=== PATIENT | female | born 1950 | race Caucasian/White ===

== ENCOUNTER → 2017-04-19 | Outpatient (CLI) | payer MEDICARE, OTHER ==
[~2017-04-19] MED LIST: ASPI-482 PO; CETI10TA22 PO; LISI1TAB3 PO; MULT1TAB52 PO
--- NOTE | 2017-04-19 11:42 | RAD ---
DATE: 04/19/2017 EXAM: DIGITAL DIAGNOSTIC BILATERAL, BREAST LEFT diagnostic bilateral digital 2-D mammogram and left breast ultrasound HISTORY: Palpable left breast lump COMPARISON: None Findings: Bilateral diagnostic mammogram: This study was interpreted with the benefit of Computerized Aided Detection (CAD). The breast parenchyma shows scattered fibroglandular densities. Breast parenchyma level B Bilateral digital 2-D CC and MLO views. There is a left breast mass at the 10:00 position, posterior depth. No suspicious mass, calcic is architectural distortion in the right breast. Left breast ultrasound: At the 10:00 position 6 cm from the nipple, there is an irregular hypoechoic mass with angular margins and peripheral echogenicity measuring 1.2 x 1.0 x 1.6 cm. Survey of the left axilla demonstrates no suspicious adenopathy. IMPRESSION: Suspicious left breast mass at 10:00 position 6 and wrist from the nipple measuring 1.6 cm. Ultrasound-guided biopsy of left breast mass is recommended. These findings were discussed with the patient in person by Dr. Nahid Oneal 04/19/2017. These results were discussed with Dr. Kumari's nurse Esthela Lopez, by telephone at 11:35 AM BI-RADS CATEGORY: 5 HIGHLY SUGGESTIVE MALIGNANCY RECOMMENDED FOLLOW-UP: BIO BIOPSY RECOMMENDED PQRS compliance statement: Patient information was entered into a reminder system with a target due date for the next mammogram. Mammography is a sensitive method for finding small breast cancers, but it does not detect them all and is not a substitute for careful clinical examination. A negative mammogram does not negate a clinically suspicious finding and should not result in delay in biopsying a clinically suspicious abnormality. "Our facility is accredited by the [employer] Mammography Program."
== END | disposition home or self-care (01) ==
LOC: MAMMO 09:15
PROVIDERS: ATTEND Family Medicine
DX: N63.20 Unspecified lump in the left breast, unspecified quadrant (principal)
CPT/HCPCS: 76641; G0204; 77066

== ENCOUNTER → 2017-05-06 | Outpatient (CLI) | payer MEDICARE, OTHER ==
[~2017-05-06] MED LIST changes: -ASPI-482 PO; -CETI10TA22 PO; +LIDOCAINE 1% / SOD BICARB 8.4% 20 ML VIAL. IJ ONE; +LIDOCAINE 2%/EPI 1:100,000 20 ML VIAL. IJ ONE; -LISI1TAB3 PO; -MULT1TAB52 PO
--- NOTE | 2017-05-08 11:06 | PATHOLOGY ---
PATHOLOGY REPORT * * * * * * * * FINAL DIAGNOSIS: Breast tissue, left breast mass 10:00 needle biopsy: - INVASIVE DUCTAL CARCINOMA, HIGH-GRADE. SEE COMMENT. COMMENT: Sections of the left breast mass at 10:00 needle biopsy reveal an invasive high-grade ductal carcinoma. The tumor shows little tubule formation, marked nuclear pleomorphism, and marked mitotic activity. The invasive tumor is associated with a reactive desmoplastic stroma. There is focal tumor necrosis. The invasive carcinoma measures up to approximately 1.1 cm in greatest dimension. There are no tumor associated calcifications. There is no lymphovascular tumor invasion. Breast prognostic studies will be obtained, the results of which will be reported separately. The case is also examined by Dr. Barnes, who concurs with the diagnosis. (JPM:mgsid; 05/07/2017) REPORT ELECTRONICALLY SIGNED BY: Theodore Hampton M.D. DATE/TIME: 05/08/2017 11:05 * * * * * * * * GROSS PATHOLOGY: Received in formalin labeled "Monse Rodriguez, left breast," and additionally labeled on the requisition as "10:00 1.6 cm," are multiple needle cores of yellow-morris fibrofatty tissue measuring 2.1 x 0.9 x 0.2 cm in aggregate dimensions. The tissue is submitted in its entirety in cassette A1 through A3. The cold ischemic time is less than 1 minute. The total formalin fixation time is 7 hours and 43 minutes. (TSD; 05/06/2017) INITIAL CPT CODE(S): A; 28637, 86721(4) Professional services performed by [facility] [place] [address] Technical services performed by [facility] at [address] [place] [address], [facility] [address] [address]. SPECIMEN(S) RECEIVED: A.Left breast biopsy @ 10 o'clock 1.6 cm CLINICAL HISTORY: Left breast mass PATIENT: MONSE RODRIGUEZ /AGE: 3 1950 (Age: 66) PATIENT #: [id number] ALT CASE #: SPECIMEN COLLECTION DATE: 05/06/2017 SPECIMEN RECEIVED DATE: 05/06/2017 [facility] - [address] [place] [address] - PHONE: [phone] * * * END OF REPORT * * *
--- NOTE | 2017-05-09 08:37 | RAD ---
Ultrasound-guided left breast biopsy, 05/06/2017: History: Suspicious breast nodule Previous studies demonstrated a hypoechoic nodule at the 10:00 location in the left breast. Under local anesthesia, aseptic conditions and sonographic guidance the [employer] biopsy instrument was passed into this nodule via a lateral approach. Multiple 12-gauge vacuum assisted core samples were obtained and sent to pathology for evaluation. A biopsy marker was then deposited at the biopsy site. The biopsy instrument was removed and hemostasis obtained. Two-view postprocedural digital mammograms show that the biopsy marker has migrated slightly lying 8 mm medial to the medial margin of the biopsied mass. The patient tolerated the procedure well and left the department in good condition. The subsequent pathology report indicated the presence of invasive ductal carcinoma, high-grade. This is a concordant finding. Note: The findings were called to Dr. Storm's office at 8:32 AM on 05/09/2017.
== END | disposition home or self-care (01) ==
LOC: US 14:10
PROVIDERS: ATTEND Surgery
DX: N63.20 Unspecified lump in the left breast, unspecified quadrant (principal)
CPT/HCPCS: 76942; C1713; G0206; 77065

== ENCOUNTER 2017-05-17 09:09 | Inpatient (IN) | payer MEDICARE, OTHER ==
[~2017-05-17] VITALS: Ht 162.6 cm; Wt 73.5 kg
[2017-05-17] VITALS (11 sets, daily range): BP systolic 133–182; BP diastolic 69–89
[~2017-05-17 09:09] MED LIST changes: +ASPI-482 PO; +BUPIVAC MPF-EPI 0.5%-1:200000 30 ML VIAL. ONE; +CETI10TA22 PO; +HYDROmorphone 2 MG/ML VIAL IV PRN; +ISOSULFAN BLUE 50 MG/5 ML VIAL. SQ ONE; +IV RINGERS,LACTATED 1000ML 1,000 ML IV SCH; -LIDOCAINE 1% / SOD BICARB 8.4% 20 ML VIAL. IJ ONE; +LIDOCAINE 1% PF 2 ML VIAL. ID PRN; -LIDOCAINE 2%/EPI 1:100,000 20 ML VIAL. IJ ONE; +LISI1TAB3 PO; +MORPHINE SULFATE 2 MG/ML DISP.SYRIN. IV PRN; +MULT1TAB52 PO; +ONDANSETRON PF 4 MG/2 ML VIAL. IV PRN; +PROCHLORPERAZINE 10 MG/2 ML VIAL. IV PRN; +fentaNYL PF VIAL 100 MCG/2 ML VIAL IV PRN
[2017-05-17] MEDS ORDERED: LIDOCAINE 1% / SOD BICARB 8.4% 20 ML VIAL. IJ ONE (09:45)
[2017-05-17] MEDS ORDERED: ONDANSETRON PF 4 MG/2 ML VIAL. ONE (09:55)
[2017-05-17] MEDS ORDERED: DEXAMETHASONE SOD PHOS 20 MG/5 ML VIAL. ONE (09:55)
[2017-05-17] MEDS ORDERED: MIDAZOLAM HCL/PF 2 MG/2 ML VIAL. ONE (09:55)
[2017-05-17] MEDS ORDERED: LIDOCAINE 2% PF Vial for OR 5 ML VIAL. ONE (09:55)
[2017-05-17] MEDS ORDERED: fentaNYL PF VIAL 100 MCG/2 ML VIAL ONE ×2 (09:55→12:04)
[2017-05-17] MEDS ORDERED: PROPOFOL 20 ML IV ONE (09:56)
[2017-05-17] MEDS ORDERED: KETOROLAC 30 MG/ML INJ FOR OR. INJ ONE (09:56)
[2017-05-17] MEDS ORDERED: diphenhydrAMINE 50 MG/ML VIAL ONE (10:00)
[2017-05-17] MEDS ORDERED: PHENYLEPHRINE in 0.9% NACL PF 1 MG/10 ML SYRINGE. IV ONE (11:28)
[2017-05-17] MEDS ORDERED: POTASSIUM CL 20MEQ-0.45% NACL 1,000 ML IV SCH (13:12)
[2017-05-17] MEDS ORDERED: HYDROmorphone 2 MG/ML VIAL IV PRN (13:15)
[2017-05-17] MEDS ORDERED: ONDANSETRON PF 4 MG/2 ML VIAL. IV PRN (13:15)
[2017-05-17] MEDS ORDERED: diphenhydrAMINE HCL 25 MG CAPSULE PO PRN (13:15)
[2017-05-17] MEDS ORDERED: 0.9 % SODIUM CHLORIDE 10 ML DISP.SYRIN. IV PRN (13:15)
[2017-05-17] MEDS ORDERED: diphenhydrAMINE 50 MG/ML VIAL IV PRN (13:15)
--- NOTE | 2017-05-17 13:28 | PDOC ---
BRIEF OPERATIVE NOTE Date: May 17, 2017 Pre-Op Diagnosis biopsy proven invasive carcinoma, left breast Post-Op Diagnosis same Procedure Performed left simple mastectomy left axillary SLN biopsy Surgeon Emeterio Anesthesia Type: General Blood Loss 25cc IV Fluid 800cc Specimens Obtained "hot" blue left axillary lymph node left breast Findings negative SLN on frozen section Complications none Operative Note Wk # [id number] SHARRI SHRESTHA MD May 17, 2017 13:28
--- NOTE | 2017-05-17 13:39 | OP ---
DATE OF SURGERY: 05/17/2017 PREOPERATIVE DIAGNOSIS: Biopsy proven invasive carcinoma, left breast. POSTOPERATIVE DIAGNOSIS: Biopsy proven invasive carcinoma, left breast. PROCEDURE: Left simple mastectomy and left axillary sentinel lymph node biopsy. SURGEON: Sharri Shrestha MD. ANESTHESIA: General LMA. ESTIMATED BLOOD LOSS: 25 mL. INTRAVENOUS FLUID: 800 mL. INDICATIONS: The patient is a 66-year-old lady with biopsy proven invasive carcinoma of the left breast, brought for mastectomy and sentinel node biopsy. OPERATIVE REPORT: The patient was brought to the operating suite, given a general LMA and the left breast, arm and chest were prepped and draped in usual sterile fashion. 4 mL of Lymphazurin was injected intradermally circumareolarly in the quadrant corresponding to the location of the tumor. The breast was then gently massaged for 4 minutes. An elliptical skin incision was outlined with a marking pen. Superior incision made and skin flap developed with cautery dissection. We took our dissection up into the axilla where with the help of the C-Trak probe and the staining from the Lymphazurin, we identified a "hot" blue lymph node. This was harvested and sent to pathology for frozen section. While awaiting those results, the inferior skin flap was made, developed with cautery dissection and the breast was swept off the chest wall from medial to lateral to the lateral margin of the pectoralis musculature. The low level axillary contents were swept out inferomedially along with the breast and was removed en bloc. Intraoperative report from the pathologist was negative for evidence of metastatic disease in the sentinel node. As such, we checked the wound for hemostasis. This was obtained with cautery or 3-0 Vicryl stick ties. When hemostasis was present and a correct sponge count was obtained, two 19-Japanese round Ney drains were placed. The lateral drain in the axilla, medial drain under the superior skin flap. Each was secured to the skin with a 2-0 silk suture and neither showed evidence of bleeding from the insertion site. Wound was then closed with interrupted inverted 3-0 Vicryl in subcutaneous tissue, subcuticular 4-0 Monocryl with Steri-Strips for the skin. Sterile dressing applied. The patient awakened from her anesthetic and taken to the recovery room in satisfactory condition. SHARRI SRHESTHA MD DR: Margaret JOB#: [id number] / [id number]
--- NOTE | 2017-05-17 13:49 | RAD ---
Indication: Left breast cancer. Technique: The procedure, its risk and benefits, and potential complications was discussed with the patient. All questions were answered. Written consent was obtained. Timeout procedure was performed. Patient was prepped in the usual manner. Using topical analgesic spray, four dermal periareolar injections were performed. Total dose of the 4 injections is 1.0 mCi technetium 99m labeled filtered sulfur colloid. Patient tolerated procedure well. Patient was transferred to the operative suite prior to any imaging performed in the department. Impression: Lymphoscintigraphy for intraoperative planning purposes.
[2017-05-17] MEDS: hydroCHLOROthiazide 12.5 MG CAPSULE PO SCH (17:00)
[2017-05-17] MEDS ORDERED: CETIRIZINE HCL 10 MG TABLET. PO SCH (17:00)
[2017-05-17] MEDS: LISINOPRIL 10 MG TABLET PO SCH (17:01)
[2017-05-17] MEDS: oxyCODONE/APAP 5/325 1 TAB TABLET PO PRN (20:57)
[2017-05-17] MEDS: DOCUSATE SODIUM 100 MG CAPSULE. PO SCH (20:57)
[2017-05-17] MEDS: ENOXAPARIN 40 MG/0.4 ML SYRINGE. SQ SCH (23:10)
[2017-05-18 03:00] VITALS: BP 141/77
[2017-05-18 07:00] VITALS: BP 94/53
[2017-05-18] MEDS: DOCUSATE SODIUM 100 MG CAPSULE. PO SCH ×2 (08:52→23:19)
[2017-05-18] MEDS: hydroCHLOROthiazide 12.5 MG CAPSULE PO SCH (08:53)
[2017-05-18] MEDS: MULTIVITAMIN with MINERAL TABLET. PO SCH (08:53)
[2017-05-18] MEDS: CETIRIZINE HCL 10 MG TABLET. PO SCH (08:53)
[2017-05-18] MEDS: LISINOPRIL 10 MG TABLET PO SCH (09:00)
[2017-05-18] MEDS ORDERED: NON FORMULARY ITEM (Lisinopril/Hydrochlorothiazide (Lisinopril-Hctz 10-12.5 Mg Tab) 1 TAB) PO SCH (09:00)
[2017-05-18 10:35] VITALS: BP 115/62
--- NOTE | 2017-05-18 10:56 | PDOC ---
SURGICAL PROGRESS NOTE Subjective Pt with c/o fatigue, less pain then she was expecting Vital Signs Vital Signs Date Time Temp Pulse Resp B/P (MAP) Pulse Ox O2 Delivery O2 Flow Rate FiO2 05/18/17 09:00 66 94/53 05/18/17 07:00 97.7 16 95 Room Air 97.7 05/17/17 12:39 10 I&O Intake and Output 05/18/17 07:00 Intake Total 1550 ml Output Total 115 ml Balance 1435 ml Intake IV Total 1550 ml Output Drainage Total 90 ml Estimated Blood Loss 25 ml # Voids 6 General: Alert, Oriented X3, Cooperative, No acute distress Lungs: Other (chest wall dressing c/d/i, KVNG min serosang) Problem List s/p mastectomy nursing noted crackles low BP will check CXR and ask primary for evaluation Problems: SUZETTE MONGE MD May 18, 2017 10:56
[2017-05-18] MEDS: POTASSIUM CL 20MEQ D5-0.9%NACL 1,000 ML IV SCH ×2 (11:30→21:30)
--- NOTE | 2017-05-18 12:11 | RAD ---
2 view chest 05/18/2017 Clinical indication: Crackles. Comparison: CT chest 11/10/2011 Findings: There are 2 surgical drains overlying the left hemithorax. Cardiac and mediastinal silhouettes are unremarkable. There are multiple mediastinal and left hilar calcified granulomas. No pleural effusion, pneumothorax or focal consolidation. There are multiple left upper quadrant surgical clips. There are multiple punctate nodular opacities in the apical left upper lobe, unchanged since 2012 and also likely sequela of prior granulomatous disease. Impression: No acute cardiopulmonary abnormality.
[2017-05-18 13:11] LABS: CALCIUM 8.9 mg/dL (8.5-10.1); CREATININE 0.8 mg/dL (0.6-1.0); GFR 71.5; POTASSIUM 3.4 mmol/L (3.5-5.1)
[2017-05-18 15:03] VITALS: BP 115/64
[2017-05-18 19:00] VITALS: BP 125/69
[2017-05-18 23:00] VITALS: BP 131/77
[2017-05-18] MEDS: ENOXAPARIN 40 MG/0.4 ML SYRINGE. SQ SCH (23:19)
[2017-05-18] MEDS: oxyCODONE/APAP 5/325 1 TAB TABLET PO PRN (23:28)
[2017-05-19 03:00] VITALS: BP 143/83
[2017-05-19 06:57] VITALS: BP 143/84
[2017-05-19] MEDS: POTASSIUM CL 20MEQ D5-0.9%NACL 1,000 ML IV SCH (07:30)
--- NOTE | 2017-05-19 07:34 | PDOC ---
Provider Note Provider Note [id number] ROSY BECKHAM MD May 19, 2017 07:34
--- NOTE | 2017-05-19 09:44 | PDOC3 ---
Discharge Summary Visit Information Date of Admission: May 17, 2017 Date of Discharge: May 19, 2017 Admitting Diagnosis: Breast cancer Brief Hospital Course Allergies Allergies Coded Allergies Type Severity Reaction Last Updated Verified bee venom protein (honey bee) Allergy Intermediate Swelling 05/17/17 Yes coconut Allergy Intermediate Rash 05/17/17 Yes Vital Signs Vital Signs Date Time Temp Pulse Resp B/P (MAP) Pulse Ox O2 Delivery O2 Flow Rate FiO2 05/19/17 06:57 96.9 100 18 143/84 (103) 90 Room Air 96.9 Lab Results Laboratory Tests Test 05/18/17 12:30 Sodium Level 138 mmol/L (136-145) Potassium Level 3.4 mmol/L (3.5-5.1) Chloride Level 100 mmol/L (98-107) Carbon Dioxide Level 31 mmol/L (21-32) Anion Gap 7 (6-14) Blood Urea Nitrogen 15 mg/dL (7-20) Creatinine 0.8 mg/dL (0.6-1.0) Estimated GFR (Cockcroft-Gault) 71.5 Glucose Level 113 mg/dL (70-99) Calcium Level 8.9 mg/dL (8.5-10.1) Laboratory Tests Test 05/18/17 12:30 Sodium Level 138 mmol/L (136-145) Potassium Level 3.4 mmol/L (3.5-5.1) Chloride Level 100 mmol/L (98-107) Carbon Dioxide Level 31 mmol/L (21-32) Anion Gap 7 (6-14) Blood Urea Nitrogen 15 mg/dL (7-20) Creatinine 0.8 mg/dL (0.6-1.0) Estimated GFR (Cockcroft-Gault) 71.5 Glucose Level 113 mg/dL (70-99) Calcium Level 8.9 mg/dL (8.5-10.1) Brief Hospital Course Ms. Rodriguez is a 66 old F who presented with left breast cancer. She underwent left mastectomy. POD #1 she was noted to have low BP. This resolved, and POD # 2 she was doing well and stable for d/c home. Discharge Information Scheduled Aspirin (Aspir 81), 81 MG PO BID, (Reported) Cetirizine Hcl (Zyrtec), 1 TAB PO DAILY, (Reported) Lisinopril/Hydrochlorothiazide (Lisinopril-Hctz 10-12.5 Mg Tab), 1 TAB PO DAILY, (Reported) Multivitamin (Multivitamins), 1 TAB PO DAILY, (Reported) Patient Instructions Patient Instructions Resume home meds diet as tolerated. activity as tolerated, gentle exercise left arm drain care instruction f/u with Dr. Storm in one week Scripts: rima gonzalez STEPHEN J MD May 19, 2017 09:44
[2017-05-19] MEDS: DOCUSATE SODIUM 100 MG CAPSULE. PO SCH (10:10)
[2017-05-19] MEDS: oxyCODONE/APAP 5/325 1 TAB TABLET PO PRN (10:10)
[2017-05-19] MEDS: MULTIVITAMIN with MINERAL TABLET. PO SCH (10:10)
[2017-05-19] MEDS: CETIRIZINE HCL 10 MG TABLET. PO SCH (10:10)
[2017-05-19 11:00] VITALS: BP 135/71
--- NOTE | 2017-05-19 12:07 | CONS ---
DATE OF CONSULTATION: 05/19/2017 CHIEF COMPLAINT: Low blood pressure after surgery. HISTORY OF PRESENT ILLNESS: A 66-year-old white female known to me for recent first exam for left breast mass, also has a lesion on her scalp that was recently biopsied, felt to be a basal cell cancer. She underwent left mastectomy by Dr. Storm on day of admission and I was consulted for low blood pressure. She does take lisinopril and hydrochlorothiazide. Has preoperative medications and these meds were held and IV fluids ordered and blood pressure has improved since that time. PAST MEDICAL HISTORY: Well documented in the old records. ALLERGIES: No drug allergies. No other meds. SOCIAL HISTORY: She is , nonsmoker, nondrinker, physically active. FAMILY HISTORY: Unremarkable. REVIEW OF SYSTEMS: No other complaints. OBJECTIVE: ENT: All within normal limits except for the 12 mm irregular scalp lesion in the left frontal scalp, status post biopsy. NECK: No masses, nodes or bruits. LUNGS: Clear. CARDIOVASCULAR: Regular rate. No irregular beat or murmur. ABDOMEN: Benign. EXTREMITIES: Good pedal and radial pulses, good skin turgor. No joint or skin lesions. NEUROLOGIC: Physiologic. ASSESSMENT: Postoperative hypotension, primarily due to antihypertensive medications. She is stable, status post left mastectomy and also has a left scalp lesion, likely a basal cell cancer. Potassium was mildly low at 3.4. PLAN: Continue IV hydration today and stop IV fluids. Hold blood pressure medicines for now. We will follow. ROSY BECKHAM MD DR: SHOBHA/karthikeyan JOB#: [id number] / [id number]
--- NOTE | 2017-05-22 00:02 | PATHOLOGY ---
PATHOLOGY REPORT * * * * * * * * FINAL DIAGNOSIS: A. Lymph node, left axillary sentinel lymph node hot and blue: - Negative for tumor (0/1). B. Breast, left simple mastectomy: - INVASIVE DUCTAL CARCINOMA, HIGH-GRADE, FORMING A TUMOR MASS OF THE UPPER INNER QUADRANT MEASURING 2.2 CM IN GREATEST DIMENSION. SEE SYNOPTIC REPORT. - TUMOR IS FOCALLY 0.1 CM FROM THE CLOSEST (ANTERIOR) MARGIN OF RESECTION. - Deep margin of resection negative for tumor. - Nipple negative for tumor. - No lymphovascular tumor invasion identified. - Recent biopsy site changes. - DUCTAL CARCINOMA IN SITU, LOW GRADE, SOLID TYPE, FOCAL. - Intraductal papillomas. - Fibrocystic changes with focal moderate ductal epithelial hyperplasia. CLINICAL Clinical History: Other: Breast mass. Radiologic Finding: Mass or architectural distortion SPECIMEN Procedure: Total mastectomy (including nipple and skin) Lymph Node Sampling: Cassatt lymph node(s) Specimen Laterality: Left TUMOR Primary Tumor Site: Invasive Carcinoma: Upper inner quadrant Presence of Invasive Carcinoma: Histologic Type: Invasive mammary carcinoma of no special type (ductal, not otherwise specified) Histologic Grade (Ana Histologic Score): Glandular (Acinar) / Tubular Differentiation: Score 3 (< 10% of tumor area forming glandular / tubular structures) Nuclear Pleomorphism: Score 3 (Vesicular nuclei, often with prominent nucleoli, exhibiting marked variation in size and shape, occasionally with very large and bizarre forms) Mitotic Rate: Score 3 (>=8 mitoses per mm2) Overall Grade: Grade 3 (scores of 8 or 9) Ductal Carcinoma In Situ (DCIS): DCIS is present Negative for extensive intraductal component (EIC) Architectural Patterns: Solid Nuclear Grade (see Table 2 in CAP Protocol): Grade I (low) Necrosis: Not identified Lobular Carcinoma In Situ (LCIS): Not identified Tumor Size: Size of Largest Invasive Carcinoma: Greatest dimension of largest focus of invasion > 1 mm Greatest Dimension (mm): 22 Accessory Tumor Findings Lymph-Vascular Invasion: Not identified Dermal Lymph-Vascular Invasion: Not identified Microcalcifications: Present in nonneoplastic tissue Treatment Effect: Response to Presurgical (Neoadjuvant) Therapy: No known presurgical therapy MARGINS Invasive Carcinoma: Margins uninvolved by invasive carcinoma Distance from Closest Margin: Distance (specify in mm): 1 Closest Uninvolved Margin: Anterior Posterior: 15 Ductal Carcinoma In Situ (DCIS): Margins cannot be assessed: . LYMPH NODES Regional Lymph Nodes: Cassatt lymph node biopsy performed Number of Cassatt Nodes Examined: Specify number: 1 Method of Evaluation of Cassatt Lymph Node(s): Hematoxylin and eosin (H-E), one level Immunohistochemistry Number of Lymph Node(s) Examined (sentinel and nonsentinel): Specify number: 1 STAGE (PTNM) Primary Tumor (Invasive Carcinoma) (pT): pT2: Tumor > 20 mm but <= 50 mm in greatest dimension Category (pN): pN0 (i-): No regional lymph node metastases histologically, negative IHC ADDITIONAL FINDINGS Additional Pathologic Findings: See diagnoses. COMMENT: Sections of the left simple mastectomy reveal an invasive high grade ductal carcinoma, forming a tumor mass of the upper inner quadrant measuring 2.2 cm in greatest dimension. The tumor focally is 0.1 cm from the closest anterior margin of resection. There is no lymphovascular tumor invasion. A single left axillary sentinel lymph node is examined. An immunoperoxidase stain for AE1/AE3 is obtained on this sentinel lymph node and yields the following results: AE1/AE3 (A1) - negative for tumor AE1/AE3 (A2) - negative for tumor (JPM:rlnicola; 05/20/2017) Special stain performed: Immunoperoxidase stain AE1/AE3 on A1 and A2. REPORT ELECTRONICALLY SIGNED BY: Theodore Hampton M.D. DATE/TIME: 05/21/2017 16:05 * * * * * * * * GROSS PATHOLOGY: A. The specimen is received fresh for intraoperative consultation and is designated "left axillary sentinel lymph node hot and blue". This consists of a pinkish-brown lymph node with attached adipose tissue measuring up to 2.1 x 1.7 x 1.2 cm. There is focal bluish discoloration. The specimen is bisected. Sectioning reveals a yellow fatty slightly firm lymph node showing focal bluish discoloration. There is no gross evidence of tumor replacement. One half of the lymph node is submitted for frozen section as FSA1. The tissue remaining from frozen section is submitted for permanent sections as A1. (JPM:[facility]; 05/17/2017) B. Received in formalin labeled "Monse Rodriguez, left breast" and further labeled on the requisition as "stitch at 9:00" is an oriented simple mastectomy specimen which weighs 480 g and measures 22.6 cm from medial to lateral, 19.5 cm from superior to inferior, and 3.2 cm from anterior to posterior. On the anterior surface is an ellipse of mccollum-white skin measuring 17.3 x 7.3 cm, which has a centrally located everted nipple measuring 1.2 x 1.0 x 0.7 cm. The skin surface is grossly unremarkable without induration or retraction. The anterior margin is inked blue and the posterior margin is inked black. The specimen is serially sectioned to reveal a mccollum-white stellate lesion in the upper inner quadrant at approximately 10:00, 3.5 cm from the nipple. The lesion measures 2.2 x 1.6 x 1.5 cm, and is located to the margins as follows: 5.9 cm from medial, 7.2 cm from lateral, 2.2 cm from superior, 11.7 cm from inferior, less than 0.1 cm from anterior, and 1.5 cm from posterior. The uninvolved breast parenchyma is 70% yellow and lobulated and 30% dense white and fibrous, with central focal possible calcifications measuring 0.1-0.2 cm in greatest dimension. No additional masses are identified. Escort Vehicle [employer] sections of the specimen are submitted as follows: B1 upper outer quadrant B2 lower outer quadrant B3 lower inner quadrant B4 upper inner quadrant B5 skin closest to lesion B6 nipple, serially sectioned B7 deep margin closest to lesion B8-B13 entire lesion with anterior margin, submitted sequentially from medial to lateral. The specimen is removed from the patient and placed in formalin at 1213 on 05/17/17. The specimen is removed from formalin at 1925 on 05/19/17. ([facility]; 05/18/2017) FROZEN SECTION DIAGNOSIS: FSA1. Left axillary sentinel lymph node hot and blue: - Negative for tumor. The results are reported to Dr. Storm in the operating room. The remainder of the lymph node is submitted for microscopy as A2. (JPM:deanna/rlnicola; 05/20/2017) Testing performed by [facility] [place] [address] INITIAL CPT CODE(S): A; 90929, 44735, 62456, 30201 B; 20311 Professional services performed by [facility] at [address] [address] Technical services performed by [facility] at [address] [place] [address], [address] [address]. SPECIMEN(S) RECEIVED: A.Left axillary sentinel lymph node, hot and blue B.Left breast CLINICAL HISTORY: Left breast cancer. PATIENT: MONSE RODRIGUEZ /AGE: 3 1950 (Age: 66) PATIENT #: [id number] ALT CASE #: SPECIMEN COLLECTION DATE: 05/17/2017 SPECIMEN RECEIVED DATE: 05/17/2017 [facility] - [address] [place] [address] - PHONE: [phone] * * * END OF REPORT * * *
== END 2017-05-19 12:30 | disposition home or self-care (01) | DRG 581 ==
LOC: OPSVCIP 09:09 → EDSTATUS 10:45 → 4 NORTH 13:44
PROVIDERS: ADMIT Surgery; ATTEND Surgery
PROC: 07B60ZX Excision of Left Axillary Lymphatic, Open Approach, Diagnostic (ICD-10-PCS; principal; 2017-05-17 10:45)
PROC: 0HBU0ZZ Excision of Left Breast, Open Approach (ICD-10-PCS; 2017-05-17 10:45)
DX: C50.912 Malignant neoplasm of unspecified site of left female breast (principal); I95.9 Hypotension, unspecified; Z85.828 Personal history of other malignant neoplasm of skin; Z90.12 Acquired absence of left breast and nipple; Z91.030 Bee allergy status; Z91.018 Allergy to other foods
CPT/HCPCS: 36415; 38792; 71020; 80048; 82040; 85025; 96374; A9541; C1769; J0690; J1100; J1170; J1200; J1650; J1885; J2250; J2270; J2370; J2405; J2704; J3010; J3490; J7120; Q9968; J2001

== ENCOUNTER → 2017-06-11 | Outpatient (CLI) | payer MEDICARE, OTHER | END | disposition home or self-care (01) | LOC: ECHO 13:19 | DX: R94.39 Abnormal result of other cardiovascular function study (principal); C50.212 Malignant neoplasm of upper-inner quadrant of left female breast; Z17.1 Estrogen receptor negative status [ER-] | CPT/HCPCS: 93308 ==

== ENCOUNTER 2017-07-22 08:08 | Day surgery (SDC) | payer MEDICARE, OTHER ==
[~2017-07-22 08:08] MED LIST changes: -ASPI-482 PO; -BUPIVAC MPF-EPI 0.5%-1:200000 30 ML VIAL. ONE; -CETI10TA22 PO; +HYDROmorphone 2 MG/ML VIAL IV; -HYDROmorphone 2 MG/ML VIAL IV PRN; -ISOSULFAN BLUE 50 MG/5 ML VIAL. SQ ONE; -IV RINGERS,LACTATED 1000ML 1,000 ML IV SCH; +LIDOCAINE 1% PF 2 ML VIAL. ID; -LIDOCAINE 1% PF 2 ML VIAL. ID PRN; -LISI1TAB3 PO; +MORPHINE SULFATE 2 MG/ML DISP.SYRIN. IV; -MORPHINE SULFATE 2 MG/ML DISP.SYRIN. IV PRN; -MULT1TAB52 PO; +ONDANSETRON PF 4 MG/2 ML VIAL. IV; -ONDANSETRON PF 4 MG/2 ML VIAL. IV PRN; +PROCHLORPERAZINE 10 MG/2 ML VIAL. IV; -PROCHLORPERAZINE 10 MG/2 ML VIAL. IV PRN; +ceFAZolin 2GM PREMIX 2 GM/50 ML BAG IV; +fentaNYL PF VIAL 100 MCG/2 ML VIAL IV; -fentaNYL PF VIAL 100 MCG/2 ML VIAL IV PRN
[2017-07-22] MEDS ORDERED: NEOMY/BACITR/POLYMYXIN OINT PACKET. TP ×2 (08:35)
[2017-07-22] MEDS: IV RINGERS,LACTATED 1000ML 1,000 ML IV ×2 (08:44)
[2017-07-22] MEDS ORDERED: DEXAMETHASONE SOD PHOS 20 MG/5 ML VIAL. ×2 (08:46)
[2017-07-22] MEDS ORDERED: fentaNYL PF VIAL 100 MCG/2 ML VIAL ×2 (08:46)
[2017-07-22] MEDS ORDERED: PROPOFOL 20 ML IV ×2 (08:46)
[2017-07-22] MEDS ORDERED: LIDOCAINE 2% PF Vial for OR 5 ML VIAL. ×2 (08:46)
[2017-07-22] MEDS ORDERED: ONDANSETRON PF 4 MG/2 ML VIAL. ×2 (08:46)
[2017-07-22] MEDS ORDERED: SEVOFLURANE 31 TO 60 MINUTES. IH ×2 (08:58)
[2017-07-22] MEDS: BUPIVACAINE MPF 0.5% 30 ML VIAL. ×2 (09:13)
[2017-07-22] MEDS: BUPIVAC MPF-EPI 0.5%-1:200000 30 ML VIAL. INJ ×2 (09:13)
[2017-07-22] MEDS: HEPARIN SODIUM 5,000 UNIT in IV NORMAL SALINE 500ML BAG 500 ML IRR (09:13)
[2017-07-22] MEDS ORDERED: PHENYLEPHRINE in 0.9% NACL PF 1 MG/10 ML SYRINGE. IV (09:28)
[2017-07-22] MEDS: oxyCODONE/APAP 5/325 1 TAB TABLET PO ×2 (10:27)
== END 2017-07-22 11:13 | disposition home or self-care (01) ==
LOC: SURG 08:08
DX: C50.912 Malignant neoplasm of unspecified site of left female breast (principal); M19.90 Unspecified osteoarthritis, unspecified site; E66.9 Obesity, unspecified; Z85.828 Personal history of other malignant neoplasm of skin; Z68.42 Body mass index [BMI] 45.0-49.9, adult; K21.9 Gastro-esophageal reflux disease without esophagitis; F17.200 Nicotine dependence, unspecified, uncomplicated; Z85.71 Personal history of Hodgkin lymphoma; Z87.19 Personal history of other diseases of the digestive system; Z98.890 Other specified postprocedural states; Z90.49 Acquired absence of other specified parts of digestive tract; Z91.048 Other nonmedicinal substance allergy status; Z90.710 Acquired absence of both cervix and uterus; Z90.12 Acquired absence of left breast and nipple; Z72.89 Other problems related to lifestyle; Z90.81 Acquired absence of spleen; Z82.49 Family history of ischemic heart disease and other diseases of the circulatory system; Z80.3 Family history of malignant neoplasm of breast; Z87.891 Personal history of nicotine dependence; Z91.030 Bee allergy status; Z91.018 Allergy to other foods; Z85.41 Personal history of malignant neoplasm of cervix uteri; I10 Essential (primary) hypertension; Z79.82 Long term (current) use of aspirin; Z68.41 Body mass index [BMI] 40.0-44.9, adult
CPT/HCPCS: 36556; 36561; 71045; 77001; C1769; C1788; J0690; J1100; J1644; J2370; J2405; J2704; J3010; J3490; J7040

== ENCOUNTER → 2017-10-14 | Outpatient (CLI) | payer MEDICARE, OTHER ==
[2017-10-14] MEDS: IOHEXOL 240 MG/ML 50ML VIAL. PO (10:34)
[2017-10-14] MEDS: IOHEXOL 300 MG/ML 100ML VIAL. IV (10:34)
[2017-10-14] MEDS: HEPARIN PF 500 UNIT/5 ML DISP.SYRIN. IV (10:35)
== END | disposition home or self-care (01) ==
LOC: NM 09:13
DX: C50.212 Malignant neoplasm of upper-inner quadrant of left female breast (principal); Z90.49 Acquired absence of other specified parts of digestive tract
CPT/HCPCS: 71260; 74177; 78306; 96374; A9503; Q9966; Q9967

== ENCOUNTER → 2018-01-29 | Day surgery (SDC) | payer MEDICARE, OTHER ==
[~2018-01-29] MED LIST changes: +ASPI-482 PO; +CETI10TA22 PO; +DOCU-150 PO; +HYDR12.53 PO; -HYDROmorphone 2 MG/ML VIAL IV; -LIDOCAINE 1% PF 2 ML VIAL. ID; +LIDOCAINE 1% PF 2 ML VIAL. ID PRN; +LIDOCAINE 2% PF Vial for OR 5 ML VIAL. ONE; +LISI1TAB3 PO; +MIDAZOLAM HCL/PF 2 MG/2 ML VIAL. IV PRN; -MORPHINE SULFATE 2 MG/ML DISP.SYRIN. IV; +MULT1TAB52 PO; -ONDANSETRON PF 4 MG/2 ML VIAL. IV; +OXYC-323 PO; -PROCHLORPERAZINE 10 MG/2 ML VIAL. IV; +PROPOFOL 40 ML IV ONE; -ceFAZolin 2GM PREMIX 2 GM/50 ML BAG IV; -fentaNYL PF VIAL 100 MCG/2 ML VIAL IV; +fentaNYL PF VIAL 100 MCG/2 ML VIAL IV PRN
[2018-01-29] MEDS: IV RINGERS,LACTATED 1000ML 1,000 ML IV SCH (07:56)
[2018-01-29 09:22] VITALS: BP 106/68
--- NOTE | 2018-01-29 21:58 | HP ---
ADMIT DATE: 01/29/2018 REFERRING PHYSICIAN: Dr. Rosy Kumari. REASON FOR PRESENTATION: History of colon polyps. HISTORY OF PRESENT ILLNESS: This is a 67-year-old female, with past medical history significant for breast cancer, status post treatments as well as previous hysterectomy, appendectomy, cholecystectomy as well as Hodgkin lymphoma, anxiety, asthma, hypertension, seen for interval colon exam. Bowel habits are regular without diarrhea or constipation. There has been no melena and/or hematochezia. Weight and appetite are stable. Last colonoscopy in 2012 did reveal polyps at that time. PAST MEDICAL HISTORY: Breast cancer, Hodgkin lymphoma, hypertension, status post cholecystectomy, hysterectomy, appendectomy and lumpectomy. ALLERGIES: SULFASALAZINE. MEDICATIONS: Include hydrochlorothiazide. SOCIAL HISTORY: Former smoker and drinker. FAMILY HISTORY: Significant for colon polyps in mother and aunt, [place] with her mother, ovarian cancer with mother and aunt. REVIEW OF SYSTEMS: Per records. PHYSICAL EXAMINATION: GENERAL: Reveals a well-nourished, well-developed female who is alert, cooperative, in no acute distress. VITAL SIGNS: Temperature is 97.5, pulse 113, respirations 20. HEENT: Normocephalic, atraumatic head. Pupils and extraocular muscles are not tested. Sclerae anicteric. NECK: Supple. LUNGS: Clear. CARDIOVASCULAR: Reveals an S1, S2 without S3, S4 or appreciable murmur. ABDOMEN: Soft abdomen. Normoactive bowel sounds without appreciable hepatosplenomegaly. EXTREMITIES: Reveals no cyanosis, clubbing or edema. IMPRESSION: History of colonic polyps. Surveillance exam is recommended at this time. Risks and benefits of procedure were discussed with the patient including risk of perforation, is willing to proceed. TUSHAR PATEL MD DR: ROB/karthikeyan JOB#: [id number] / [id number] ROSY Duran MD
== END | disposition home or self-care (01) ==
LOC: SURG 07:16
PROVIDERS: ATTEND Internal Medicine Gastroenterology
DX: Z12.11 Encounter for screening for malignant neoplasm of colon (principal); K57.30 Diverticulosis of large intestine without perforation or abscess without bleeding; K64.0 First degree hemorrhoids; Z86.010 Personal history of colon polyps; Z85.3 Personal history of malignant neoplasm of breast; Z90.49 Acquired absence of other specified parts of digestive tract; Z90.710 Acquired absence of both cervix and uterus; Z85.71 Personal history of Hodgkin lymphoma; F41.9 Anxiety disorder, unspecified; J45.909 Unspecified asthma, uncomplicated; I10 Essential (primary) hypertension; Z88.2 Allergy status to sulfonamides; Z79.899 Other long term (current) drug therapy; Z87.891 Personal history of nicotine dependence; Z72.89 Other problems related to lifestyle; Z83.71 Family history of colonic polyps; Z82.49 Family history of ischemic heart disease and other diseases of the circulatory system; Z80.41 Family history of malignant neoplasm of ovary
CPT/HCPCS: G0105; J2001; J2704; 45378

== ENCOUNTER → 2018-03-14 | Outpatient (CLI) | payer MEDICARE, OTHER ==
[2018-01-29 09:22] VITALS: BP 106/68
[~2018-03-14] MED LIST changes: -LIDOCAINE 1% PF 2 ML VIAL. ID PRN; -LIDOCAINE 2% PF Vial for OR 5 ML VIAL. ONE; -MIDAZOLAM HCL/PF 2 MG/2 ML VIAL. IV PRN; -PROPOFOL 40 ML IV ONE; -fentaNYL PF VIAL 100 MCG/2 ML VIAL IV PRN
--- NOTE | 2018-03-14 12:53 | RAD ---
DATE: 03/14/2018 EXAM: MAMMO NERY DIAG RT HISTORY: Previous left breast cancer COMPARISON: 04/19/2017 This study was interpreted with the benefit of Computerized Aided Detection (CAD). Breast Density: SCATTERED The breast parenchyma shows scattered fibroglandular densities. Breast parenchyma level B. FINDINGS: 2-D and 3-D tomosynthesis imaging was performed in CC and MLO projections. Several small smooth nodules in the lateral aspect of the right breast are unchanged. No new or enlarging breast density is seen. No suspicious microcalcifications are evident. IMPRESSION: Stable right mammograms without evidence of malignancy. BI-RADS CATEGORY: 2 BENIGN FINDING(S) RECOMMENDED FOLLOW-UP: 12M 12 MONTH FOLLOW-UP PQRS compliance statement: Patient information was entered into a reminder system with a target due date for the next mammogram. Mammography is a sensitive method for finding small breast cancers, but it does not detect them all and is not a substitute for careful clinical examination. A negative mammogram does not negate a clinically suspicious finding and should not result in delay in biopsying a clinically suspicious abnormality. "Our facility is accredited by the [employer] Mammography [employer]."
== END | disposition home or self-care (01) ==
LOC: MAMMO 12:19
PROVIDERS: ATTEND Internal Medicine Hematology & Oncology
DX: C50.212 Malignant neoplasm of upper-inner quadrant of left female breast (principal); C53.9 Malignant neoplasm of cervix uteri, unspecified; R92.8 Other abnormal and inconclusive findings on diagnostic imaging of breast; Z17.1 Estrogen receptor negative status [ER-]
CPT/HCPCS: 77065; G0279; 77061

== ENCOUNTER → 2018-05-01 | Outpatient (CLI) | payer MEDICARE, OTHER ==
[2018-01-29 09:22] VITALS: BP 106/68
[~2018-05-01] MED LIST changes: -HYDR12.53 PO; +HYDR12.575 PO; +IOHEXOL 240 MG/ML 50ML VIAL. PO ONE; +IOHEXOL 300 MG/ML 100ML VIAL. IV ONE; -OXYC-323 PO; +OXYC1TAB15 PO
--- NOTE | 2018-05-01 11:50 | RAD ---
CT of the chest, abdomen and pelvis with contrast, 05/01/2018: HISTORY: Left breast malignancy, cervical cancer Multidetector CT imaging was performed following oral and IV administration of contrast. Comparison is made to a study from 10/14/2017. The left breast is surgically absent. There are extensive mediastinal and left hilar gretel calcifications. No mediastinal or hilar adenopathy is seen. There is a calcified granuloma in the left upper lobe. There are a few scattered linear and reticular opacities in the periphery of the upper lobes which are unchanged and are compatible with scars. No pulmonary mass or significant consolidation is seen. There is no evidence of pleural fluid. The gallbladder is surgically absent. There is mild prominence of the central intrahepatic and common bile ducts, probably on a postcholecystectomy basis. No hepatic mass is identified. There are calcified granulomata in the liver. No pancreatic abnormality is seen. Surgical clips in the left upper quadrant suggesting previous splenectomy. There is a tiny soft tissue density in this region which may represent a splenic remnant. Moderate aortic calcific plaquing is present. No abdominal or pelvic adenopathy is seen. The uterus is surgically absent. On the previous study there was a small linear radiopacity in the upper pole of the right kidney which is no longer evident at that level. A tiny calculus in the lower pole of the left kidney is unchanged. There are now 2 new tiny 3 mm radiopacities in the right pelvis which appear to lie in the distal right ureter. These findings indicate migration of the right intrarenal calculi into the distal right ureter. The right renal pelvis is only mildly prominent suggesting only minimal associated ureteral obstruction. The bowel loops are not dilated. Colonic diverticula are present, most numerous in the sigmoid region. No paracolonic inflammatory process is seen. No free fluid is evident in the abdomen or pelvis. Moderate scattered degenerative changes are present in the spine. Several small sclerotic foci are again noted in the right hip, sacrum and lower thoracic spine. These are unchanged and are probably bone islands. IMPRESSION: 1. No CT evidence of metastatic disease in the chest, abdomen or pelvis. 2. Two tiny distal right ureteral calculi are present, having migrated inferiorly from the right kidney since the previous study. There is very little if any associated ureteral obstruction. 3. Miscellaneous chronic findings as described above. PQRS Compliance Statement: One or more of the following individualized dose reduction techniques were utilized for this examination: 1. Automated exposure control 2. Adjustment of the mA and/or kV according to patient size 3. Use of iterative reconstruction technique Electronically signed by: Geo Sharma MD (05/01/2018 11:46 AM) [facility]
--- NOTE | 2018-05-02 14:34 | RAD ---
Radionuclide bone scan, 05/01/2018: HISTORY: Breast cancer Whole-body imaging was performed following IV injection of 26 mCi of technetium 99m MDP. Comparison is made to a study from 10/14/2017. The following findings are delineated: 1. There is mildly increased activity at the wrists, knees, toes and shoulders compatible with arthritis. 2. Activity of the radionuclide about the skeleton is otherwise unremarkable. 3. There is asymmetrically increased activity within the right renal collecting system relative to the left, not evident on the previous study. This may be a transient phenomena. The recent CT study showed no specific evidence of obstruction. Is the patient experiencing flank pain or hematuria? Clinical correlation suggested. IMPRESSION: No bone scan findings to suggest osseous metastatic disease. Electronically signed by: Geo Sharma MD (05/02/2018 2:31 PM) [facility]
== END | disposition home or self-care (01) ==
LOC: NM 08:52
PROVIDERS: ATTEND Internal Medicine Hematology & Oncology
DX: C50.212 Malignant neoplasm of upper-inner quadrant of left female breast (principal); Z17.1 Estrogen receptor negative status [ER-]; N20.1 Calculus of ureter; N13.5 Crossing vessel and stricture of ureter without hydronephrosis
CPT/HCPCS: 71260; 74177; 78306; 96374; A9503; Q9966; Q9967

== ENCOUNTER → 2018-05-29 | Outpatient (CLI) | payer MEDICARE, OTHER ==
[2018-01-29 09:22] VITALS: BP 106/68
[~2018-05-29] MED LIST changes: -IOHEXOL 240 MG/ML 50ML VIAL. PO ONE; -IOHEXOL 300 MG/ML 100ML VIAL. IV ONE
--- NOTE | 2018-05-29 20:52 | KCIC ---
EXAM: Dual energy x-ray absorptiometry (DEXA). HISTORY: Postmenopausal female presents for osteoporosis screening. COMPARISON: None. TECHNIQUE: Dual energy x-ray absorptiometry of the lumbar spine and left hip was performed. Calculation of bone mineral density based on standard deviations above or below the expected young adult normal value (T-score) was completed. FINDINGS: The average bone mineral density in the 1st through 4th lumbar vertebrae is 0.665 g/cmxcm, corresponding with a T-score of -3.5. The average total bone mineral density in the left hip is 0.603 g/cmxcm, corresponding with a T-score of -2.8. IMPRESSION: Osteoporosis measures at the lumbar spine and left hip. Note: Definitions established by the World Health Organization: 1. Normal: T-score is -1.0 or above. 2. Osteopenia: T-score is between -1.0 and -2.5 . 3. Osteoporosis: T-score is -2.5 or below. Electronically signed by: Lesly Bell MD (05/29/2018 8:48 PM) [facility]
== END | disposition home or self-care (01) ==
LOC: KCIC DEXA 11:38
PROVIDERS: ATTEND Family Medicine
DX: M81.0 Age-related osteoporosis without current pathological fracture (principal); Z78.0 Asymptomatic menopausal state
CPT/HCPCS: 77080

== ENCOUNTER 2018-06-08 08:10 | Emergency (ER) | payer MEDICARE, OTHER ==
[~2018-06-08] VITALS: Ht 167.6 cm; Wt 70.8 kg
[2018-06-08 08:27] LABS: BILIRUBIN,URINE NEGATIVE (NEG); CLARITY,URINE CLEAR; COLOR,URINE YELLOW; NITRITE,URINE NEGATIVE (NEG); PROTEIN,URINE 30 mg/dL (NEG-TRACE); UROBILINOGEN,URINE 0.2 mg/dL (0.2 mg/dL)
[2018-06-08] MEDS ORDERED: fentaNYL PF VIAL 100 MCG/2 ML VIAL IV ONE (08:30)
[2018-06-08] MEDS ORDERED: IV NORMAL SALINE 1000ML BAG 1,000 ML IV ONE (08:30)
[2018-06-08] MEDS ORDERED: ONDANSETRON PF 4 MG/2 ML VIAL. IV ONE (08:30)
[2018-06-08 08:34] LABS: BACTERIA,URINE 0 /HPF (0-FEW); RBC,URINE 0 /HPF (0-2); WBC,URINE 0 /HPF (0-4)
[2018-06-08] MEDS ORDERED: IOHEXOL 300 MG/ML 100ML VIAL. IV ONE (09:00)
[2018-06-08] MEDS ORDERED: CONTRAST GIVEN. MC PRN (09:00)
[2018-06-08 09:18] LABS: BASO # 0.1 x10^3/uL (0.0-0.2); BASO % 1 % (0-3); EOS % 0 % (0-3); HEMATOCRIT 46.7 % (36.0-47.0); HEMOGLOBIN 16.1 g/dL (12.0-15.5); LYMPH # 3.7 x10^3/uL (1.0-4.8); LYMPH % 34 % (24-48); MEAN CORPUSCULAR HEMOGLOBIN 31 pg (25-35); MEAN CORPUSCULAR HGB CONC 35 g/dL (31-37); MEAN CORPUSCULAR VOLUME 89 fL (79-100); MONO # 0.7 x10^3/uL (0.0-1.1); MONO % 7 % (0-9); NEUT # 6.2 x10^3uL (1.8-7.7); NEUT % 58 % (31-73); PLATELET COUNT 302 x10^3/uL (140-400); RED BLOOD COUNT 5.22 x10^6/uL (3.50-5.40); RED CELL DISTRIBUTION WIDTH 12.8 % (11.5-14.5); WHITE BLOOD COUNT 10.8 x10^3/uL (4.0-11.0)
[2018-06-08 09:20] LABS: CALCIUM 9.7 mg/dL (8.5-10.1); CREATININE 0.9 mg/dL (0.6-1.0); GFR 62.3; POTASSIUM 3.6 mmol/L (3.5-5.1)
[2018-06-08 09:32] LABS: ALBUMIN 3.6 g/dL (3.4-5.0); ALBUMIN/GLOBULIN RATIO 0.8 (1.0-1.7); TOTAL BILIRUBIN 0.7 mg/dL (0.2-1.0); TOTAL PROTEIN 8.1 g/dL (6.4-8.2)
--- NOTE | 2018-06-08 09:51 | RAD ---
CT ABD PELV W/ IV CONTRST ONLY Indication: left flank pain; back pain; Omni 300, 75ml Exposure: One or more of the following individualized dose reduction techniques were utilized for this examination: 1. Automated exposure control 2. Adjustment of the mA and/or kV according to patient size 3. Use of iterative reconstruction technique. Comparison: May 01, 2018 Contrast: Intravenous contrast was given. No oral contrast per request. FINDINGS: Lower thorax: Lung bases are clear. Liver: Small cysts hypodense lesion right lobe too small to characterize but unchanged. Spleen: Surgically absent. Pancreas: Unremarkable Adrenals: No evidence of mass. Kidneys: Symmetric enhancement. Tiny left lower pole calcification or calculus is again seen. Urinary tracts: There is a 4 mm calculus in the distal right ureter, appears similar as the prior study. However, the calculus which was identified in the more distal right ureter is not definitely seen in the past. Minimal if any hydronephrosis and ureteric dilatation. Gallbladder: Surgically absent. Mild biliary ductal dilatation. Lymph nodes: No significant enlargement Vessels: Atheromatous calcification of the aorta with ectasia, appears similar. No gross aneurysm. GI tract: Colonic diverticulosis. No evidence of acute colitis. No evidence of bowel obstruction. Appendix is not clearly visualized but no inflammatory type changes in the expected location. Reproductive organs:No evidence of mass. Urinary bladder: Not adequately distended for evaluation. Peritoneum: No evidence of pneumoperitoneum. No free fluid. Abdominal wall:Unremarkable Spine: Degenerative spondylosis. Bones: No destructive process identified. External Soft Tissue: No acute findings. IMPRESSION: 1. Distal right ureteric calculus is in similar position with little if any obstruction. The more distal calculus is not well seen and may have passed. 2. Colonic diverticulosis, without evidence of acute colitis. 3. Tiny lower pole left renal calculus, nonobstructive, is again seen. Electronically signed by: Stevie Martin MD (06/08/2018 9:47 AM) [facility]
[2018-06-08] MEDS ORDERED: KETOROLAC 30 MG/ML VIAL. IV ONE (10:15)
[2018-06-08] MEDS ORDERED: ONDA4TAB7 PO (10:18)
[2018-06-08] MEDS ORDERED: IBUP-1060 PO (10:18)
[2018-06-08] MEDS ORDERED: TAMS0.4C97 PO (10:18)
[2018-06-08] MEDS ORDERED: OXYC1TAB15 PO (10:18)
--- NOTE | 2018-06-08 10:19 | PHYS DOC ---
Past Medical History Past Medical History: Cancer, Hypertension, Other Additional Past Medical Histor: BREAST CA, CERVICAL CA, HODGKINS LYMPHOMA, BASAL CELL CARCINOMA Past Surgical History: Appendectomy, Cholecystectomy, Hysterectomy, Splenectomy , Tonsillectomy, Tubal ligation Additional Past Surgical Histo: LEFT MASTECTOMY, POWER PORT Alcohol Use: Rarely Drug Use: Marijuana Adult General Chief Complaint Chief Complaint: FLANK PAIN HPI HPI Patient is a 67 year old [f__sex] who presents with [] Review of Systems Review of Systems Constitutional: Denies fever or chills [] Eyes: Denies change in visual acuity, redness, or eye pain [] HENT: Denies nasal congestion or sore throat [] Respiratory: Denies cough or shortness of breath [] Cardiovascular: No additional information not addressed in HPI [] GI: Denies abdominal pain, nausea, vomiting, bloody stools or diarrhea [] : Denies dysuria or hematuria [] Musculoskeletal: Denies back pain or joint pain [] Integument: Denies rash or skin lesions [] Neurologic: Denies headache, focal weakness or sensory changes [] Endocrine: Denies polyuria or polydipsia [] All other systems were reviewed and found to be within normal limits, except as documented in this note. Current Medications Current Medications Current Medications Medications (Trade) Dose Ordered Sig/Aniya Start Time Stop Time Status Last Admin Dose Admin Fentanyl Citrate (Fentanyl 2ml Vial) 75 mcg 1X ONCE 06/08/18 08:30 06/08/18 08:34 DC 06/08/18 08:44 75 MCG Info (CONTRAST GIVEN -- Rx MONITORING) 1 each PRN DAILY PRN 06/08/18 09:00 06/10/18 08:59 Iohexol (Omnipaque 300 Mg/ml) 75 ml 1X ONCE 06/08/18 09:00 06/08/18 09:01 DC 06/08/18 09:30 75 ML Ketorolac Tromethamine (Toradol 30mg Vial) 30 mg 1X ONCE 06/08/18 10:15 06/08/18 10:16 Ondansetron HCl (Zofran) 4 mg 1X ONCE 06/08/18 08:30 06/08/18 08:34 DC 06/08/18 08:43 4 MG Sodium Chloride 1,000 ml @ 1,000 mls/hr 1X ONCE 06/08/18 08:30 06/08/18 09:29 DC 06/08/18 08:43 1,000 MLS/HR Allergies Allergies Allergies Coded Allergies Type Severity Reaction Last Updated Verified bee venom protein (honey bee) Allergy Intermediate Swelling 07/22/17 Yes coconut Allergy Intermediate Rash 07/22/17 Yes sulfasalazine Allergy Intermediate 01/29/18 Yes chlorzoxazone Allergy Unknown 01/29/18 Yes Physical Exam Physical Exam Constitutional: Well developed, well nourished, no acute distress, non-toxic appearance. [] HENT: Normocephalic, atraumatic, bilateral external ears normal, oropharynx moist, no oral exudates, nose normal. [] Eyes: PERRLA, EOMI, conjunctiva normal, no discharge. [] Neck: Normal range of motion, no tenderness, supple, no stridor. [] Cardiovascular:Heart rate regular rhythm, no murmur [] Lungs & Thorax: Bilateral breath sounds clear to auscultation [] Abdomen: Bowel sounds normal, soft, no tenderness, no masses, no pulsatile masses. [] Skin: Warm, dry, no erythema, no rash. [] Back: No tenderness, no CVA tenderness. [] Extremities: No tenderness, no cyanosis, no clubbing, ROM intact, no edema. [] Neurologic: Alert and oriented X 3, normal motor function, normal sensory function, no focal deficits noted. [] Psychologic: Affect normal, judgement normal, mood normal. [] Current Patient Data Vital Signs Vital Signs Date Time Temp Pulse Resp B/P (MAP) Pulse Ox O2 Delivery O2 Flow Rate FiO2 06/08/18 08:44 12 Room Air 06/08/18 08:12 98.3 113 121/75 (90) 96 98.3 Lab Values Laboratory Tests Test 06/08/18 08:13 06/08/18 08:34 Urine Collection Type Unknown Urine Color Yellow Urine Clarity Clear Urine pH 6.0 Urine Specific [place] 1.020 Urine Protein 30 mg/dL (NEG-TRACE) Urine Glucose (UA) Negative mg/dL (NEG) Urine Ketones (Stick) Trace mg/dL (NEG) Urine Blood Negative (NEG) Urine Nitrite Negative (NEG) Urine Bilirubin Negative (NEG) Urine Urobilinogen Dipstick 0.2 mg/dL (0.2 mg/dL) Urine Leukocyte Esterase Negative (NEG) Urine RBC 0 /HPF (0-2) Urine WBC 0 /HPF (0-4) Urine Bacteria 0 /HPF (0-FEW) White Blood Count 10.8 x10^3/uL (4.0-11.0) Red Blood Count 5.22 x10^6/uL (3.50-5.40) Hemoglobin 16.1 g/dL (12.0-15.5) H Hematocrit 46.7 % (36.0-47.0) Mean Corpuscular Volume 89 fL (79-100) Mean Corpuscular Hemoglobin 31 pg (25-35) Mean Corpuscular Hemoglobin Concent 35 g/dL (31-37) Red Cell Distribution Width 12.8 % (11.5-14.5) Platelet Count 302 x10^3/uL (140-400) Neutrophils (%) (Auto) 58 % (31-73) Lymphocytes (%) (Auto) 34 % (24-48) Monocytes (%) (Auto) 7 % (0-9) Eosinophils (%) (Auto) 0 % (0-3) Basophils (%) (Auto) 1 % (0-3) Neutrophils # (Auto) 6.2 x10^3uL (1.8-7.7) Lymphocytes # (Auto) 3.7 x10^3/uL (1.0-4.8) Monocytes # (Auto) 0.7 x10^3/uL (0.0-1.1) Eosinophils # (Auto) 0.0 x10^3/uL (0.0-0.7) Basophils # (Auto) 0.1 x10^3/uL (0.0-0.2) Sodium Level 136 mmol/L (136-145) Potassium Level 3.6 mmol/L (3.5-5.1) Chloride Level 99 mmol/L (98-107) Carbon Dioxide Level 27 mmol/L (21-32) Anion Gap 10 (6-14) Blood Urea Nitrogen 16 mg/dL (7-20) Creatinine 0.9 mg/dL (0.6-1.0) Estimated GFR (Cockcroft-Gault) 62.3 BUN/Creatinine Ratio 18 (6-20) Glucose Level 120 mg/dL (70-99) H Calcium Level 9.7 mg/dL (8.5-10.1) Total Bilirubin 0.7 mg/dL (0.2-1.0) Aspartate Amino Transferase (AST) 21 U/L (15-37) Alanine Aminotransferase (ALT) 24 U/L (14-59) Alkaline Phosphatase 99 U/L (46-116) Total Protein 8.1 g/dL (6.4-8.2) Albumin 3.6 g/dL (3.4-5.0) Albumin/Globulin Ratio 0.8 (1.0-1.7) L Laboratory Tests 06/08/18 08:34 Laboratory Tests 06/08/18 08:34 EKG EKG [] Radiology/Procedures Radiology/Procedures [] Course & Med Decision Making Course & Med Decision Making Pertinent Labs and Imaging studies reviewed. (See chart for details) [] Dragon Disclaimer Dragon Disclaimer This electronic medical record was generated, in whole or in part, using a voice recognition dictation system. Departure Departure Impression: Primary Impression: Renal and ureteric calculus Additional Impression: Nausea & vomiting Disposition: 01 HOME, SELF-CARE Condition: STABLE Referrals: ROSY BECKHAM MD (PCP) VENU DIAZ MD Patient Instructions: Diet for Kidney Stones Additional Instructions: Take the medication as directed. Do not drive or operate heavy machinery while taking the pain medication. Follow-up with urology next week. Strain your urine. If worsening return to the emergency department. Scripts Ibuprofen (IBUPROFEN) 800 Mg Tablet 800 MG PO PRN Q6HRS PRN for INFLAMMATION, #30 TAB Prov: STEFANIE TOVAR APRN 06/08/18 Ondansetron Hcl (ZOFRAN) 4 Mg Tablet 1 TAB PO Q6HRS for nausea, #20 TAB Prov: STEFANIE TOVAR APRN 06/08/18 Oxycodone/Apap 5-325 (PERCOCET 5-325 MG TABLET ) 1 Each Tablet 1 TAB PO PRN Q6HRS PRN for PAIN, #20 TAB 0 Refills Prov: STEFANIE TOVAR APRN 06/08/18 Tamsulosin Hcl (FLOMAX) 0.4 Mg Cap.er.24h 1 CAP PO DAILY for renal calculi, #30 CAP 11 Refills Prov: STEFANIE TOVAR APRN 06/08/18 Problem Qualifiers STEFANIE TOVAR APRN Jun 08, 2018 10:19
[2018-06-08 10:23] VITALS: BP 146/73
[2018-06-08] MEDS ORDERED: IOHEXOL 300 MG/ML 100ML VIAL. ONE (15:17)
== END 2018-06-08 10:32 | disposition home or self-care (01) ==
LOC: ER 08:10
DX: N20.0 Calculus of kidney (principal); N20.1 Calculus of ureter; R11.2 Nausea with vomiting, unspecified; I10 Essential (primary) hypertension; Z90.49 Acquired absence of other specified parts of digestive tract; Z90.710 Acquired absence of both cervix and uterus; Z90.89 Acquired absence of other organs; Z88.2 Allergy status to sulfonamides; Z88.8 Allergy status to other drugs, medicaments and biological substances; Z91.030 Bee allergy status; Z91.018 Allergy to other foods
CPT/HCPCS: 36415; 74177; 80053; 81001; 85025; 96361; 96374; 96375; 99284; J1885; J2405; J3010; J7030; Q9967

== ENCOUNTER 2018-06-13 07:24 | Emergency (ER) | payer MEDICARE, OTHER ==
[~2018-06-13] VITALS: Ht 167.6 cm; Wt 71.7 kg
[~2018-06-13 07:24] MED LIST changes: +IBUP-1060 PO; +ONDA4TAB7 PO; +TAMS0.4C97 PO
[2018-06-13 07:35] VITALS: BP 129/61
[2018-06-13] MEDS ORDERED: VALA10005 PO (07:50)
[2018-06-13] MEDS ORDERED: GABA-585 PO (07:50)
--- NOTE | 2018-06-13 07:51 | PHYS DOC ---
Past Medical History Past Medical History: Cancer, Hypertension, Other Additional Past Medical Histor: BREAST CA, CERVICAL CA, HODGKINS LYMPHOMA, BASAL CELL CARCINOMA Past Surgical History: Appendectomy, Cholecystectomy, Hysterectomy, Splenectomy , Tonsillectomy, Tubal ligation Additional Past Surgical Histo: LEFT MASTECTOMY, POWER PORT Alcohol Use: Rarely Drug Use: Marijuana Adult General Chief Complaint Chief Complaint: rash HPI HPI 67-year-old female presenting to the emergency department today with a rash on her left flank. It is a stinging burning pain for the past 2-3 days. She recently was seen for kidney stone which is feeling better. She denies any other symptoms. Review of systems is negative for confusion neck stiffness fevers chills. All other review of systems is negative unless otherwise noted in history of present illness. ED course: 59-year-old female presenting with shingles. We'll start her on Valtrex. Recent creatinine was within normal limits. We'll give her oral gabapentin for pain as needed.The patient has been examined and was not found to have an emergency medical condition. The patient was then discharged home in stable condition to follow up with their primary care physician over the next 1- 2 days. They were to return if their symptoms worsened or if they were concerned for any reason. They were also instructed to return to the emergency department if they were unable to get the recommended and appropriate follow- up. [id number] discharge instructions and return precautions were given. Patient's questions were answered to their satisfaction. Patient is comfortable with plan. Review of Systems Review of Systems SEE ABOVE. Allergies Allergies Allergies Coded Allergies Type Severity Reaction Last Updated Verified bee venom protein (honey bee) Allergy Intermediate Swelling 06/13/18 Yes coconut Allergy Intermediate Rash 06/13/18 Yes sulfasalazine Allergy Intermediate 06/13/18 Yes chlorzoxazone Allergy Unknown 06/13/18 Yes Physical Exam Physical Exam SEE ABOVE Constitutional: Well developed, well nourished, no acute distress, non-toxic appearance. [] HENT: Normocephalic, atraumatic, bilateral external ears normal, oropharynx moist, no oral exudates, nose normal. [] Eyes: PERRLA, EOMI, conjunctiva normal, no discharge. [] Neck: Normal range of motion, no tenderness, supple, no stridor. [] Cardiovascular:Heart rate regular rhythm, no murmur [] Lungs & Thorax: Bilateral breath sounds clear to auscultation [] Abdomen: Bowel sounds normal, soft, no tenderness, no masses, no pulsatile masses. [] Skin: On examination the patient has erythematous papules in a dermatomal distribution on the left side. There are small grouped vesicles as well with mild crusting over top. Otherwise skin is wnl Back: No tenderness, no CVA tenderness. [] Extremities: No tenderness, no cyanosis, no clubbing, ROM intact, no edema. [] Neurologic: Alert and oriented X 3, normal motor function, normal sensory function, no focal deficits noted. [] Psychologic: Affect normal, judgement normal, mood normal. [] EKG EKG [] Radiology/Procedures Radiology/Procedures [] Course & Med Decision Making Course & Med Decision Making Pertinent Labs and Imaging studies reviewed. (See chart for details) [] Dragon Disclaimer Dragon Disclaimer This electronic medical record was generated, in whole or in part, using a voice recognition dictation system. Departure Departure Impression: Primary Impression: Larry Disposition: HOME, SELF-CARE Condition: STABLE Referrals: ROSY BECKHAM MD (PCP) Patient Instructions: Larry Additional Instructions: Thank you for allowing us to participate in your care today. Return to the emergency department you have any new or worsening symptoms, or if you are concerned for any reason. Return to emergency department if you have any new or concerning symptoms including but not limited to fever, chills, nausea, vomiting, intractable pain, any new rashes, chest pain, shortness of air , uncontrolled bleeding, difficulty breathing, and/or vision loss. Follow up with your primary care physician within 1-2 days. Call your Primary Doctor tomorrow and inform them of your visit today. If you do not have a primary care provider we are happy to provide you with a list of our primary care providers contact information. This condition should be evaluated by your primary care physician and any recommended consulting services for continued management within 2 days after discharge. If at any time, you are having difficulty getting into your primary care doctor or a specialist, return to the emergency department. Scripts Gabapentin (GABAPENTIN ) 100 Mg Capsule 100 MG PO TID PRN PRN for PAIN for 5 Days, #15 CAP 0 Refills Prov: LOUISE STEINER MD 06/13/18 Valacyclovir Hcl (VALTREX) 1,000 Mg Tablet 1 TAB PO DAILY, #7 TAB 0 Refills Prov: LOUISE STEINER MD 06/13/18 LOUISE STEINER MD Jun 13, 2018 07:50
== END 2018-06-13 08:04 | disposition home or self-care (01) ==
LOC: ER 07:24 → EEVIPCON 07:24 → ER 08:04
DX: B02.9 Zoster without complications (principal); I10 Essential (primary) hypertension; Z88.8 Allergy status to other drugs, medicaments and biological substances; Z88.2 Allergy status to sulfonamides; Z91.018 Allergy to other foods; Z91.030 Bee allergy status
CPT/HCPCS: 99283

== ENCOUNTER → 2019-03-16 | Outpatient (CLI) | payer MEDICARE, OTHER ==
[~2019-03-16] MED LIST changes: +GABA-585 PO; +LISI1TAB23 PO; -LISI1TAB3 PO; +VALA10005 PO
--- NOTE | 2019-03-16 13:26 | RAD ---
DATE: 03/16/2019 EXAM: MAMMO NERY DIAG RT HISTORY: Routine screening; left mastectomy in 2017 COMPARISON: 04/19/2017 bilateral screening mammographic exam, 03/14/2018 right unilateral mammographic exam This study was interpreted with the benefit of Computerized Aided Detection (CAD). Breast Density: SCATTERED The breast parenchyma shows scattered fibroglandular densities. Breast parenchyma level B. FINDINGS: Parenchymal distribution is stable. Small masses at the right upper-outer breast are stable. No new mass, suspicious calcification, or distortion. IMPRESSION: Stable BI-RADS CATEGORY: 1 NEGATIVE RECOMMENDED FOLLOW-UP: 12M 12 MONTH FOLLOW-UP PQRS compliance statement: Patient information was entered into a reminder system with a target due date for the next mammogram. Mammography is a sensitive method for finding small breast cancers, but it does not detect them all and is not a substitute for careful clinical examination. A negative mammogram does not negate a clinically suspicious finding and should not result in delay in biopsying a clinically suspicious abnormality. "Our facility is accredited by the [employer] Mammography Program."
== END | disposition home or self-care (01) ==
LOC: MAMMO 12:39
PROVIDERS: ATTEND Internal Medicine Hematology & Oncology
DX: C50.212 Malignant neoplasm of upper-inner quadrant of left female breast (principal); N63.11 Unspecified lump in the right breast, upper outer quadrant; Z17.1 Estrogen receptor negative status [ER-]
CPT/HCPCS: 77065; G0279; 77061

== ENCOUNTER 2019-12-02 16:13 | Inpatient (IN) | payer MEDICARE ==
[~2019-12-02] VITALS: Ht 167.6 cm; Wt 67.1 kg
[~2019-12-02 16:13] MED LIST changes: +ASPI81TA50 PO; -CETI10TA22 PO; +CETI10TA74 PO; +MULT-245 PO; +MULT-445 PO; -MULT1TAB52 PO
[2019-12-02 16:43] VITALS: BP 140/87
[2019-12-02] MEDS ORDERED: ONDA4TAB12 PO (16:48)
[2019-12-02] MEDS ORDERED: FLUT9.9S NS (16:52)
[2019-12-02] MEDS ORDERED: ALBU2.5V8 IH (16:52)
[2019-12-02] MEDS ORDERED: ONDANSETRON ODT 4 MG TAB.RAPDIS. PO PRN (17:30)
[2019-12-02] MEDS ORDERED: IBUP200C9 PO (17:46)
--- NOTE | 2019-12-02 18:00 | NUR ---
69 year old female admitted for bilateral pleural effusions. admission history completed. states she isnt able to lie flat in bed and has been sleeping in her recliner. denies coughing up sputum; but was having post nasal drainage that was making her nauseated and coughing up frothy white/clear phlegm. she does get SOA with exertion and ambulation. was given an inhaler that she has been using every 4 hrs--"that helps some". she has 2 + edema in roby ankles and pedal that is dependent. "should go away when i put my feet up". she is rating her pain a "3" and she takes advil for it. explained because of the possible thoracentesis tomorrow would not given her advil or her baby asa until after IR completed. verbalized understanding. granddaughter here and given privacy code
[2019-12-02 19:00] VITALS: BP 122/80
[2019-12-02 23:00] VITALS: BP 120/74
[2019-12-03] VITALS (7 sets, daily range): BP systolic 102–132; BP diastolic 53–81
[2019-12-03] MEDS: ALBUTEROL SULFATE 2.5 MG/3 ML NEBU. NEB PRN ×3 (00:44→21:20)
[2019-12-03 07:08] LABS: BASO # 0.1 x10^3/uL (0.0-0.2); BASO % 1 % (0-3); EOS # 0.1 x10^3/uL (0.0-0.7); EOS % 1 % (0-3); HEMATOCRIT 44.8 % (36.0-47.0); HEMOGLOBIN 14.8 g/dL (12.0-15.5); LYMPH # 2.3 x10^3/uL (1.0-4.8); LYMPH % 28 % (24-48); MEAN CORPUSCULAR HEMOGLOBIN 30 pg (25-35); MEAN CORPUSCULAR HGB CONC 33 g/dL (31-37); MEAN CORPUSCULAR VOLUME 91 fL (79-100); MONO # 0.9 x10^3/uL (0.0-1.1); MONO % 11 % (0-9); NEUT # 4.9 x10^3/uL (1.8-7.7); NEUT % 59 % (31-73); PLATELET COUNT 238 x10^3/uL (140-400); RED BLOOD COUNT 4.92 x10^6/uL (3.50-5.40); RED CELL DISTRIBUTION WIDTH 13.3 % (11.5-14.5); WHITE BLOOD COUNT 8.3 x10^3/uL (4.0-11.0)
--- NOTE | 2019-12-03 08:35 | PDOC ---
Provider Note Provider Note [id number] Justicifation of Admission Dx: Justifications for Admission: Justification of Admission Dx: Yes CHF: Hemodynamic Instability ROSY BECKHAM MD Dec 03, 2019 08:35
[2019-12-03] MEDS ORDERED: FUROSEMIDE 40 MG TABLET. PO ONE (09:00)
[2019-12-03] MEDS ORDERED: CETIRIZINE HCL 10 MG TABLET. PO SCH (09:00)
[2019-12-03] MEDS: MULTIVITAMIN with MINERAL TABLET. PO SCH (09:00)
[2019-12-03 09:05] LABS: PROTHROMBIN TIME PATIENT 13.3 SEC (11.7-14.0)
[2019-12-03 09:16] LABS: ALBUMIN 3.3 g/dL (3.4-5.0); ALBUMIN/GLOBULIN RATIO 1.1 (1.0-1.7); CALCIUM 8.8 mg/dL (8.5-10.1); CREATININE 0.7 mg/dL (0.6-1.0); GFR 82.7; POTASSIUM 4.1 mmol/L (3.5-5.1); TOTAL BILIRUBIN 0.4 mg/dL (0.2-1.0); TOTAL PROTEIN 6.3 g/dL (6.4-8.2)
--- NOTE | 2019-12-03 09:46 | HP ---
ADMIT DATE: 12/03/2019 CHIEF COMPLAINT: Bilateral pleural effusions. HISTORY OF PRESENT ILLNESS: The patient is a 69-year-old white female, normally healthy, who has undergone a mastectomy and subsequent chemotherapy and has done well. She had increasing dyspnea recently and saw Dr. Padilla in the office. A CT scan revealed profound bilateral pleural effusions up to the apices, but no masses or other specific lesions regarding the etiology or tumor. No pulmonary emboli were seen as well. Laboratory studies are pending and she was admitted because of the severity of the pleural effusions and symptomatic. She has not really had chest pain, cough, fever, hemoptysis, orthopnea or other specific symptoms. She has never had cardiac disease. MEDICATIONS: Meds listed per the chart, she is taking only low dose diuretic 3 times a week. ALLERGIES: TO SULFASALAZINE AND BEE VENOM. SOCIAL HISTORY: Nonsmoker. and physically active, nondrinker, lives with family. FAMILY HISTORY: Unremarkable. REVIEW OF SYSTEMS: No other complaints. OBJECTIVE: ENT: All within normal limits. NECK: No JVD, nodes, thyroid enlargement or masses. LUNGS: Decreased breath sounds with complete dullness throughout all lung lopez to auscultation and percussion. No wheezing or tachypnea. CARDIOVASCULAR: Regular rate, tachycardia, rate is 105-110 and regular. ABDOMEN: Obese, soft, benign and nontender. EXTREMITIES: 1+ ankle edema, otherwise really good pedal and radial pulses. No joint or skin lesions or clubbing. NEUROLOGIC: Physiologic. ASSESSMENT: Bilateral profound pleural effusions, etiology of which is unclear. Cardiogenic seems most likely given the symmetry with no previous cardiac history. Tachycardia could be consistent with hyperthyroidism and multiple other etiologies including cardiomyopathy. PLAN: IR consult for diagnostic and therapeutic thoracentesis. Lab studies including TSH pending. We will give her a dose of Lasix. Echocardiogram is pending as well. ROSY BECKHAM MD DR: SHOBHA/karthikeyan JOB#: [id number] / [id number]
--- NOTE | 2019-12-03 09:47 | RAD ---
Single AP view of the chest. Comparison: 04/29/2019. Indication: Bilateral pleural effusions Findings: Left upper quadrant surgical clips are reidentified. The heart is enlarged but stable. Trace bibasilar effusions are identified. There is pulmonary vascular congestion. Impression: 1. Pulmonary vascular congestion and trace bibasilar effusions are seen. Electronically signed by: Willem Hall MD (12/03/2019 9:44 AM) [id number]
[2019-12-03] MEDS: FLUTICASONE 50MCG/NASAL SPRAY 16GM BOTTLE. NS SCH (09:51)
--- NOTE | 2019-12-03 11:22 | NUR ---
SW following. Discussed with RN, pt from home, using oxygen PRN here (does not have at home). Pt possibly having a thoracentesis today, RN trying to determine if pt will require a COVID-19 test prior to the procedure. SW will continue to follow.
[2019-12-03] MEDS ORDERED: LIDOCAINE WITH 8.4% SOD BICARB 3 ML DISP.SYRIN. ONE (12:21)
[2019-12-03] MEDS ORDERED: LIDOCAINE WITH 8.4% SOD BICARB 3 ML DISP.SYRIN. IJ ONE (12:45)
[2019-12-03 13:57] LABS: BF CLARITY CLEAR; BF COLOR YELLOW; BF MON % 97 %; BF OTHER % 2 %; BF PMN % 1 %; BF RBC COUNT 591 /cmm (Not Established); BF SOURCE PLEURAL; BF WBC COUNT 738 /cmm (Not Established); PH,BODY FLUID 7.61
--- NOTE | 2019-12-03 14:35 | RAD ---
Ultrasound Guided Thoracentesis, right side Indication: Adult female with bilateral pleural effusions Sedation: Local anesthesia only. Sterility: The procedure was performed in its entirety using appropriate elements of sterile technique. Technique and Findings: Following informed consent, the patient was prepped and draped in the usual sterile fashion. Ultrasound interrogation of the area of interest was performed revealing the presence of a pleural fluid collection. 1% Lidocaine was used to achieve local anesthesia over the area of interest. A small dermatotomy was made and a 5F [id number] catheter was advanced under ultrasound guidance into the pleural space and 400 cc's of thin yellow fluid was removed. The catheter was then removed and hemostasis was achieved with manual compression. Impression: US thoracentesis as described.
--- NOTE | 2019-12-03 15:12 | RAD ---
CHEST AP ONLY 1:03 PM Clinical indications: Status post thoracentesis COMPARISON: December 03, 2019 performed at 9:23 AM Findings: Bilateral interstitial lung infiltrates are stable. There has been a decrease in size of the right-sided pleural effusion. Small left-sided pleural effusion is stable. There has been improvement of the left lung base infiltrate or atelectasis. No pneumothorax is seen. Heart size and mediastinum and pulmonary vasculature and both arcenio are stable. Old granulomatous disease is seen. IMPRESSION: No pneumothorax after thoracentesis. Electronically signed by: Christiano Cooper MD (12/03/2019 3:09 PM) [id number]
--- NOTE | 2019-12-03 15:20 | CARD ---
MR#: [id number] Date of Study: 12/03/2019 Ordering Physician: TARAH MARIN, Referring Physician: TARAH MARIN, Tech: Britt Valdivia RDCS APPROVED REPORT EXAM: Two-dimensional and M-mode echocardiogram with Doppler and color Doppler. Other Information Quality : Good INDICATION Pleural Effusion 2D DIMENSIONS Left Atrium(2D)3.8 (1.6-4.0cm)IVSd0.8 (0.7-1.1cm) Aortic Root(2D)2.6 (2.0-3.7cm)LVDd6.4 (3.9-5.9cm) LVOT Diameter2.1 (1.8-2.4cm)PWd0.9 (0.7-1.1cm) LVDs6.0 (2.5-4.0cm)FS (%) 5.7 % SV26.2 mlLVEF(%)12.6 (>50%) Aortic Valve AoV Peak Grover.175.2cm/sAoV VTI30.3cm AO Peak GR.12.3mmHgLVOT Peak Grover.74.0cm/s AO Mean GR.8mmHgAVA (VMAX)1.53cm2 BLANCHE (VTI)1.50cm2 Mitral Valve MV E Tbbzfeef35.9cm/sMV DECEL PWPR237el MV A Gilqsipo127.9cm/sE/A Ratio0.2 LEFT VENTRICLE The Left Ventricle is moderately dilated. There is normal left ventricular wall thickness. Left ventr icle systolic function is severely impaired. The Ejection Fraction is 10-15%. This is significantly d iminished compared to prior echo 06/11/2017. There is severe global hypokinesis of the left ventricle. RIGHT VENTRICLE The right ventricle is normal size. The right ventricular systolic function is normal. ATRIA The left atrium size is normal. The right atrium size is normal. The interatrial septum is intact wit h no evidence for an atrial septal defect or patent foramen ovale as noted on 2-D or Doppler imaging. AORTIC VALVE The aortic valve is mildly thickened but opens well. Doppler and Color Flow revealed trace aortic reg urgitation. There is no significant aortic valvular stenosis. MITRAL VALVE The mitral valve is calcified but opens well. There is no evidence of mitral valve prolapse. There is no mitral valve stenosis. Doppler and Color-flow revealed mild mitral regurgitation. TRICUSPID VALVE The tricuspid valve is normal in structure and function. Doppler and Color Flow revealed trace tricus pid regurgitation. There is no tricuspid valve stenosis. PULMONIC VALVE The pulmonary valve is normal in structure and function. Doppler and Color Flow revealed mild pulmoni c valvular regurgitation. There is no pulmonic valvular stenosis. GREAT VESSELS The aortic root is normal in size. The ascending aorta is normal in size. The IVC is normal in size a nd collapses >50% with inspiration. PERICARDIAL EFFUSION There is no evidence of significant pericardial effusion. Critical Notification Critical Value: No <Conclusion> Left ventricle systolic function is severely impaired. The Ejection Fraction is 10-15%. This is significantly diminished compared to prior echo 06/11/2017. Mild mitral regurgitation. Trace tricuspid regurgitation. There is no evidence of significant pericardial effusion. Signed by : Gilbert Mayen, Electronically Approved : 12/03/2019 15:19:54
[2019-12-03] MEDS: POTASSIUM CHLORIDE 10 MEQ TABLET.ER. PO SCH (17:14)
[2019-12-03] MEDS: FUROSEMIDE 40 MG/4 ML VIAL. IVP SCH (17:15)
[2019-12-03] MEDS: IBUPROFEN 200 MG TABLET. PO PRN (20:08)
[2019-12-03] MEDS: METOPROLOL TART IMMED RELEASE 25 MG TABLET. PO SCH (21:20)
[2019-12-04 03:04] VITALS: BP 99/53
[2019-12-04 07:00] VITALS: BP 105/64
[2019-12-04] MEDS: MULTIVITAMIN with MINERAL TABLET. PO SCH (08:34)
[2019-12-04] MEDS: METOPROLOL TART IMMED RELEASE 25 MG TABLET. PO SCH (08:34)
[2019-12-04] MEDS: FLUTICASONE 50MCG/NASAL SPRAY 16GM BOTTLE. NS SCH (08:34)
[2019-12-04] MEDS: POTASSIUM CHLORIDE 10 MEQ TABLET.ER. PO SCH ×2 (08:34→16:48)
[2019-12-04] MEDS: FUROSEMIDE 40 MG/4 ML VIAL. IVP SCH (08:35)
[2019-12-04] MEDS: ALBUTEROL SULFATE 2.5 MG/3 ML NEBU. NEB PRN ×2 (09:14→19:57)
--- NOTE | 2019-12-04 09:21 | NUR ---
Metoprolol held this morning due to low BP during the night and low BP this morning. Patient denies dizziness upon standing. Will monitor and give later if BP increases per physician order.
[2019-12-04 11:00] VITALS: BP 102/58
[2019-12-04 11:11] LABS: CALCIUM 9.1 mg/dL (8.5-10.1); CREATININE 0.9 mg/dL (0.6-1.0); GFR 61.9
--- NOTE | 2019-12-04 11:21 | PDOC ---
Provider Note Provider Note feels better after lasix- echo shows 10% EF, new- tsh ok- no prior cv dx- will add low dose lisin to metop, cv consult as she will need cath to r/o severe cad- no more lasix needed now Justicifation of Admission Dx: Justifications for Admission: Justification of Admission Dx: Yes CHF: Hemodynamic Instability ROSY BECKHAM MD Dec 04, 2019 11:21
[2019-12-04] MEDS: LISINOPRIL 5 MG TABLET. PO SCH (11:52)
--- NOTE | 2019-12-04 13:55 | PDOC2 ---
CONSULT Date of Consult Date of Consult DATE: 12/04/19 TIME: 13:55 Reason for Consult Reason for Consult: Possible CHF Referring Physician Referring Physician: Dr. Kumari Identification/Chief Complaint Chief Complaint Shortness of breath Source Source: Chart review, Patient History of Present Illness Reason for Visit: 69-year-old female initially presented to PCPs office with progressive shortness of breath. CT scan revealed bilateral pleural effusions and hence admitted for further management. She underwent right sided thoracentesis and diuresis with Lasix with improvement in symptoms. She also complained of retrosternal chest pressure worse with exertion but denied any palpitations or syncope. Past Medical History Past Medical History Hypertension Multiple cancers including breast cancer, Hodgkin's lymphoma, basal cell carcinoma and cervical cancer Heme/Onc: Cancer Past Surgical History Past Surgical History Appendectomy Cholecystectomy Hysterectomy Splenectomy Mastectomy Tonsillectomy Tubal ligation Past Surgical History: Mastectomy Family History Family History Negative for premature coronary disease Social History Social History Patient admitted to occasional alcohol and marijuana use. Current Medications Current Medications Current Medications Albuterol Sulfate (Ventolin Neb Soln) 2.5 mg PRN Q4HRS PRN NEB SHORTNESS OF BREATH Last administered on 12/04/19at 09:14; Start 12/02/19 at 17:30 Cetirizine HCl (ZyrTEC) 10 mg DAILY PO ; Start 12/03/19 at 09:00; Stop 12/03/19 at 08:23; Status DC Ondansetron HCl (Zofran Odt) 4 mg PRN DAILY PRN PO NAUSEA Last administered on 12/03/19at 00:22; Start 12/02/19 at 17:30 Fluticasone Propionate (Flonase) 2 spray DAILY NS Last administered on 12/04/19at 08:34; Start 12/03/19 at 09:00 Multivitamins (Thera M Plus) 1 tab DAILY PO Last administered on 12/04/19at 08:34; Start 12/03/19 at 09:00 Ibuprofen (Motrin) 200 mg PRN Q6HRS PRN PO INFLAMMATION Last administered on 12/03/19at 20:08; Start 12/02/19 at 18:00 Furosemide (Lasix) 40 mg 1X ONCE PO Last administered on 12/03/19at 09:25; Start 12/03/19 at 09:00; Stop 12/03/19 at 09:01; Status DC Lidocaine HCl (Buffered Lidocaine 1%) 3 ml STK-MED ONCE .ROUTE ; Start 12/03/19 at 12:21; Stop 12/03/19 at 12:21; Status DC Lidocaine HCl (Buffered Lidocaine 1%) 3 ml 1X ONCE IJ Last administered on 12/03/19at 12:45; Start 12/03/19 at 12:45; Stop 12/03/19 at 12:46; Status DC Furosemide (Lasix) 40 mg BID92 IVP Last administered on 12/04/19at 08:35; Start 12/03/19 at 17:00; Stop 12/04/19 at 11:16; Status DC Potassium Chloride (Klor-Con) 10 meq BIDWMEALS PO Last administered on 12/04/19at 08:34; Start 12/03/19 at 17:00 Metoprolol Tartrate (Lopressor) 25 mg BID PO Last administered on 12/03/19at 21:20; Start 12/03/19 at 21:00 Lisinopril (Prinivil) 5 mg DAILY PO ; Start 12/04/19 at 12:00 Active Scripts Active Reported Advil (Ibuprofen) 200 Mg Capsule 200 Mg PO PRN 6HRS Proair Hfa Inhaler (Albuterol Sulfate) 8.5 Gm Hfa.aer.ad 1 Puff IH PRN Q4HRS PRN 21 Days Flonase Allergy Relief (Fluticasone Propionate) 9.9 Ml [place].susp 2 Sprays NS DAILY Ondansetron Odt (Ondansetron) 4 Mg Tab.rapdis 1 Tab PO DAILY PRN Multi Vitamin Daily (Multivitamin) 1 Each Tablet 1 Tab PO DAILY 30 Days Zyrtec (Cetirizine Hcl) 10 Mg Tablet 1 Tab PO DAILY Aspir-Low (Aspirin) 81 Mg Tablet.dr 2 Tab PO DAILY Hydrochlorothiazide Capsule (Hydrochlorothiazide) 12.5 Mg Capsule 12.5 Mg PO 3X/WEEK Allergies Allergies: Coded Allergies: bee venom protein (honey bee) (Verified Allergy, Intermediate, Swelling, 06/13/18) chlorzoxazone (Verified Allergy, Intermediate, 12/03/19) coconut (Verified Allergy, Intermediate, Rash, 06/13/18) sulfasalazine (Verified Allergy, Intermediate, 06/13/18) ROS PSYCHOLOGICAL ROS: No: Hallucinations Eyes: No Loss of vision HEENT: No: Epistaxis Respiratory: YES: Shortness of breath; No: Hemoptysis Cardiovascular: No Chest Pain, No Palpitations Gastrointestinal: No Vomiting Genitourinary: No Hematuria Neurological: No Seizures Physical Exam General: Alert, No acute distress HEENT: Atraumatic Lungs: Other (Decreased air entry both bases) Heart: Other (Tachycardic) Abdomen: Soft, No tenderness Extremities: Other (1+ pitting edema) Psych/Mental Status: Mood NL Vitals VITALS Vital Signs Date Time Temp Pulse Resp B/P (MAP) Pulse Ox O2 Delivery O2 Flow Rate FiO2 12/04/19 11:52 76 102/58 12/04/19 11:00 97.8 20 95 Nasal Cannula 2.0 97.8 Labs Labs Laboratory Tests Test 12/03/19 05:55 12/03/19 12:40 12/04/19 10:25 White Blood Count 8.3 x10^3/uL (4.0-11.0) Red Blood Count 4.92 x10^6/uL (3.50-5.40) Hemoglobin 14.8 g/dL (12.0-15.5) Hematocrit 44.8 % (36.0-47.0) Mean Corpuscular Volume 91 fL (79-100) Mean Corpuscular Hemoglobin 30 pg (25-35) Mean Corpuscular Hemoglobin Concent 33 g/dL (31-37) Red Cell Distribution Width 13.3 % (11.5-14.5) Platelet Count 238 x10^3/uL (140-400) Neutrophils (%) (Auto) 59 % (31-73) Lymphocytes (%) (Auto) 28 % (24-48) Monocytes (%) (Auto) 11 % (0-9) Eosinophils (%) (Auto) 1 % (0-3) Basophils (%) (Auto) 1 % (0-3) Neutrophils # (Auto) 4.9 x10^3/uL (1.8-7.7) Lymphocytes # (Auto) 2.3 x10^3/uL (1.0-4.8) Monocytes # (Auto) 0.9 x10^3/uL (0.0-1.1) Eosinophils # (Auto) 0.1 x10^3/uL (0.0-0.7) Basophils # (Auto) 0.1 x10^3/uL (0.0-0.2) Prothrombin Time 13.3 SEC (11.7-14.0) Prothromb Time International Ratio 1.1 (0.8-1.1) Sodium Level 138 mmol/L (136-145) 139 mmol/L (136-145) Potassium Level 4.1 mmol/L (3.5-5.1) 4.0 mmol/L (3.5-5.1) Chloride Level 98 mmol/L (98-107) 96 mmol/L (98-107) Carbon Dioxide Level 34 mmol/L (21-32) 41 mmol/L (21-32) Anion Gap 6 (6-14) 2 (6-14) Blood Urea Nitrogen 17 mg/dL (7-20) 13 mg/dL (7-20) Creatinine 0.7 mg/dL (0.6-1.0) 0.9 mg/dL (0.6-1.0) Estimated GFR (Cockcroft-Gault) 82.7 61.9 BUN/Creatinine Ratio 24 (6-20) Glucose Level 88 mg/dL (70-99) 134 mg/dL (70-99) Calcium Level 8.8 mg/dL (8.5-10.1) 9.1 mg/dL (8.5-10.1) Total Bilirubin 0.4 mg/dL (0.2-1.0) Aspartate Amino Transf (AST/SGOT) 20 U/L (15-37) Alanine Aminotransferase (ALT/SGPT) 28 U/L (14-59) Alkaline Phosphatase 88 U/L (46-116) Total Protein 6.3 g/dL (6.4-8.2) Albumin 3.3 g/dL (3.4-5.0) Albumin/Globulin Ratio 1.1 (1.0-1.7) Thyroid Stimulating Hormone (TSH) 4.161 uIU/mL (0.358-3.74) Body Fluid Source Pleural Body Fluid Color Yellow Body Fluid Clarity Clear Body Fluid pH 7.61 Body Fluid Nucleated Cells 738 /cmm (Not Established) Body Fluid Mononuclear WBCs (%) 97 % Body Fluid Polymorphonuclear Cells 1 % Body Fluid Total RBCs Counted 591 /cmm (Not Established) Body Fluid Other Cells (%) 2 % QG-Gji-K-Type Natriuretic Peptide 3964 pg/mL (0-124) Laboratory Tests Test 12/04/19 10:25 Sodium Level 139 mmol/L (136-145) Potassium Level 4.0 mmol/L (3.5-5.1) Chloride Level 96 mmol/L (98-107) Carbon Dioxide Level 41 mmol/L (21-32) Anion Gap 2 (6-14) Blood Urea Nitrogen 13 mg/dL (7-20) Creatinine 0.9 mg/dL (0.6-1.0) Estimated GFR (Cockcroft-Gault) 61.9 Glucose Level 134 mg/dL (70-99) Calcium Level 9.1 mg/dL (8.5-10.1) ZB-Nld-C-Type Natriuretic Peptide 3964 pg/mL (0-124) Assessment/Plan Assessment/Plan 1. Acute on chronic systolic heart failure with bilateral pleural effusions. Patient had right-sided thoracentesis yesterday. She was diuresed with Lasix overnight with improvement in symptoms. 2D echo showed LVEF 10 to 15%, signific antly decreased from prior 2D echo from 2018 that showed LVEF 50 to 55%. She is also complaining of chest pain worse with exertion concerning for ischemic etiology. Cardiac enzymes negative. Plan for cardiac catheterization, possibly Saturday or Saturday to rule out ischemic etiology. Continue beta-blockers and lisinopril as blood pressure tolerates. Add spironolactone and monitor potassium level. 2. Hypertension: Controlled Thank you for your consultation. ISACC BOLANOS MD Dec 04, 2019 13:55
[2019-12-04 15:00] VITALS: BP 101/58
[2019-12-04] MEDS ORDERED: MAGNESIUM HYDROXIDE 2,400 MG/30 ML ORAL.SUSP. PO PRN (18:00)
[2019-12-04 19:00] VITALS: BP 108/68
[2019-12-04] MEDS: TEMAZEPAM 15 MG CAPSULE PO PRN (21:16)
[2019-12-04 23:00] VITALS: BP 103/66
[2019-12-05 03:00] VITALS: BP_SYST 103; BP_SYST 138; BP_DIAS 70; BP_DIAS 84
[2019-12-05] MEDS: ALBUTEROL SULFATE 2.5 MG/3 ML NEBU. NEB PRN ×3 (07:20→19:28)
[2019-12-05 07:59] VITALS: BP 101/49
[2019-12-05] MEDS: LISINOPRIL 5 MG TABLET. PO SCH (09:00)
--- NOTE | 2019-12-05 09:22 | PDOC ---
GENERAL General: vss and afebrile. awake and alert and first good nights sleep last night in quite a while. orthopnea improved. O>I. chest diminished breath sounds, heart regular, abdomen benign. remains on O2. cardiology plans noted. continue same. VITAL SIGNS/I&O Vital Signs/I&O: Vital Signs Date Time Temp Pulse Resp B/P (MAP) Pulse Ox O2 Delivery O2 Flow Rate FiO2 12/05/19 07:59 97.9 101 20 101/49 (66) 100 Nasal Cannula 3.0 97.9 I & O 12/04/19 12/04/19 12/05/19 15:00 23:00 07:00 Intake Total 460 ml 120 ml 0 ml Output Total 100 ml 600 ml Balance 360 ml -480 ml 0 ml ALLERGIES Allergies: Allergies Coded Allergies Type Severity Reaction Last Updated Verified bee venom protein (honey bee) Allergy Intermediate Swelling 06/13/18 Yes chlorzoxazone Allergy Intermediate 12/03/19 Yes coconut Allergy Intermediate Rash 06/13/18 Yes sulfasalazine Allergy Intermediate 06/13/18 Yes MEDS Medications: Current Medications Medications (Trade) Dose Ordered Sig/Aniya Route PRN Reason Start Time Stop Time Status Last Admin Dose Admin Temazepam (Restoril) 15 mg PRN QHS PRN PO INSOMNIA 12/04/19 18:00 12/04/19 21:16 LAB Lab: Laboratory Tests Test 12/04/19 10:25 Sodium Level 139 mmol/L (136-145) Potassium Level 4.0 mmol/L (3.5-5.1) Chloride Level 96 mmol/L (98-107) L Carbon Dioxide Level 41 mmol/L (21-32) H Anion Gap 2 (6-14) L Blood Urea Nitrogen 13 mg/dL (7-20) Creatinine 0.9 mg/dL (0.6-1.0) Estimated GFR (Cockcroft-Gault) 61.9 Glucose Level 134 mg/dL (70-99) H Calcium Level 9.1 mg/dL (8.5-10.1) VW-Qnm-E-Type Natriuretic Peptide 3964 pg/mL (0-124) H Laboratory Tests 12/04/19 10:25 Justicifation of Admission Dx: Justifications for Admission: Justification of Admission Dx: Yes CHF: Hemodynamic Instability Nutrition Consultation Dietary Evaluation: Recommendations by RD: Dietary education by RD Comments: REC continue regular diet, honor food preferences and offer snacks from unit prn Expected Outcomes/Goals: to meet >75% est nutr needs Malnutrition Findings: Body Fat Depletion (Non Severe: Mod to Severe Weight Status: Underweight APPLAC MD Dec 05, 2019 09:22
[2019-12-05] MEDS: CARVEDILOL 3.125 MG TABLET. PO SCH ×2 (09:25→18:02)
[2019-12-05] MEDS: MULTIVITAMIN with MINERAL TABLET. PO SCH (09:25)
[2019-12-05] MEDS: SPIRONOLACTONE 25 MG TABLET PO SCH (09:25)
[2019-12-05] MEDS: FLUTICASONE 50MCG/NASAL SPRAY 16GM BOTTLE. NS SCH (09:31)
--- NOTE | 2019-12-05 10:07 | PDOC ---
PROGRESS NOTES Subjective Subjective Had few more episodes of retrosternal chest pressure overnight, milder in intensity. Dyspnea improved. Objective Objective Vital Signs Date Time Temp Pulse Resp B/P (MAP) Pulse Ox O2 Delivery O2 Flow Rate FiO2 12/05/19 09:25 101 101/49 12/05/19 07:59 97.9 20 100 Nasal Cannula 3.0 97.9 Intake and Output 12/05/19 07:00 Intake Total 580 ml Output Total 700 ml Balance -120 ml Intake Oral 580 ml Output Urine Total 700 ml # Voids 1 Physical Exam Abdomen: Soft, No tenderness Heart: Other (Tachycardic) Extremities: Other (1+ pitting edema) General: Alert, No acute distress HEENT: Atraumatic Lungs: Other (Decreased air entry both bases) Psych/Mental Status: Mood NL Assessment Assessment 1. Acute on chronic systolic heart failure with bilateral pleural effusions. Patient had right-sided thoracentesis. She was also diuresed with Lasix with improvement in symptoms. 2D echo showed LVEF 10 to 15%, significantly decreased from prior 2D echo from 2018 that showed LVEF 50 to 55%. She is also com plaining of chest pain worse with exertion concerning for ischemic etiology. Cardiac enzymes negative. Plan for cardiac catheterization, possibly Saturday or Saturday to rule out ischemic etiology. Continue Coreg, lisinopril and spironolactone. 2. Hypertension: Controlled Comment Review of Relevant I have reviewed the following items heri (where applicable) has been applied. Labs Laboratory Tests Test 12/04/19 10:25 Sodium Level 139 mmol/L (136-145) Potassium Level 4.0 mmol/L (3.5-5.1) Chloride Level 96 mmol/L (98-107) Carbon Dioxide Level 41 mmol/L (21-32) Anion Gap 2 (6-14) Blood Urea Nitrogen 13 mg/dL (7-20) Creatinine 0.9 mg/dL (0.6-1.0) Estimated GFR (Cockcroft-Gault) 61.9 Glucose Level 134 mg/dL (70-99) Calcium Level 9.1 mg/dL (8.5-10.1) OH-Ttu-D-Type Natriuretic Peptide 3964 pg/mL (0-124) Microbiology 12/03/19 Gram Stain - Final, Resulted 12/03/19 Aerobic and Anaerobic Culture - Preliminary, Resulted Medications Current Medications Carvedilol (Coreg) 3.125 mg BIDWMEALS PO Last administered on 12/05/19at 09:25; Start 12/05/19 at 08:00 Lisinopril (Prinivil) 5 mg DAILY PO ; Start 12/04/19 at 12:00 Magnesium Hydroxide (Milk Of Magnesia) 2,400 mg 1X PRN PO CONSTIPATION; Start 12/04/19 at 18:00 Spironolactone (Aldactone) 25 mg DAILY PO Last administered on 12/05/19at 09:25; Start 12/05/19 at 09:00 Temazepam (Restoril) 15 mg PRN QHS PRN PO INSOMNIA Last administered on 12/04/19at 21:16; Start 12/04/19 at 18:00 Vitals/I & O Vital Sign - Last 24 Hours 12/04/19 12/04/19 12/04/19 12/04/19 11:00 11:52 15:00 19:00 Temp 97.8 97.4 98.1 97.8 97.4 98.1 Pulse 76 76 99 103 Resp 20 20 20 B/P (MAP) 102/58 (73) 102/58 101/58 (72) 108/68 (81) Pulse Ox 95 91 96 O2 Delivery Nasal Cannula Nasal Cannula Nasal Cannula O2 Flow Rate 2.0 2.0 2.0 12/04/19 12/04/19 12/04/19 12/05/19 19:58 20:00 23:00 03:00 Temp 97.9 98.0 97.9 98.0 Pulse 102 98 Resp 20 16 B/P (MAP) 103/66 (78) 103/70 (81) Pulse Ox 98 98 98 O2 Delivery Nasal Cannula Room Air Nasal Cannula O2 Flow Rate 3.0 2.0 12/05/19 12/05/19 12/05/19 12/05/19 07:21 07:59 09:00 09:25 Temp 97.9 97.9 Pulse 101 101 101 Resp 20 B/P (MAP) 101/49 (66) 101/49 101/49 Pulse Ox 96 100 O2 Delivery Nasal Cannula Nasal Cannula O2 Flow Rate 3.0 3.0 Intake and Output 12/04/19 12/04/19 12/05/19 15:00 23:00 07:00 Intake Total 460 ml 120 ml 0 ml Output Total 100 ml 600 ml Balance 360 ml -480 ml 0 ml ISACC BOLANOS MD Dec 05, 2019 10:07
[2019-12-05 11:59] VITALS: BP 102/63
[2019-12-05] MEDS: FUROSEMIDE 20 MG TABLET PO SCH (13:14)
[2019-12-05 15:59] VITALS: BP 101/57
[2019-12-05 19:45] VITALS: BP 102/68
[2019-12-05] MEDS: TEMAZEPAM 15 MG CAPSULE PO PRN (23:04)
[2019-12-05] MEDS: IBUPROFEN 200 MG TABLET. PO PRN (23:04)
[2019-12-05 23:32] VITALS: BP 100/70
[2019-12-06] VITALS (13 sets, daily range): BP systolic 103–160; BP diastolic 53–76
[2019-12-06] MEDS: ALBUTEROL SULFATE 2.5 MG/3 ML NEBU. NEB PRN ×2 (07:35→20:51)
[2019-12-06] MEDS: FUROSEMIDE 20 MG TABLET PO SCH (11:23)
[2019-12-06] MEDS: CARVEDILOL 3.125 MG TABLET. PO SCH ×2 (11:23→17:21)
[2019-12-06] MEDS: SPIRONOLACTONE 25 MG TABLET PO SCH (11:24)
[2019-12-06] MEDS: LISINOPRIL 5 MG TABLET. PO SCH (11:24)
[2019-12-06] MEDS: MULTIVITAMIN with MINERAL TABLET. PO SCH (11:24)
[2019-12-06] MEDS: FLUTICASONE 50MCG/NASAL SPRAY 16GM BOTTLE. NS SCH (11:25)
--- NOTE | 2019-12-06 11:25 | PDOC ---
GENERAL General: vss and afebrile. awake and alert. O>I. less orthopneic and sob. for heart cath today to assess for ischemic cause of rapid change to severe cardiomyopathy. continue same. VITAL SIGNS/I&O Vital Signs/I&O: Vital Signs Date Time Temp Pulse Resp B/P (MAP) Pulse Ox O2 Delivery O2 Flow Rate FiO2 12/06/19 07:59 97.6 98 20 103/62 (76) 96 Nasal Cannula 3.0 97.6 I & O 12/05/19 12/05/19 12/06/19 15:00 23:00 07:00 Intake Total 370 ml Output Total 600 ml 800 ml 100 ml Balance -600 ml -800 ml 270 ml ALLERGIES Allergies: Allergies Coded Allergies Type Severity Reaction Last Updated Verified bee venom protein (honey bee) Allergy Intermediate Swelling 06/13/18 Yes chlorzoxazone Allergy Intermediate 12/03/19 Yes coconut Allergy Intermediate Rash 06/13/18 Yes sulfasalazine Allergy Intermediate 06/13/18 Yes MEDS Medications: Current Medications Medications (Trade) Dose Ordered Sig/Aniya Route PRN Reason Start Time Stop Time Status Last Admin Dose Admin Furosemide (Lasix) 20 mg DAILY PO 12/05/19 11:30 12/05/19 13:14 Justicifation of Admission Dx: Justifications for Admission: Justification of Admission Dx: Yes CHF: Hemodynamic Instability Nutrition Consultation Dietary Evaluation: Recommendations by RD: Dietary education by RD Comments: REC continue regular diet, honor food preferences and offer snacks from unit prn Expected Outcomes/Goals: to meet >75% est nutr needs Malnutrition Findings: Body Fat Depletion (Non Severe: Mod to Severe Weight Status: Underweight AC CRUZ MD Dec 06, 2019 11:25
[2019-12-06] MEDS ORDERED: HEPARIN for IV BOLUS 10,000 UNIT/10 ML VIAL. ONE (14:52)
[2019-12-06] MEDS ORDERED: fentaNYL PF VIAL 100 MCG/2 ML VIAL ONE (14:52)
[2019-12-06] MEDS ORDERED: LIDOCAINE 1% PF 2 ML VIAL. ONE (14:52)
[2019-12-06] MEDS ORDERED: MIDAZOLAM HCL/PF 2 MG/2 ML VIAL. ONE (14:52)
[2019-12-06] MEDS ORDERED: IOHEXOL 300 MG/ML 100ML VIAL. ONE ×2 (14:52→15:17)
[2019-12-06] MEDS ORDERED: VERAPAMIL 5 MG/2 ML VIAL. ONE (14:52)
[2019-12-06] MEDS ORDERED: NITROGLYCERIN 200 MCG/2 ML SYRINGE FOR CATH/VASC LAB. ONE (14:53)
--- NOTE | 2019-12-06 15:24 | PDOC ---
MODERATE SEDATION ASSESSMENT RISKS/ALTERNATIVES Risks/Alternatives Risks and alternatives of this type of sedation and procedure discussed with: RISK/ALTERNATIVES: Patient H & P ON CHART H & P H & P on chart and reviewed for co-morbid conditions and appropriate labs. H&P ON CHART: Yes STATUS PREG STATUS ASSESSED: N/A MEDS/ALLERGIES REVIEWED Meds/Allergies Reviewed Medications and Allergies including time and route of recently administered narcotics and sedatives. MEDS/ALLERGIES REVIEWED: Yes ASA RATING ASA RATING: III AIRWAY ASSESSMENT Airway Assessment Airway patency, oral function limitations, presence of caps, crowns, dentures, partials, and ability to extend neck assessed. AIRWAY ASSESSMENT: Yes MALLAMPATI SCORE MALLAMPATI SCORE: II PRE-SEDATION ASSESSMENT PRE-SEDATION ASSESSMENT: Yes ISACC BOLANOS MD Dec 06, 2019 15:24
[2019-12-06] MEDS ORDERED: IOHEXOL 300 MG/ML 50 ML VIAL. IART ONE (15:30)
[2019-12-06] MEDS ORDERED: LIDOCAINE 1% PF 2 ML VIAL. INJ ONE (15:30)
[2019-12-06] MEDS ORDERED: HEPARIN for IV BOLUS 10,000 UNIT/10 ML VIAL. IART ONE (15:30)
[2019-12-06] MEDS ORDERED: CONTRAST GIVEN. MC PRN (15:30)
[2019-12-06] MEDS ORDERED: VERAPAMIL 5 MG/2 ML VIAL. IART ONE (15:30)
[2019-12-06] MEDS ORDERED: NITROGLYCERIN 200 MCG/2 ML SYRINGE FOR CATH/VASC LAB. IART ONE (15:30)
[2019-12-06] MEDS ORDERED: MIDAZOLAM HCL/PF 2 MG/2 ML VIAL. IV ONE (15:30)
[2019-12-06] MEDS ORDERED: fentaNYL PF VIAL 100 MCG/2 ML VIAL IV ONE (15:30)
--- NOTE | 2019-12-06 15:37 | CARD ---
MR#: [id number] Date of Study: 12/06/2019 Ordering Physician: ISACC BOLANOS, Referring Physician: ISACC BOLANOS, Tech: RT Marielos (R) APPROVED REPORT Technologist: Dionisio Stallworth RT (R) Nurse: Christy Holcomb R.N. Procedure(s) performed: Flouro Time: 3.7 min Dose: 21.88 Gycm2 Contrast total: 66 cc's Omni Left heart catheterization, selective coronary angiography via right transradial approach Sedation Time: 35 min Heart Failure: class 4 INDICATION The indication(s) include : Cardiomyopathy and acute on chronic systolic heart failure. [facility] Clinical Frailty Scale [facility] Clinical Frailty Scale: Mildly Frail Heart Failure Heart Failure: Yes If Yes, Newly Diagnosed: No If Yes, HF Type: Systolic PROCEDURE NARRATIVE After explaining the risks, benefits and alternative options, informed consent was obtained from wandy ent. Patient was brought to the cardiac [facility] and right wrist was prepped and draped in the usual fashion after confirming a positive modified Mal's test. Arterial access was obtained in the righ t radial artery and a 6 Urdu sheath was inserted. 6 Urdu Doc catheter was used to perform ronel ective angiography of the left and right coronary arteries. LVEDP and transaortic gradients were jeevan sured. Left ventriculography was not performed since 2D echo this admission showed EF 10 to 15%. Alf gibbons tolerated the procedure well. Hemostasis was achieved using TR band. There were no immediate complications. The following findings were noted. FINDINGS 1. Hemodynamics: Left ventricular end-diastolic pressure of 10 mmHg. No pullback gradient across th e aortic valve. 2. Coronary angiography: a. The left main coronary artery arose from the left sinus of Valsalva, gave rise to the left anteri or descending and left circumflex arteries and did not show any significant stenosis. b. The left anterior descending artery showed 30% stenosis in the mid to distal segment. c. The left circumflex artery showed 30% stenosis in the proximal segment and 40% stenosis in the mi dsegment. d. The right coronary artery was a large and dominant vessel arising from the right sinus of Valsalv a that did not show any significant stenosis. Conclusion Nonobstructive coronary disease Recommendations Optimization of medical therapy for severe nonischemic cardiomyopathy. Repeat 2D echo in 3 months to evaluate the need for AICD implantation. Signed by : Isacc Bolanos, Electronically Approved : 12/06/2019 15:37:22
[2019-12-06] MEDS ORDERED: IOHEXOL 300 MG/ML 100ML VIAL. IART ONE (15:45)
--- NOTE | 2019-12-06 16:49 | NUR ---
1500 Pt transferred to the cardiac slab inspector. Report given to RN on . Pt will be transferred to [id number] after her cath.
[2019-12-07 03:15] VITALS: BP 104/55
[2019-12-07 07:00] VITALS: BP 138/69
[2019-12-07] MEDS: ALBUTEROL SULFATE 2.5 MG/3 ML NEBU. NEB PRN ×2 (08:04→19:41)
--- NOTE | 2019-12-07 08:24 | PDOC ---
Provider Note Provider Note no new sxs, tolerating meds so fa re bp- repeat bmp today on lisin- keep same doses for now Justicifation of Admission Dx: Justifications for Admission: Justification of Admission Dx: Yes CHF: Hemodynamic Instability ROSY BECKHAM MD Dec 07, 2019 08:24
[2019-12-07] MEDS: MULTIVITAMIN with MINERAL TABLET. PO SCH (08:34)
[2019-12-07] MEDS: IBUPROFEN 200 MG TABLET. PO PRN (08:34)
[2019-12-07] MEDS: FLUTICASONE 50MCG/NASAL SPRAY 16GM BOTTLE. NS SCH (08:35)
[2019-12-07] MEDS: LISINOPRIL 5 MG TABLET. PO SCH (08:35)
[2019-12-07] MEDS: FUROSEMIDE 20 MG TABLET PO SCH (08:35)
[2019-12-07] MEDS: SPIRONOLACTONE 25 MG TABLET PO SCH (08:36)
[2019-12-07] MEDS: CARVEDILOL 3.125 MG TABLET. PO SCH ×2 (08:36→16:33)
[2019-12-07 11:02] LABS: CALCIUM 8.4 mg/dL (8.5-10.1); CREATININE 0.8 mg/dL (0.6-1.0); GFR 70.9; POTASSIUM 3.5 mmol/L (3.5-5.1)
[2019-12-07 11:06] VITALS: BP 99/50
--- NOTE | 2019-12-07 13:56 | NUR ---
SS following for discharge planning. SS reviewed pt chart and discussed with pt RN. Pt is from home and is currently requiring oxygen. Pt had heart cath on 12/06/2019. Six minute walk ordered. SS will continue to follow for discharge planning.
[2019-12-07 14:46] VITALS: BP 119/59
--- NOTE | 2019-12-07 15:27 | NUR ---
SS following up with discharge planning. Pt needing 2 liters O2 at rest and 3 Liters O2 with exertion. SS left voicemail for Dr. Kumari requesting script. SS will continue to follow for discharge planning.
--- NOTE | 2019-12-07 16:39 | PDOC ---
BRICE RAMSEY ECONOMIC MANAGER 12/07/19 1639: CARDIO Progress Notes Date and Time Date of Service 12/07/19 Time of Evaluation 1145 Subjective Subjective: No Chest Pain, No shortness of breath, No Palpitations Vitals Vitals Vital Signs Date Time Temp Pulse Resp B/P (MAP) Pulse Ox O2 Delivery O2 Flow Rate FiO2 12/07/19 14:46 97.6 94 16 119/59 (79) 96 Nasal Cannula 3.0 97.6 Weight Weight [ ] Input and Output Intake and Output Intake and Output 12/07/19 07:00 Intake Total 840 ml Output Total 200 ml Balance 640 ml Intake Oral 840 ml Output Urine Total 200 ml # Voids 3 # Bowel Movements 1 Laboratory Labs Laboratory Tests Test 12/07/19 09:15 Sodium Level 138 mmol/L (136-145) Potassium Level 3.5 mmol/L (3.5-5.1) Chloride Level 97 mmol/L (98-107) Carbon Dioxide Level 36 mmol/L (21-32) Anion Gap 5 (6-14) Blood Urea Nitrogen 10 mg/dL (-20) Creatinine 0.8 mg/dL (0.6-1.0) Estimated GFR (Cockcroft-Gault) 70.9 Glucose Level 191 mg/dL (70-99) Calcium Level 8.4 mg/dL (8.5-10.1) Microbiology Micro Microbiology 12/03/19 Gram Stain - Final, Resulted 12/03/19 Aerobic and Anaerobic Culture - Preliminary, Resulted Physical Exam HEENT: Neck Supple W Full Motion Chest: Symmetric LUNGS: Clear to Auscultation Heart: S1S2, RRR Abdomen: Soft N/T Extremities: No Edema, Other (right radial arteriotomy site soft, clean, and dry. No hematoma present. Neurovascular status intact) Neurology: alert, oriented, follow commands Assessment Assessment 1. Acute respiratory failure with a/c CHF and pleural effusion. S/p right thoracentesis. 2. Acute on chronic systolic CHF; better compensated following diuresis 3. NICM; LVEF 10-15%. Cath without significant obstructive disease 4. Hypertension 5. H/o Hodgkin's lymphoma and breast CA Recommendations HF optimization with BB, lisinopril, lasix, and aldactone. Will convert Coreg to Toprol for better HR control. 2Gm Na dietary restriction Discussed daily weight monitoring Repeat echo in 3 months to assess need for AICD implantation for primary prevention of SCD. Will arrange for LifeVest in meantime. Supportive care Followup in our office as scheduled. Justicifation of Admission Dx: Justifications for Admission: Justification of Admission Dx: Yes CHF: Hemodynamic Instability CATALINO AVALOS MD 12/08/19 1517: CARDIO Progress Notes Plan Plan Late entry for 12/07/2019 Patient seen and examined. She still had some persistent dyspnea. Evaluation for home oxygen therapy is pending. We will switch from carvedilol to metoprolol XL for better heart rate control and continue low-dose lisinopril as blood pressure allows for now. Supportive care. Evaluation for LifeVest placement. BRICE RAMSEY APRN Dec 07, 2019 16:39 CATALINO AVALOS MD Dec 08, 2019 15:17
--- NOTE | 2019-12-07 17:06 | PATHOLOGY ---
Note [facility] Accession Number: [id number] TESTS RESULT FLAG UNITS REF RANGE LAB Clinician Provided Cytology Information No. of containers..01 Other (Miscellaneous) Source: 01 RIGHT PLEURAL FLUID DIAGNOSIS: 02 RIGHT PLEURAL FLUID NEGATIVE FOR MALIGNANT CELLS. REACTIVE MESOTHELIAL CELLS IDENTIFIED WITHIN A BACKGROUND OF LYMPHOCYTES. THIS INTERPRETATION INCLUDES EVALUATION OF A CELL BLOCK. Signed out by: 02 Theodore Hampton MD, Pathologist NPI- [id number] Performed by: Tran Powell, [place] ([facility]) Gross description: 01 25ML, CLOUDY YELLOW, 1 TP 1 CB /LCS 12/03/2019 1615 Local FLAG LEGEND: L-Low Normal,H-High Normal,LL-Alert Low,HH-Alert High <-Panic Low,>-Panic High,A-Abnormal,AA-Critical Abnormal Performed at: [address] [place] [address] Rolan Padilla MD, 02 [facility] [address] [place] [address] Theodore Hampton MD, Specimen Comment: A courtesy copy of this report has been sent to [phone], [phone] Specimen Comment: [id number] Specimen Comment: Report sent to ,DR MARIN / DR BECKHAM Performed at: [address] [place] [address] [address], [place], [place] [id number] MD Rolan Padilla MD Phone: [phone]
[2019-12-07 19:00] VITALS: BP 110/55
--- NOTE | 2019-12-07 19:20 | NUR ---
Pt in bed assessment completed vss poc explained pt denied pain at this time will resume care and continue to monitor pt.call light in reach.
[2019-12-07 22:59] VITALS: BP 84/37
[2019-12-08 03:03] VITALS: BP 93/53
[2019-12-08 07:28] VITALS: BP 138/71
[2019-12-08] MEDS: ALBUTEROL SULFATE 2.5 MG/3 ML NEBU. NEB PRN (07:49)
--- NOTE | 2019-12-08 08:17 | NUR ---
SS following up with discharge planning. SS received notification that pt will need Life Vest. SS phoned and faxed clinical to Minoo at [facility], ; fax [phone]. Order not on the chart at this time. SS will send order and progress note from today once received. SS also received notification from [employer], ; fax [phone], that clinical for oxygen has been received. SS currently awaiting order for oxygen and will send once received. SS will continue to follow for discharge planning.
[2019-12-08] MEDS ORDERED: METOPROLOL SUCC 24HR ER 25 MG TAB.ER.24H. PO SCH (09:00)
[2019-12-08] MEDS: FLUTICASONE 50MCG/NASAL SPRAY 16GM BOTTLE. NS SCH (09:09)
[2019-12-08] MEDS: SPIRONOLACTONE 25 MG TABLET PO SCH (09:10)
[2019-12-08] MEDS: MULTIVITAMIN with MINERAL TABLET. PO SCH (09:10)
--- NOTE | 2019-12-08 09:10 | PDOC ---
Provider Note Provider Note [id number] Justicifation of Admission Dx: Justifications for Admission: Justification of Admission Dx: Yes CHF: Hemodynamic Instability ROSY BECKHAM MD Dec 08, 2019 09:10
[2019-12-08] MEDS: LISINOPRIL 5 MG TABLET. PO SCH (09:11)
[2019-12-08] MEDS: FUROSEMIDE 20 MG TABLET PO SCH (09:11)
--- NOTE | 2019-12-08 09:30 | DS ---
DATE OF DISCHARGE: 12/08/2019 HOSPITAL SUMMARY: A 69-year-old white female admitted with bilateral pleural effusions of unknown etiology. Chest x-ray showed a moderate right-sided effusion, which on aspiration of 400 mL by interventional radiologist showed a transudative fluid. Echocardiogram showed ejection fraction of 10% and laboratory studies were unremarkable including TSH. She underwent cardiac catheterization, which revealed clean coronary arteries, and metoprolol and lisinopril were started as well as Aldactone. Metoprolol was switched to carvedilol, but blood pressure became too low and this was stopped. At this time, she is taking lisinopril, Lasix and Aldactone with good control and blood test unremarkable. She does appear to require oxygen at rest and with exertion, so a prescription was written for this. She is awaiting a [employer] application before discharge at this time. FINAL DIAGNOSES: Bilateral pleural effusions secondary to nonischemic dilated cardiomyopathy. OPERATIONS AND PROCEDURES: Right-sided thoracentesis, diagnostic; cardiac catheterization. COMPLICATIONS: None. CONSULTATIONS: Interventional Radiology and Dr. Mayen's group. DISPOSITION: Home. MEDICATIONS: Include lisinopril 5 mg, Aldactone 25 mg and Lasix 20 mg daily, and perhaps no beta edmar despite her mild tachycardia due to hypotension. Low salt intake. Office followup with Dr. Kumari in 2 weeks for lab work, residential team leader as requested. Echocardiogram will need to be repeated in 3 months to follow for any evidence of ejection fraction recovery. ROSY KUMARI MD DR: SHOBHA/nts JOB#: [id number] / [id number]
[2019-12-08 10:29] VITALS: BP 110/55
--- NOTE | 2019-12-08 11:14 | PDOC ---
BRAULIOBRICE PRESCHOOL DISABILITY TEACHER 12/08/19 1114: CARDIO Progress Notes Date and Time Date of Service 12/08/19 Time of Evaluation 1111 Subjective Subjective: No Chest Pain, No shortness of breath, No Palpitations Vitals Vitals Vital Signs Date Time Temp Pulse Resp B/P (MAP) Pulse Ox O2 Delivery O2 Flow Rate FiO2 12/08/19 10:29 97.6 107 18 110/55 (73) 97 Nasal Cannula 2.0 97.6 Weight Weight [ ] Input and Output Intake and Output Intake and Output 12/08/19 07:00 Intake Total 300 ml Output Total 300 ml Balance 0 ml Intake Oral 300 ml Output Urine Total 300 ml # Voids 5 Microbiology Micro Microbiology 12/03/19 Gram Stain - Final, Complete 12/03/19 Aerobic and Anaerobic Culture - Final, Complete Physical Exam HEENT: Neck Supple W Full Motion Chest: Symmetric LUNGS: Clear to Auscultation Heart: S1S2, RRR (SR/ST) Abdomen: Soft N/T Extremities: No Edema Neurology: alert, oriented, follow commands Assessment Assessment 1. Acute respiratory failure with a/c CHF and pleural effusion. S/p right thoracentesis. 2. Acute on chronic systolic CHF; appears compensated clinically. 3. NICM; LVEF 10-15%. Cath without significant obstructive disease 4. Hypertension; controlled 5. H/o Hodgkin's lymphoma and breast CA Recommendations HF optimization with metoprolol, lisinopril, Lasix, and Aldactone. Increase Toprol to 50mg daily. 2Gm Na dietary restriction Daily weight monitoring; 2 report weight gain of 2-3 # overnight or 5# in a week Repeat echo in 3 months to assess need for AICD implantation for primary prevention of SCD. LifeVest to be arranged. Supportive care Followup in our office as scheduled. Justicifation of Admission Dx: Justifications for Admission: Justification of Admission Dx: Yes CHF: Hemodynamic Instability CATALINO AVALOS MD 12/08/19 1538: CARDIO Progress Notes Plan Plan Patient seen and examined. Agree with above nurse practitioner note. No acute events overnight. Tolerating metoprolol well. Okay to discharge from a cardiac perspective. She is planning to have home oxygen delivered to her house in the near future. Discharge plans are for later today. She will follow-up with us in the office and consider primary ICD implantation a t a later date. BRICE RAMSEY APRN Dec 08, 2019 11:14 CATALINO AVALOS MD Dec 08, 2019 15:38
--- NOTE | 2019-12-08 11:58 | NUR ---
SS following up with discharge planning. Orders received for Life vest and oxygen. SS phoned and faxed oxygen order to [employer], ; fax [phone]. SS confirmed receipt of oxygen order with [employer]. Tank provided to pt's RN for return to home. SS phoned and faxed order and progress note for Life Vest to Minoo at [facility], ; fax [phone]. Minoo reported that her RN Ronel is coming to fit pt for Life Vest today. SS will continue to follow for discharge planning.
[2019-12-08] MEDS ORDERED: METOPROLOL SUCC 24HR ER 25 MG TAB.ER.24H. PO ONE (12:00)
[2019-12-08 14:37] VITALS: BP 138/72
[2019-12-08] MEDS ORDERED: FURO20TA3 PO (16:51)
[2019-12-08] MEDS ORDERED: METO50TA4 PO (16:51)
[2019-12-08] MEDS ORDERED: SPIR25TA PO (16:51)
[2019-12-08] MEDS ORDERED: LISI-338 PO (16:51)
--- NOTE | 2019-12-08 18:33 | NUR ---
Discharge Note: JERZY LUIS [address] Discharge instructions and discharge home medications reviewed with Patient and a copy given. All questions have been answered and understanding verbalized. The following instructions and handouts were given: malnutrition, cardiac diet, oxygen use at home Discontinued lines and drains: Peripheral IV intact. Patient discharged to Home or Self Care with Family Member via Wheelchair
[2019-12-09] MEDS ORDERED: METOPROLOL SUCC 24HR ER 50 MG TAB.ER.24H. PO SCH (09:00)
[2020-02-20] MEDS ORDERED: FURO20TA3 PO (17:18)
[2020-02-20] MEDS ORDERED: METO25TA2 PO (17:18)
[2020-02-23] MEDS ORDERED: AMIO400T5 PO (10:37)
== END 2019-12-08 18:15 | disposition home or self-care (01) | DRG 286 ==
LOC: 4 NORTH 16:13 → 2 SOUTH 12-06 15:32
PROVIDERS: ADMIT Family Medicine; ATTEND Family Medicine
PROC: 0W993ZZ Drainage of Right Pleural Cavity, Percutaneous Approach (ICD-10-PCS; 2019-12-02)
PROC: 4A023N7 Measurement of Cardiac Sampling and Pressure, Left Heart, Percutaneous Approach (ICD-10-PCS; principal; 2019-12-06)
PROC: B2111ZZ Fluoroscopy of Multiple Coronary Arteries using Low Osmolar Contrast (ICD-10-PCS; 2019-12-06)
DX: I11.0 Hypertensive heart disease with heart failure (principal); R65.11 Systemic inflammatory response syndrome (SIRS) of non-infectious origin with acute organ dysfunction; J96.00 Acute respiratory failure, unspecified whether with hypoxia or hypercapnia; J90 Pleural effusion, not elsewhere classified; I42.0 Dilated cardiomyopathy; I50.23 Acute on chronic systolic (congestive) heart failure; F12.90 Cannabis use, unspecified, uncomplicated; Z85.3 Personal history of malignant neoplasm of breast; Z85.41 Personal history of malignant neoplasm of cervix uteri; Z85.71 Personal history of Hodgkin lymphoma; Z85.828 Personal history of other malignant neoplasm of skin; Z90.710 Acquired absence of both cervix and uterus; Z90.81 Acquired absence of spleen; Z88.8 Allergy status to other drugs, medicaments and biological substances; Z79.899 Other long term (current) drug therapy; Z91.030 Bee allergy status; Z91.048 Other nonmedicinal substance allergy status
CPT/HCPCS: 32555; 36415; 71045; 80048; 80053; 82945; 83615; 83880; 83986; 84157; 84443; 85025; 85610; 87015; 87071; 87075; 88112; 88305; 89050; 93306; 93458; 94618; 94640; 94760; 99152; 99153; C1769; C1892; J1644; J1940; J2250; J3010; J3490; Q9967; G0378; J7613

== ENCOUNTER → 2020-01-11 | Outpatient (CLI) | payer MEDICARE ==
[~2020-01-11] MED LIST changes: +ALBU2.5V8 IH; +CETI10TA24 PO; -CETI10TA74 PO; +FLUT9.9S NS; +FURO20TA3 PO; +IBUP200C9 PO; +LISI-338 PO; +METO50TA4 PO; +ONDA4TAB12 PO; +SPIR25TA PO
--- NOTE | 2020-01-11 15:27 | CARD ---
MR#: [id number] Date of Study: 01/11/2020 Ordering Physician: CATALINO BERUMEN, Referring Physician: CATALINO BERUMEN, Tech: Dana Jamison APPROVED REPORT EXAM: Two-dimensional and M-mode echocardiogram with Doppler and color Doppler. Other Information Quality : AverageHR: 100bpm INDICATION Congestive Heart Failure 2D DIMENSIONS RVDd3.6 (2.9-3.5cm)Left Atrium(2D)3.2 (1.6-4.0cm) IVSd1.1 (0.7-1.1cm)Aortic Root(2D)2.9 (2.0-3.7cm) LVDd5.5 (3.9-5.9cm)LVOT Diameter2.2 (1.8-2.4cm) PWd1.0 (0.7-1.1cm)LVDs5.0 (2.5-4.0cm) FS (%) 10.5 %SV34.1 ml LVEF(%)22.7 (>50%) Aortic Valve AoV Peak Grover.121.4cm/sAoV VTI23.7cm AO Peak GR.5.9mmHgLVOT Peak Grover.116.1cm/s LVOT VTI 18.62cmAO Mean GR.4mmHg BLANCHE (VMAX)2.38fe4ZOX (VTI)2.90cm2 Mitral Valve MV E Vwosohup98.4cm/sMV DECEL [id number] MV [id number] (PHT)5.94cm2 TDI E/Lateral E'13.6E/Medial E'31.8 Pulmonary Valve PV Peak Yrfvzusx18.6cm/sPV Peak Grad.2mmHg Tricuspid Valve RAP [id number] Peak Gr.20mmHg [id number] LEFT VENTRICLE The Left Ventricle is moderately dilated. There is borderline to mild concentric left ventricular hyp ertrophy. The systolic function is severely impaired. The Ejection Fraction is 15%. There is severe g lobal hypokinesis of the left ventricle. Tissue Doppler imaging reveals severe left ventricular diast olic dysfunction. RIGHT VENTRICLE The right ventricle is normal size. There is normal right ventricular wall thickness. The right ventr icular systolic function is normal. ATRIA The left atrium is severely dilated. The right atrium is moderately dilated. The interatrial septum i s intact with no evidence for an atrial septal defect or patent foramen ovale as noted on 2-D or Dopp ler imaging. AORTIC VALVE The aortic valve is calcified but opens well. Doppler and Color Flow revealed trace aortic regurgitat ion. Calculated aortic valve area is 2.94 cm2 with maximum pressure gradient of 8 mmHg and mean press ure gradient of 5 mmHg. MITRAL VALVE The mitral valve is mildly thickened. There is no evidence of mitral valve prolapse. There is no mitr al valve stenosis. Doppler and Color-flow revealed trace mitral regurgitation. TRICUSPID VALVE The tricuspid valve is normal in structure and function. Doppler and Color Flow revealed no tricuspid valve regurgitation noted. There is no tricuspid valve stenosis. PULMONIC VALVE The pulmonic valve is not well visualized. Doppler and Color Flow revealed trace to mild pulmonic mary vular regurgitation. There is no pulmonic valvular stenosis. GREAT VESSELS The aortic root is normal in size. The IVC is normal in size and collapses >50% with inspiration. PERICARDIAL EFFUSION There is no evidence of significant pericardial effusion. Critical Notification Critical Value: No <Conclusion> The systolic function is severely impaired. The Ejection Fraction is 15%. There is severe global hypokinesis of the left ventricle. Tissue Doppler imaging reveals severe left ventricular diastolic dysfunction. The Left Ventricle is moderately dilated. Signed by : Catalino Berumen, Electronically Approved : 01/11/2020 15:26:31
== END | disposition home or self-care (01) ==
LOC: ECHO 12:51
PROVIDERS: ATTEND Internal Medicine Cardiovascular Disease
DX: I08.8 Other rheumatic multiple valve diseases (principal); I50.9 Heart failure, unspecified
CPT/HCPCS: 93306

== ENCOUNTER 2020-07-01 13:32 | Inpatient (IN) | payer MEDICARE ==
[~2020-07-01] VITALS: Ht 162.6 cm; Wt 67.4 kg
--- NOTE | 2020-07-01 13:30 | NUR ---
Wound Care Wound Type/Assessment: Pt seen in Outpt [facility]ound [facility] today for f/u of R chest wound. Pt stated she was feeling ill last night with a fever of 101 and had an episode of vomiting. Pt stated she rolled over onto her R side during the night and had a sharp pain in her R chest. Upon dressing removal, a large reddened area extended from wound inferiorly at least 10 cm, with redness, pain and warmth. When packing was removed, hardware was exposed in the base of the wound, which was not present at last week's visit. Treatment Recommendations/Plan: Dr. Hurtado assessed, this RN called Dr. Berumen, and was instructed to send pt to the ED for admission. POC discussed with pt and granddaughter, both v/u and agreeable to admission. Education provided: to pt re: POC Offloading surface/device: n/a Recommended Referrals/Tests: defer to Dr. Berumen Discharge Recommendations for dressings: wound covered with Betadine soaked gauze and tape
[~2020-07-01 13:32] MED LIST changes: +AMIO400T5 PO; -CETI10TA24 PO; +CETI10TA74 PO; -DOCU-150 PO; +DOCU-158 PO; -LISI-338 PO; +LISI-517 PO; +METO25TA2 PO
[2020-07-01] MEDS ORDERED: IV NORMAL SALINE 1000ML BAG 1,000 ML IV ONE ×2 (14:00)
[2020-07-01] MEDS ORDERED: ACETAMINOPHEN 500 MG TABLET PO ONE (14:00)
[2020-07-01 14:14] LABS: BASO # 0.1 x10^3/uL (0.0-0.2); BASO % 0 % (0-3); EOS % 0 % (0-3); HEMATOCRIT 44.1 % (36.0-47.0); HEMOGLOBIN 14.4 g/dL (12.0-15.5); LYMPH # 2.5 x10^3/uL (1.0-4.8); LYMPH % 10 % (24-48); MEAN CORPUSCULAR HEMOGLOBIN 31 pg (25-35); MEAN CORPUSCULAR HGB CONC 33 g/dL (31-37); MEAN CORPUSCULAR VOLUME 95 fL (79-100); MONO # 2.5 x10^3/uL (0.0-1.1); MONO % 10 % (0-9); NEUT % 80 % (31-73); PLATELET COUNT 230 x10^3/uL (140-400); RED BLOOD COUNT 4.63 x10^6/uL (3.50-5.40); RED CELL DISTRIBUTION WIDTH 13.1 % (11.5-14.5)
[2020-07-01 14:28] LABS: CALCIUM 9.4 mg/dL (8.5-10.1); CREATININE 0.8 mg/dL (0.6-1.0); GFR 70.9
[2020-07-01 14:37] LABS: % LYMPHS 11 % (24-48); % MONOS 6 % (0-10); % SEGS 83 % (35-66); PLT ESTIMATE ADEQUATE (ADEQUATE)
[2020-07-01 14:38] LABS: ALBUMIN 3.3 g/dL (3.4-5.0); DIRECT BILIRUBIN 0.2 mg/dL (0.0-0.2); TOTAL BILIRUBIN 0.9 mg/dL (0.2-1.0); TOTAL PROTEIN 7.4 g/dL (6.4-8.2)
[2020-07-01] MEDS ORDERED: IOHEXOL 300 MG/ML 100ML VIAL. IV ONE (14:45)
[2020-07-01] MEDS ORDERED: VANCOMYCIN 1.5 GM in IV NORMAL SALINE 500ML BAG 500 ML IV ONE (14:45)
[2020-07-01] MEDS ORDERED: CONTRAST GIVEN. MC PRN (15:00)
--- NOTE | 2020-07-01 15:46 | RAD ---
CT chest with contrast: History: Pacemaker infection Axial helical images of the chest were obtained after the administration of 75 cc of Omni 300 IV cont rast. Comparison: February 20, 2020 Findings: There is a 2.3 x 1.9 cm spiculated mass in the left lung apex anteriorly abutting the pleura. The tho racic aorta appears normal. There is multiple calcified granuloma in the mediastinum. There is metall ic density in the upper abdomen on left and the spleen is not seen suggesting prior splenectomy. There is an old T6 vertebral body compression fractures seen previously and unchanged. There is a right-sided dual-lead defibrillator. Beam Chavez artifact around the defibrillator genera tor obscures the right chest wall. The heart is mild to moderately dilated. There is been prior left mastectomy. Impression: 1. Dilated cardiomegaly seen previously. 2. Spiculated mass in the upper left lung abutting the pleura anteriorly is suspicious for primary brandon ng cancer if the patient is a smoker. Otherwise this could be metastatic cancer. This appears slightl y larger. 3. Evaluation of the right chest wall is limited by the defibrillator generator. If there is concern for an abscess, consider ultrasound evaluation of the right chest wall. End Impression PQRS Compliance Statement: One or more of the following individualized dose reduction techniques were utilized for this examinat ion: 1. Automated exposure control 2. Adjustment of the mA and/or kV according to patient size 3. Use of iterative reconstruction technique Electronically signed by: Kendall Mittal III, MD (07/01/2020 3:44 PM) [facility]
--- NOTE | 2020-07-01 16:11 | PHYS DOC ---
Past Medical History Past Medical History: Cancer, Hypertension, Other Additional Past Medical Histor: BR CA, CERV CA, HODGKINS LYMPH,BASAL CELL CARC, external zoll life vest Past Surgical History: Appendectomy, Cholecystectomy, Hysterectomy, Splenectomy, Tonsillectomy, Tubal ligation Additional Past Surgical Histo: LEFT MASTECTOMY, POWER PORT, DEFIBRILATOR Smoking Status: Former Smoker Alcohol Use: Rarely Drug Use: Marijuana General Adult EDM: Chief Complaint: WOUND CHECK HPI: HPI: 69-year-old female past medical history of breast cancer with left mastectomy, former tobacco smoker and HFrEF (15%) w/AICD placed 02/2020, presents to the ED sent in by wound care with concern for fever and infected pacemaker. Patient reports she had a scab over her pacemaker site that started turning black and was removed by the wound care center on the of this month. Patient states redness started spreading along the skin 5 days ago. Is a nonodorous green discharge on the gauze during the dressing change at that time. Patient reports subjective fevers and chills that started last night and took her oral temperature of 100.6. Review of Systems: Review of Systems: Constitutional: Denies malaise or fatigue Eyes: Denies change in visual acuity. [] HENT: Denies nasal congestion or sore throat. [] Respiratory: Denies cough or shortness of breath. [] Cardiovascular: Denies chest pain or edema. [] GI: Denies abdominal pain, nausea, vomiting, bloody stools or diarrhea. [] : Denies dysuria. [] Musculoskeletal: Denies back pain or joint pain. [] Integument: Denies crepitus or induration Neurologic: Denies headache, focal weakness or sensory changes. [] Endocrine: Denies polyuria or polydipsia. [] Lymphatic: Denies swollen glands. [] Psychiatric: Denies depression or anxiety. [] Heart Score: Risk Factors: Risk Factors: DM, Current or recent (<one month) smoker, HTN, HLP, family h istory of CAD, obesity. Risk Scores: Score 0 - 3: 2.5% MACE over next 6 weeks - Discharge Home Score 4 - 6: 20.3% MACE over next 6 weeks - Admit for Clinical Observation Score 7 - 10: 72.7% MACE over next 6 weeks - Early Invasive Strategies Current Medications: Current Medications Medications (Trade) Dose Ordered Sig/Ainya Start Time Stop Time Status Last Admin Dose Admin Acetaminophen (Tylenol) 1,000 mg 1X ONCE 07/01/20 14:00 07/01/20 14:02 DC Info (CONTRAST GIVEN -- Rx MONITORING) 1 each PRN DAILY PRN 07/01/20 15:00 07/03/20 14:59 Iohexol (Omnipaque 300 Mg/ml) 75 ml 1X ONCE 07/01/20 14:45 07/01/20 14:50 DC 07/01/20 15:04 75 ML Sodium Chloride 1,000 ml @ 1,000 mls/hr 1X ONCE 07/01/20 14:00 07/01/20 14:59 UNV Vancomycin HCl 1.5 gm/Sodium Chloride 500 ml @ 250 mls/hr 1X ONCE 07/01/20 14:45 07/01/20 16:44 07/01/20 15:36 250 MLS/HR Allergies: Allergies: Allergies Coded Allergies Type Severity Reaction Last Updated Verified bee venom protein (honey bee) Allergy Intermediate Swelling 06/13/18 Yes chlorzoxazone Allergy Intermediate 12/03/19 Yes coconut Allergy Intermediate Rash 06/13/18 Yes sulfasalazine Allergy Intermediate 06/13/18 Yes morphine Adverse Reaction Unknown Nausea and Vomiting 02/22/20 Yes Physical Exam: PE: Constitutional: Well developed, well nourished, no acute distress, non-toxic appearance. HENT: Normocephalic, atraumatic, Eyes: EOMI, conjunctiva normal, no discharge. Neck: Normal range of motion, supple, Cardiovascular: S1/2 present, regular rhythm Lungs & Thorax: Speaking in full sentences, bilateral equal chest rise, no tachypnea or increased work of breathing Abdomen: soft, no tenderness, Skin: Warm, dry, no erythema, pacemaker over left upper chest wall with 2 to 3 mm hole-able to see silver pacemaker underlying with white granulation tissue, proximally 14 x 10 cm area of erythema and increased warmth surrounding this wound, no crepitus Back: No tenderness, no CVA tenderness. [] Extremities: No tenderness, no cyanosis, no edema Neurologic: Alert and oriented X 3, normal motor function, normal sensory function, no focal deficits noted. [] Psychologic: Affect normal, judgement normal, mood normal. [] Current Patient Data: Labs: Laboratory Tests Test 1/29/21 13:58 White Blood Count 25.0 x10^3/uL (4.0-11.0) H Red Blood Count 4.63 x10^6/uL (3.50-5.40) Hemoglobin 14.4 g/dL (12.0-15.5) Hematocrit 44.1 % (36.0-47.0) Mean Corpuscular Volume 95 fL (79-100) Mean Corpuscular Hemoglobin 31 pg (25-35) Mean Corpuscular Hemoglobin Concent 33 g/dL (31-37) Red Cell Distribution Width 13.1 % (11.5-14.5) Platelet Count 230 x10^3/uL (140-400) Neutrophils (%) (Auto) 80 % (31-73) H Lymphocytes (%) (Auto) 10 % (24-48) L Monocytes (%) (Auto) 10 % (0-9) H Eosinophils (%) (Auto) 0 % (0-3) Basophils (%) (Auto) 0 % (0-3) Neutrophils # (Auto) 20.0 x10^3/uL (1.8-7.7) H Lymphocytes # (Auto) 2.5 x10^3/uL (1.0-4.8) Monocytes # (Auto) 2.5 x10^3/uL (0.0-1.1) H Eosinophils # (Auto) 0.0 x10^3/uL (0.0-0.7) Basophils # (Auto) 0.1 x10^3/uL (0.0-0.2) Segmented Neutrophils % 83 % (35-66) H Lymphocytes % 11 % (24-48) L Monocytes % 6 % (0-10) Platelet Estimate Adequate (ADEQUATE) Sodium Level 137 mmol/L (136-145) Potassium Level 4.0 mmol/L (3.5-5.1) Chloride Level 101 mmol/L (98-107) Carbon Dioxide Level 27 mmol/L (21-32) Anion Gap 9 (6-14) Blood Urea Nitrogen 14 mg/dL (7-20) Creatinine 0.8 mg/dL (0.6-1.0) Estimated GFR (Cockcroft-Gault) 70.9 Glucose Level 91 mg/dL (70-99) Lactic Acid Level 0.8 mmol/L (0.4-2.0) Calcium Level 9.4 mg/dL (8.5-10.1) Total Bilirubin 0.9 mg/dL (0.2-1.0) Direct Bilirubin 0.2 mg/dL (0.0-0.2) Aspartate Amino Transferase (AST) 17 U/L (15-37) Alanine Aminotransferase (ALT) 17 U/L (14-59) Alkaline Phosphatase 84 U/L (46-116) Creatine Kinase 38 U/L (26-192) Troponin I Quantitative < 0.017 ng/mL (0.000-0.055) Total Protein 7.4 g/dL (6.4-8.2) Albumin 3.3 g/dL (3.4-5.0) L Lipase 41 U/L (73-393) L Laboratory Tests 07/01/20 13:58 Laboratory Tests 07/01/20 13:58 Vital Signs: Vital Signs Date Time Temp Pulse Resp B/P (MAP) Pulse Ox O2 Delivery O2 Flow Rate FiO2 07/01/20 13:36 98.3 94 18 98/39 (58) 96 Room Air 98.3 EKG: EKG: paced rhythm 92 bpm, qrs 208, qtc 520, lbbb w/twis/strain, no marcelo/std, no active chest pain Radiology/Procedures: Radiology/Procedures: IMAGING REPORT Signed PATIENT: JERZY LUIS ACCOUNT: [id number] : 1950 LOCATION: ER AGE: 69 SEX: F EXAM STATUS: PRE ER ORD. PHYSICIAN: JONG SHERWOOD DO REASON: pacemaker infection/pain?? PROCEDURE: CT CHEST W/CONTRAST CT chest with contrast: History: Pacemaker infection Axial helical images of the chest were obtained after the administration of 75 cc of Omni 300 IV contrast. Comparison: February 20, 2020 Findings: There is a 2.3 x 1.9 cm spiculated mass in the left lung apex anteriorly abutting the pleura. The thoracic aorta appears normal. There is multiple calcified granuloma in the mediastinum. There is metallic density in the upper abdomen on left and the spleen is not seen suggesting prior splenectomy. There is an old T6 vertebral body compression fractures seen previously and unchanged. There is a right-sided dual-lead defibrillator. Beam Chavez artifact around the defibrillator generator obscures the right chest wall. The heart is mild to moderately dilated. There is been prior left mastectomy. Impression: 1. Dilated cardiomegaly seen previously. 2. Spiculated mass in the upper left lung abutting the pleura anteriorly is suspicious for primary lung cancer if the patient is a smoker. Otherwise this could be metastatic cancer. This appears slightly larger. 3. Evaluation of the right chest wall is limited by the defibrillator generator. If there is concern for an abscess, consider ultrasound evaluation of the right chest wall. End Impression PQRS Compliance Statement: One or more of the following individualized dose reduction techniques were utilized for this examination: 1. Automated exposure control 2. Adjustment of the mA and/or kV according to patient size 3. Use of iterative reconstruction technique Electronically signed by: Simon Snyder III, MD (07/01/2020 3:44 PM) [facility] DICTATED and SIGNED BY: SIMON SNYDER III, MD DATE: 07/01/20 [id number] 0 Course & Med Decision Making: Course & Med Decision Making Pertinent Labs and Imaging studies reviewed. (See chart for details) Concern for chest wall cellulitis with pacemaker infection, started on vancomycin with leukocytosis and a heart rate of 94 which does qualify patient for sepsis. Patient was sent in by Dr. Berumen in ed/I spoke with him. Patient afebrile in ED (has taken no antipyretics today), no end organ damage on labs. CT the chest with contrast is concerning for spiculated left upper lung mass-will admit to medicine for further work-up and consult hematology oncology. Patient and daughter made aware of these findings. Patient stable at time of admission and agrees with this plan. I have spoken with the patient and/or caregivers. I have explained the pat ient's condition, diagnosis and treatment plan based on the information available to me at this time. I have answered the patient's and/or caregivers questions and answered any concerns. The patient and/or caregivers have as good an understanding of the patient's diagnosis, condition and treatment plan as can be expected at this point. The patient has been stabilized within the capability of the emergency department. The patient will be transported for further care and management or will be moved to an observation or inpatient service. I have communicated with the staff or medical practitioner taking over this patient's care. Dennis Disclaimer: Dennis Disclaimer: This electronic medical record was generated, in whole or in part, using a voice recognition dictation system. Departure Departure Impression: Primary Impression: Cellulitis of chest wall Additional Impressions: Pacemaker infection Sepsis Disposition: 09 ADMITTED INPT THIS HOSP Admitting Physician: Rosy Beckham Condition: STABLE Referrals: ROSY BECKHAM MD (PCP) Scripts Amiodarone Hcl (AMIODARONE HCL) 200 Mg Tablet 400 MG PO DAILY for arrhythmia for 30 Days, #60 TAB 1 Refill Prov: TARAH MARIN MD 07/07/20 Doxycycline Monohydrate (DOXYCYCLINE MONOHYDRATE) 100 Mg Capsule 1 CAP PO BID for infection for 5 Days, #10 CAP Prov: TARAH MARIN MD 07/07/20 Cefdinir (CEFDINIR) 300 Mg Capsule 1 CAP PO BID for infection for 5 Days, #10 CAP Prov: TARAH MARIN MD 07/07/20 JONG CUETO DO Jul 01, 2020 16:11
[2020-07-01 17:39] LABS: BILIRUBIN,URINE NEGATIVE (NEG); CLARITY,URINE CLEAR; COLOR,URINE YELLOW; NITRITE,URINE NEGATIVE (NEG); PROTEIN,URINE 30 mg/dL (NEG-TRACE); UROBILINOGEN,URINE 0.2 mg/dL (0.2 mg/dL)
[2020-07-01 17:45] VITALS: BP 115/54
[2020-07-01] MEDS ORDERED: ACET325T9 PO (18:12)
[2020-07-01] MEDS ORDERED: SACU1TAB PO (18:12)
[2020-07-01 18:19] LABS: BACTERIA,URINE FEW /HPF (0-FEW); RBC,URINE 0 /HPF (0-2)
[2020-07-01 19:00] VITALS: BP 97/47
[2020-07-01] MEDS ORDERED: ALBUTEROL SULFATE 2.5 MG/3 ML NEBU. INH PRN (19:30)
[2020-07-01] MEDS ORDERED: ONDANSETRON ODT 4 MG TAB.RAPDIS. PO PRN (19:30)
--- NOTE | 2020-07-01 20:28 | EKG ---
[facility] [address] [place] [address] Test Date: 2020-07-01 Test Time: 14:18:58 Pat Name: JERZY LUIS Department: Room: [facility] Gender: F Corporate Counselor: : 1950 Requested By: JONG SHERWOOD Order Number: [id number] Reading MD: Gilbert Mayen Measurements Intervals [place] Rate: 92 P: -62 NH: 114 QRS: 15 QRSD: 208 T: 93 QT: 416 QTc: 520 Interpretive Statements ATRIAL-SENSED VENTRICULAR-PACED RHYTHM Electronically Signed On 07-12-2020 14:49:16 VOCATIONAL GUIDANCE COUNSELOR by Gilbert Mayen
[2020-07-01] MEDS: SACUBITRIL/VALSARTAN 24/26MG TABLET. PO SCH (20:49)
--- NOTE | 2020-07-01 22:31 | PDOC2 ---
CARDIOLOGY CONSULT NOTE DATE OF SERVICE: DATE: 07/01/20 TIME: 22:22 CHIEF COMPLAINT: Nausea, fevers, ICD infection. HPI: Ms. Rodriguez is a 69 y.o woman who is well known to our service. She had a BiV ICD in 02/2020 for VT and syncope in the setting of QRS > 120ms and NICM. She previously had a heart cath and this did not show any significant CAD. She was wearing a lifevest in 02/2020 when she had a syncopal event and rhythm strips sh owed VT. She was seen in the office 2 weeks ago and a well healed 0.25inch scab on the lateral aspect of her right chest wall ICD incision was noted. At that time, there was no edema, erythema or evidence of infection. She was sent to wound care team to help with resolution of the scabbing. She also denied any fevers or chills 2 weeks ago. Over the last few days after manipulation of the site to help with scab healing, it has now become infected and patient reports fevers of 101 at home and nausea. SHe has been admitted for ICD explantation on saturday. PMHX: NICM VT s/p BiV ICD HTN SOCHX: No current alcohol, tob or illicit drug use. She is mostly helped by her grand daughter. FAMHX: NC CURRENT MEDS: Current Medications Medications (Trade) Dose Ordered Sig/Aniya Route PRN Reason Start Time Stop Time Status Last Admin Dose Admin Vancomycin HCl 1.5 gm/Sodium Chloride 500 ml @ 250 mls/hr 1X ONCE IV 07/01/20 14:45 07/01/20 16:44 DC 07/01/20 15:36 Iohexol (Omnipaque 300 Mg/ml) 75 ml 1X ONCE IV 07/01/20 14:45 07/01/20 14:50 DC 07/01/20 15:04 Sacubitril/ Valsartan (Entresto 24 Mg-26 Mg) 1 tab BID PO 07/01/20 21:00 07/01/20 20:49 ALLERGIES: Allergies Coded Allergies Type Severity Reaction Last Updated Verified bee venom protein (honey bee) Allergy Intermediate Swelling 06/13/18 Yes chlorzoxazone Allergy Intermediate 12/03/19 Yes coconut Allergy Intermediate Rash 06/13/18 Yes sulfasalazine Allergy Intermediate 06/13/18 Yes morphine Adverse Reaction Unknown Nausea and Vomiting 02/22/20 Yes ROS: Negative for 03/16 systems reviewed unless noted above in HPI PHYSICAL EXAM: Vital Signs/I&O: Vital Signs Date Time Temp Pulse Resp B/P (MAP) Pulse Ox O2 Delivery O2 Flow Rate FiO2 07/01/20 20:49 91 97/47 07/01/20 20:20 Room Air 07/01/20 19:00 99.8 18 94 99.8 Physical Exam: On exam she is a thin lady in mild distress from recent events. Normal heart tones. She has purulent drainage from the pacer incision site with ICD exposed and significant erythema. No edema. Soft abdomen no focal neurologic deficits. DIAGNOSTIC TESTING: CT chest reviewed. labs reviewed. ASSESSMENT: 1. ICD pocket infection 2. NICM s/p BiV ICD for VT and persistent CMP with EF of 15-20% 3. HTN 4. New spiculated lung mass PLAN: 1. We will plan for ICD explantation on saturday, continue IV antibiotics and await cultures. 2. Continue home toprol XL, entresto upon discharge, monitor off of it for now given sepsis and concern for lower BP's. 3. Await evaluation of spiculated lung mass to determine terminal gauger prognosis etc, will likely DC on lifevest on saturday or saturday. Thanks. Will follow along closely. Discussed with grand daughter and nursing team. CATALINO AVALOS MD Jul 01, 2020 22:31
[2020-07-01 23:05] VITALS: BP 79/40
[2020-07-02] VITALS (7 sets, daily range): BP systolic 86–123; BP diastolic 42–79
[2020-07-02] MEDS: ACETAMINOPHEN 325 MG TABLET. PO PRN (03:10)
[2020-07-02] MEDS: SACUBITRIL/VALSARTAN 24/26MG TABLET. PO SCH ×2 (09:15→19:48)
[2020-07-02] MEDS: AMIODARONE HCL 200 MG TABLET. PO SCH (09:16)
[2020-07-02] MEDS: CETIRIZINE HCL 10 MG TABLET. PO SCH (09:16)
[2020-07-02] MEDS: MULTIVITAMIN with MINERAL TABLET. PO SCH (09:16)
[2020-07-02] MEDS: SPIRONOLACTONE 25 MG TABLET PO SCH (09:16)
[2020-07-02] MEDS: FLUTICASONE 50MCG/NASAL SPRAY 16GM BOTTLE. NS SCH (09:17)
--- NOTE | 2020-07-02 11:52 | HP ---
ADMIT DATE: 07/02/2020 CHIEF COMPLAINT AND HISTORY OF PRESENT ILLNESS: This 69-year-old white female is known to me from prior hospitalization, follows normally with Dr. Kumari. The patient had a defibrillator placed back in February with ejection fraction at that point in time the 15% range. She has had slow healing of the site and recently scabbed over the pacemaker site started turning black and on the day of admission, was running fevers and chills. There was green discharge from the gauze over the dressing. She was felt to have an infected site and admitted to the hospital for antibiotics and cardiological consideration, probable removal of the AICD. PAST MEDICAL HISTORY: Remarkable for cervical cancer, breast cancer, Hodgkin's lymphoma, basal cell carcinoma. She has a history of hypertension. She has a history of cardiomyopathy. PAST SURGICAL HISTORY: Remarkable for appendectomy, cholecystectomy, hysterectomy, splenectomy, tubal ligation, tonsillectomy and defibrillator placement, left mastectomy. MEDICATIONS: Brought with the patient, listed on the computer, have been addressed. ALLERGIES: SHE IS ALLERGIC TO BEE VENOM, CHLORZOXAZONE, COCONUT, MORPHINE, AND SULFASALAZINE. SOCIAL HISTORY: She is a former smoker, rarely uses alcohol, does use marijuana. FAMILY HISTORY: Noncontributory. REVIEW OF SYSTEMS: As mentioned above. She does also admit that it is difficult to move her right arm up since this has gotten worse, but was somewhat limited since it has been placed. PHYSICAL EXAMINATION: GENERAL: She is well-developed, well-nourished white female, in no acute distress. VITAL SIGNS: Stable. She has had a low-grade fever since admission, but these seem to be improving. HEAD, EYES, EARS, NOSE AND THROAT: Unremarkable. NECK: Supple, without adenopathy or thyromegaly. CHEST: Clear to auscultation and percussion. HEART: Regular rate and rhythm without S3, S4 or murmur. ABDOMEN: Soft, nontender, without hepatosplenomegaly or mass. EXTREMITIES: Without cyanosis, clubbing, edema. NEUROLOGIC: She is intact. LABORATORY DATA: Initial lab is remarkable for a white count of 25,000 with a left shift. CMP is mostly unremarkable with mild protein-calorie malnutrition with an albumin of 3.3. Urinalysis is unremarkable and COVID-19 rapid test is negative to date. IMPRESSION: 1. Infected AICD site with leukocytosis, fevers, chills. 2. Incidental finding of a spiculated mass, left upper lobe abutting the pleura anteriorly, suspicious for early lung cancer. 3. Multiple other problems listed above. PLAN: Continue present antibiotics with cardiological consultation. The patient will be monitored, managed and treated appropriately. AC CRUZ MD DR: KEVIN/karthikeyan JOB#: [id number] / [id number]
[2020-07-02] MEDS: VANCOMYCIN PER PHARMACY MC PRN (12:06)
--- NOTE | 2020-07-02 12:06 | NUR ---
Pharmacy Vancomycin Dosing Note S:Consulted to monitor and dose vancomycin started 07/01/20. O:JERZY LUIS is a 69 year old F with Cellulitis Infected AICD site . Height: 5 feet, 4 inches Weight: 67.0 kg [place] Body Weight: 54.70 Adjusted Body Weight: 59.62 Dosing Weight: Actual Other Antibiotics: LABS: Last BUN: 14 Last Creatinine: 0.8 Creatinine Clearance: 49 mL/min Last WBC: 25 Last Procalcitonin: Tmax (past 24 hours): 98.8 Microbiology: I/O: Drug Levels: Last level: on at Last dose given 07/01/20 at 1530 Vancomycin Dosing: Loading Dose: 1500 mg x1 Dosing Weight: Actual Target Trough: 10-20 A: Based on: Body weight and renal function P: 1. Start Vancomycin 1000 mg IV q24h 2. Follow up Trough level on 07/03/20 at 1500 3. Pharmacy will continue to monitor, follow and adjust therapy as needed. BRICE PHILLIPS [facility], 07/02/20 [id number]
[2020-07-02] MEDS: ASPIRIN ENTERIC COATED 81 MG TABLET.DR. PO SCH (12:38)
[2020-07-02] MEDS: METOPROLOL SUCC 24HR ER 25 MG TAB.ER.24H. PO SCH (12:39)
--- NOTE | 2020-07-02 13:13 | PDOC ---
PROGRESS NOTES Date of Service: DATE: 07/02/20 TIME: 13:07 Subjective Subjective Denied any fever/chills/dyspnea Objective Objective Vital Signs Date Time Temp Pulse Resp B/P (MAP) Pulse Ox O2 Delivery O2 Flow Rate FiO2 07/02/20 12:39 90 123/73 07/02/20 11:50 98.1 19 96 Room Air 98.1 Intake and Output 07/02/20 07:00 Intake Total 150 ml Balance 150 ml Intake Oral 150 ml Physical Exam Abdomen: Soft, No tenderness Heart: Regular rate, Other (Erythema around pocket with mild purulent discharge from lateral aspect of the incision on the right chest) Extremities: No edema General: Alert, No acute distress HEENT: Atraumatic Lungs: Clear to auscultation Neck: Supple Neuro: Normal speech Assessment Assessment 1. Nonischemic cardiomyopathy, EF 15 to 20% s/p biventricular ICD/HAND HIDE STRETCHER-D implantation presenting with pocket infection. Plan for explantation of the device on Saturday. Continue intravenous antibiotics. 2. Chronic systolic heart failure: Clinically well compensated. Continue curr ent medical regimen. 3. Ventricular tachycardia. Telemetry did not show any significant arrhythmias. Continue amiodarone for VT suppression. 4. Hypertension: Controlled Plan Plan of Care Problems Medical Problems: (1) Cellulitis of chest wall Status: Acute (2) Pacemaker infection Status: Acute (3) Sepsis Status: Acute Comment Review of Relevant I have reviewed the following items heri (where applicable) has been applied. Labs Laboratory Tests Test 07/01/20 13:58 07/01/20 17:30 07/01/20 19:10 White Blood Count 25.0 x10^3/uL (4.0-11.0) Red Blood Count 4.63 x10^6/uL (3.50-5.40) Hemoglobin 14.4 g/dL (12.0-15.5) Hematocrit 44.1 % (36.0-47.0) Mean Corpuscular Volume 95 fL (79-100) Mean Corpuscular Hemoglobin 31 pg (25-35) Mean Corpuscular Hemoglobin Concent 33 g/dL (31-37) Red Cell Distribution Width 13.1 % (11.5-14.5) Platelet Count 230 x10^3/uL (140-400) Neutrophils (%) (Auto) 80 % (31-73) Lymphocytes (%) (Auto) 10 % (24-48) Monocytes (%) (Auto) 10 % (0-9) Eosinophils (%) (Auto) 0 % (0-3) Basophils (%) (Auto) 0 % (0-3) Neutrophils # (Auto) 20.0 x10^3/uL (1.8-7.7) Lymphocytes # (Auto) 2.5 x10^3/uL (1.0-4.8) Monocytes # (Auto) 2.5 x10^3/uL (0.0-1.1) Eosinophils # (Auto) 0.0 x10^3/uL (0.0-0.7) Basophils # (Auto) 0.1 x10^3/uL (0.0-0.2) Segmented Neutrophils % 83 % (35-66) Lymphocytes % 11 % (24-48) Monocytes % 6 % (0-10) Platelet Estimate Adequate (ADEQUATE) Sodium Level 137 mmol/L (136-145) Potassium Level 4.0 mmol/L (3.5-5.1) Chloride Level 101 mmol/L (98-107) Carbon Dioxide Level 27 mmol/L (21-32) Anion Gap 9 (6-14) Blood Urea Nitrogen 14 mg/dL (7-20) Creatinine 0.8 mg/dL (0.6-1.0) Estimated GFR (Cockcroft-Gault) 70.9 Glucose Level 91 mg/dL (70-99) Lactic Acid Level 0.8 mmol/L (0.4-2.0) Calcium Level 9.4 mg/dL (8.5-10.1) Total Bilirubin 0.9 mg/dL (0.2-1.0) Direct Bilirubin 0.2 mg/dL (0.0-0.2) Aspartate Amino Transf (AST/SGOT) 17 U/L (15-37) Alanine Aminotransferase (ALT/SGPT) 17 U/L (14-59) Alkaline Phosphatase 84 U/L (46-116) Creatine Kinase 38 U/L (26-192) Troponin I Quantitative < 0.017 ng/mL (0.000-0.055) Total Protein 7.4 g/dL (6.4-8.2) Albumin 3.3 g/dL (3.4-5.0) Lipase 41 U/L (73-393) Urine Collection Type Void Urine Color Yellow Urine Clarity Clear Urine pH 6.0 (<5.0-8.0) Urine Specific [place] >=1.030 (1.000-1.030) Urine Protein 30 mg/dL (NEG-TRACE) Urine Glucose (UA) Negative mg/dL (NEG) Urine Ketones (Stick) >=80 mg/dL (NEG) Urine Blood Negative (NEG) Urine Nitrite Negative (NEG) Urine Bilirubin Negative (NEG) Urine Urobilinogen Dipstick 0.2 mg/dL (0.2 mg/dL) Urine Leukocyte Esterase Negative (NEG) Urine RBC 0 /HPF (0-2) Urine WBC 1-4 /HPF (0-4) Urine Squamous Epithelial Cells Occ /LPF Urine Bacteria Few /HPF (0-FEW) SARS-CoV-2 Antigen (Rapid) Negative (NEGATIVE) Medications Current Medications Acetaminophen (Tylenol) 650 mg PRN Q6HRS PRN PO PAIN Last administered on 07/02/20at 03:10; Start 07/01/20 at 18:30 Acetaminophen (Tylenol) 1,000 mg 1X ONCE PO ; Start 07/01/20 at 14:00; Stop 07/01/20 at 14:02; Status DC Albuterol Sulfate (Ventolin Neb Soln) 2.5 mg PRN Q4HRS PRN INH soa; Start 07/01/20 at 19:30 Amiodarone HCl (Cordarone) 400 mg DAILY PO Last administered on 07/02/20at 09:16; Start 07/02/20 at 09:00 Aspirin (Ecotrin) 162 mg DAILY PO Last administered on 07/02/20at 12:38; Start 07/02/20 at 09:00 Cetirizine HCl (ZyrTEC) 10 mg DAILY PO Last administered on 07/02/20at 09:16; Start 07/02/20 at 09:00 Fluticasone Propionate (Flonase) 2 spray DAILY NS Last administered on 07/02/20at 09:17; Start 07/02/20 at 09:00 Info (CONTRAST GIVEN -- Rx MONITORING) 1 each PRN DAILY PRN MC SEE COMMENTS; Start 07/01/20 at 15:00; Stop 07/03/20 at 14:59 Iohexol (Omnipaque 300 Mg/ml) 75 ml 1X ONCE IV Last administered on 07/01/20at 15:04; Start 07/01/20 at 14:45; Stop 07/01/20 at 14:50; Status DC Lactobacillus Rhamnosus (Culturelle) 1 cap BID PO ; Start 07/02/20 at 21:00 Metoprolol Succinate (Toprol Xl) 25 mg DAILY PO Last administered on 07/02/20at 12:39; Start 07/02/20 at 09:00 Multivitamins (Thera M Plus) 1 tab DAILY PO Last administered on 07/02/20at 09:16; Start 07/02/20 at 09:00 Ondansetron HCl (Zofran Odt) 4 mg PRN DAILY PRN PO NAUSEA; Start 07/01/20 at 19:30 Sacubitril/ Valsartan (Entresto 24 Mg-26 Mg) 1 tab BID PO Last administered on 07/02/20at 09:15; Start 07/01/20 at 21:00 Sodium Chloride 1,000 ml @ 1,000 mls/hr 1X ONCE IV ; Start 07/01/20 at 14:00; Stop 07/01/20 at 14:01; Status DC Sodium Chloride 1,000 ml @ 1,000 mls/hr 1X ONCE IV ; Start 07/01/20 at 14:00; Stop 07/01/20 at 14:59; Status UNV Spironolactone (Aldactone) 25 mg DAILY PO Last administered on 07/02/20at 09:16; Start 07/02/20 at 09:00 Vancomycin HCl (Vanco Per Pharmacy) 1 each PRN DAILY PRN MC SEE COMMENTS Last administered on 07/02/20at 12:06; Start 07/02/20 at 11:45 Vancomycin HCl (Vancomycin Trough Level) 1 each 1X ONCE MC ; Start 07/03/20 at 15:00; Stop 07/03/20 at 15:01 Vancomycin HCl 1.5 gm/Sodium Chloride 500 ml @ 250 mls/hr 1X ONCE IV Last administered on 07/01/20at 15:36; Start 07/01/20 at 14:45; Stop 07/01/20 at 16:44; Status DC Vancomycin HCl 1 gm/Sodium Chloride 250 ml @ 250 mls/hr Q24H IV ; Start 07/02/20 at 15:30 Vitals/I & O Vital Sign - Last 24 Hours 07/01/20 07/01/20 07/01/20 07/01/20 13:36 15:11 15:26 17:45 Temp 98.3 100.1 98.3 100.1 Pulse 94 91 95 96 Resp 18 18 18 B/P (MAP) 98/39 (58) 109/52 (71) 112/55 (74) 115/54 (74) Pulse Ox 96 96 92 O2 Delivery Room Air Room Air Room Air 07/01/20 07/01/20 07/01/20 07/01/20 18:31 19:00 20:20 20:49 Temp 99.8 99.8 Pulse 91 91 Resp 18 B/P (MAP) 97/47 (64) 97/47 Pulse Ox 94 O2 Delivery Room Air Room Air Room Air 07/01/20 07/02/20 07/02/20 07/02/20 23:05 00:33 02:11 07:25 Temp 99.8 98.8 97.9 99.8 98.8 97.9 Pulse 82 90 92 Resp 19 19 B/P (MAP) 79/40 (53) 91/42 (58) 86/45 (59) 100/56 (71) Pulse Ox 93 94 96 O2 Delivery Room Air Room Air Room Air 07/02/20 07/02/20 07/02/20 07/02/20 08:00 09:15 09:16 11:50 Temp 98.1 98.1 Pulse 92 92 90 Resp 19 B/P (MAP) 100/56 100/56 123/73 (90) Pulse Ox 96 O2 Delivery Room Air Room Air 07/02/20 12:39 Pulse 90 B/P (MAP) 123/73 Intake and Output 07/01/20 07/01/20 07/02/20 15:00 23:00 07:00 Intake Total 150 ml 0 ml Balance 150 ml 0 ml ISACC BOLANOS MD Jul 02, 2020 13:13
[2020-07-02] MEDS ORDERED: VANCOMYCIN 1 GM in IV NORMAL SALINE 250ML 250 ML IV SCH (15:30)
[2020-07-02] MEDS: LACTOBACILLUS RHAMNOSUS GG 1 CAPSULE. PO SCH (19:48)
[2020-07-03] MEDS: ACETAMINOPHEN 325 MG TABLET. PO PRN ×2 (02:27→20:13)
[2020-07-03 02:48] VITALS: BP 107/52
[2020-07-03 07:57] VITALS: BP 146/77
[2020-07-03] MEDS: LACTOBACILLUS RHAMNOSUS GG 1 CAPSULE. PO SCH ×2 (08:18→20:11)
[2020-07-03] MEDS: SACUBITRIL/VALSARTAN 24/26MG TABLET. PO SCH ×2 (08:18→20:11)
[2020-07-03] MEDS: SPIRONOLACTONE 25 MG TABLET PO SCH (08:18)
[2020-07-03] MEDS: MULTIVITAMIN with MINERAL TABLET. PO SCH (08:18)
[2020-07-03] MEDS: ASPIRIN ENTERIC COATED 81 MG TABLET.DR. PO SCH (08:18)
[2020-07-03] MEDS: CETIRIZINE HCL 10 MG TABLET. PO SCH (08:18)
[2020-07-03] MEDS: FLUTICASONE 50MCG/NASAL SPRAY 16GM BOTTLE. NS SCH (08:19)
[2020-07-03] MEDS: AMIODARONE HCL 200 MG TABLET. PO SCH (08:19)
[2020-07-03] MEDS: METOPROLOL SUCC 24HR ER 25 MG TAB.ER.24H. PO SCH (08:19)
--- NOTE | 2020-07-03 10:42 | PDOC ---
PROGRESS NOTES Date of Service: DATE: 07/03/20 TIME: 10:42 Subjective Subjective Remains afebrile, denies any shortness of breath Objective Objective Vital Signs Date Time Temp Pulse Resp B/P (MAP) Pulse Ox O2 Delivery O2 Flow Rate FiO2 07/03/20 08:19 78 146/77 07/03/20 08:00 Room Air 07/03/20 07:57 97.7 18 97 97.7 Intake and Output 07/03/20 07:00 Intake Total 1350 ml Output Total 1850 ml Balance -500 ml Intake Oral 1350 ml Output Urine Total 1850 ml Physical Exam Abdomen: Soft, No tenderness Heart: Regular rate, Other (Erythema around pocket with mild purulent discharge from lateral aspect of the incision on the right chest) Extremities: No edema General: Alert, No acute distress HEENT: Atraumatic Lungs: Clear to auscultation Neck: Supple Neuro: Normal speech Assessment Assessment 1. 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 Plan for explantation of the device on Saturday. Continue intravenous antibiotics. 2. Chronic systolic heart failure: Clinically well compensated. Continue current medical regimen. 3. Ventricular tachycardia. Telemetry did not show any significant arrhythmias. Continue amiodarone for VT suppression. 4. Hypertension: Controlled Plan Plan of Care Problems Medical Problems: (1) Cellulitis of chest wall Status: Acute (2) Pacemaker infection Status: Acute (3) Sepsis Status: Acute Comment Review of Relevant I have reviewed the following items heri (where applicable) has been applied. Labs Microbiology 07/01/20 Blood Culture - Preliminary, Resulted NO GROWTH AFTER 1 DAY Medications Current Medications Lactobacillus Rhamnosus (Culturelle) 1 cap BID PO Last administered on 07/03/20at 08:18; Start 07/02/20 at 21:00 Vancomycin HCl (Vanco Per Pharmacy) 1 each PRN DAILY PRN MC SEE COMMENTS Last administered on 07/02/20at 12:06; Start 07/02/20 at 11:45 Vancomycin HCl (Vancomycin Trough Level) 1 each 1X ONCE MC ; Start 07/03/20 at 15:00; Stop 07/03/20 at 15:01 Vancomycin HCl 1 gm/Sodium Chloride 250 ml @ 250 mls/hr Q24H IV Last administered on 07/02/20at 16:46; Start 07/02/20 at 15:30 Vitals/I & O Vital Sign - Last 24 Hours 07/02/20 07/02/20 07/02/20 07/02/20 11:50 12:39 14:26 19:16 Temp 98.1 97.9 98.1 97.9 Pulse 90 90 85 Resp 19 20 B/P (MAP) 123/73 (90) 123/73 114/79 (91) Pulse Ox 96 95 O2 Delivery Room Air Room Air Room Air 07/02/20 07/02/20 07/02/20 07/03/20 19:31 19:48 22:35 02:48 Temp 97.2 97.6 97.5 97.2 97.6 97.5 Pulse 87 87 84 83 Resp 18 18 18 B/P (MAP) 110/51 (70) 110/51 108/54 (72) 107/52 (70) Pulse Ox 99 100 96 O2 Delivery Room Air Room Air Room Air 07/03/20 07/03/20 07/03/20 07/03/20 07:57 08:00 08:18 08:19 Temp 97.7 97.7 Pulse 78 78 78 Resp 18 B/P (MAP) 146/77 (100) 146/77 146/77 Pulse Ox 97 O2 Delivery Room Air Room Air 07/03/20 08:19 Pulse 78 B/P (MAP) 146/77 Intake and Output 07/02/20 07/02/20 07/03/20 15:00 23:00 07:00 Intake Total 350 ml 1000 ml 0 ml Output Total 1850 ml Balance 350 ml -850 ml 0 ml ISACC BOLANOS MD Jul 03, 2020 10:42
[2020-07-03 10:58] VITALS: BP 117/63
--- NOTE | 2020-07-03 12:45 | PN ---
DATE: 07/03/2020 LOCATION: Room 250. SUBJECTIVE: This 69-year-old white female remains hospitalized with AICD infection on right chest wall. She states the pain is decreased. She can move her arm a little better. She has a good appetite and is dreading having it removed tomorrow, mainly because of missing her morning coffee. OBJECTIVE: VITAL SIGNS: Stable. She has been afebrile for the last 24 hours. CHEST: Clear. HEART: Paced, regular. ABDOMEN: Benign. EXTREMITIES: Without cyanosis, clubbing, edema. IMPRESSION: 1. Automatic implantable cardioverter defibrillator infected site, right chest wall. 2. History of multiple cancers. 3. Hypertension. 4. Cardiomyopathy. PLAN: Continue present antibiotics and supportive care likely with removal of AICD tomorrow home with a LifeVest until something can be replaced more definitively done once again which is likely 6-12 weeks off. AC CRUZ MD DR: KEVIN/karthikeyan JOB#: [id number] / [id number]
[2020-07-03 15:08] LABS: BASO # 0.1 x10^3/uL (0.0-0.2); BASO % 1 % (0-3); EOS # 0.1 x10^3/uL (0.0-0.7); EOS % 1 % (0-3); HEMATOCRIT 39.9 % (36.0-47.0); HEMOGLOBIN 13.5 g/dL (12.0-15.5); LYMPH # 2.6 x10^3/uL (1.0-4.8); LYMPH % 17 % (24-48); MEAN CORPUSCULAR HEMOGLOBIN 32 pg (25-35); MEAN CORPUSCULAR HGB CONC 34 g/dL (31-37); MEAN CORPUSCULAR VOLUME 95 fL (79-100); MONO # 1.5 x10^3/uL (0.0-1.1); MONO % 10 % (0-9); NEUT # 10.6 x10^3/uL (1.8-7.7); NEUT % 71 % (31-73); PLATELET COUNT 268 x10^3/uL (140-400); RED BLOOD COUNT 4.22 x10^6/uL (3.50-5.40); RED CELL DISTRIBUTION WIDTH 12.9 % (11.5-14.5); WHITE BLOOD COUNT 14.9 x10^3/uL (4.0-11.0)
[2020-07-03 15:15] VITALS: BP 122/66
[2020-07-03 15:18] LABS: CREATININE 0.8 mg/dL (0.6-1.0); GFR 70.9
[2020-07-03 15:25] LABS: VANC TR 3.6 mcg/mL (10.0-20.0)
[2020-07-03] MEDS: VANCOMYCIN PER PHARMACY MC PRN ×2 (15:43→15:45)
--- NOTE | 2020-07-03 15:44 | NUR ---
Pharmacy Vancomycin Dosing Note S:Consulted to monitor and dose vancomycin started 07/01/20. O:JERZY LUIS is a 69 year old F with Cellulitis Infected AICD site . Height: 5 feet, 4 inches Weight: 67.5 kg [place] Body Weight: 54.70 Adjusted Body Weight: 59.82 Dosing Weight: Actual Other Antibiotics: LABS: Last BUN: 14 Last Creatinine: 0.8 Creatinine Clearance: 49 mL/min Last WBC: 14.9 Last Procalcitonin: Tmax (past 24 hours): 97.9 Microbiology: I/O: 1350/1850 Drug Levels: Last Trough level: 3.6 on 07/03/20 at 1646 Last dose given 07/02/20 at 1646 Vancomycin Dosing: Loading Dose: 1500 mg x1 Dosing Weight: Actual Target Trough: 10-20 A: Based on: Subtherapeutic trough P: 1. Increase dosing to Vancomycin 1250 mg IV q12h 2. Follow up Trough level on 07/05/20 at 1530 3. Pharmacy will continue to monitor, follow and adjust therapy as needed. BRICE PHILLIPS RPH, 07/03/20 [id number]
[2020-07-03] MEDS: VANCOMYCIN 1.25 GM in IV NORMAL SALINE 250ML 250 ML IV SCH (17:05)
[2020-07-03 19:45] VITALS: BP 118/62
[2020-07-03 22:52] VITALS: BP 110/60
[2020-07-04] VITALS (13 sets, daily range): BP systolic 80–128; BP diastolic 42–72
[2020-07-04] MEDS: VANCOMYCIN 1.25 GM in IV NORMAL SALINE 250ML 250 ML IV SCH ×2 (03:01→16:23)
[2020-07-04 06:40] LABS: CREATININE 0.7 mg/dL (0.6-1.0); GFR 82.7; POTASSIUM 4.1 mmol/L (3.5-5.1)
[2020-07-04 06:59] LABS: BASO # 0.1 x10^3/uL (0.0-0.2); BASO % 1 % (0-3); EOS # 0.2 x10^3/uL (0.0-0.7); EOS % 1 % (0-3); HEMOGLOBIN 13.4 g/dL (12.0-15.5); LYMPH # 2.8 x10^3/uL (1.0-4.8); LYMPH % 20 % (24-48); MEAN CORPUSCULAR HEMOGLOBIN 31 pg (25-35); MEAN CORPUSCULAR HGB CONC 33 g/dL (31-37); MEAN CORPUSCULAR VOLUME 95 fL (79-100); MONO # 1.6 x10^3/uL (0.0-1.1); MONO % 11 % (0-9); NEUT # 9.4 x10^3/uL (1.8-7.7); NEUT % 67 % (31-73); PLATELET COUNT 284 x10^3/uL (140-400); RED BLOOD COUNT 4.31 x10^6/uL (3.50-5.40); RED CELL DISTRIBUTION WIDTH 12.9 % (11.5-14.5); WHITE BLOOD COUNT 14.1 x10^3/uL (4.0-11.0)
--- NOTE | 2020-07-04 07:56 | PDOC ---
SUBJECTIVE Subjective No acute events. OBJECTIVE Objective Reviewed. Vital Signs Vital Signs Date Time Temp Pulse Resp B/P (MAP) Pulse Ox O2 Delivery O2 Flow Rate FiO2 07/04/20 03:01 97.3 80 18 128/65 (86) 100 Room Air 97.3 07/03/20 22:52 96.9 83 18 110/60 (77) 98 Room Air 96.9 07/03/20 20:11 88 118/62 07/03/20 19:45 96.5 88 18 118/62 (80) 95 Room Air 96.5 07/03/20 19:39 Room Air 07/03/20 15:15 97.9 20 122/66 (84) 97 Room Air 97.9 07/03/20 10:58 97.8 76 20 117/63 (81) 98 Room Air 97.8 07/03/20 08:19 78 146/77 07/03/20 08:19 78 146/77 07/03/20 08:18 78 146/77 07/03/20 08:00 Room Air 07/03/20 07:57 97.7 78 18 146/77 (100) 97 Room Air 97.7 I & O Intake and Output 07/04/20 07:00 Intake Total 650 ml Output Total 3100 ml Balance -2450 ml Intake Oral 400 ml IV Total 250 ml Output Urine Total 3100 ml PHYSICAL EXAM Physical Exam Alert, oriented RRR CTAB R chest wall dressed No edema in b/l LEs Calm, cooperative ASSESSMENT/PLAN Assessment/Plan Nonischemic cardiomyopathy, EF 15 to 20% s/p biventricular ICD/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 w/ infection of implantation site Chronic systolic heart failure, not in acute exacerbation H/o VT CYNDY Lung mass, suspicious for primary lung cancer HTN H/o Nicotine dependence, quit 2016 H/o breast cancer, s/p L mastectomy, radiation Cards planning for ICD removal today On Vanc Pulm and Heme/Onc consulted for CYNDY lung mass, concern for malignancy Hold DVT ppx until after procedure today COMMENT Lab Laboratory Tests Test 07/03/20 14:45 07/04/20 04:44 07/04/20 04:49 White Blood Count 14.9 x10^3/uL (4.0-11.0) 14.1 x10^3/uL (4.0-11.0) Red Blood Count 4.22 x10^6/uL (3.50-5.40) 4.31 x10^6/uL (3.50-5.40) Hemoglobin 13.5 g/dL (12.0-15.5) 13.4 g/dL (12.0-15.5) Hematocrit 39.9 % (36.0-47.0) 41.0 % (36.0-47.0) Mean Corpuscular Volume 95 fL (79-100) 95 fL (79-100) Mean Corpuscular Hemoglobin 32 pg (25-35) 31 pg (25-35) Mean Corpuscular Hemoglobin Concent 34 g/dL (31-37) 33 g/dL (31-37) Red Cell Distribution Width 12.9 % (11.5-14.5) 12.9 % (11.5-14.5) Platelet Count 268 x10^3/uL (140-400) 284 x10^3/uL (140-400) Neutrophils (%) (Auto) 71 % (31-73) 67 % (31-73) Lymphocytes (%) (Auto) 17 % (24-48) 20 % (24-48) Monocytes (%) (Auto) 10 % (0-9) 11 % (0-9) Eosinophils (%) (Auto) 1 % (0-3) 1 % (0-3) Basophils (%) (Auto) 1 % (0-3) 1 % (0-3) Neutrophils # (Auto) 10.6 x10^3/uL (1.8-7.7) 9.4 x10^3/uL (1.8-7.7) Lymphocytes # (Auto) 2.6 x10^3/uL (1.0-4.8) 2.8 x10^3/uL (1.0-4.8) Monocytes # (Auto) 1.5 x10^3/uL (0.0-1.1) 1.6 x10^3/uL (0.0-1.1) Eosinophils # (Auto) 0.1 x10^3/uL (0.0-0.7) 0.2 x10^3/uL (0.0-0.7) Basophils # (Auto) 0.1 x10^3/uL (0.0-0.2) 0.1 x10^3/uL (0.0-0.2) Creatinine 0.8 mg/dL (0.6-1.0) 0.7 mg/dL (0.6-1.0) Estimated GFR (Cockcroft-Gault) 70.9 82.7 Vancomycin Level Trough 3.6 mcg/mL (10.0-20.0) Vancomycin Last Dose Date 07/02/20 Vancomycin Last Dose Time 1530 Sodium Level 139 mmol/L (136-145) Potassium Level 4.1 mmol/L (3.5-5.1) Chloride Level 105 mmol/L (98-107) Carbon Dioxide Level 27 mmol/L (21-32) Anion Gap 7 (6-14) Blood Urea Nitrogen 13 mg/dL (7-20) Glucose Level 82 mg/dL (70-99) Calcium Level 9.0 mg/dL (8.5-10.1) Justifications for Admission Other Justification TARAH MARIN MD Jul 04, 2020 07:56
[2020-07-04] MEDS: LACTOBACILLUS RHAMNOSUS GG 1 CAPSULE. PO SCH ×2 (08:54→20:07)
[2020-07-04] MEDS: METOPROLOL SUCC 24HR ER 25 MG TAB.ER.24H. PO SCH (08:54)
[2020-07-04] MEDS: ASPIRIN ENTERIC COATED 81 MG TABLET.DR. PO SCH (08:54)
[2020-07-04] MEDS: AMIODARONE HCL 200 MG TABLET. PO SCH (08:55)
[2020-07-04] MEDS: MULTIVITAMIN with MINERAL TABLET. PO SCH (08:57)
[2020-07-04] MEDS ORDERED: AMIO200T6 PO (08:57)
[2020-07-04] MEDS: CETIRIZINE HCL 10 MG TABLET. PO SCH (08:57)
[2020-07-04] MEDS: FLUTICASONE 50MCG/NASAL SPRAY 16GM BOTTLE. NS SCH (08:58)
[2020-07-04] MEDS: SACUBITRIL/VALSARTAN 24/26MG TABLET. PO SCH ×2 (09:00→20:07)
[2020-07-04] MEDS ORDERED: LIDOCAINE 2%/EPI 1:100,000 20 ML VIAL. ONE (12:32)
[2020-07-04] MEDS ORDERED: MIDAZOLAM HCL/PF 2 MG/2 ML VIAL. ONE (12:42)
[2020-07-04] MEDS ORDERED: fentaNYL PF VIAL 100 MCG/2 ML VIAL ONE ×2 (12:42→14:22)
[2020-07-04] MEDS ORDERED: BACITRACIN 50,000 UNIT in IV NORMAL SALINE 250ML 250 ML IRR ONE (13:00)
[2020-07-04] MEDS ORDERED: fentaNYL PF VIAL 100 MCG/2 ML VIAL IV ONE (13:15)
[2020-07-04] MEDS ORDERED: MIDAZOLAM HCL/PF 2 MG/2 ML VIAL. IV ONE (13:15)
[2020-07-04] MEDS ORDERED: LIDOCAINE 2%/EPI 1:100,000 20 ML VIAL. IJ ONE (13:15)
[2020-07-04] MEDS ORDERED: fentaNYL PF VIAL 100 MCG/2 ML VIAL IVP ONE (14:30)
--- NOTE | 2020-07-04 14:44 | NUR ---
SS following for discharge planning. SS reviewed pt chart and discussed with pt RN. Pt is from home with assistance from her granddaughter. Pt is currently requiring oxygen at two liters nasal canula. Per RN, pt has AICD infection. Pt on IV Vancomycin. COVID19 negative. Life Vest needed prior to discharge. SS currently awaiting order for Life Vest. SS will continue to follow for discharge planning.
[2020-07-04] MEDS: VANCOMYCIN PER PHARMACY MC PRN (16:16)
[2020-07-04] MEDS: SPIRONOLACTONE 25 MG TABLET PO SCH (16:23)
[2020-07-04] MEDS: ACETAMINOPHEN 325 MG TABLET. PO PRN (20:07)
[2020-07-04] MEDS: HYDROcodone/APAP 5/325MG 1 TAB TABLET PO PRN (22:04)
--- NOTE | 2020-07-04 22:10 | CARD ---
MR#: [id number] Date of Study: 07/04/2020 Ordering Physician: CATALINO AVALOS, Referring Physician: CATALINO AVALOS, Tech: APPROVED REPORT EXAM [place] TIME: 0.7 MINS DOSE: 0.9 GYCM2 MODERATE SEDATION: 73 MINS INDICATIONS Clinical indication: 6-year-old woman presented to the hospital in setting of AICD pocket infection a nd due to exposed device at the site of her pocket she was taken to the [facility] for device and lead explantation. Procedure details: After appropriate informed consent the right chest wall was prepped and draped in usual sterile fashi on. 35 mL of 2% lidocaine was instilled in the subcutaneous tissues. A 2 inch incision was made at the site of the previous pacemaker site and subsequently the subcutaneous tissue was opened using cau frances and blunt dissection. There was significant amount of purulent drainage. Next, there was exten sive scarring related to the recent inflammation due to the infection and there was considerable amou nt of time required to debride the tissues and free the left ventricular and right ventricular leads. Ultimately, the previous suture sleeves were removed and the right ventricular lead and left ventri cular lead were removed without any complications. There were no significant hemodynamic changes pos t lead removal. The incision was then closed in 3 layers and this also required significant debridem ent in the subcutaneous planes. A 6 Uzbek pigtail drain was placed at the inferior aspect of the po cket to help with drainage. Hemostasis was secured. The dressing was closed with Xeroform gauze and Steri-Strips. Sterile 4 x 4's were also used to cover the drain and incision site. No acute compli cations noted. CONCLUSION 1. Successful removal of previously placed Biotronik biventricular ICD due to pacemaker pocket infec tion. Signed by : Catalino Avalos, Electronically Approved : 07/04/2020 22:09:38
[2020-07-05 02:58] VITALS: BP 125/58
[2020-07-05] MEDS: VANCOMYCIN 1.25 GM in IV NORMAL SALINE 250ML 250 ML IV SCH ×2 (03:07→16:02)
[2020-07-05] MEDS: HYDROcodone/APAP 5/325MG 1 TAB TABLET PO PRN ×3 (03:12→20:57)
[2020-07-05 07:00] VITALS: BP 129/78
--- NOTE | 2020-07-05 07:44 | PDOC ---
SUBJECTIVE Subjective ICD removed successfully yesterday. Simón working well for pain prn. OBJECTIVE Objective Reviewed. Vital Signs Vital Signs Date Time Temp Pulse Resp B/P (MAP) Pulse Ox O2 Delivery O2 Flow Rate FiO2 07/05/20 04:12 18 Room Air 07/05/20 03:12 18 Room Air 07/05/20 02:58 98.1 79 18 125/58 (80) 98 Room Air 98.1 07/04/20 23:04 18 07/04/20 22:48 98.0 92 16 102/47 (65) 100 Room Air 98.0 07/04/20 22:04 18 Room Air 07/04/20 20:07 95 114/69 07/04/20 19:21 Room Air 07/04/20 19:11 98.1 92 18 95/42 (59) 97 Room Air 98.1 07/04/20 17:00 88 18 93/55 (68) 94 Room Air 07/04/20 16:30 92 18 80/46 (57) 92 Room Air 07/04/20 16:00 92 18 84/49 (61) 93 Room Air 07/04/20 15:30 94 18 120/72 (88) 94 Room Air 07/04/20 15:15 94 18 120/49 (72) 94 Room Air 07/04/20 15:00 92 18 115/65 (82) 93 Room Air 07/04/20 14:45 92 18 112/57 (75) 92 Room Air 07/04/20 14:39 91 19 99 Nasal Cannula 2.0 07/04/20 14:30 21 99 Nasal Cannula 2.0 07/04/20 13:27 22 99 Nasal Cannula 2.0 07/04/20 11:03 97.6 85 18 110/64 (79) 93 Room Air 97.6 07/04/20 08:55 87 113/60 07/04/20 08:54 87 113/60 07/04/20 08:00 Room Air I & O Intake and Output 07/05/20 07:00 Intake Total 1400 ml Output Total 460 ml Balance 940 ml Intake Oral 900 ml IV Total 500 ml Output Urine Total 450 ml Drainage Total 10 ml # Voids 2 PHYSICAL EXAM Physical Exam Alert, oriented RRR CTAB R chest wall dressed with drain in place No edema in b/l LEs Calm, cooperative ASSESSMENT/PLAN Assessment/Plan Nonischemic cardiomyopathy, EF 15 to 20% s/p biventricular 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/ infection of implantation site, s/p removal 07/04/20 w/ drain in place Chronic systolic heart failure, not in acute exacerbation H/o VT CYNDY Lung mass, suspicious for primary lung cancer HTN H/o Nicotine dependence, quit 2016 H/o breast cancer, s/p L mastectomy, radiation Cards following On Vanc, await cx results Pulm and Heme/Onc consulted for CYNDY lung mass, concern for malignancy Will need lifevest at dc Justifications for Admission Other Justification Nutrition Consultation Dietary Evaluation: Recommendations by RD: Dietary education by RD, Increase Calorie Intake, Protein supplementation Comments: REC cardiac diet, ok per RN for RD to place diet order (pt currently NPO in computer for procedure earlier today) REC [place] Ensure w/lunch, Continue w/MVI as ordered REC Vit C for wound healing Expected Outcomes/Goals: PO intake to meet >75% est needs Malnutrition Findings: Body Fat Depletion (Non Severe: Mild Depletion Weight Status: Appropriate TRUSTY,TARAH Astorga MD Jul 05, 2020 07:44
[2020-07-05] MEDS: SACUBITRIL/VALSARTAN 24/26MG TABLET. PO SCH ×2 (08:12→20:57)
[2020-07-05] MEDS: AMIODARONE HCL 200 MG TABLET. PO SCH (08:12)
[2020-07-05] MEDS: ASPIRIN ENTERIC COATED 81 MG TABLET.DR. PO SCH (08:12)
[2020-07-05] MEDS: LACTOBACILLUS RHAMNOSUS GG 1 CAPSULE. PO SCH ×2 (08:13→20:57)
[2020-07-05] MEDS: SPIRONOLACTONE 25 MG TABLET PO SCH (08:13)
[2020-07-05] MEDS: MULTIVITAMIN with MINERAL TABLET. PO SCH (08:13)
[2020-07-05] MEDS: CETIRIZINE HCL 10 MG TABLET. PO SCH (08:13)
[2020-07-05] MEDS: METOPROLOL SUCC 24HR ER 25 MG TAB.ER.24H. PO SCH (08:14)
[2020-07-05] MEDS: FLUTICASONE 50MCG/NASAL SPRAY 16GM BOTTLE. NS SCH (08:15)
[2020-07-05 09:37] LABS: BASO # 0.1 x10^3/uL (0.0-0.2); BASO % 1 % (0-3); EOS # 0.2 x10^3/uL (0.0-0.7); EOS % 1 % (0-3); HEMATOCRIT 41.3 % (36.0-47.0); HEMOGLOBIN 13.8 g/dL (12.0-15.5); LYMPH # 2.6 x10^3/uL (1.0-4.8); LYMPH % 24 % (24-48); MEAN CORPUSCULAR HEMOGLOBIN 32 pg (25-35); MEAN CORPUSCULAR HGB CONC 34 g/dL (31-37); MEAN CORPUSCULAR VOLUME 96 fL (79-100); MONO # 0.7 x10^3/uL (0.0-1.1); MONO % 7 % (0-9); NEUT # 7.3 x10^3/uL (1.8-7.7); NEUT % 67 % (31-73); PLATELET COUNT 275 x10^3/uL (140-400); RED BLOOD COUNT 4.32 x10^6/uL (3.50-5.40); RED CELL DISTRIBUTION WIDTH 12.9 % (11.5-14.5); WHITE BLOOD COUNT 10.9 x10^3/uL (4.0-11.0)
[2020-07-05] MEDS: ASCORBIC ACID 500 MG TABLET PO SCH (09:44)
[2020-07-05 10:01] LABS: CALCIUM 8.8 mg/dL (8.5-10.1); CREATININE 0.7 mg/dL (0.6-1.0); GFR 82.7; MAGNESIUM 1.8 mg/dL (1.8-2.4); POTASSIUM 4.4 mmol/L (3.5-5.1)
[2020-07-05 10:57] VITALS: BP 127/74
--- NOTE | 2020-07-05 11:42 | CONS ---
DATE OF CONSULTATION: 07/05/2020 ATTENDING PHYSICIAN: Karan Kumari MD REASON FOR CONSULTATION: The patient is seen in pulmonary consultation at the request of Dr. Kumari for abnormal CT chest, abnormal CT chest revealing a spiculated mass in the left upper lobe abutting the pleura, slightly larger than the film of 02/20/2020. HISTORY OF PRESENT ILLNESS: The patient is a 69-year-old that presented on the with slow healing side at the defibrillator placement. She has an ejection fraction of 15%, underwent defibrillator placement in February. She has been having some issues. She was also running some fever and chills. She had been discharged from the site. As part of her admission included CT chest, she underwent CT chest revealing dilated cardiomyopathy and an enlarging spiculated mass from the left upper lobe. She also had abscess around the defibrillator. I was asked to see her in consultation as a result of the enlarging mass. The patient quit tobacco many years ago. Denies any hemoptysis. No significant weight change. PAST MEDICAL HISTORY: Remarkable for non-Hodgkin's lymphoma. She received radiation in the past. She has also had cervical cancer, basal cancer, hypertension and nonischemic cardiomyopathy with ejection fraction of 15%. PAST SURGICAL HISTORY: Status post appendectomy, cholecystectomy, hysterectomy, splenectomy, tubal ligation. MEDICATIONS: List was reviewed. ALLERGIES: LISTED TO MORPHINE, SULFASALAZINE AND CHLORZOXAZONE. REVIEW OF SYSTEMS: As indicated above, otherwise, a 10-point system was reviewed and negative. CONSTITUTIONAL: No fever or chills. EYES: No change in visual acuity. HENT: No nasal congestion or sore throat. PULMONARY: As indicated above. CARDIOVASCULAR: No chest pain. No pressure. GASTROINTESTINAL: No nausea, vomiting, diarrhea. GENITOURINARY: No dysuria or frequency. MUSCULOSKELETAL: No localized muscle aches or joint pains. SKIN: No new skin rashes. NEUROLOGIC: No headaches, diplopia or blurred vision. The patient had a cardiac catheterization back in December revealing nonobstructive coronary artery disease with a left ventricular end-diastolic pressure at the time of 10. She also had a pleurocentesis at that time revealing negative study for malignant cells. Pleural fluid analysis was compatible with a transudative effusion. PHYSICAL EXAMINATION: VITAL SIGNS: Stable. O2 saturation was greater than 92%. She has been afebrile. HEENT: Eyes, the sclerae were nonicteric. NECK: Jugular venous distention was not elevated. No lymphadenopathy. CHEST: Full expansion. She had her defibrillator removed yesterday. LUNGS: Adequate flow with no wheezes. CARDIOVASCULAR: Regular rate and rhythm with S1, S2, no S3. ABDOMEN: Soft, nontender, nondistended. EXTREMITIES: No clubbing, cyanosis or edema. LABORATORY DATA: Reviewed. LABORATORY DATA: White count was elevated at 25,000, hemoglobin and hematocrit noted, platelet count was noted. Electrolytes were noted. Serology for SARS-CoV-2 was negative, rapid and PCR. CT chest as indicated above. IMPRESSION: 1. Abnormal CT revealing an enlarging spiculated mass in the left upper lobe. 2. Nonischemic cardiomyopathy. 3. Infected ICD removed yesterday. 4. Leukocytosis. 5. Chronic heart failure. 6. Tobacco dependent, quit in 2017. 7. Underlying chronic obstructive pulmonary disease. 8. History of breast cancer, status post left mastectomy. 9. History of Hodgkin's lymphoma. PLAN: 1. At discussion, my concern is that we may be dealing with a primary lung cancer. I will review films with interventional radiologist and possibly proceed with fine needle aspiration. 2. Continue current support. 3. Antibiotics. 4. Follow Cardiology input. 5. We will discuss with Medical Oncology. MIKKI FALL MD DR: PRUDENCE/karthikeyan JOB#: [id number] / [id number]
--- NOTE | 2020-07-05 11:46 | PDOC ---
PULMONARY PROGRESS NOTES DATE: 07/05/20 TIME: 11:45 Vitals Vital Signs Date Time Temp Pulse Resp B/P (MAP) Pulse Ox O2 Delivery O2 Flow Rate FiO2 07/05/20 10:57 97.8 84 16 127/74 (91) 98 Room Air 97.8 07/04/20 14:39 2.0 Labs Laboratory Tests Test 07/03/20 14:45 07/04/20 04:44 07/04/20 04:49 07/05/20 09:14 White Blood Count 14.9 x10^3/uL (4.0-11.0) 14.1 x10^3/uL (4.0-11.0) 10.9 x10^3/uL (4.0-11.0) Red Blood Count 4.22 x10^6/uL (3.50-5.40) 4.31 x10^6/uL (3.50-5.40) 4.32 x10^6/uL (3.50-5.40) Hemoglobin 13.5 g/dL (12.0-15.5) 13.4 g/dL (12.0-15.5) 13.8 g/dL (12.0-15.5) Hematocrit 39.9 % (36.0-47.0) 41.0 % (36.0-47.0) 41.3 % (36.0-47.0) Mean Corpuscular Volume 95 fL (79-100) 95 fL (79-100) 96 fL (79-100) Mean Corpuscular Hemoglobin 32 pg (25-35) 31 pg (25-35) 32 pg (25-35) Mean Corpuscular Hemoglobin Concent 34 g/dL (31-37) 33 g/dL (31-37) 34 g/dL (31-37) Red Cell Distribution Width 12.9 % (11.5-14.5) 12.9 % (11.5-14.5) 12.9 % (11.5-14.5) Platelet Count 268 x10^3/uL (140-400) 284 x10^3/uL (140-400) 275 x10^3/uL (140-400) Neutrophils (%) (Auto) 71 % (31-73) 67 % (31-73) 67 % (31-73) Lymphocytes (%) (Auto) 17 % (24-48) 20 % (24-48) 24 % (24-48) Monocytes (%) (Auto) 10 % (0-9) 11 % (0-9) 7 % (0-9) Eosinophils (%) (Auto) 1 % (0-3) 1 % (0-3) 1 % (0-3) Basophils (%) (Auto) 1 % (0-3) 1 % (0-3) 1 % (0-3) Neutrophils # (Auto) 10.6 x10^3/uL (1.8-7.7) 9.4 x10^3/uL (1.8-7.7) 7.3 x10^3/uL (1.8-7.7) Lymphocytes # (Auto) 2.6 x10^3/uL (1.0-4.8) 2.8 x10^3/uL (1.0-4.8) 2.6 x10^3/uL (1.0-4.8) Monocytes # (Auto) 1.5 x10^3/uL (0.0-1.1) 1.6 x10^3/uL (0.0-1.1) 0.7 x10^3/uL (0.0-1.1) Eosinophils # (Auto) 0.1 x10^3/uL (0.0-0.7) 0.2 x10^3/uL (0.0-0.7) 0.2 x10^3/uL (0.0-0.7) Basophils # (Auto) 0.1 x10^3/uL (0.0-0.2) 0.1 x10^3/uL (0.0-0.2) 0.1 x10^3/uL (0.0-0.2) Creatinine 0.8 mg/dL (0.6-1.0) 0.7 mg/dL (0.6-1.0) 0.7 mg/dL (0.6-1.0) Estimated GFR (Cockcroft-Gault) 70.9 82.7 82.7 Vancomycin Level Trough 3.6 mcg/mL (10.0-20.0) Vancomycin Last Dose Date 07/02/20 Vancomycin Last Dose Time 1530 Sodium Level 139 mmol/L (136-145) 136 mmol/L (136-145) Potassium Level 4.1 mmol/L (3.5-5.1) 4.4 mmol/L (3.5-5.1) Chloride Level 105 mmol/L (98-107) 101 mmol/L (98-107) Carbon Dioxide Level 27 mmol/L (21-32) 24 mmol/L (21-32) Anion Gap 7 (6-14) 11 (6-14) Blood Urea Nitrogen 13 mg/dL (7-20) 17 mg/dL (7-20) Glucose Level 82 mg/dL (70-99) 140 mg/dL (70-99) Calcium Level 9.0 mg/dL (8.5-10.1) 8.8 mg/dL (8.5-10.1) Magnesium Level 1.8 mg/dL (1.8-2.4) Laboratory Tests Test 07/05/20 09:14 White Blood Count 10.9 x10^3/uL (4.0-11.0) Red Blood Count 4.32 x10^6/uL (3.50-5.40) Hemoglobin 13.8 g/dL (12.0-15.5) Hematocrit 41.3 % (36.0-47.0) Mean Corpuscular Volume 96 fL (79-100) Mean Corpuscular Hemoglobin 32 pg (25-35) Mean Corpuscular Hemoglobin Concent 34 g/dL (31-37) Red Cell Distribution Width 12.9 % (11.5-14.5) Platelet Count 275 x10^3/uL (140-400) Neutrophils (%) (Auto) 67 % (31-73) Lymphocytes (%) (Auto) 24 % (24-48) Monocytes (%) (Auto) 7 % (0-9) Eosinophils (%) (Auto) 1 % (0-3) Basophils (%) (Auto) 1 % (0-3) Neutrophils # (Auto) 7.3 x10^3/uL (1.8-7.7) Lymphocytes # (Auto) 2.6 x10^3/uL (1.0-4.8) Monocytes # (Auto) 0.7 x10^3/uL (0.0-1.1) Eosinophils # (Auto) 0.2 x10^3/uL (0.0-0.7) Basophils # (Auto) 0.1 x10^3/uL (0.0-0.2) Sodium Level 136 mmol/L (136-145) Potassium Level 4.4 mmol/L (3.5-5.1) Chloride Level 101 mmol/L (98-107) Carbon Dioxide Level 24 mmol/L (21-32) Anion Gap 11 (6-14) Blood Urea Nitrogen 17 mg/dL (7-20) Creatinine 0.7 mg/dL (0.6-1.0) Estimated GFR (Cockcroft-Gault) 82.7 Glucose Level 140 mg/dL (70-99) Calcium Level 8.8 mg/dL (8.5-10.1) Magnesium Level 1.8 mg/dL (1.8-2.4) Medications Active Scripts Medications Dose Route/Sig Max Daily Dose Days Date Category Amiodarone Hcl 200 Mg Tablet 200 Mg PO DAILY 07/04/20 Reported Entresto 24 mg-26 mg Tablet (Sacubitril/Valsartan) 1 Each Tablet 1 Each PO BID 07/01/20 Reported Tylenol (Acetaminophen) 325 Mg Tablet 650 Mg PO PRN Q6HRS PRN 07/01/20 Reported Toprol Xl (Metoprolol Succinate) 25 Mg Tab.er.24h 25 Mg PO DAILY 02/20/20 Reported Aldactone (Spironolactone) 25 Mg Tablet 25 Mg PO DAILY 30 12/08/19 Rx Proair Hfa Inhaler (Albuterol Sulfate) 8.5 Gm Hfa.aer.ad 1 Puff IH PRN Q4HRS PRN 12/02/19 Reported Flonase Allergy Relief (Fluticasone Propionate) 9.9 Ml [place].susp 2 Sprays NS DAILY 12/02/19 Reported Ondansetron Odt (Ondansetron) 4 Mg Tab.rapdis 1 Tab PO DAILY PRN 12/02/19 Reported Multi Vitamin Daily (Multivitamin) 1 Each Tablet 1 Tab PO DAILY 30 04/29/19 Reported Zyrtec (Cetirizine Hcl) 10 Mg Tablet 1 Tab PO DAILY 04/29/19 Reported Aspir-Low (Aspirin) 81 Mg Tablet.dr 2 Tab PO DAILY 04/29/19 Reported Impression . full note dictatred will review with IR for possible FNA MIKKI FALL MD Jul 05, 2020 11:46
--- NOTE | 2020-07-05 12:02 | CONS ---
DATE OF CONSULTATION: 07/05/2020 ATTENDING PHYSICIAN: Reyna Padilla MD REASON FOR CONSULTATION: The patient is seen in pulmonary consultation at the request of Dr. Padilla for an enlarging left upper lobe spiculated mass. HISTORY OF PRESENT ILLNESS: The patient is a 69-year-old that was having some issues with an ICD site that was nonhealing. She presented yesterday, she underwent removal of the ICD. Part of her workup included CAT scan of the chest, which revealed an enlarging left upper lobe mass. I was asked to see her in consultation. The patient denies significant weight change. No hemoptysis. She quit tobacco many years ago. PAST MEDICAL HISTORY: Remarkable for previous Hodgkin's lymphoma, received radiation. She has a history of hypertension, cardiomyopathy, nonobstructive coronary arteries. She has had previous cardiac catheterization. She also has a history of cervical cancer, breast cancer, status post left mastectomy. PAST SURGICAL HISTORY: Status post appendectomy, cholecystectomy, hysterectomy, splenectomy, tubal ligation, tonsillectomy, defibrillator placement and a left mastectomy. SOCIAL HISTORY: The patient is currently not smoking, quit several years ago. ALLERGIES: CHLORZOXAZONE, MORPHINE, AND SULFASALAZINE. FAMILY HISTORY: Noncontributory. REVIEW OF SYSTEMS: CONSTITUTIONAL: No fever or chills. EYES: No change in visual acuity. HENT: No nasal congestion or sore throat. PULMONARY: As indicated above. CARDIOVASCULAR: No chest pain. No pressure. GASTROINTESTINAL: No nausea, vomiting, diarrhea. GENITOURINARY: No dysuria or frequency. MUSCULOSKELETAL: No localized muscle aches or joint pains. SKIN: No new skin rashes. NEUROLOGIC: No headaches, diplopia or blurred vision. LABORATORY DATA: Reviewed. White count was elevated. Electrolytes were noted. BUN and creatinine were normal. UA was noted. Serology for SARS-CoV-2 rapid and PCR was negative. IMPRESSION: 1. Enlarging left upper lobe spiculated mass in a patient with a history of tobacco use. 2. History of tobacco dependent, in remission. 3. Chronic obstructive pulmonary disease, unknown FEV1. 4. Abscess in the chest wall related to defibrillator generator. 5. Leukocytosis. 6. History of Hodgkin's lymphoma. 7. History of breast cancer. DISCUSSION: My concern is that we may be dealing with a primary lung cancer, we will discuss the case with Interventional Radiology and proceed with fine needle aspiration. PLAN: 1. For now, continue support with IV antibiotics. 2. Oxygen supplementation. 3. DVT prophylaxis. 4. I have noted that Medical Oncology has been consulted, we will await their input. MIKKI FALL MD DR: PRUDENCE/karthikeyan JOB#: [id number] / [id number]
--- NOTE | 2020-07-05 13:51 | PDOC ---
MARÍA VIDAL HVAC R TECH 07/05/20 1351: CARDIO Progress Notes Date and Time Date of Service 07/05/2020 Time of Evaluation 1210 Subjective Subjective: No Chest Pain, No shortness of breath, No Palpitations Vitals Vitals Vital Signs Date Time Temp Pulse Resp B/P (MAP) Pulse Ox O2 Delivery O2 Flow Rate FiO2 07/05/20 10:57 97.8 84 16 127/74 (91) 98 Room Air 97.8 07/04/20 14:39 2.0 Weight Weight [ ] Input and Output Intake and Output Intake and Output 07/05/20 07:00 Intake Total 1400 ml Output Total 460 ml Balance 940 ml Intake Oral 900 ml IV Total 500 ml Output Urine Total 450 ml Drainage Total 10 ml # Voids 2 Laboratory Labs Laboratory Tests Test 07/05/20 09:14 White Blood Count 10.9 x10^3/uL (4.0-11.0) Red Blood Count 4.32 x10^6/uL (3.50-5.40) Hemoglobin 13.8 g/dL (12.0-15.5) Hematocrit 41.3 % (36.0-47.0) Mean Corpuscular Volume 96 fL (79-100) Mean Corpuscular Hemoglobin 32 pg (25-35) Mean Corpuscular Hemoglobin Concent 34 g/dL (31-37) Red Cell Distribution Width 12.9 % (11.5-14.5) Platelet Count 275 x10^3/uL (140-400) Neutrophils (%) (Auto) 67 % (31-73) Lymphocytes (%) (Auto) 24 % (24-48) Monocytes (%) (Auto) 7 % (0-9) Eosinophils (%) (Auto) 1 % (0-3) Basophils (%) (Auto) 1 % (0-3) Neutrophils # (Auto) 7.3 x10^3/uL (1.8-7.7) Lymphocytes # (Auto) 2.6 x10^3/uL (1.0-4.8) Monocytes # (Auto) 0.7 x10^3/uL (0.0-1.1) Eosinophils # (Auto) 0.2 x10^3/uL (0.0-0.7) Basophils # (Auto) 0.1 x10^3/uL (0.0-0.2) Sodium Level 136 mmol/L (136-145) Potassium Level 4.4 mmol/L (3.5-5.1) Chloride Level 101 mmol/L (98-107) Carbon Dioxide Level 24 mmol/L (21-32) Anion Gap 11 (6-14) Blood Urea Nitrogen 17 mg/dL (7-20) Creatinine 0.7 mg/dL (0.6-1.0) Estimated GFR (Cockcroft-Gault) 82.7 Glucose Level 140 mg/dL (70-99) Calcium Level 8.8 mg/dL (8.5-10.1) Magnesium Level 1.8 mg/dL (1.8-2.4) Microbiology Micro Microbiology 07/01/20 Blood Culture - Preliminary, Resulted NO GROWTH AFTER 3 DAYS Physical Exam HEENT: Neck Supple W Full Motion Chest: Symmetric LUNGS: Other (diminished bases) Heart: RRR (SR) Abdomen: Soft N/T Extremities: No Edema, No Calf Tenderness Neurology: alert, oriented, follow commands Other Exams right chest dressing D/I, KVNG in place Assessment Assessment 1. Nonischemic cardiomyopathy, EF 15 to 20% 2. Chronic systolic heart failure: compensated 3. Hx of VT with syncope: no significant arrhythmia 4. Hypertension: Controlled 5. REHABILITATION THERAPY AIDE-D in situ with pocket infection: afebrile 6. S/P REHABILITATION THERAPY AIDE-D explantation Recommendations 1. Continue IV antibiotics per PCP. Awaiting cultures. Will redress wound dressing. Monitor KVNG drain. Consider ID consult 2. Continue secondary prevention measures per GDMT. Entresto, MRA, toprol 3. Continue amiodarone for VT suppression 4. Awaiting pulmonary in regards to lung mass 5. Arrange for lifevest. Justicifation of Admission Dx: Justifications for Admission: Justification of Admission Dx: Yes CHF: Hemodynamic Instability CATALINO AVALOS MD 07/05/20 2501: CARDIO Progress Notes Plan Plan Pt. seen and examined. 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 Supportive care. Drain outpt minimal, probable removal tmrw. Thanks. MARÍA VIDAL APRN Jul 05, 2020 13:51 CATALINO AVALOS MD Jul 05, 2020 23:21
--- NOTE | 2020-07-05 14:02 | NUR ---
Wound Care Spoke with Dr. Berumen re: whether or not he would like pt's R chest dressing changed today. Dr. Adame stated to check the drainage amount on the dressing, if minimal, leave in place and he will change tomorrow when he removes drain. Scant amount of shadowing on Telfa, dressing left in place, Dr. Adaem informed. will sign off, Dr. Adame to reconsult, if needed.
--- NOTE | 2020-07-05 14:02 | NUR ---
SS following up with discharge planning. SS reviewed pt chart and discussed with pt RN. Pt is currently on room air. COVID19 negative. Pt on IV Vancomycin. PT/OT recommended home. Order for Life Vest received. SS phoned and faxed Life Vest order and clinical to [facility], ; fax [phone]. SS will continue to follow for discharge planning.
[2020-07-05 15:03] VITALS: BP 136/75
[2020-07-05 15:45] LABS: VANC TR 15.9 mcg/mL (10.0-20.0)
[2020-07-05] MEDS: VANCOMYCIN PER PHARMACY MC PRN (16:26)
--- NOTE | 2020-07-05 16:27 | NUR ---
Pharmacy Vancomycin Dosing Note S:Consulted to monitor and dose vancomycin started 07/01/20. O:JERZY LUIS is a 69 year old F with Cellulitis Infected AICD site . Height: 5 feet, 4 inches Weight: 68.7 kg [place] Body Weight: 54.70 Adjusted Body Weight: 60.30 Dosing Weight: Actual Other Antibiotics: LABS: Last BUN: 17 Last Creatinine: 0.7 Creatinine Clearance: 49 mL/min Last WBC: 14.1 Last Procalcitonin: Tmax (past 24 hours): 98 Microbiology: 2/2: 07/01 bcx ngtd I/O: 1400/460, 2 voids Drug Levels: Last Trough level: 15.9 on 07/05/20 at 1450 Last dose given 07/05/20 at 0307 Vancomycin Dosing: Loading Dose: 1500 mg x1 Dosing Weight: Actual Target Trough: 10-20 A: Based on: therapeutic trough, P: 1. Continue Vancomycin 1250 mg IV q12h 2. Follow up Trough level as needed. 3. Pharmacy will continue to monitor, follow and adjust therapy as needed. BEAU MCDERMOTT Henry, 07/05/20 0790
[2020-07-05 19:35] VITALS: BP 135/78
[2020-07-05 22:45] VITALS: BP 102/47
[2020-07-06] VITALS (18 sets, daily range): BP systolic 97–151; BP diastolic 46–84
[2020-07-06] MEDS: VANCOMYCIN 1.25 GM in IV NORMAL SALINE 250ML 250 ML IV SCH ×2 (03:50→18:06)
[2020-07-06] MEDS: HYDROcodone/APAP 5/325MG 1 TAB TABLET PO PRN ×2 (06:10→20:50)
[2020-07-06] MEDS: VANCOMYCIN PER PHARMACY MC PRN (07:33)
--- NOTE | 2020-07-06 08:03 | PDOC ---
SUBJECTIVE Subjective Doing well this morning. No new concerns. OBJECTIVE Objective Reviewed. Vital Signs Vital Signs Date Time Temp Pulse Resp B/P (MAP) Pulse Ox O2 Delivery O2 Flow Rate FiO2 07/06/20 07:43 92 Room Air 2.0 07/06/20 06:10 92 Room Air 2.0 07/06/20 03:45 97.8 83 18 106/61 (76) 92 Room Air 97.8 07/05/20 22:45 98.3 89 20 102/47 (65) 93 Room Air 98.3 07/05/20 21:57 93 Room Air 2.0 07/05/20 20:57 Room Air 07/05/20 20:57 92 135/78 07/05/20 19:45 Room Air 07/05/20 19:35 97.7 92 18 135/78 (97) 96 Room Air 97.7 07/05/20 15:03 97.6 90 18 136/75 (95) 95 Room Air 97.6 07/05/20 10:57 97.8 84 16 127/74 (91) 98 Room Air 97.8 07/05/20 10:39 20 98 Room Air 2.0 07/05/20 09:39 20 95 Room Air 07/05/20 08:48 95 Room Air 07/05/20 08:14 89 129/78 07/05/20 08:12 89 129/78 07/05/20 08:12 89 129/78 I & O Intake and Output 07/06/20 07:00 Intake Total 1440 ml Output Total 2800 ml Balance -1360 ml Intake Oral 1440 ml Output Urine Total 2800 ml # Voids 2 PHYSICAL EXAM Physical Exam Alert, oriented RRR CTAB R chest wall dressed with drain in place No edema in b/l LEs Calm, cooperative ASSESSMENT/PLAN Assessment/Plan Nonischemic cardiomyopathy, EF 15 to 20% s/p 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/ infection of implantation site, s/p removal 07/04/20 w/ drain in place Chronic systolic heart failure, not in acute exacerbation H/o VT CYNDY Lung mass, suspicious for primary lung cancer HTN H/o Nicotine dependence, quit 2016 H/o breast cancer, s/p L mastectomy, radiation Cards following, ID consulted On Vanc, await cx results Pulm and Heme/Onc consulted for CYNDY lung mass, concern for malignancy Plan for FNA per IR Will need lifevest at [place] COMMENT Lab Laboratory Tests Test 07/05/20 09:14 07/05/20 14:50 White Blood Count 10.9 x10^3/uL (4.0-11.0) Red Blood Count 4.32 x10^6/uL (3.50-5.40) Hemoglobin 13.8 g/dL (12.0-15.5) Hematocrit 41.3 % (36.0-47.0) Mean Corpuscular Volume 96 fL (79-100) Mean Corpuscular Hemoglobin 32 pg (25-35) Mean Corpuscular Hemoglobin Concent 34 g/dL (31-37) Red Cell Distribution Width 12.9 % (11.5-14.5) Platelet Count 275 x10^3/uL (140-400) Neutrophils (%) (Auto) 67 % (31-73) Lymphocytes (%) (Auto) 24 % (24-48) Monocytes (%) (Auto) 7 % (0-9) Eosinophils (%) (Auto) 1 % (0-3) Basophils (%) (Auto) 1 % (0-3) Neutrophils # (Auto) 7.3 x10^3/uL (1.8-7.7) Lymphocytes # (Auto) 2.6 x10^3/uL (1.0-4.8) Monocytes # (Auto) 0.7 x10^3/uL (0.0-1.1) Eosinophils # (Auto) 0.2 x10^3/uL (0.0-0.7) Basophils # (Auto) 0.1 x10^3/uL (0.0-0.2) Sodium Level 136 mmol/L (136-145) Potassium Level 4.4 mmol/L (3.5-5.1) Chloride Level 101 mmol/L (98-107) Carbon Dioxide Level 24 mmol/L (21-32) Anion Gap 11 (6-14) Blood Urea Nitrogen 17 mg/dL (7-20) Creatinine 0.7 mg/dL (0.6-1.0) Estimated GFR (Cockcroft-Gault) 82.7 Glucose Level 140 mg/dL (70-99) Calcium Level 8.8 mg/dL (8.5-10.1) Magnesium Level 1.8 mg/dL (1.8-2.4) Vancomycin Level Trough 15.9 mcg/mL (10.0-20.0) Vancomycin Last Dose Date 07/05/20 Vancomycin Last Dose Time 0400 Justifications for Admission Other Justification Nutrition Consultation Dietary Evaluation: Recommendations by RD: Dietary education by RD, Increase Calorie Intake, Protein supplementation Comments: REC cardiac diet, ok per RN for RD to place diet order (pt currently NPO in computer for procedure earlier today) REC [place] Ensure w/lunch, Continue w/MVI as ordered REC Vit C for wound healing Expected Outcomes/Goals: PO intake to meet >75% est needs Malnutrition Findings: Body Fat Depletion (Non Severe: Mild Depletion Weight Status: Appropriate TARAH MARIN MD Jul 06, 2020 08:03
[2020-07-06] MEDS: FLUTICASONE 50MCG/NASAL SPRAY 16GM BOTTLE. NS SCH (09:00)
[2020-07-06] MEDS: ASCORBIC ACID 500 MG TABLET PO SCH (09:03)
[2020-07-06] MEDS: ASPIRIN ENTERIC COATED 81 MG TABLET.DR. PO SCH (09:03)
[2020-07-06] MEDS: LACTOBACILLUS RHAMNOSUS GG 1 CAPSULE. PO SCH ×2 (09:03→20:50)
[2020-07-06] MEDS: MULTIVITAMIN with MINERAL TABLET. PO SCH (09:03)
[2020-07-06] MEDS: CETIRIZINE HCL 10 MG TABLET. PO SCH (09:04)
[2020-07-06] MEDS: AMIODARONE HCL 200 MG TABLET. PO SCH (09:04)
[2020-07-06] MEDS: SACUBITRIL/VALSARTAN 24/26MG TABLET. PO SCH ×2 (09:05→20:50)
[2020-07-06] MEDS: SPIRONOLACTONE 25 MG TABLET PO SCH (09:05)
[2020-07-06] MEDS: METOPROLOL SUCC 24HR ER 25 MG TAB.ER.24H. PO SCH (09:05)
--- NOTE | 2020-07-06 09:10 | PDOC ---
Infectious Disease Note Vital Sign Vital Signs Vital Signs Date Time Temp Pulse Resp B/P (MAP) Pulse Ox O2 Delivery O2 Flow Rate FiO2 07/06/20 07:43 92 Room Air 2.0 07/06/20 03:45 97.8 83 18 106/61 (76) 97.8 Labs Lab Laboratory Tests Test 07/05/20 09:14 07/05/20 14:50 White Blood Count 10.9 x10^3/uL (4.0-11.0) Red Blood Count 4.32 x10^6/uL (3.50-5.40) Hemoglobin 13.8 g/dL (12.0-15.5) Hematocrit 41.3 % (36.0-47.0) Mean Corpuscular Volume 96 fL (79-100) Mean Corpuscular Hemoglobin 32 pg (25-35) Mean Corpuscular Hemoglobin Concent 34 g/dL (31-37) Red Cell Distribution Width 12.9 % (11.5-14.5) Platelet Count 275 x10^3/uL (140-400) Neutrophils (%) (Auto) 67 % (31-73) Lymphocytes (%) (Auto) 24 % (24-48) Monocytes (%) (Auto) 7 % (0-9) Eosinophils (%) (Auto) 1 % (0-3) Basophils (%) (Auto) 1 % (0-3) Neutrophils # (Auto) 7.3 x10^3/uL (1.8-7.7) Lymphocytes # (Auto) 2.6 x10^3/uL (1.0-4.8) Monocytes # (Auto) 0.7 x10^3/uL (0.0-1.1) Eosinophils # (Auto) 0.2 x10^3/uL (0.0-0.7) Basophils # (Auto) 0.1 x10^3/uL (0.0-0.2) Sodium Level 136 mmol/L (136-145) Potassium Level 4.4 mmol/L (3.5-5.1) Chloride Level 101 mmol/L (98-107) Carbon Dioxide Level 24 mmol/L (21-32) Anion Gap 11 (6-14) Blood Urea Nitrogen 17 mg/dL (7-20) Creatinine 0.7 mg/dL (0.6-1.0) Estimated GFR (Cockcroft-Gault) 82.7 Glucose Level 140 mg/dL (70-99) Calcium Level 8.8 mg/dL (8.5-10.1) Magnesium Level 1.8 mg/dL (1.8-2.4) Vancomycin Level Trough 15.9 mcg/mL (10.0-20.0) Vancomycin Last Dose Date 07/05/20 Vancomycin Last Dose Time 0400 Micro Microbiology 07/05/20 Gram Stain - Final, Resulted 07/05/20 Aerobic and Anaerobic Culture - Preliminary, Resulted 07/01/20 Blood Culture - Preliminary, Resulted NO GROWTH AFTER 4 DAYS Objective Assessment pt seen, consult dictated Plan Plan of Care / NEVA PHAM MD Jul 06, 2020 09:10
--- NOTE | 2020-07-06 09:15 | PDOC2 ---
CONSULT Date of Consult Date of Consult DATE: 07/06/20 TIME: 08:58 Reason for Consult Reason for Consult: Lung mass, suspected primary cancer Referring Physician Referring Physician: Dr. Padilla Identification/Chief Complaint Chief Complaint ICD infection Source Source: Chart review, Patient History of Present Illness Reason for Visit: Monse Rodriguez is a 69-year-old female who has been admitted for further evaluation and management of an ICD pocket infection. Patient had initially had a defibrillator placed in February 2020 due to non-ischemic cardiomyopathy with EF 15%. She presented with discharge from the defibrillator site as well as associated fever and chills indicative of an infected device site. She received explantation of the device on 07/04/2020. She is currently on empiric antibiotics. She received a CT chest during her hospital stay which showed a spiculated mass in the upper left lung abutting the pleura anteriorly, suspicious for primary lung cancer. Medical oncology consultation has been sought for further recommendations on evaluation and management Past Medical History Heme/Onc: Cancer Past Surgical History Past Surgical History: Mastectomy Current Problem List Problem List Problems Medical Problems: (1) Cellulitis of chest wall Status: Acute (2) Pacemaker infection Status: Acute (3) Sepsis Status: Acute Current Medications Current Medications Current Medications Sodium Chloride 1,000 ml @ 1,000 mls/hr 1X ONCE IV ; Start 07/01/20 at 14:00; Stop 07/01/20 at 14:01; Status DC Acetaminophen (Tylenol) 1,000 mg 1X ONCE PO ; Start 07/01/20 at 14:00; Stop 07/01/20 at 14:02; Status DC Sodium Chloride 1,000 ml @ 1,000 mls/hr 1X ONCE IV ; Start 07/01/20 at 14:00; Stop 07/01/20 at 14:59; Status UNV Vancomycin HCl 1.5 gm/Sodium Chloride 500 ml @ 250 mls/hr 1X ONCE IV Last administered on 07/01/20at 15:36; Start 07/01/20 at 14:45; Stop 07/01/20 at 16:44; Status DC Iohexol (Omnipaque 300 Mg/ml) 75 ml 1X ONCE IV Last administered on 07/01/20at 15:04; Start 07/01/20 at 14:45; Stop 07/01/20 at 14:50; Status DC Info (CONTRAST GIVEN -- Rx MONITORING) 1 each PRN DAILY PRN MC SEE COMMENTS; Start 07/01/20 at 15:00; Stop 07/03/20 at 14:59; Status DC Acetaminophen (Tylenol) 650 mg PRN Q6HRS PRN PO MILD PAIN 1-3 Last administered on 07/04/20at 20:07; Start 07/01/20 at 18:30 Aspirin (Ecotrin) 162 mg DAILY PO Last administered on 07/05/20at 08:12; Start 07/02/20 at 09:00 Cetirizine HCl (ZyrTEC) 10 mg DAILY PO Last administered on 07/05/20 08:13; Start 07/02/20 at 09:00 Metoprolol Succinate (Toprol Xl) 25 mg DAILY PO Last administered on 07/05/20at 08:14; Start 07/02/20 at 09:00 Ondansetron HCl (Zofran Odt) 4 mg PRN DAILY PRN PO NAUSEA; Start 07/01/20 at 19:30 Sacubitril/ Valsartan (Entresto 24 Mg-26 Mg) 1 tab BID PO Last administered on 07/05/20at 20:57; Start 07/01/20 at 21:00 Spironolactone (Aldactone) 25 mg DAILY PO Last administered on 07/05/20 08:13; Start 07/02/20 at 09:00 Amiodarone HCl (Cordarone) 400 mg DAILY PO Last administered on 07/05/20 08:12; Start 07/02/20 at 09:00 Fluticasone Propionate (Flonase) 2 spray DAILY NS Last administered on 07/05/20 08:15; Start 07/02/20 at 09:00 Multivitamins (Thera M Plus) 1 tab DAILY PO Last administered on 07/05/20 08:13; Start 07/02/20 at 09:00 Albuterol Sulfate (Ventolin Neb Soln) 2.5 mg PRN Q4HRS PRN INH SHORTNESS OF BREATH; Start 07/01/20 at 19:30 Vancomycin HCl (Vanco Per Pharmacy) 1 each PRN DAILY PRN MC SEE COMMENTS Last administered on 07/06/20at 07:33; Start 07/02/20 at 11:45 Vancomycin HCl 1 gm/Sodium Chloride 250 ml @ 250 mls/hr Q24H IV Last administered on 07/02/20at 16:46; Start 07/02/20 at 15:30; Stop 07/03/20 at 15:33; Status DC Lactobacillus Rhamnosus (Culturelle) 1 cap BID PO Last administered on 07/05/20at 20:57; Start 07/02/20 at 21:00 Vancomycin HCl (Vancomycin Trough Level) 1 each 1X ONCE MC Last administered on 07/03/20at 15:00; Start 07/03/20 at 15:00; Stop 07/03/20 at 15:01; Status DC Vancomycin HCl 1.25 gm/Sodium Chloride 250 ml @ 167 mls/hr Q12H IV Last administered on 07/06/20at 03:50; Start 07/03/20 at 16:00 Vancomycin HCl (Vancomycin Trough Level) 1 each 1X ONCE MC Last administered on 07/05/20at 15:30; Start 07/05/20 at 15:30; Stop 07/05/20 at 15:31; Status DC Lidocaine/ Epinephrine (LIDOCAINE 2%-EPI 1:100,000 multi-dose) 20 ml STK-MED ONCE .ROUTE ; Start 07/04/20 at 12:32; Stop 07/04/20 at 12:32; Status DC Midazolam HCl (Versed) 2 mg STK-MED ONCE .ROUTE ; Start 07/04/20 at 12:42; Stop 07/04/20 at 12:42; Status DC Fentanyl Citrate (Fentanyl 2ml Vial) 100 mcg STK-MED ONCE .ROUTE ; Start 07/04/20 at 12:42; Stop 07/04/20 at 12:42; Status DC Bacitracin 32865 unit/Sodium Chloride 250 ml @ 0 mls/hr 1X ONCE IRR Last administered on 07/04/20at 13:00; Start 07/04/20 at 13:00; Stop 07/04/20 at 13:01; Status DC Midazolam HCl (Versed) 2 mg 1X ONCE IV Last administered on 07/04/20at 13:27; Start 07/04/20 at 13:15; Stop 07/04/20 at 13:34; Status DC Fentanyl Citrate (Fentanyl 2ml Vial) 100 mcg 1X ONCE IV Last administered on 07/04/20at 13:27; Start 07/04/20 at 13:15; Stop 07/04/20 at 13:34; Status DC Lidocaine/ Epinephrine (LIDOCAINE 2%-EPI 1:100,000 multi-dose) 40 ml 1X ONCE IJ Last administered on 07/04/20at 13:15; Start 07/04/20 at 13:15; Stop 07/04/20 at 13:34; Status DC Fentanyl Citrate (Fentanyl 2ml Vial) 100 mcg STK-MED ONCE .ROUTE ; Start 07/04/20 at 14:22; Stop 07/04/20 at 14:22; Status DC Fentanyl Citrate (Fentanyl 2ml Vial) 50 mcg 1X ONCE IVP Last administered on 07/04/20at 14:30; Start 07/04/20 at 14:30; Stop 07/04/20 at 14:36; Status DC Acetaminophen/ Hydrocodone Bitart (Lortab 5/325) 1 tab PRN Q4HRS PRN PO MODERATE-SEVERE PAIN Last administered on 07/06/20at 06:10; Start 07/04/20 at 22:00 Ascorbic Acid (Vitamin C) 500 mg DAILY PO Last administered on 07/05/20at 09:44; Start 07/05/20 at 09:00 Active Scripts Active Aldactone (Spironolactone) 25 Mg Tablet 25 Mg PO DAILY 30 Days Reported Amiodarone Hcl 200 Mg Tablet 200 Mg PO DAILY Entresto 24 mg-26 mg Tablet (Sacubitril/Valsartan) 1 Each Tablet 1 Each PO BID Tylenol (Acetaminophen) 325 Mg Tablet 650 Mg PO PRN Q6HRS PRN Toprol Xl (Metoprolol Succinate) 25 Mg Tab.er.24h 25 Mg PO DAILY Proair Hfa Inhaler (Albuterol Sulfate) 8.5 Gm Hfa.aer.ad 1 Puff IH PRN Q4HRS PRN 21 Days Flonase Allergy Relief (Fluticasone Propionate) 9.9 Ml [place].susp 2 Sprays NS DAILY Ondansetron Odt (Ondansetron) 4 Mg Tab.rapdis 1 Tab PO DAILY PRN Multi Vitamin Daily (Multivitamin) 1 Each Tablet 1 Tab PO DAILY 30 Days Zyrtec (Cetirizine Hcl) 10 Mg Tablet 1 Tab PO DAILY Aspir-Low (Aspirin) 81 Mg Tablet.dr 2 Tab PO DAILY Allergies Allergies: Coded Allergies: bee venom protein (honey bee) (Verified Allergy, Intermediate, Swelling, 1/11/19) chlorzoxazone (Verified Allergy, Intermediate, 12/03/19) coconut (Verified Allergy, Intermediate, Rash, 06/13/18) sulfasalazine (Verified Allergy, Intermediate, 06/13/18) morphine (Verified Adverse Reaction, Mild, Nausea and Vomiting, 07/05/20) ROS General: YES: Fatigue, Malaise PSYCHOLOGICAL ROS: No: Hallucinations, Hostility Eyes: No Eye Pain, No Itchy Eyes HEENT: No: Oral lesions, Sinus pain ALLERGY AND IMMUNOLOGY: No: Nasal Congestion, Post Nasal Drip Hematological and Lymphatic: No: Brusing, Night Sweats ENDOCRINE: No: Malaise/lethargy, Mood Swings Breast: No Nipple discharge Respiratory: No: Shortness of breath, SOB with excertion Cardiovascular: No Paroxysmal Noc. Dyspnea, No Edema Gastrointestinal: No Diarrhea, No Constipation Genitourinary: No Urgency, No Pain Musculoskeletal: No Joint Swelling, No Muscle Pain Skin: No Mole Changes, No Mottling Physical Exam General: Alert, Oriented X3 HEENT: Atraumatic Lungs: Clear to auscultation Heart: Regular rate, Normal S1, Normal S2 Abdomen: Normal bowel sounds, Soft Extremities: No clubbing Skin: No rashes Neuro: Normal gait MUSCULOSKELETAL: No swelling Vitals VITALS Vital Signs Date Time Temp Pulse Resp B/P (MAP) Pulse Ox O2 Delivery O2 Flow Rate FiO2 07/06/20 07:43 92 Room Air 2.0 07/06/20 03:45 97.8 83 18 106/61 (76) 97.8 Labs Labs Laboratory Tests Test 07/05/20 09:14 07/05/20 14:50 White Blood Count 10.9 x10^3/uL (4.0-11.0) Red Blood Count 4.32 x10^6/uL (3.50-5.40) Hemoglobin 13.8 g/dL (12.0-15.5) Hematocrit 41.3 % (36.0-47.0) Mean Corpuscular Volume 96 fL (79-100) Mean Corpuscular Hemoglobin 32 pg (25-35) Mean Corpuscular Hemoglobin Concent 34 g/dL (31-37) Red Cell Distribution Width 12.9 % (11.5-14.5) Platelet Count 275 x10^3/uL (140-400) Neutrophils (%) (Auto) 67 % (31-73) Lymphocytes (%) (Auto) 24 % (24-48) Monocytes (%) (Auto) 7 % (0-9) Eosinophils (%) (Auto) 1 % (0-3) Basophils (%) (Auto) 1 % (0-3) Neutrophils # (Auto) 7.3 x10^3/uL (1.8-7.7) Lymphocytes # (Auto) 2.6 x10^3/uL (1.0-4.8) Monocytes # (Auto) 0.7 x10^3/uL (0.0-1.1) Eosinophils # (Auto) 0.2 x10^3/uL (0.0-0.7) Basophils # (Auto) 0.1 x10^3/uL (0.0-0.2) Sodium Level 136 mmol/L (136-145) Potassium Level 4.4 mmol/L (3.5-5.1) Chloride Level 101 mmol/L (98-107) Carbon Dioxide Level 24 mmol/L (21-32) Anion Gap 11 (6-14) Blood Urea Nitrogen 17 mg/dL (7-20) Creatinine 0.7 mg/dL (0.6-1.0) Estimated GFR (Cockcroft-Gault) 82.7 Glucose Level 140 mg/dL (70-99) Calcium Level 8.8 mg/dL (8.5-10.1) Magnesium Level 1.8 mg/dL (1.8-2.4) Vancomycin Level Trough 15.9 mcg/mL (10.0-20.0) Vancomycin Last Dose Date 07/05/20 Vancomycin Last Dose Time 0400 Laboratory Tests Test 07/05/20 09:14 07/05/20 14:50 White Blood Count 10.9 x10^3/uL (4.0-11.0) Red Blood Count 4.32 x10^6/uL (3.50-5.40) Hemoglobin 13.8 g/dL (12.0-15.5) Hematocrit 41.3 % (36.0-47.0) Mean Corpuscular Volume 96 fL (79-100) Mean Corpuscular Hemoglobin 32 pg (25-35) Mean Corpuscular Hemoglobin Concent 34 g/dL (31-37) Red Cell Distribution Width 12.9 % (11.5-14.5) Platelet Count 275 x10^3/uL (140-400) Neutrophils (%) (Auto) 67 % (31-73) Lymphocytes (%) (Auto) 24 % (24-48) Monocytes (%) (Auto) 7 % (0-9) Eosinophils (%) (Auto) 1 % (0-3) Basophils (%) (Auto) 1 % (0-3) Neutrophils # (Auto) 7.3 x10^3/uL (1.8-7.7) Lymphocytes # (Auto) 2.6 x10^3/uL (1.0-4.8) Monocytes # (Auto) 0.7 x10^3/uL (0.0-1.1) Eosinophils # (Auto) 0.2 x10^3/uL (0.0-0.7) Basophils # (Auto) 0.1 x10^3/uL (0.0-0.2) Sodium Level 136 mmol/L (136-145) Potassium Level 4.4 mmol/L (3.5-5.1) Chloride Level 101 mmol/L (98-107) Carbon Dioxide Level 24 mmol/L (21-32) Anion Gap 11 (6-14) Blood Urea Nitrogen 17 mg/dL (7-20) Creatinine 0.7 mg/dL (0.6-1.0) Estimated GFR (Cockcroft-Gault) 82.7 Glucose Level 140 mg/dL (70-99) Calcium Level 8.8 mg/dL (8.5-10.1) Magnesium Level 1.8 mg/dL (1.8-2.4) Vancomycin Level Trough 15.9 mcg/mL (10.0-20.0) Vancomycin Last Dose Date 07/05/20 Vancomycin Last Dose Time 0400 Assessment/Plan Assessment/Plan Assessment: Left upper lobe lung nodule, suspected primary lung cancer Nonischemic cardiomyopathy Infected ICD, status post removal and now on antibiotics History of Hodgkin's lymphoma, now in remission. She really received RT plus splenectomy in 1990. Received chemotherapy in 2000 for disease relapse History of breast cancer, T2 N0 M0, triple negative, resected in 2017, completed 4 cycles of TC with Dr. Perry Recommendations: -I reviewed results of CT chest and discussed these with the patient -Would agree with pulmonology recommendation of obtaining biopsy in interventional radiology -Given appearance on CT, would suspect primary lung cancer -Given the patient's nonischemic cardiomyopathy, would favor SBRT over surgical resection if primary lung cancer is confirmed on biopsy. Radiation oncology consultation can be sought after biopsy results are obtained -Management of an ICM per cardiology service -Rest per Dr. Valerie Jaimes MD Medical Oncology/Hematology Ph: [phone] FANNIE JAIMES MD Jul 06, 2020 09:15
--- NOTE | 2020-07-06 09:27 | CONS ---
DATE OF CONSULTATION: 07/06/2020 REQUESTING PHYSICIAN: Dr. Padilla. REASON FOR CONSULTATION: AICD infection. HISTORY OF PRESENT ILLNESS: This is a 69-year-old female who had AICD placement done in last February. The patient was doing very alright until 2 weeks or so ago the patient was noted to have a scab and then she apparently saw exposed hardware. The patient was seen by Dr. Berumen at that time, scab was back again on and she was [facility] the scab was removed or fell off and exposed hardware was seen and she ended up having a fever in the hospital. Now, the AICD has been removed. The patient denies any fever. Denies any nausea, vomiting or diarrhea. Denies any chest pain. The patient was also found to have a spiculated mass in the lung. She is going to go for the biopsy for that. The patient is currently on vancomycin. Cultures were not done when they removed the AICD, but culture is done yesterday, so far negative. Blood culture done on 07/01/2020 is negative. PAST MEDICAL HISTORY: Positive for history of breast cancer, history of cervical cancer, Hodgkin's lymphoma, basal cell skin cancer, hypertension and cardiomyopathy with AICD placement done. The patient also has had appendicectomy, cholecystectomy, hysterectomy, splenectomy, tubal ligation and left mastectomy. SOCIAL HISTORY: Negative for smoking. She quit smoking 4 years ago. No alcohol use or drug use. ALLERGIES: SHE IS LISTED ALLERGIC TO BEE VENOM, CHLORZOXAZONE, MORPHINE AND SULFASALAZINE. CURRENT MEDICATIONS: Reviewed. The patient is on vancomycin. REVIEW OF SYSTEMS: As in HPI. All other systems reviewed are negative. PHYSICAL EXAMINATION: GENERAL: Alert, oriented female, not in distress. VITAL SIGNS: Stable, afebrile. HEENT: NAD. NECK: Supple, no JVP, no lymphadenopathy. LUNGS: Clear. HEART: S1, S2 regular. ABDOMEN: Benign. EXTREMITIES: No edema or cyanosis. SKIN: Unremarkable except the right upper chest where the AICD has been removed. There is erythema there and there is drainage tube in place. LABORATORY DATA: White count is 10,000, when she came it was 25,000. BUN and creatinine is normal and the cultures as I mentioned so far negative. CT of the chest showed dilated cardiomyopathy and spiculated mass in the left upper lung abutting the pleura anteriorly. IMPRESSION: 1. Exposed AICD with infection, status post removal. 2. Chest wall cellulitis, right now. 3. History of fever at home. 4. Leukocytosis. 5. Spiculated lung mass. 6. Hypertension. RECOMMENDATIONS: Continue vancomycin, add cefepime. Supportive care. I do not anticipate long-term antibiotics. Thank you very much, Dr. Padilla, for giving me the opportunity to participate in this patient's care. NEVA PHAM MD DR: DEBBIE/nts JOB#: [id number] / [id number]
[2020-07-06 11:22] LABS: PROTHROMBIN TIME PATIENT 13.3 SEC (11.7-14.0)
--- NOTE | 2020-07-06 12:04 | PDOC ---
PULMONARY PROGRESS NOTES DATE: 07/06/20 TIME: 11:58 Subjective on room air no increased cough or SOA no overnight issues planned for FNA today with IR Vitals Vital Signs Date Time Temp Pulse Resp B/P (MAP) Pulse Ox O2 Delivery O2 Flow Rate FiO2 07/06/20 09:05 88 117/64 07/06/20 08:00 Room Air 07/06/20 07:43 92 2.0 07/06/20 07:00 97.2 20 97.2 ROS: No Nausea, No Chest Pain, No Abdominal Pain, No Increase Cough General: Alert, Oriented X4 Lungs: Clear Cardiovascular: S1, S2 Abdomen: Soft Neuro Exam: Alert Extremities: No Edema Skin: Warm Labs Laboratory Tests Test 07/05/20 09:14 07/05/20 14:50 07/06/20 10:40 White Blood Count 10.9 x10^3/uL (4.0-11.0) Red Blood Count 4.32 x10^6/uL (3.50-5.40) Hemoglobin 13.8 g/dL (12.0-15.5) Hematocrit 41.3 % (36.0-47.0) Mean Corpuscular Volume 96 fL (79-100) Mean Corpuscular Hemoglobin 32 pg (25-35) Mean Corpuscular Hemoglobin Concent 34 g/dL (31-37) Red Cell Distribution Width 12.9 % (11.5-14.5) Platelet Count 275 x10^3/uL (140-400) Neutrophils (%) (Auto) 67 % (31-73) Lymphocytes (%) (Auto) 24 % (24-48) Monocytes (%) (Auto) 7 % (0-9) Eosinophils (%) (Auto) 1 % (0-3) Basophils (%) (Auto) 1 % (0-3) Neutrophils # (Auto) 7.3 x10^3/uL (1.8-7.7) Lymphocytes # (Auto) 2.6 x10^3/uL (1.0-4.8) Monocytes # (Auto) 0.7 x10^3/uL (0.0-1.1) Eosinophils # (Auto) 0.2 x10^3/uL (0.0-0.7) Basophils # (Auto) 0.1 x10^3/uL (0.0-0.2) Sodium Level 136 mmol/L (136-145) Potassium Level 4.4 mmol/L (3.5-5.1) Chloride Level 101 mmol/L (98-107) Carbon Dioxide Level 24 mmol/L (21-32) Anion Gap 11 (6-14) Blood Urea Nitrogen 17 mg/dL (7-20) Creatinine 0.7 mg/dL (0.6-1.0) Estimated GFR (Cockcroft-Gault) 82.7 Glucose Level 140 mg/dL (70-99) Calcium Level 8.8 mg/dL (8.5-10.1) Magnesium Level 1.8 mg/dL (1.8-2.4) Vancomycin Level Trough 15.9 mcg/mL (10.0-20.0) Vancomycin Last Dose Date 07/05/20 Vancomycin Last Dose Time 0400 Prothrombin Time 13.3 SEC (11.7-14.0) Prothromb Time International Ratio 1.1 (0.8-1.1) Activated Partial Thromboplast Time 31 SEC (24-38) Laboratory Tests Test 07/05/20 14:50 07/06/20 10:40 Vancomycin Level Trough 15.9 mcg/mL (10.0-20.0) Vancomycin Last Dose Date 07/05/20 Vancomycin Last Dose Time 0400 Prothrombin Time 13.3 SEC (11.7-14.0) Prothromb Time International Ratio 1.1 (0.8-1.1) Activated Partial Thromboplast Time 31 SEC (24-38) Medications Active Scripts Medications Dose Route/Sig Max Daily Dose Days Date Category Amiodarone Hcl 200 Mg Tablet 200 Mg PO DAILY 07/04/20 Reported Entresto 24 mg-26 mg Tablet (Sacubitril/Valsartan) 1 Each Tablet 1 Each PO BID 07/01/20 Reported Tylenol (Acetaminophen) 325 Mg Tablet 650 Mg PO PRN Q6HRS PRN 07/01/20 Reported Toprol Xl (Metoprolol Succinate) 25 Mg Tab.er.24h 25 Mg PO DAILY 02/20/20 Reported Aldactone (Spironolactone) 25 Mg Tablet 25 Mg PO DAILY 30 12/08/19 Rx Proair Hfa Inhaler (Albuterol Sulfate) 8.5 Gm Hfa.aer.ad 1 Puff IH PRN Q4HRS PRN 21 12/02/19 Reported Flonase Allergy Relief (Fluticasone Propionate) 9.9 Ml [place].susp 2 Sprays NS DAILY 12/02/19 Reported Ondansetron Odt (Ondansetron) 4 Mg Tab.rapdis 1 Tab PO DAILY PRN 12/02/19 Reported Multi Vitamin Daily (Multivitamin) 1 Each Tablet 1 Tab PO DAILY 30 04/29/19 Reported Zyrtec (Cetirizine Hcl) 10 Mg Tablet 1 Tab PO DAILY 04/29/19 Reported Aspir-Low (Aspirin) 81 Mg Tablet.dr 2 Tab PO DAILY 04/29/19 Reported Comments Impression: 1. Dilated cardiomegaly seen previously. 2. Spiculated mass in the upper left lung abutting the pleura anteriorly is suspicious for primary lung cancer if the patient is a smoker. Otherwise this could be metastatic cancer. This appears slightly larger. 3. Evaluation of the right chest wall is limited by the defibrillator generator. If there is concern for an abscess, consider ultrasound evaluation of the right chest wall. Impression . IMPRESSION: 1. Enlarging left upper lobe spiculated mass in a patient with a history of tobacco use. 2. History of tobacco dependent, in remission. 3. Chronic obstructive pulmonary disease, unknown FEV1. 4. Abscess in the chest wall related to defibrillator generator. 5. Leukocytosis. 6. History of Hodgkin's lymphoma. 7. History of breast cancer. Plan . PLAN: Supplemental oxygen if needed, currently on room air Follow ID recs for BAX IR for FNA today, follow pathology Follow Hem/Onc recs-- awaiting pathology-- suspected primary lung cancer, not a good surgical candidate 2/2 cardiomyopathy PT/OT DVT/GI PPX D/W RN 1 MIKKI FALL MD Jul 06, 2020 12:04
[2020-07-06] MEDS ORDERED: LIDOCAINE WITH 8.4% SOD BICARB 3 ML DISP.SYRIN. ONE ×2 (12:08→12:14)
--- NOTE | 2020-07-06 12:28 | NUR ---
SS following up with discharge planning. SS reviewed pt chart and discussed with pt RN. Pt is currently on room air. Pt on IV Cefepime and IV Vancomycin. COVID19 negative. Pt having lung biopsy today. Life Vest ordered and ready for delivery. PT/OT recommended home with assistance. SS will continue to follow for discharge planning.
[2020-07-06] MEDS ORDERED: FLUMAZENIL 0.5 MG/5 ML VIAL. IV ONE (12:34)
[2020-07-06] MEDS ORDERED: fentaNYL PF VIAL 100 MCG/2 ML VIAL ONE (12:34)
[2020-07-06] MEDS ORDERED: MIDAZOLAM HCL/PF 2 MG/2 ML VIAL. ONE (12:34)
[2020-07-06] MEDS ORDERED: NALOXONE 0.4 MG/ML VIAL. ONE (12:35)
[2020-07-06] MEDS ORDERED: MIDAZOLAM HCL/PF 2 MG/2 ML VIAL. IV ONE (13:30)
[2020-07-06] MEDS ORDERED: LIDOCAINE WITH 8.4% SOD BICARB 3 ML DISP.SYRIN. IJ ONE (13:30)
[2020-07-06] MEDS ORDERED: fentaNYL PF VIAL 100 MCG/2 ML VIAL IV ONE (13:30)
--- NOTE | 2020-07-06 13:34 | PDOC ---
MARÍA VIDAL DIRECTOR CLINICAL PHARMACOLOGY 07/06/20 1334: CARDIO Progress Notes Date and Time Date of Service 07/06/2020 Time of Evaluation 1030 Subjective Subjective: No Chest Pain, No shortness of breath, No Palpitations Vitals Vitals Vital Signs Date Time Temp Pulse Resp B/P (MAP) Pulse Ox O2 Delivery O2 Flow Rate FiO2 07/06/20 13:22 19 98 Nasal Cannula 2.0 07/06/20 13:19 81 07/06/20 11:00 97.8 145/74 (97) 97.8 Weight Weight [ ] Input and Output Intake and Output Intake and Output 07/06/20 07:00 Intake Total 1440 ml Output Total 2800 ml Balance -1360 ml Intake Oral 1440 ml Output Urine Total 2800 ml # Voids 2 Laboratory Labs Laboratory Tests Test 07/05/20 14:50 07/06/20 10:40 Vancomycin Level Trough 15.9 mcg/mL (10.0-20.0) Vancomycin Last Dose Date 07/05/20 Vancomycin Last Dose Time 0400 Prothrombin Time 13.3 SEC (11.7-14.0) Prothromb Time International Ratio 1.1 (0.8-1.1) Activated Partial Thromboplast Time 31 SEC (24-38) Microbiology Micro Microbiology 07/05/20 Gram Stain - Final, Resulted 07/05/20 Aerobic and Anaerobic Culture - Preliminary, Resulted 07/01/20 Blood Culture - Preliminary, Resulted NO GROWTH AFTER 4 DAYS Physical Exam HEENT: Neck Supple W Full Motion Chest: Symmetric LUNGS: Other (diminished bases) Heart: RRR (SR) Abdomen: Soft N/T Extremities: No Edema, No Calf Tenderness Neurology: alert, oriented, follow commands Other Exams Discontinued right chest KVNG drain approx 15 ml serosanguinous drain. Catheter tip is intact, dressing applied to KVNG site. Surgical right chest incision intact with steristrips, no oozing, or swelling Assessment Assessment 1. Nonischemic cardiomyopathy, EF 15 to 20% 2. Chronic systolic heart failure: compensated 3. Hx of VT with syncope: no significant arrhythmia 4. Hypertension: Controlled 5. RESEARCH ELECTRICIAN-D in situ with pocket infection: afebrile 6. S/P RESEARCH ELECTRICIAN-D explantation Recommendations 1. Continue IV antibiotics per ID. Awaiting cultures. DC KVNG drain 2. Continue secondary prevention measures per GDMT. Entresto, MRA, toprol 3. Continue amiodarone for VT suppression 4. FNA pending in regards to lung mass per pulmonary 5. Arrange for lifevest. Justicifation of Admission Dx: Justifications for Admission: Justification of Admission Dx: Yes CHF: Hemodynamic Instability CATALINO AVALOS MD 07/06/20 2210: CARDIO Progress Notes Plan Plan Pt. seen and examined. Agree with above HOSTEL MANAGER note. Drain removed. Plan for continued abx. Await cultures. Lifevest ok. MARÍA VIDAL APRN Jul 06, 2020 13:34 CATALINO AVALOS MD Jul 06, 2020 22:10
[2020-07-06] MEDS: CEFEPIME HCL IV Push 1 GM VIAL. IVP SCH ×2 (14:12→20:51)
--- NOTE | 2020-07-06 15:49 | RAD ---
CT-guided biopsy, left apical lung mass 07/06/2020 1:44 PM Indication: Left apical lung mass. History of breast cancer and lymphoma. Differential considerations include primary lung malignancy versus metastatic disease. Discussion: The risks and benefits of the procedure, including but not limited to, bleeding and infection were discussed patient. Informed consent was obtained. The patient was brought to the CT scanner and placed in the prone position. A timeout procedure was performed CT imaging redemonstrates spiculated mass in the apical left upper lobe. 1% lidocaine was administered for local anesthesia. Under intermittent CT guidance 17-gauge needles advanced into the nodule. Core biopsy samples were obtained and placed in formalin. The guiding needle was removed. Manual pressure was held. Repeat CT imaging demonstrates mild hemorrhage along the biopsy tract without evidence of pneumothorax or other immediate complication. Patient tolerated the procedure well remaining hemodynamically stable throughout sterile dressings were applied. The procedure was performed under conscious sedation including continuous cardiopulmonary monitoring via dedicated sedation nurse. Sedation time: 20 minutes Impression: Successful CT-guided biopsy, spiculated mass, apical left upper lobe PQRS Compliance Statement: One or more of the following individualized dose reduction techniques were utilized for this examination: 1. Automated exposure control 2. Adjustment of the mA and/or kV according to patient size 3. Use of iterative reconstruction technique
--- NOTE | 2020-07-06 16:44 | RAD ---
Single view of the chest. 07/06/2020 3:32 PM Indication: Reason: lung biopsy / Spl. Instructions: / History: Comparison: CT chest July 01, 2011 Findings: Opacity in the left upper lobe reflects mild perilesional hemorrhage following lung biopsy. Pneumothorax or pleural effusion is identified. No other acute infiltrates are seen. Chronic interst itial coarsening is similar to comparison studies. Heart size is normal. Calcified granulomata in the left hilum are noted. No acute osseous changes are seen. IMPRESSION: 1. Mild perilesional hemorrhage in the left upper lung 2. No pneumothorax 3. Otherwise stable chest Electronically signed by: Shawn Mack MD (07/06/2020 4:41 PM) [id number]
[2020-07-07 02:28] VITALS: BP 119/61
[2020-07-07] MEDS: VANCOMYCIN 1.25 GM in IV NORMAL SALINE 250ML 250 ML IV SCH (03:55)
[2020-07-07 07:00] VITALS: BP 146/83
[2020-07-07] MEDS: VANCOMYCIN PER PHARMACY MC PRN (07:27)
--- NOTE | 2020-07-07 07:42 | PDOC ---
SUBJECTIVE Subjective Doing well this AM. Lung mass biopsy done yesterday. Drain removed. OBJECTIVE Objective Reviewed. Vital Signs Vital Signs Date Time Temp Pulse Resp B/P (MAP) Pulse Ox O2 Delivery O2 Flow Rate FiO2 07/07/20 02:28 97.9 82 16 119/61 (80) 92 Room Air 97.9 07/06/20 22:38 98.4 86 16 97/46 (63) 96 Room Air 98.4 07/06/20 21:50 16 96 Room Air 2.0 07/06/20 20:55 91 128/70 (89) 07/06/20 20:50 16 96 Room Air 07/06/20 20:50 89 97/54 07/06/20 19:30 Room Air 2.0 07/06/20 19:00 97.5 89 16 97/54 (68) 95 Room Air 97.5 07/06/20 15:00 98.1 93 20 109/62 (78) 92 Room Air 98.1 07/06/20 15:00 81 115/57 (76) 07/06/20 14:45 92 115/54 (74) 07/06/20 14:43 98 Room Air 2.0 07/06/20 14:36 98 Room Air 2.0 07/06/20 14:35 98 Room Air 2.0 07/06/20 14:30 94 109/62 (78) 07/06/20 14:15 94 122/68 (86) 07/06/20 14:00 94 151/79 (103) 07/06/20 13:22 19 98 Nasal Cannula 2.0 07/06/20 13:19 81 22 98 Room Air 07/06/20 13:18 92 21 94 Nasal Cannula 2.0 07/06/20 13:15 90 19 100 Nasal Cannula 2.0 07/06/20 13:10 89 21 100 Nasal Cannula 2.0 07/06/20 13:05 92 17 100 Nasal Cannula 2.0 07/06/20 13:00 92 22 98 Nasal Cannula 2.0 07/06/20 12:57 92 16 97 07/06/20 11:00 97.8 95 20 145/74 (97) 95 Room Air 97.8 07/06/20 09:05 88 117/64 07/06/20 09:05 88 117/64 07/06/20 09:04 83 106/61 07/06/20 08:00 Room Air 07/06/20 07:43 92 Room Air 2.0 I & O Intake and Output 07/07/20 07:00 Intake Total 500 ml Output Total 2050 ml Balance -1550 ml Intake Oral 500 ml Output Urine Total 2050 ml # Voids 4 PHYSICAL EXAM Physical Exam Alert, oriented RRR CTAB R chest wall dressed No edema in b/l LEs Calm, cooperative ASSESSMENT/PLAN Assessment/Plan Nonischemic cardiomyopathy, EF 15 to 20% s/p biventricular ICD/DIRECTOR BLOOD BANK-D w/ infection of implantation site, s/p removal 07/04/20 Chronic systolic heart failure, not in acute exacerbation H/o VT CYNDY Lung mass, suspicious for primary lung cancer, s/p biopsy 07/06, await pathology HTN H/o Nicotine dependence, quit 2016 H/o breast cancer, s/p L mastectomy, radiation OK to dc per ID rec Will follow cx results Await biopsy results Lifevest ready Has f/u appt with Dr. Kumari on 07/14/20 COMMENT Lab Laboratory Tests Test 07/06/20 10:40 Prothrombin Time 13.3 SEC (11.7-14.0) Prothromb Time International Ratio 1.1 (0.8-1.1) Activated Partial Thromboplast Time 31 SEC (24-38) Justifications for Admission Other Justification Nutrition Consultation Dietary Evaluation: Recommendations by RD: Dietary education by RD, Increase Calorie Intake, Protein supplementation Comments: REC cardiac diet, ok per RN for RD to place diet order (pt currently NPO in computer for procedure earlier today) REC Calder Ensure w/lunch, Continue w/MVI as ordered REC Vit C for wound healing Expected Outcomes/Goals: PO intake to meet >75% est needs Malnutrition Findings: Body Fat Depletion (Non Severe: Mild Depletion Weight Status: Appropriate TARAH MARIN MD Jul 07, 2020 07:42
--- NOTE | 2020-07-07 08:08 | PDOC ---
Infectious Disease Note Subjective Subjective pt is feeling good, ready to go home says EDMUNDO WYATT no n/v/d/sob/fever Vital Sign Vital Signs Vital Signs Date Time Temp Pulse Resp B/P (MAP) Pulse Ox O2 Delivery O2 Flow Rate FiO2 07/07/20 02:28 97.9 82 16 119/61 (80) 92 Room Air 97.9 07/06/20 21:50 2.0 Physical Exam PHYSICAL EXAM GENERAL: Alert, oriented female, not in distress. VITAL SIGNS: Stable, afebrile. HEENT: NAD. NECK: Supple, no JVP, no lymphadenopathy. LUNGS: Clear. HEART: S1, S2 regular. ABDOMEN: Benign. EXTREMITIES: No edema or cyanosis. SKIN: Unremarkable except the right upper chest where the AICD has been removed. There is erythema there and there is drainage tube in place. Labs Lab Laboratory Tests Test 07/06/20 10:40 Prothrombin Time 13.3 SEC (11.7-14.0) Prothromb Time International Ratio 1.1 (0.8-1.1) Activated Partial Thromboplast Time 31 SEC (24-38) Micro GRAM STAIN Final Final NO ORGANISMS SEEN. SQUAMOUS EPI CELL:NOT APPLICABLE PMN (WBCs):FEW Unless otherwise specified, Testing Performed by: [address] [address] For Inquires, the Physician may contact the Microbiology department at [phone] ANAEROBIC-AEROBIC CULTURE Preliminary Preliminary No Growth on 07/06/20 at 0812 Unless otherwise specified, Testing Performed by: [address] [address] For Inquires, the Physician may contact the Microbiology department at [phone] Objective Assessment IMPRESSION: 1. Exposed AICD with infection, status post removal. 2. Chest wall cellulitis, right now. 3. History of fever at home. 4. Leukocytosis. 5. Spiculated lung mass. 6. Hypertension. Plan Plan of Care change iv antibiotics to po doxy and cefdinir pt will be followed by multiple specialists and PMD f/u with me if needed NEVA PHAM MD Jul 07, 2020 08:08
[2020-07-07] MEDS ORDERED: DOXY-181 PO (08:37)
[2020-07-07] MEDS ORDERED: CEFD300C PO (08:37)
[2020-07-07] MEDS ORDERED: AMIO200T6 PO (08:38)
--- NOTE | 2020-07-07 08:40 | PDOC3 ---
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 Rodriguez is a 69 year old female with multiple comorbidities who presented for admission for infected ICD pouch. In ED, a Chest CT was performed and showed CYNDY spiculated lung mass concerning for primary lung cancer. She had removal of her IC on 07/04/20. Pulm and Heme/Onc were consulted for the lung mass and biopsy was performed on 07/06/20. She was managed with Vanc and Cefepime IV and tr ansitioned to Doxy and Cefdinir per ID recommendations. She has follow up appt with Dr. Kumari 07/14/20. Home medications were unchanged apart from Amiodarone which was increased from 200mg to 400mg. [facility] and will plan with Cardiology for future ICD replacement at a later time. Lung biopsy results are pending at this time. Discharge Medications Active Aldactone (Spironolactone) 25 Mg Tablet 25 Mg PO DAILY 30 Days Reported Amiodarone Hcl 400 Mg Tablet 200 Mg PO DAILY Entresto 24 mg-26 mg Tablet (Sacubitril/Valsartan) 1 Each Tablet 1 Each PO BID Tylenol (Acetaminophen) 325 Mg Tablet 650 Mg PO PRN Q6HRS PRN Toprol Xl (Metoprolol Succinate) 25 Mg Tab.er.24h 25 Mg PO DAILY Proair Hfa Inhaler (Albuterol Sulfate) 8.5 Gm Hfa.aer.ad 1 Puff IH PRN Q4HRS PRN 21 Days Flonase Allergy Relief (Fluticasone Propionate) 9.9 Ml [place].susp 2 Sprays NS DAILY Ondansetron Odt (Ondansetron) 4 Mg Tab.rapdis 1 Tab PO DAILY PRN Multi Vitamin Daily (Multivitamin) 1 Each Tablet 1 Tab PO DAILY 30 Days Zyrtec (Cetirizine Hcl) 10 Mg Tablet 1 Tab PO DAILY Aspir-Low (Aspirin) 81 Mg Tablet.dr 2 Tab PO DAILY Hydrocodone-APAP 5/325mg 1 tab PO BID PRN pain #10 Vital Signs Vital Signs Date Time Temp Pulse Resp B/P (MAP) Pulse Ox O2 Delivery O2 Flow Rate FiO2 07/07/20 07:00 97.6 93 20 146/83 (104) 94 Room Air 97.6 07/06/20 21:50 2.0 Labs Laboratory Tests Test 07/05/20 09:14 07/05/20 14:50 07/06/20 10:40 White Blood Count 10.9 x10^3/uL (4.0-11.0) Red Blood Count 4.32 x10^6/uL (3.50-5.40) Hemoglobin 13.8 g/dL (12.0-15.5) Hematocrit 41.3 % (36.0-47.0) Mean Corpuscular Volume 96 fL (79-100) Mean Corpuscular Hemoglobin 32 pg (25-35) Mean Corpuscular Hemoglobin Concent 34 g/dL (31-37) Red Cell Distribution Width 12.9 % (11.5-14.5) Platelet Count 275 x10^3/uL (140-400) Neutrophils (%) (Auto) 67 % (31-73) Lymphocytes (%) (Auto) 24 % (24-48) Monocytes (%) (Auto) 7 % (0-9) Eosinophils (%) (Auto) 1 % (0-3) Basophils (%) (Auto) 1 % (0-3) Neutrophils # (Auto) 7.3 x10^3/uL (1.8-7.7) Lymphocytes # (Auto) 2.6 x10^3/uL (1.0-4.8) Monocytes # (Auto) 0.7 x10^3/uL (0.0-1.1) Eosinophils # (Auto) 0.2 x10^3/uL (0.0-0.7) Basophils # (Auto) 0.1 x10^3/uL (0.0-0.2) Sodium Level 136 mmol/L (136-145) Potassium Level 4.4 mmol/L (3.5-5.1) Chloride Level 101 mmol/L (98-107) Carbon Dioxide Level 24 mmol/L (21-32) Anion Gap 11 (6-14) Blood Urea Nitrogen 17 mg/dL (7-20) Creatinine 0.7 mg/dL (0.6-1.0) Estimated GFR (Cockcroft-Gault) 82.7 Glucose Level 140 mg/dL (70-99) Calcium Level 8.8 mg/dL (8.5-10.1) Magnesium Level 1.8 mg/dL (1.8-2.4) Vancomycin Level Trough 15.9 mcg/mL (10.0-20.0) Vancomycin Last Dose Date 07/05/20 Vancomycin Last Dose Time 0400 Prothrombin Time 13.3 SEC (11.7-14.0) Prothromb Time International Ratio 1.1 (0.8-1.1) Activated Partial Thromboplast Time 31 SEC (24-38) Laboratory Tests Test 07/06/20 10:40 Prothrombin Time 13.3 SEC (11.7-14.0) Prothromb Time International Ratio 1.1 (0.8-1.1) Activated Partial Thromboplast Time 31 SEC (24-38) Allergies Allergies Coded Allergies Type Severity Reaction Last Updated Verified bee venom protein (honey bee) Allergy Intermediate Swelling 06/13/18 Yes chlorzoxazone Allergy Intermediate 12/03/19 Yes coconut Allergy Intermediate Rash 06/13/18 Yes sulfasalazine Allergy Intermediate 06/13/18 Yes morphine Adverse Reaction Mild Nausea and Vomiting 07/05/20 Yes Disposition/Orders: D/C to Home Justicifation of Admission Dx: Justifications for Admission: Justification of Admission Dx: Yes CHF: Hemodynamic Instability TARAH MARIN MD Jul 07, 2020 08:40
[2020-07-07] MEDS: SPIRONOLACTONE 25 MG TABLET PO SCH (08:46)
[2020-07-07] MEDS: CETIRIZINE HCL 10 MG TABLET. PO SCH (08:46)
[2020-07-07] MEDS: MULTIVITAMIN with MINERAL TABLET. PO SCH (08:46)
[2020-07-07] MEDS: METOPROLOL SUCC 24HR ER 25 MG TAB.ER.24H. PO SCH (08:47)
[2020-07-07] MEDS: LACTOBACILLUS RHAMNOSUS GG 1 CAPSULE. PO SCH (08:47)
[2020-07-07] MEDS: ASPIRIN ENTERIC COATED 81 MG TABLET.DR. PO SCH (08:47)
[2020-07-07] MEDS: SACUBITRIL/VALSARTAN 24/26MG TABLET. PO SCH (08:47)
[2020-07-07] MEDS: ASCORBIC ACID 500 MG TABLET PO SCH (08:47)
[2020-07-07] MEDS: AMIODARONE HCL 200 MG TABLET. PO SCH (08:47)
[2020-07-07] MEDS: FLUTICASONE 50MCG/NASAL SPRAY 16GM BOTTLE. NS SCH (08:49)
--- NOTE | 2020-07-07 10:26 | PDOC ---
PULMONARY PROGRESS NOTES DATE: 07/07/20 TIME: 10:25 Subjective on room air no increased cough or SOA no overnight issues S/P FNA / Vitals Vital Signs Date Time Temp Pulse Resp B/P (MAP) Pulse Ox O2 Delivery O2 Flow Rate FiO2 07/07/20 08:47 93 146/83 07/07/20 08:00 Room Air 07/07/20 07:00 97.6 20 94 97.6 07/06/20 21:50 2.0 ROS: No Nausea, No Chest Pain, No Abdominal Pain, No Increase Cough General: Alert, Oriented X4 Lungs: Clear Cardiovascular: S1, S2 Abdomen: Soft Neuro Exam: Alert Extremities: No Edema Skin: Warm Labs Laboratory Tests Test 07/05/20 14:50 07/06/20 10:40 Vancomycin Level Trough 15.9 mcg/mL (10.0-20.0) Vancomycin Last Dose Date 07/05/20 Vancomycin Last Dose Time 0400 Prothrombin Time 13.3 SEC (11.7-14.0) Prothromb Time International Ratio 1.1 (0.8-1.1) Activated Partial Thromboplast Time 31 SEC (24-38) Laboratory Tests Test 07/06/20 10:40 Prothrombin Time 13.3 SEC (11.7-14.0) Prothromb Time International Ratio 1.1 (0.8-1.1) Activated Partial Thromboplast Time 31 SEC (24-38) Medications Active Scripts Medications Dose Route/Sig Max Daily Dose Days Date Category Amiodarone Hcl 200 Mg Tablet 200 Mg PO DAILY 07/04/20 Reported Entresto 24 mg-26 mg Tablet (Sacubitril/Valsartan) 1 Each Tablet 1 Each PO BID 07/01/20 Reported Tylenol (Acetaminophen) 325 Mg Tablet 650 Mg PO PRN Q6HRS PRN 07/01/20 Reported Toprol Xl (Metoprolol Succinate) 25 Mg Tab.er.24h 25 Mg PO DAILY 02/20/20 Reported Aldactone (Spironolactone) 25 Mg Tablet 25 Mg PO DAILY 30 12/08/19 Rx Proair Hfa Inhaler (Albuterol Sulfate) 8.5 Gm Hfa.aer.ad 1 Puff IH PRN Q4HRS PRN 21 12/02/19 Reported Flonase Allergy Relief (Fluticasone Propionate) 9.9 Ml [place].susp 2 Sprays NS DAILY 12/02/19 Reported Ondansetron Odt (Ondansetron) 4 Mg Tab.rapdis 1 Tab PO DAILY PRN 12/02/19 Reported Multi Vitamin Daily (Multivitamin) 1 Each Tablet 1 Tab PO DAILY 30 04/29/19 Reported Zyrtec (Cetirizine Hcl) 10 Mg Tablet 1 Tab PO DAILY 04/29/19 Reported Aspir-Low (Aspirin) 81 Mg Tablet.dr 2 Tab PO DAILY 04/29/19 Reported Comments Impression: 1. Dilated cardiomegaly seen previously. 2. Spiculated mass in the upper left lung abutting the pleura anteriorly is suspicious for primary lung cancer if the patient is a smoker. Otherwise this could be metastatic cancer. This appears slightly larger. 3. Evaluation of the right chest wall is limited by the defibrillator generator. If there is concern for an abscess, consider ultrasound evaluation of the right chest wall. Impression . IMPRESSION: 1. Enlarging left upper lobe spiculated mass in a patient with a history of tobacco use. 2. History of tobacco dependent, in remission. 3. Chronic obstructive pulmonary disease, unknown FEV1. 4. Abscess in the chest wall related to defibrillator generator. 5. Leukocytosis. 6. History of Hodgkin's lymphoma. 7. History of breast cancer. Plan . PLAN: stable from respiratory standpoint , remains on room air Follow ID recs for ABX Follow pathology of FNA on 07/06/20 Follow Hem/Onc recs-- awaiting pathology-- suspected primary lung cancer, not a good surgical candidate 2/2 cardiomyopathy PT/OT DVT/GI PPX D/W CECI Ok to D/C today, follow up in office in August MIKKI FALL MD Jul 07, 2020 10:26
[2020-07-07 11:00] VITALS: BP 124/65
--- NOTE | 2020-07-07 11:19 | NUR ---
SS following up with discharge planning. SS reviewed pt chart and discussed with pt RN. Pt is currently on room air. COVID19 negative. Life Vest with pt in room. PT/OT recommended home. Discharge order on the chart for home with self care.
--- NOTE | 2020-07-07 13:07 | PDOC ---
BRICE RAMSEY APRN 07/07/20 1307: CARDIO Progress Notes Date and Time Date of Service 07/07/20 Time of Evaluation 1300 Subjective Subjective: No Chest Pain, No shortness of breath, No Palpitations Vitals Vitals Vital Signs Date Time Temp Pulse Resp B/P (MAP) Pulse Ox O2 Delivery O2 Flow Rate FiO2 07/07/20 11:00 97.6 94 19 124/65 (84) 94 Room Air 97.6 07/06/20 21:50 2.0 Weight Weight [ ] Input and Output Intake and Output Intake and Output 07/07/20 07:00 Intake Total 500 ml Output Total 2050 ml Balance -1550 ml Intake Oral 500 ml Output Urine Total 2050 ml # Voids 4 Microbiology Micro Microbiology 07/05/20 Gram Stain - Final, Resulted 07/05/20 Aerobic and Anaerobic Culture - Preliminary, Resulted 07/01/20 Blood Culture - Final, Complete NO GROWTH AFTER 5 DAYS Physical Exam HEENT: Neck Supple W Full Motion Chest: Symmetric LUNGS: Other (diminished bases) Heart: RRR (SR) Abdomen: Soft N/T Extremities: No Edema, No Calf Tenderness Neurology: alert, oriented, follow commands Assessment Assessment 1. Nonischemic cardiomyopathy, EF 15 to 20% 2. Chronic systolic heart failure: compensated 3. Hx of VT with syncope: no significant arrhythmia 4. 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 s/p explantation Recommendations Continue antibiotics as per ID. Secondary prevention measures Amiodarone for VT suppression LifeVest has been arranged Follow up in our office for wound check next week. Patient would like to check with granddaughter regarding work schedule, prior to scheduling appt, as she takes patient to her appointments. Okay to discharge from a CV standpoint. Justicifation of Admission Dx: Justifications for Admission: Justification of Admission Dx: Yes CHF: Hemodynamic Instability CATALINO AVALOS MD 07/07/20 9037: CARDIO Progress Notes Plan Plan Pt. seen and examined. Agree with above MANAGEMENT ARCHITECT note. Supportive care. Wound site is c/d/i. Continue abx. Will f/u for wound check in 1 week. Continue lifevest. BRICE RAMSEY APRN Jul 07, 2020 13:07 CATALINO AVALOS MD Jul 07, 2020 17:37
[2020-07-07 15:00] VITALS: BP 91/51
--- NOTE | 2020-07-07 18:44 | NUR ---
Discharge Note: [facility] Discharge instructions and discharge home medications reviewed with Patient and a copy given. All questions have been answered and understanding verbalized.
--- NOTE | 2020-07-11 14:10 | PATHOLOGY ---
[facility] Accession Number: [id number] . 01 Material submitted: . lung - LEFT LUNG MASS. Modifiers: left . 01 Clinical history: . CHEST WALL CELLULITIS HX OF BREAST CA, POSSIBLE NEW 1 LUNG CANCER HX OF LYMPHOMA LEFT LUNG MASS . 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 SEE COMMENT. (JPM:wes;07/08/2020) S 07/11/2020 1341 Local . 02 Comment: Sections of the left lung mass CT guided needle biopsy reveal extensive replacement of lung parenchyma by a malignant epithelial neoplasm. Microscopic sections primarily reveal irregular nests of malignant squamous epithelial cells which infiltrate an inflamed reactive desmoplastic stroma and show abundant evidence of keratinization. The tumor cells show moderate nuclear pleomorphism and presence of mitotic figures. There are also focal irregular acinar structures which infiltrate the same inflamed reactive stroma. These acini are lined by a simple to stratified layer of atypical epithelial cells having pale eosinophilic to basophilic mucinous cytoplasm and possessing enlarged, rounded to ovoid pleomorphic hyperchromatic nuclei. A panel of immunoperoxidase stains is obtained and yields the following results: . Cytokeratin 7: Tumor cells lining acinar structures and residual pneumocytes positive. Cytokeratin 20: Tumor cells negative. p40: Subset of tumor cells showing squamous differentiation positive and basilar epithelial cells within areas of glandular differentiation positive. CK5/6: Tumor cells within areas of squamous differentiation diffusely positive and subset of tumor cells within areas of glandular differentiation positive. TTF-1: Tumor cells within areas of squamous differentiation and glandular differentiation negative, and residual pneumocytes positive. Napsin A: Tumor cells within areas of squamous differentiation negative and few tumor cells within areas of glandular differentiation and residual pneumocytes positive. Mammoglobin: Tumor cells negative. DIMITRIOS-3: Subset of tumor cells within areas of squamous and glandular differentiation positive. . 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 The case is also examined by Dr. Ray, who concurs with the diagnosis. (JPM:wes; 07/11/2020) . . Special stains performed: Immunoperoxidase stains for CK7, CK20, p40, CK5/6, TTF-1, napsin A, DIMITRIOS-3 and mammoglobin. . 02 Electronically signed: . Theodore Hampton MD, Pathologist NPI- [id number] . 01 Gross description: . The specimen is received in formalin, labeled "Monse Rodriguez, left lung BX mass" and consists of multiple delicate needle cores/fragments of white brown tissue measuring 1.1 x 0.4 x 0.2 cm in aggregate which are entirely submitted in A1. (SDY; 07/07/2020) SYU/SYU 07/07/2020 [facility] Local . 02 Pathologist provided ICD-10: C34.92 . 02 CPT . 789397, L82307, [id number] Specimen Comment: A courtesy copy of this report has been sent to [phone], [phone] Specimen Comment: [id number], , , Specimen Comment: Report sent to ,DR FALL,DR JAIMES Specimen Comment: DR BECKHAM / DR SHERWOOD Specimen Comment: A duplicate report has been generated due to demographic updates. Performed at: 01 [facility] [address], [place] [id number] MD Virgilio Ozuna MD Phone: [phone] Performed at: 02 [facility] [address] [place], [place] [id number] MD Theodore Hampton MD Phone: [phone]
[2020-09-18] MEDS ORDERED: AMIO200T6 PO (17:35)
[2020-09-18] MEDS ORDERED: CARV3.12 PO (17:35)
--- NOTE | 2020-09-23 15:08 | PDOC1 ---
History & Physical: Date of Service: DOS: 07-02-2020 H&P: PATIENT: MERISSA SCHROEDER ACCOUNT: [id number] : 12/08/1957 LOC: [address] [place] [address] AGE: 62 SEX: M STATUS: ADM IN LOCATION: [address] [place] [address] ADMIT DATE: 07/02/2020 CHIEF COMPLAINT AND HISTORY OF PRESENT ILLNESS: This 62-year-old white male presented to the Emergency Room with dental pain on the left that has been going on for a few days, but then started developing left sided facial swelling and redness. He states that any fever type stuff he may have felt was just in the jaw and really did not feel systemically bad with this. He rated his pain at 9/10. He has been able to eat with the same. He was admitted for IV antibiotics with dental evaluation to take place with fairly significant leukocytosis of 15,000. PAST MEDICAL HISTORY: Remarkable for diabetes, CVA, GERD, hyperlipidemia, hypertension. PAST SURGICAL HISTORY: Remarkable for bilateral cataract extractions. MEDICATIONS: Brought with the patient, listed on computer and have been addressed. ALLERGIES: He has no known drug allergies. SOCIAL HISTORY: He is a former smoker, nondrinker, does not use drugs. , lives at home with his . FAMILY HISTORY: Noncontributory. REVIEW OF SYSTEMS: As mentioned above. PHYSICAL EXAMINATION: GENERAL: He is a well-developed, well-nourished white male, in no acute distress. VITAL SIGNS: Stable. He has had a temperature up to 100.8 since admission. HEAD, EYES, EARS, NOSE AND THROAT: Remarkable for left mandibular swelling and tenderness. NECK: Supple, without adenopathy or thyromegaly. CHEST: Clear to auscultation and percussion. HEART: Regular rate and rhythm without S3, S4 or murmur. ABDOMEN: Soft, nontender, without hepatosplenomegaly or mass. EXTREMITIES: Without cyanosis, clubbing, edema. NEUROLOGIC: Nonfocal. LABORATORY AND DIAGNOSTIC DATA: Again, initial white count is remarkable for 15,000 with a left shift. Sodium is a little bit low at 130. Imaging shows soft tissue edema in the left mandibular region anterior and lateral to the masseter muscle, which is associated with an area of focally decreased density medially measuring 1.5 x 0.9 x 2.1 cm in greatest dimensions, may reflect an associated abscess. There were some small reactive lymph nodes in the submandibular region measuring up to 1.4 cm in size. IMPRESSION: Left dental abscess with leukocytosis, fever. ADDITIONAL DIAGNOSES: Diabetes, status post cerebrovascular accident, hypertension. PLAN: Continue IV antibiotics. ID has been consulted. He will likely need a dental evaluation before this is over or Interventional Radiology to drain the abscess possibly. AC Nelson. MD ANTHONY DR: KEVIN/karthikeyan JOB#: [id number] / [id number] DICTATED BY: AC CRUZ MD 07/03/20 1042 SIGNED BY: AC CRUZ MD 07/04/20 1044 cc: AC CRUZ MD; TARAH MARIN MD ~[id number] Page of AC CRUZ MD Sep 23, 2020 15:08
[2020-10-08] MEDS ORDERED: LORA0.5T96 PO (02:32)
[2020-10-08] MEDS ORDERED: AMIO400T5 PO (02:32)
== END 2020-07-07 18:46 | disposition home or self-care (01) | DRG 260 ==
LOC: ER 13:32 → 2 SOUTH 14:00
PROVIDERS: ADMIT Family Medicine; ATTEND Family Medicine
PROC: 0JPT0PZ Removal of Cardiac Rhythm Related Device from Trunk Subcutaneous Tissue and Fascia, Open Approach (ICD-10-PCS; principal; 2020-07-04)
PROC: 02PA0MZ Removal of Cardiac Lead from Heart, Open Approach (ICD-10-PCS; 2020-07-04)
PROC: 0BBJ3ZX Excision of Left Lower Lung Lobe, Percutaneous Approach, Diagnostic (ICD-10-PCS; 2020-07-06)
DX: T82.7XXA Infection and inflammatory reaction due to other cardiac and vascular devices, implants and grafts, initial encounter (principal); A41.9 Sepsis, unspecified organism; I47.2 Ventricular tachycardia; L03.313 Cellulitis of chest wall; I42.0 Dilated cardiomyopathy; I50.22 Chronic systolic (congestive) heart failure; I11.0 Hypertensive heart disease with heart failure; J44.9 Chronic obstructive pulmonary disease, unspecified; Y83.1 Surgical operation with implant of artificial internal device as the cause of abnormal reaction of the patient, or of later complication, without mention of misadventure at the time of the procedure; Z17.1 Estrogen receptor negative status [ER-]; Z85.3 Personal history of malignant neoplasm of breast; Z85.41 Personal history of malignant neoplasm of cervix uteri; Z85.71 Personal history of Hodgkin lymphoma; Z85.72 Personal history of non-Hodgkin lymphomas; Z85.828 Personal history of other malignant neoplasm of skin; Z87.891 Personal history of nicotine dependence; Z90.12 Acquired absence of left breast and nipple; Z90.49 Acquired absence of other specified parts of digestive tract; Z90.710 Acquired absence of both cervix and uterus; Z90.81 Acquired absence of spleen; Z92.21 Personal history of antineoplastic chemotherapy; Z95.810 Presence of automatic (implantable) cardiac defibrillator; Z20.822 Contact with and (suspected) exposure to COVID-19; Z98.51 Tubal ligation status
CPT/HCPCS: 32408; 33241; 33244; 36415; 71045; 71260; 80048; 80076; 80202; 81001; 82550; 82565; 83605; 83690; 83735; 84484; 85007; 85025; 85610; 85730; 87040; 87071; 87075; 87077; 87186; 87426; 88305; 88341; 88342; 93005; 94760; 96365; 99152; 99153; 99291; C1729; C1769; J0692; J2250; J3010; J3370; J3490; J7040; J7050; Q9967; U0003; 97116-GP; 97530-GO; 97535-GO; G0378; J7030

== ENCOUNTER 2020-07-23 17:39 | Emergency (ER) | payer MEDICARE ==
[~2020-07-23] VITALS: Ht 162.6 cm; Wt 65.0 kg
[~2020-07-23 17:39] MED LIST changes: +ACET325T9 PO; +AMIO200T6 PO; +CEFD300C PO; +DOCU-150 PO; -DOCU-158 PO; +DOXY100C14 PO; +SACU1TAB PO
--- NOTE | 2020-07-23 19:41 | PHYS DOC ---
Past Medical History Past Medical History: Cancer, Hypertension, Other Additional Past Medical Histor: BR CA, CERV CA, HODGKINS LYMPH,BASAL CELL CARC, external zoll life vest Past Surgical History: Appendectomy, Cholecystectomy, Hysterectomy, Splenectomy, Tonsillectomy, Tubal ligation Additional Past Surgical Histo: LEFT MASTECTOMY, POWER PORT, DEFIBRILATOR REMOVAL Smoking Status: Former Smoker Alcohol Use: Rarely Drug Use: Marijuana General Adult EDM: Chief Complaint: SEIZURE HPI: HPI: Patient is a 69-year-old female who presents to the emergency department following a syncopal episode. Per her son, she was sitting in her recliner around 1700 today when she began to feel dizzy and then began convulsing for approximately 60 seconds. Following the episode he states that she was groggy. She has never had an episode like this in the past. She denies any associated chest pain, shortness of breath or palpitations. She denies any tongue biting or urinary incontinence. Her only recent medication change is beginning Entre sto 2 weeks ago. She had a defibrillator removed about a month ago and currently uses a LifeVest defibrillator. It was also discovered that she has a malignant lung tumor at that time. Review of Systems: Review of Systems: Constitutional: Denies fever or chills Eyes: Denies redness or eye pain HENT: Denies nasal congestion or sore throat Respiratory: Denies cough or shortness of breath Cardiovascular: Denies chest pain or palpitations GI: Denies abdominal pain, nausea, or vomiting : Denies dysuria or hematuria Musculoskeletal: Denies back pain or joint pain Integument: Denies rash or skin lesions Neurologic: Denies headache, focal weakness or sensory changes Complete systems were reviewed and found to be within normal limits, except as documented in this note. Heart Score: HEART Score for Chest Pain: HEART Score for Chest Pain Response (Comments) Value History Slighlty/Non-Suspicious 0 Age > 65 2 Risk Factors 1 or 2 Risk Factors 1 Total 3 Risk Factors: Risk Factors: DM, Current or recent (<one month) smoker, HTN, HLP, family history of CAD, obesity. Risk Scores: Score 0 - 3: 2.5% MACE over next 6 weeks - Discharge Home Score 4 - 6: 20.3% MACE over next 6 weeks - Admit for Clinical Observation Score 7 - 10: 72.7% MACE over next 6 weeks - Early Invasive Strategies Allergies: Allergies: Allergies Coded Allergies Type Severity Reaction Last Updated Verified bee venom protein (honey bee) Allergy Intermediate Swelling 06/13/18 Yes chlorzoxazone Allergy Intermediate 12/03/19 Yes coconut Allergy Intermediate Rash 06/13/18 Yes sulfasalazine Allergy Intermediate 06/13/18 Yes morphine Adverse Reaction Mild Nausea and Vomiting 07/05/20 Yes Physical Exam: PE: Constitutional: Well developed, well nourished, no acute distress, non-toxic appearance HENT: Normocephalic, atraumatic Eyes: PERRL, EOMI, conjunctiva normal, no discharge Neck: Normal range of motion, no tenderness, supple Lungs & Thorax: No respiratory distress, equal chest rise and fall Abdomen: Soft, no tenderness Skin: Warm, dry, no erythema, no rash Back: No tenderness, no CVA tenderness Extremities: No tenderness, ROM intact, no edema Neurologic: Alert and oriented X 3, normal motor function, normal sensory function, no focal deficits noted Psychologic: Affect normal, judgment normal Current Patient Data: Vital Signs: Vital Signs Date Time Temp Pulse Resp B/P (MAP) Pulse Ox O2 Delivery O2 Flow Rate FiO2 07/23/20 18:45 98.4 85 18 117/69 (85) 95 Room Air 98.4 EKG: EK. Paced rhythm at 81 bpm. Radiology/Procedures: Radiology/Procedures: PROCEDURE: CT HEAD WO CONTRAST CT head without contrast dated 07/23/2020. No comparison available. Clinical data indication: Seizure. TECHNIQUE: Contiguous axial imaging of the head was performed from skull base to vertex. No contrast administered. One or more of the following individualized dose reduction techniques were utilized for this examination: 1. Automated exposure control 2. Adjustment of the mA and/or kV according to patient size 3. Use of iterative reconstruction technique. FINDINGS: Ventricles and sulci are mildly prominent for age. No midline shift or mass effect. Mild patchy low density in the deep/subcortical periventricular white matter. No hemorrhage or extra-axial collection. Posterior fossa and brainstem unremarkable. Visualized paranasal sinuses and mastoid air cells are clear. No apparent calvarial abnormality. IMPRESSION: 1. No evidence of acute intracranial hemorrhage or mass. 2. Mild chronic small vessel ischemic changes and atrophy. Electronically signed by: Stevie Christensen MD (07/23/2020 8:44 PM) [facility] PROCEDURE: CHEST AP ONLY INDICATION: Reason: cough, hx of pleural effusion / Spl. Instructions: / History: COMPARISON: July 06, 2020 FINDINGS: Single view of chest obtained. Calcified nodules at the left upper lung as well as calcified lymph nodes in the mediastinum which could be from chronic granulomatous disease. Cardiac silhouette is similar to prior. Interval decrease in conspicuity of left apex nodular opacity compared to prior. Mild interstitial prominence is again seen. Surgical clips left upper quadrant. IMPRESSION: * Interval decrease in conspicuity of left upper lung nodule compared to prior. * The remainder of the lungs appear similar to prior. Electronically signed by: Geovanni Beckham MD (07/23/2020 8:09 PM) [id number] Course & Med Decision Making: Course & Med Decision Making Patient is a 74-year-old female presenting following a syncopal episode. Plan to obtain EKG, troponin, labs, head CT to evaluate for possible etiology of syncopal episode. Pertinent Labs and Imaging studies reviewed. (See chart for details) Dragon Disclaimer: Dragon Disclaimer: This electronic medical record was generated, in whole or in part, using a voice recognition dictation system. Departure Departure Impression: Primary Impression: Observed seizure-like activity Disposition: 01 DC HOME SELF CARE/HOMELESS Condition: STABLE Referrals: ROSY BECKHAM MD (PCP) ANA FROST MD Patient Instructions: Seizure, Adult, [id number] Additional Instructions: Increase fluid hydration. Scripts Lorazepam (ATIVAN) 0.5 Mg Tablet 0.5 MG PO TID PRN for SEIZURES, #10 TAB Prov: STEVIE AC DO 07/23/20 STEVIE AC DO Jul 23, 2020 19:41
[2020-07-23] MEDS ORDERED: IV NORMAL SALINE 1000ML BAG 1,000 ML IV ONE (19:45)
[2020-07-23 20:05] LABS: BASO # 0.1 x10^3/uL (0.0-0.2); BASO % 1 % (0-3); EOS # 0.1 x10^3/uL (0.0-0.7); EOS % 1 % (0-3); HEMATOCRIT 43.9 % (36.0-47.0); HEMOGLOBIN 14.6 g/dL (12.0-15.5); LYMPH # 2.6 x10^3/uL (1.0-4.8); LYMPH % 24 % (24-48); MEAN CORPUSCULAR HEMOGLOBIN 32 pg (25-35); MEAN CORPUSCULAR HGB CONC 33 g/dL (31-37); MEAN CORPUSCULAR VOLUME 95 fL (79-100); MONO % 9 % (0-9); NEUT # 6.8 x10^3/uL (1.8-7.7); NEUT % 65 % (31-73); PLATELET COUNT 337 x10^3/uL (140-400); RED BLOOD COUNT 4.62 x10^6/uL (3.50-5.40); RED CELL DISTRIBUTION WIDTH 12.6 % (11.5-14.5); WHITE BLOOD COUNT 10.6 x10^3/uL (4.0-11.0)
--- NOTE | 2020-07-23 20:12 | RAD ---
INDICATION: Reason: cough, hx of pleural effusion / Spl. Instructions: / History: COMPARISON: July 06, 2020 FINDINGS: Single view of chest obtained. Calcified nodules at the left upper lung as well as calcified lymph nodes in the mediastinum which co uld be from chronic granulomatous disease. Cardiac silhouette is similar to prior. Interval decrease in conspicuity of left apex nodular opacity compared to prior. Mild interstitial pr ominence is again seen. Surgical clips left upper quadrant. IMPRESSION: * Interval decrease in conspicuity of left upper lung nodule compared to prior. * The remainder of the lungs appear similar to prior. Electronically signed by: Geovanni Kumari MD (07/23/2020 8:09 PM) [id number]
[2020-07-23 20:20] LABS: CALCIUM 9.1 mg/dL (8.5-10.1); CREATININE 0.8 mg/dL (0.6-1.0); GFR 70.9; POTASSIUM 4.8 mmol/L (3.5-5.1)
[2020-07-23 20:27] LABS: ALBUMIN 3.5 g/dL (3.4-5.0); ALBUMIN/GLOBULIN RATIO 0.9 (1.0-1.7); MAGNESIUM 2.3 mg/dL (1.8-2.4); TOTAL BILIRUBIN 0.3 mg/dL (0.2-1.0); TOTAL PROTEIN 7.6 g/dL (6.4-8.2)
[2020-07-23 20:30] LABS: CREATINE KINASE 34 U/L (26-192)
--- NOTE | 2020-07-23 20:46 | RAD ---
CT head without contrast dated 07/23/2020. No comparison available. Clinical data indication: Seizure. TECHNIQUE: Contiguous axial imaging of the head was performed from skull base to vertex. No contrast administere d. One or more of the following individualized dose reduction techniques were utilized for this examinat ion: 1. Automated exposure control 2. Adjustment of the mA and/or kV according to patient size 3. Use of iterative reconstruction technique. FINDINGS: Ventricles and sulci are mildly prominent for age. No midline shift or mass effect. Mild patchy low d ensity in the deep/subcortical periventricular white matter. No hemorrhage or extra-axial collection. Posterior fossa and brainstem unremarkable. Visualized paranasal sinuses and mastoid air cells are clear. No apparent calvarial abnormality. IMPRESSION: 1. No evidence of acute intracranial hemorrhage or mass. 2. Mild chronic small vessel ischemic changes and atrophy. Electronically signed by: Stevie Christensen MD (07/23/2020 8:44 PM) SHAINA
--- NOTE | 2020-07-23 21:02 | EKG ---
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
[2020-07-23] MEDS ORDERED: LORazepam 0.5 MG TABLET PO ONE (22:00)
[2020-07-23] MEDS ORDERED: LORA0.5T96 PO (22:01)
[2020-07-23 22:36] VITALS: BP 123/58
== END 2020-07-23 22:37 | disposition home or self-care (01) ==
LOC: ER 17:39
DX: R56.9 Unspecified convulsions (principal); R55 Syncope and collapse; I10 Essential (primary) hypertension; Z87.891 Personal history of nicotine dependence; Z88.2 Allergy status to sulfonamides; Z88.5 Allergy status to narcotic agent; Z91.018 Allergy to other foods; Z91.030 Bee allergy status; Z88.8 Allergy status to other drugs, medicaments and biological substances
CPT/HCPCS: 36415; 70450; 71045; 80053; 82553; 83605; 83735; 84484; 85025; 93005; 96360; 96361; 99285; J7030

== ENCOUNTER 2020-07-29 09:05 | Inpatient (IN) | payer MEDICARE ==
[~2020-07-29] VITALS: Ht 162.6 cm; Wt 66.7 kg
[~2020-07-29 09:05] MED LIST changes: -DOCU-150 PO; +DOCU-158 PO; +DOXY-181 PO; -DOXY100C14 PO; +LORA0.5T96 PO
[2020-07-29 09:32] LABS: BASO # 0.1 x10^3/uL (0.0-0.2); BASO % 1 % (0-3); EOS # 0.2 x10^3/uL (0.0-0.7); EOS % 2 % (0-3); HEMATOCRIT 41.8 % (36.0-47.0); HEMOGLOBIN 13.9 g/dL (12.0-15.5); LYMPH # 2.9 x10^3/uL (1.0-4.8); LYMPH % 28 % (24-48); MEAN CORPUSCULAR HEMOGLOBIN 32 pg (25-35); MEAN CORPUSCULAR HGB CONC 33 g/dL (31-37); MEAN CORPUSCULAR VOLUME 95 fL (79-100); MONO # 0.9 x10^3/uL (0.0-1.1); MONO % 9 % (0-9); NEUT # 6.3 x10^3/uL (1.8-7.7); NEUT % 61 % (31-73); PLATELET COUNT 290 x10^3/uL (140-400); RED BLOOD COUNT 4.38 x10^6/uL (3.50-5.40); RED CELL DISTRIBUTION WIDTH 13.1 % (11.5-14.5); WHITE BLOOD COUNT 10.4 x10^3/uL (4.0-11.0)
--- NOTE | 2020-07-29 09:32 | EKG ---
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
[2020-07-29 09:40] LABS: CALCIUM 9.2 mg/dL (8.5-10.1); CREATININE 0.8 mg/dL (0.6-1.0); GFR 70.9; POTASSIUM 4.6 mmol/L (3.5-5.1)
[2020-07-29 09:46] LABS: ALBUMIN 3.3 g/dL (3.4-5.0); TOTAL BILIRUBIN 0.4 mg/dL (0.2-1.0); TOTAL PROTEIN 6.7 g/dL (6.4-8.2)
--- NOTE | 2020-07-29 09:50 | PHYS DOC ---
Past Medical History Past Medical History: Cancer, Hypertension, Other Additional Past Medical Histor: BR CA, CERV CA, HODGKINS LYMPH,BASAL CELL CARC, external zoll life vest Past Surgical History: Appendectomy, Cholecystectomy, Hysterectomy, Splenectomy, Tonsillectomy, Tubal ligation Additional Past Surgical Histo: LEFT MASTECTOMY, POWER PORT, DEFIBRILATOR REMOVAL Smoking Status: Former Smoker Alcohol Use: Rarely Drug Use: Marijuana General Adult EDM: Chief Complaint: SYNCOPE HPI: HPI: Patient is a 69 year old female newly diagnosed lung carcinoma, breast cancer status post mastectomy, CHF,who presents with syncope versus seizure. Patient arrives with granddaughter. Granddaughter reports she was driving her to the hospital for an MRI this morning when she passed out started to tense up while she was in the car. This lasted several minutes and then patient awoke. She did appear slightly confused after she awoke. She was brought to the emergency department. Patient reports she was feeling at baseline earlier this morning. No chest pain shortness of breath nausea vomiting diarrhea constipation fever chills numbness weakness. She now just feels tired. She does not remember the episode. Patient was seen in the emergency department approximately 1 week ago for similar symptoms. She was discharged. She was given some Ativan. She just recently started seeing oncologist. She started supposed to start treatment for her lung cancer next week. Patient denies drugs or alcohol. Patient had no fall or trauma. Review of Systems: Review of Systems: Review of Systems: Constitutional: Denies fever or chills Eyes: Denies redness or eye pain HENT: Denies nasal congestion or sore throat Respiratory: Denies cough or shortness of breath Cardiovascular: Denies chest pain or palpitations GI: Admits abdominal pain and nausea, denies vomiting or diarrhea : Denies dysuria or hematuria Musculoskeletal: Denies back pain or joint pain Integument: Denies rash or skin lesions Neurologic: Denies headache, focal weakness or sensory changes Allergies: Allergies: Allergies Coded Allergies Type Severity Reaction Last Updated Verified bee venom protein (honey bee) Allergy Intermediate Swelling 06/13/18 Yes chlorzoxazone Allergy Intermediate 12/03/19 Yes coconut Allergy Intermediate Rash 06/13/18 Yes sulfasalazine Allergy Intermediate 06/13/18 Yes morphine Adverse Reaction Mild Nausea and Vomiting 07/05/20 Yes Physical Exam: PE: GENERAL APPEARANCE: Awake and alert. Cooperative. No acute distress. Non toxic appearing. HEAD: Normocephalic. Atraumatic. EYES: EOM's grossly intact. Sclera anicteric. Conjunctiva clear ENT:. Airway patent. Mucous membranes moist. No trismus. Tolerating secretions. NECK: Supple. Trachea midline. HEART: Regular rate and rhythm. Radial pulses 2+. Good capillary refill. LUNGS: Respirations unlabored. Clear to auscultation bilaterally. No rales, rhonchi, wheezing or retractions. ABDOMEN: Soft. Non-tender. No guarding or rebound. No CVA tenderness. No palpable or pulsatile mass. EXTREMITIES: No acute deformities. No edema, erythema or calf tenderness. SKIN: Warm and dry. No rash. NEUROLOGICAL: Alert and oriented x3. Cranial nerves II through XII intact. Sensation is normal. Speech normal. Reflexes equal bilaterally. Muscle strength is 5 out of 5 bilateral upper and lower extremities. No gross neurological deficits. Moves all 4 extremities spontaneously. Cerebellar functions intact. Finger to nose and heel to castro are normal. PSYCHIATRIC: Normal mood. Current Patient Data: Labs: Laboratory Tests Test 07/29/20 09:23 White Blood Count 10.4 x10^3/uL (4.0-11.0) Red Blood Count 4.38 x10^6/uL (3.50-5.40) Hemoglobin 13.9 g/dL (12.0-15.5) Hematocrit 41.8 % (36.0-47.0) Mean Corpuscular Volume 95 fL (79-100) Mean Corpuscular Hemoglobin 32 pg (25-35) Mean Corpuscular Hemoglobin Concent 33 g/dL (31-37) Red Cell Distribution Width 13.1 % (11.5-14.5) Platelet Count 290 x10^3/uL (140-400) Neutrophils (%) (Auto) 61 % (31-73) Lymphocytes (%) (Auto) 28 % (24-48) Monocytes (%) (Auto) 9 % (0-9) Eosinophils (%) (Auto) 2 % (0-3) Basophils (%) (Auto) 1 % (0-3) Neutrophils # (Auto) 6.3 x10^3/uL (1.8-7.7) Lymphocytes # (Auto) 2.9 x10^3/uL (1.0-4.8) Monocytes # (Auto) 0.9 x10^3/uL (0.0-1.1) Eosinophils # (Auto) 0.2 x10^3/uL (0.0-0.7) Basophils # (Auto) 0.1 x10^3/uL (0.0-0.2) Laboratory Tests 07/29/20 09:23 Vital Signs: Vital Signs Date Time Temp Pulse Resp B/P (MAP) Pulse Ox O2 Delivery O2 Flow Rate FiO2 07/29/20 09:09 97.3 84 18 124/58 (80) 97 Room Air 97.3 EKG: EKG: [] EKG interpretation shows sinus rhythm ventricular rate of 82 bpm. NJ interval 256 ms. QRS 154 ms. QTc 522 ms. T wave inversion aVL V2 V1. Last EKG on July 01, 2020 shows ventricularly paced rhythm. Radiology/Procedures: Radiology/Procedures: []PROCEDURE: CT HEAD WO CONTRAST CT HEAD/BRAIN WO History: Reason: syncope vs seizure / Spl. Instructions: / History: Comparison: 07/23/2020 Technique: Noncontrast CT imaging was performed of the head. Findings: No intracranial hemorrhage. No mass effect. No hydrocephalus. Extra-axial spaces are unremarkable. Imaged orbits are unremarkable. Imaged paranasal sinuses and mastoid air cells are clear. No acute calvarial fracture. Impression: 1. No acute intracranial abnormality. ----- Exposure: One or more of the following individualized dose reduction techniques were utilized for this examination: 1. Automated exposure control 2. Adjustment of the mA and/or kV according to patient size 3. Use of iterative reconstruction technique. Electronically signed by: Johnathon Parker MD (07/29/2020 10:15 AM) [facility] DICTATED and SIGNED BY: JOHNATHON PARKER MD DATE: 07/29/20 [id number] PROCEDURE: CHEST AP ONLY XR CHEST 1V History: Reason: seizure vs syncope / Spl. Instructions: / History: Comparison: X-ray 07/23/2020, CT 02/20/2020. Technique: Portable AP chest radiograph. Findings: Calcified pulmonary granulomata and hilar lymph nodes. Streaky left lower lobe opacity consistent with chronic scarring. Persistent left apex density. No pneumothorax or pleural effusion. Stable cardiac silhouette. Persistent interstitial prominence. Surgical clips in the left upper quadrant. Osseous structures are unremarkable. Impression: 1. No acute cardiopulmonary findings. Electronically signed by: Johnathon Parker MD (07/29/2020 9:58 AM) [facility] DICTATED and SIGNED BY: JOHNATHON PARKER MD DATE: 07/29/20 [id number] Course & Med Decision Making: Course & Med Decision Making Pertinent Labs and Imaging studies reviewed. (See chart for details) [] Medical decision making: This is a 69-year-old female presents with seizure versus syncope. Upon arrival to the emergency department patient's vital signs are stable. Neurologically she is intact. Granddaughter is at bedside. She was supposed to get an MRI this morning. This is the third episode patient has had for this. She is currently being worked up and going to start treatment for squamous cell carcinoma of the lung. Oncologist is Dr. Roberts. Pat nicky's laboratory evaluation unremarkable. CBC unremarkable. Chemistry unremarkable. Troponin negative. Urine appears infected versus contaminated. Will give dose of antibiotics in ED. EKG is baseline. Chest x-ray and head CT showed no acute findings. At this point I spoke with patient and granddaughter. As this being the third episode of syncope versus seizure will admit to the hospital for further observation and evaluation. They are agreeable. They would like to get MRI done today if possible. MRI did have opening to get her imaging done today. Patient admitted to Dr. Rosy Beckham. Spoke with him at 1100. Agreeable to admission. Is aware that MRI is pending for inpatient review. Request neurology consult. Consult placed for Dr. Richmond for inpatient consultation. At this time based on patient's symptoms and findings will admit to the hospital for further observation and evaluation. Spoke with patient. Agreeable to admission. They are aware of all labs and imaging. All questions answered and patient stable at time of admission. Dragon Disclaimer: Dragon Disclaimer: This electronic medical record was generated, in whole or in part, using a voice recognition dictation system. Departure Departure Impression: Primary Impression: Seizure Additional Impression: Urinary tract infection Qualified Codes: N30.00 - Acute cystitis without hematuria Disposition: ADMITTED INPT THIS [facility] Admitting Physician: Rosy Beckham Condition: STABLE Referrals: ROSY BECKHAM MD (PCP) CHIKIS SEBASTIAN DO Jul 29, 2020 09:50
--- NOTE | 2020-07-29 10:01 | RAD ---
XR CHEST 1V History: Reason: seizure vs syncope / Spl. Instructions: / History: Comparison: X-ray 07/23/2020, CT 02/20/2020. Technique: Portable AP chest radiograph. Findings: Calcified pulmonary granulomata and hilar lymph nodes. Streaky left lower lobe opacity consistent wit h chronic scarring. Persistent left apex density. No pneumothorax or pleural effusion. Stable cardiac silhouette. Persistent interstitial prominence. Surgical clips in the left upper quadrant. Osseous s tructures are unremarkable. Impression: 1. No acute cardiopulmonary findings. Electronically signed by: Johnathon Chao MD (07/29/2020 9:58 AM) [facility]
[2020-07-29 10:08] LABS: BILIRUBIN,URINE NEGATIVE (NEG); CLARITY,URINE CLOUDY; COLOR,URINE YELLOW; NITRITE,URINE NEGATIVE (NEG); PH,URINE 7.5 (<5.0-8.0); PROTEIN,URINE NEGATIVE (NEG-TRACE); UROBILINOGEN,URINE 0.2 mg/dL (0.2 mg/dL)
--- NOTE | 2020-07-29 10:18 | RAD ---
CT HEAD/BRAIN WO History: Reason: syncope vs seizure / Spl. Instructions: / History: Comparison: 07/23/2020 Technique: Noncontrast CT imaging was performed of the head. Findings: No intracranial hemorrhage. No mass effect. No hydrocephalus. Extra-axial spaces are unremarkable. Imaged orbits are unremarkable. Imaged paranasal sinuses and mastoid air cells are clear. No acute ca lvarial fracture. Impression: 1. No acute intracranial abnormality. ----- Exposure: One or more of the following individualized dose reduction techniques were utilized for thi s examination: 1. Automated exposure control 2. Adjustment of the mA and/or kV according to patient size 3. Use of iterative reconstruction technique. Electronically signed by: Johnathon Chao MD (07/29/2020 10:15 AM) [facility]
[2020-07-29 10:23] LABS: AMORPHOUS SEDIMENT,UR PRESENT /HPF; BACTERIA,URINE MODERATE /HPF (0-FEW); RBC,URINE 0 /HPF (0-2)
[2020-07-29] MEDS ORDERED: GADOTERATE 7.5 MMOL/15ML VIAL. IVP ONE (11:00)
[2020-07-29] MEDS ORDERED: cefTRIAXone IV Push 1 GM VIAL. IVP ONE (11:45)
--- NOTE | 2020-07-29 12:30 | RAD ---
MRI BRAIN WO+W History:Reason: Syncope. Hx squamous cell carcinoma 13mL CLARISCAN / Spl. Instructions: / History: Technique: Multiplanar, multi sequential without and with intravenous contrast MR imaging was perform ed of the brain. Comparison: July 29, 2020 Findings: No acute infarct. No intracranial hemorrhage. No mass effect. No hydrocephalus. No pathologic enhance ment. Mild foci of FLAIR hyperintensity within the hemispheric white matter, likely within normal range for age. Imaged orbits are unremarkable. Imaged paranasal sinuses and mastoid air cells are clear. Impression: 1. No acute intracranial abnormality. Electronically signed by: Joseph Iovry DO (07/29/2020 12:28 PM) [id number]
--- NOTE | 2020-07-29 12:44 | PDOC2 ---
NEUROLOGY CONSULT Date of Service DOS: DATE: 07/29/20 TIME: 12:36 Reason for Consult Reason for Consult: Seizure Referring Physician Referring Physician: Dr. Kumari Source Source: Caregiver (grand-daughter), Chart review, Patient History of Present Illness History of Present Illness The patient is a 69-year-old right-handed female with newly diagnosed lung cancer who has had extensive cardiac history. She has had a LifeVest, then had an AICD, which was removed because of infection. During the work-up for infection she was found to have the cancer. She does have a LifeVest on. S tarting a week ago she has had episodes of syncope, possibly with some convulsive component. Her legs have stroke, she also draws her arm up to her chest, but she rapidly wakes up. She is a little bit confused afterwards but back to herself after a few minutes. There has never been any tongue biting or incontinence. She had another episode this morning on the way to get an MRI done for her cancer staging. She is feeling back to herself now. There is no prior history of stroke, seizure, or head injury. She was scheduled to see my nurse practitioner on 08/01 Past Medical History Cardiovascular: HTN, Other (Has AICD, currently just with a LifeVest) Heme/Onc: Cancer (Lung, previously breast and cervical, Hodgkin's lymphoma) Past Surgical History Past Surgical History: Appendectomy, Cholecystectomy, Mastectomy (Left), Tubal Ligation, Hysterectomy, Other (Splenectomy, AICD placement and removal) Family History Family History: No pertinent hx (Negative for seizures) Social History Social History , lives alone, family has been staying with her recently, quit smoking 4 years ago, rare alcohol, occasional marijuana Current Medications Current Medications Current Medications Gadoterate Meglumine (Clariscan) 13 ml 1X ONCE IVP Last administered on 07/29/20at 11:34; Start 07/29/20 at 11:00; Stop 07/29/20 at 11:02; Status DC Ceftriaxone Sodium (Rocephin) 1 gm 1X ONCE IVP ; Start 07/29/20 at 11:45; Stop 07/29/20 at 11:46; Status DC Active Scripts Active Ativan (Lorazepam) 0.5 Mg Tablet 0.5 Mg PO TID PRN Amiodarone Hcl 200 Mg Tablet 400 Mg PO DAILY 30 Days Doxycycline Monohydrate 100 Mg Capsule 1 Cap PO BID 5 Days Cefdinir 300 Mg Capsule 1 Cap PO BID 5 Days Aldactone (Spironolactone) 25 Mg Tablet 25 Mg PO DAILY 30 Days Reported Entresto 24 mg-26 mg Tablet (Sacubitril/Valsartan) 1 Each Tablet 1 Each PO BID Tylenol (Acetaminophen) 325 Mg Tablet 650 Mg PO PRN Q6HRS PRN Toprol Xl (Metoprolol Succinate) 25 Mg Tab.er.24h 25 Mg PO DAILY Proair Hfa Inhaler (Albuterol Sulfate) 8.5 Gm Hfa.aer.ad 1 Puff IH PRN Q4HRS PRN 21 Days Flonase Allergy Relief (Fluticasone Propionate) 9.9 Ml [place].susp 2 Sprays NS DAILY Ondansetron Odt (Ondansetron) 4 Mg Tab.rapdis 1 Tab PO DAILY PRN Multi Vitamin Daily (Multivitamin) 1 Each Tablet 1 Tab PO DAILY 30 Days Zyrtec (Cetirizine Hcl) 10 Mg Tablet 1 Tab PO DAILY Aspir-Low (Aspirin) 81 Mg Tablet.dr 2 Tab PO DAILY Allergies Allergies: Coded Allergies: bee venom protein (honey bee) (Verified Allergy, Intermediate, Swelling, 06/13/18) chlorzoxazone (Verified Allergy, Intermediate, 12/03/19) coconut (Verified Allergy, Intermediate, Rash, 06/13/18) sulfasalazine (Verified Allergy, Intermediate, 06/13/18) morphine (Verified Adverse Reaction, Mild, Nausea and Vomiting, 07/05/20) ROS Review of System Negative for fever, chills, weight loss, shortness of breath, chest pain, indigestion, hematochezia, melena, and dysuria. Full 14-point review of systems is negative. Physical Exam Physical Examination General: Well-developed, well-nourished white female in no acute distress HEENT: Normocephalic andatraumatic. Temporal arteriespulsatile and nontender. Neck: Supple without bruit, no meningismus Musculoskeletal: Stability:see neurologic. Gait exam:see neurologic. Tone:see neurologic.Strength:see neurologic. Neurological: Mental Status:intact, orientation, memory, attention span/concentration, language, fund of knowledge normal. Cranial Nerves:Pupils equal and reactive to light, extraocular movements areintact, visual lopez are full to confrontation. Facial sensation is normal. There is no facial asymmetry. Vestibulo-ocular reflex is intact. Palate elevates and tongue protrudes in midline. All other cranial related problems are negative except as mentioned before.Reflexes:2+ and symmetric with flexor plantar responses. Motor:5/5 strength with normal tone and bulk. Coordination:Finger-nose finger and otwj-sy-soiv testing are normal. Rapid alternating movements and fine finger movements are intact. Gait:Not tested. Sensory:Normal pinprick, vibration, light touch, proprioception. Vitals VITALS Vital Signs Date Time Temp Pulse Resp B/P (MAP) Pulse Ox O2 Delivery O2 Flow Rate FiO2 07/29/20 10:30 84 18 109/53 (71) 93 Room Air 07/29/20 09:09 97.3 97.3 Labs Labs Laboratory Tests Test 07/29/20 09:23 07/29/20 09:59 White Blood Count 10.4 x10^3/uL (4.0-11.0) Red Blood Count 4.38 x10^6/uL (3.50-5.40) Hemoglobin 13.9 g/dL (12.0-15.5) Hematocrit 41.8 % (36.0-47.0) Mean Corpuscular Volume 95 fL (79-100) Mean Corpuscular Hemoglobin 32 pg (25-35) Mean Corpuscular Hemoglobin Concent 33 g/dL (31-37) Red Cell Distribution Width 13.1 % (11.5-14.5) Platelet Count 290 x10^3/uL (140-400) Neutrophils (%) (Auto) 61 % (31-73) Lymphocytes (%) (Auto) 28 % (24-48) Monocytes (%) (Auto) 9 % (0-9) Eosinophils (%) (Auto) 2 % (0-3) Basophils (%) (Auto) 1 % (0-3) Neutrophils # (Auto) 6.3 x10^3/uL (1.8-7.7) Lymphocytes # (Auto) 2.9 x10^3/uL (1.0-4.8) Monocytes # (Auto) 0.9 x10^3/uL (0.0-1.1) Eosinophils # (Auto) 0.2 x10^3/uL (0.0-0.7) Basophils # (Auto) 0.1 x10^3/uL (0.0-0.2) Sodium Level 141 mmol/L (136-145) Potassium Level 4.6 mmol/L (3.5-5.1) Chloride Level 106 mmol/L (98-107) Carbon Dioxide Level 28 mmol/L (21-32) Anion Gap 7 (6-14) Blood Urea Nitrogen 16 mg/dL (7-20) Creatinine 0.8 mg/dL (0.6-1.0) Estimated GFR (Cockcroft-Gault) 70.9 BUN/Creatinine Ratio 20 (6-20) Glucose Level 104 mg/dL (70-99) Calcium Level 9.2 mg/dL (8.5-10.1) Total Bilirubin 0.4 mg/dL (0.2-1.0) Aspartate Amino Transf (AST/SGOT) 17 U/L (15-37) Alanine Aminotransferase (ALT/SGPT) 26 U/L (14-59) Alkaline Phosphatase 82 U/L (46-116) Troponin I Quantitative < 0.017 ng/mL (0.000-0.055) Total Protein 6.7 g/dL (6.4-8.2) Albumin 3.3 g/dL (3.4-5.0) Albumin/Globulin Ratio 1.0 (1.0-1.7) Urine Collection Type Void Urine Color Yellow Urine Clarity Cloudy Urine pH 7.5 (<5.0-8.0) Urine Specific [place] 1.020 (1.000-1.030) Urine Protein Negative mg/dL (NEG-TRACE) Urine Glucose (UA) Negative mg/dL (NEG) Urine Ketones (Stick) Negative mg/dL (NEG) Urine Blood Negative (NEG) Urine Nitrite Negative (NEG) Urine Bilirubin Negative (NEG) Urine Urobilinogen Dipstick 0.2 mg/dL (0.2 mg/dL) Urine Leukocyte Esterase Small (NEG) Urine RBC 0 /HPF (0-2) Urine WBC 5-10 /HPF (0-4) Urine Squamous Epithelial Cells Few /LPF Urine Amorphous Sediment Present /HPF Urine Bacteria Moderate /HPF (0-FEW) Laboratory Tests Test 07/29/20 09:23 07/29/20 09:59 White Blood Count 10.4 x10^3/uL (4.0-11.0) Red Blood Count 4.38 x10^6/uL (3.50-5.40) Hemoglobin 13.9 g/dL (12.0-15.5) Hematocrit 41.8 % (36.0-47.0) Mean Corpuscular Volume 95 fL (79-100) Mean Corpuscular Hemoglobin 32 pg (25-35) Mean Corpuscular Hemoglobin Concent 33 g/dL (31-37) Red Cell Distribution Width 13.1 % (11.5-14.5) Platelet Count 290 x10^3/uL (140-400) Neutrophils (%) (Auto) 61 % (31-73) Lymphocytes (%) (Auto) 28 % (24-48) Monocytes (%) (Auto) 9 % (0-9) Eosinophils (%) (Auto) 2 % (0-3) Basophils (%) (Auto) 1 % (0-3) Neutrophils # (Auto) 6.3 x10^3/uL (1.8-7.7) Lymphocytes # (Auto) 2.9 x10^3/uL (1.0-4.8) Monocytes # (Auto) 0.9 x10^3/uL (0.0-1.1) Eosinophils # (Auto) 0.2 x10^3/uL (0.0-0.7) Basophils # (Auto) 0.1 x10^3/uL (0.0-0.2) Sodium Level 141 mmol/L (136-145) Potassium Level 4.6 mmol/L (3.5-5.1) Chloride Level 106 mmol/L (98-107) Carbon Dioxide Level 28 mmol/L (21-32) Anion Gap 7 (6-14) Blood Urea Nitrogen 16 mg/dL (7-20) Creatinine 0.8 mg/dL (0.6-1.0) Estimated GFR (Cockcroft-Gault) 70.9 BUN/Creatinine Ratio 20 (6-20) Glucose Level 104 mg/dL (70-99) Calcium Level 9.2 mg/dL (8.5-10.1) Total Bilirubin 0.4 mg/dL (0.2-1.0) Aspartate Amino Transf (AST/SGOT) 17 U/L (15-37) Alanine Aminotransferase (ALT/SGPT) 26 U/L (14-59) Alkaline Phosphatase 82 U/L (46-116) Troponin I Quantitative < 0.017 ng/mL (0.000-0.055) Total Protein 6.7 g/dL (6.4-8.2) Albumin 3.3 g/dL (3.4-5.0) Albumin/Globulin Ratio 1.0 (1.0-1.7) Urine Collection Type Void Urine Color Yellow Urine Clarity Cloudy Urine pH 7.5 (<5.0-8.0) Urine Specific [place] 1.020 (1.000-1.030) Urine Protein Negative mg/dL (NEG-TRACE) Urine Glucose (UA) Negative mg/dL (NEG) Urine Ketones (Stick) Negative mg/dL (NEG) Urine Blood Negative (NEG) Urine Nitrite Negative (NEG) Urine Bilirubin Negative (NEG) Urine Urobilinogen Dipstick 0.2 mg/dL (0.2 mg/dL) Urine Leukocyte Esterase Small (NEG) Urine RBC 0 /HPF (0-2) Urine WBC 5-10 /HPF (0-4) Urine Squamous Epithelial Cells Few /LPF Urine Amorphous Sediment Present /HPF Urine Bacteria Moderate /HPF (0-FEW) Images Images MRI BRAIN WO+W History:Reason: Syncope. Hx squamous cell carcinoma 13mL CLARISCAN / Spl. Instructions: / History: Technique: Multiplanar, multi sequential without and with intravenous contrast MR imaging was performed of the brain. Comparison: July 29, 2020 Findings: No acute infarct. No intracranial hemorrhage. No mass effect. No hydrocephalus. No pathologic enhancement. Mild foci of FLAIR hyperintensity within the hemispheric white matter, likely within normal range for age. Imaged orbits are unremarkable. Imaged paranasal sinuses and mastoid air cells are clear. Impression: 1. No acute intracranial abnormality. CT HEAD/BRAIN WO History: Reason: syncope vs seizure / Spl. Instructions: / History: Comparison: 07/23/2020 Technique: Noncontrast CT imaging was performed of the head. Findings: No intracranial hemorrhage. No mass effect. No hydrocephalus. Extra-axial spaces are unremarkable. Imaged orbits are unremarkable. Imaged paranasal sinuses and mastoid air cells are clear. No acute calvarial fracture. Impression: 1. No acute intracranial abnormality. Assessment/Plan Assessment/Plan Impression: This sounds like convulsive syncope due to her cardiac disease. Thankfully her brain MRI is negative. Recommendations: Electroencephalogram Cardiology consult Observation Hold off on starting anticonvulsants Discussed with patient's granddaughter. Thank you for letting me help with the patient's care. ANA FROST MD Jul 29, 2020 12:43
[2020-07-29 16:21] VITALS: BP 136/70
--- NOTE | 2020-07-29 18:01 | EEG ---
DATE OF SERVICE: 07/29/2020 ELECTROENCEPHALOGRAM REPORT EEG NUMBER: [id number] OBJECTIVE: The patient is a 69-year-old female with possible seizures. DESCRIPTION: This is a digital study. Electrodes are placed according to the international 10-20 system. Bipolar and referential montages are available. Activation procedures typically include hyperventilation and intermittent photic stimulation. INTERPRETATION: The waking background consists of 9-10 Hz, 50-100 microvolt activity, symmetrically distributed over parietooccipital regions and reactive to eye opening. Hyperventilation and intermittent photic stimulation are noncontributory. Stage 2 sleep is achieved with normal electroencephalogram patterns. IMPRESSION: This electroencephalogram with the patient awake and asleep is within normal limits. There is no focal, paroxysmal, or epileptiform activity. Thank you for letting us help with the patient's care. ANA FROST MD DR: RIAN/karthikeyan JOB#: [id number] / [id number] ROSY Duran MD
[2020-07-29 19:00] VITALS: BP 119/64
[2020-07-29] MEDS ORDERED: ACETAMINOPHEN 325 MG TABLET. PO PRN (19:00)
[2020-07-29] MEDS ORDERED: ALBUTEROL SULFATE 2.5 MG/3 ML NEBU. NEB PRN (19:00)
[2020-07-29] MEDS ORDERED: LORazepam 0.5 MG TABLET PO PRN (19:00)
[2020-07-29] MEDS: SACUBITRIL/VALSARTAN 24/26MG TABLET. PO SCH (21:48)
[2020-07-29 22:30] VITALS: BP 87/39
[2020-07-29 22:54] VITALS: BP 97/44
[2020-07-30 03:00] VITALS: BP 105/53
[2020-07-30 07:00] VITALS: BP 106/47
[2020-07-30] MEDS ORDERED: METOPROLOL SUCC 24HR ER 25 MG TAB.ER.24H. PO SCH (09:00)
[2020-07-30] MEDS: SACUBITRIL/VALSARTAN 24/26MG TABLET. PO SCH (09:00)
[2020-07-30] MEDS: SPIRONOLACTONE 25 MG TABLET PO SCH (09:00)
--- NOTE | 2020-07-30 09:18 | PDOC ---
Provider Note Date of Service: DATE: 07/30/20 TIME: 09:13 Provider Note [id number] Justifications for Admission Other Justification ROSY BECKHAM MD Jul 30, 2020 09:18
[2020-07-30] MEDS: FLUTICASONE 50MCG/NASAL SPRAY 16GM BOTTLE. NS SCH (09:19)
[2020-07-30] MEDS: ASPIRIN ENTERIC COATED 81 MG TABLET.DR. PO SCH (09:19)
[2020-07-30] MEDS: MULTIVITAMIN with MINERAL TABLET. PO SCH (09:22)
[2020-07-30] MEDS: CETIRIZINE HCL 10 MG TABLET. PO SCH (09:22)
[2020-07-30] MEDS: AMIODARONE HCL 200 MG TABLET. PO SCH (09:23)
[2020-07-30 11:00] VITALS: BP 104/56
--- NOTE | 2020-07-30 11:24 | HP ---
ADMIT DATE: CHIEF COMPLAINT: Seizure-like activity. HISTORY OF PRESENT ILLNESS: A 69-year-old white female who has a significant cardiomyopathy and is wearing a LifeVest after removal of pacemaker defibrillator because of infection recently. She has had 4 episodes now of either syncope or true seizures with seizure-like activity occurring, had a brief postictal state. These have always occurred with her sitting and/or awake and does not occur with her sleeping to her knowledge or lying down. There has been no chest pain, sweating, headache or any other head trauma. CT scan of the head x 2 have been normal and the MRI in the ER was clear as well. She was recently diagnosed with a lung cancer in the left upper lobe with a recent lung biopsy and the concern was metastatic disease and secondary seizures, but this appears not to be the case. Each of these episodes have been since she has been on Entresto, which has been about 4-6 weeks. OPERATIONS, PROCEDURES, MEDICATIONS: Listed per the chart. No other medical problems. Her ejection fraction last measured was around 20% per echo. SOCIAL HISTORY: She is , lives with family. Nonsmoker, nondrinker. FAMILY HISTORY: Unremarkable. REVIEW OF SYSTEMS: No other complaints. OBJECTIVE: ENT: All within normal limits. NECK: No bruits, nodes or masses. LUNGS: Clear. CARDIOVASCULAR: Regular rate. No irregular beat or tachycardia. ABDOMEN: Soft, benign and nontender. NEUROLOGIC: Moves all extremities. Sensory reflexes, strength intact. Cranial nerves III through XIII appear to be intact as well. Cerebellar function was normal. Gait was not tested. Mental status was normal. GENITOURINARY AND RECTAL: Deferred. LABORATORY STUDIES: Unremarkable. ASSESSMENT: Seizure-like activity that may well be from hypotensive syncope and medication related all related to her underlying cardiac problems. Her recent diagnosis of lung cancer appears not to be the source of any seizure activity as there is no sign of metastatic disease. PLAN: See what Dr. Berumen thinks regarding changing back of Entresto to either a low-dose ARB or ACEI to see if her blood pressure is less affected. Keep her on the monitor, looking for any martina or tachyarrhythmias, which could cause these episodes. Regarding her lung cancer she will likely begin radiation therapy soon under the care of ____ and Dr. Waldron. ROSY BECKHAM MD DR: SHOBHA/karthikeyan JOB#: [id number] / [id number]
[2020-07-30 15:00] VITALS: BP 95/49
--- NOTE | 2020-07-30 17:12 | PDOC2 ---
CONSULT Date of Consult Date of Consult DATE: 07/30/20 TIME: 17:03 Reason for Consult Reason for Consult: Syncope Referring Physician Referring Physician: Dr. Kumari Identification/Chief Complaint Chief Complaint Syncope Source Source: Chart review, Patient History of Present Illness Reason for Visit: 69-year-old female with history of severe nonischemic cardiomyopathy and ventricular tachycardia s/p biventricular ICD/PEARL RESTORER-D implantation recently underwent explantation of her device secondary to pocket infection. She presented to ED along with her granddaughter who stated that she had an episode where she passed out in the car while she was on her way for MRI and had seizure -like episode. She apparently had 2 more similar episodes in the recent past. Patient complained of intermittent episodes of dizziness but denied any chest pain, orthopnea/PND, palpitations or any shock therapy administered by her LifeVest. Past Medical History Past Medical History Severe nonischemic cardiomyopathy Ventricular tachycardia Cardiovascular: HTN, Other Heme/Onc: Cancer Past Surgical History Past Surgical History Biventricular ICD/PEARL RESTORER-D implantation with recent explantation secondary to pocket infection Past Surgical History: Appendectomy, Cholecystectomy, Mastectomy, Tubal Ligation, Hysterectomy, Other Current Problem List Problem List Problems Medical Problems: (1) Seizure Status: Acute (2) Urinary tract infection Status: Acute Current Medications Current Medications Current Medications Gadoterate Meglumine (Clariscan) 13 ml 1X ONCE IVP Last administered on 07/29/20at 11:34; Start 07/29/20 at 11:00; Stop 07/29/20 at 11:02; Status DC Ceftriaxone Sodium (Rocephin) 1 gm 1X ONCE IVP Last administered on 07/29/20at 21:48; Start 07/29/20 at 11:45; Stop 07/29/20 at 11:46; Status DC Acetaminophen (Tylenol) 650 mg PRN Q6HRS PRN PO PAIN; Start 07/29/20 at 19:00 Albuterol Sulfate (Ventolin Neb Soln) 2.5 mg PRN Q4HRS PRN NEB soa; Start 07/29/20 at 19:00 Amiodarone HCl (Cordarone) 400 mg DAILY PO Last administered on 07/30/20at 09:23; Start 07/30/20 at 09:00 Aspirin (Ecotrin) 162 mg DAILY PO Last administered on 07/30/20at 09:19; Start 07/30/20 at 09:00 Cetirizine HCl (ZyrTEC) 10 mg DAILY PO Last administered on 07/30/20at 09:22; Start 07/30/20 at 09:00 Lorazepam (Ativan) 0.5 mg PRN BID PRN PO ANXIETY / AGITATION Last administered on 07/29/20at 21:54; Start 07/29/20 at 19:00 Metoprolol Succinate (Toprol Xl) 25 mg DAILY PO Last administered on 07/30/20at 09:21; Start 07/30/20 at 09:00 Sacubitril/ Valsartan (Entresto 24 Mg-26 Mg) 1 tab BID PO Last administered on 07/29/20at 21:48; Start 07/29/20 at 21:00 Spironolactone (Aldactone) 25 mg DAILY PO ; Start 07/30/20 at 09:00 Fluticasone Propionate (Flonase) 2 spray DAILY NS Last administered on 07/30/20at 09:19; Start 07/30/20 at 09:00 Multivitamins (Thera M Plus) 1 tab DAILY PO Last administered on 07/30/20at 09:22; Start 07/30/20 at 09:00 Active Scripts Active Ativan (Lorazepam) 0.5 Mg Tablet 0.5 Mg PO TID PRN Amiodarone Hcl 200 Mg Tablet 400 Mg PO DAILY 30 Days Aldactone (Spironolactone) 25 Mg Tablet 25 Mg PO DAILY 30 Days Reported Entresto 24 mg-26 mg Tablet (Sacubitril/Valsartan) 1 Each Tablet 1 Each PO BID Tylenol (Acetaminophen) 325 Mg Tablet 650 Mg PO PRN Q6HRS PRN Toprol Xl (Metoprolol Succinate) 25 Mg Tab.er.24h 25 Mg PO DAILY Proair Hfa Inhaler (Albuterol Sulfate) 8.5 Gm Hfa.aer.ad 1 Puff IH PRN Q4HRS PRN 21 Days Flonase Allergy Relief (Fluticasone Propionate) 9.9 Ml [place].susp 2 Sprays NS DAILY Multi Vitamin Daily (Multivitamin) 1 Each Tablet 1 Tab PO DAILY 30 Days Zyrtec (Cetirizine Hcl) 10 Mg Tablet 1 Tab PO DAILY Aspir-Low (Aspirin) 81 Mg Tablet.dr 2 Tab PO DAILY Allergies Allergies: Coded Allergies: bee venom protein (honey bee) (Verified Allergy, Intermediate, Swelling, 06/13/18) chlorzoxazone (Verified Allergy, Intermediate, 12/03/19) coconut (Verified Allergy, Intermediate, Rash, 06/13/18) sulfasalazine (Verified Allergy, Intermediate, 06/13/18) morphine (Verified Adverse Reaction, Mild, Nausea and Vomiting, 07/05/20) ROS PSYCHOLOGICAL ROS: No: Hallucinations Eyes: No Loss of vision HEENT: No: Epistaxis Respiratory: No: Hemoptysis, Shortness of breath Cardiovascular: No Chest Pain, No Palpitations Gastrointestinal: No Vomiting Genitourinary: No Hematuria Neurological: No Seizures Skin: No Rash Physical Exam General: Alert, Oriented X3 HEENT: Atraumatic Lungs: Clear to auscultation Heart: Regular rate Abdomen: Soft Extremities: No edema Neuro: Normal speech Psych/Mental Status: Mood NL Vitals VITALS Vital Signs Date Time Temp Pulse Resp B/P (MAP) Pulse Ox O2 Delivery O2 Flow Rate FiO2 07/30/20 15:00 96.4 72 16 95/49 (64) 95 Room Air 96.4 Labs Labs Laboratory Tests Test 07/29/20 09:23 07/29/20 09:59 White Blood Count 10.4 x10^3/uL (4.0-11.0) Red Blood Count 4.38 x10^6/uL (3.50-5.40) Hemoglobin 13.9 g/dL (12.0-15.5) Hematocrit 41.8 % (36.0-47.0) Mean Corpuscular Volume 95 fL (79-100) Mean Corpuscular Hemoglobin 32 pg (25-35) Mean Corpuscular Hemoglobin Concent 33 g/dL (31-37) Red Cell Distribution Width 13.1 % (11.5-14.5) Platelet Count 290 x10^3/uL (140-400) Neutrophils (%) (Auto) 61 % (31-73) Lymphocytes (%) (Auto) 28 % (24-48) Monocytes (%) (Auto) 9 % (0-9) Eosinophils (%) (Auto) 2 % (0-3) Basophils (%) (Auto) 1 % (0-3) Neutrophils # (Auto) 6.3 x10^3/uL (1.8-7.7) Lymphocytes # (Auto) 2.9 x10^3/uL (1.0-4.8) Monocytes # (Auto) 0.9 x10^3/uL (0.0-1.1) Eosinophils # (Auto) 0.2 x10^3/uL (0.0-0.7) Basophils # (Auto) 0.1 x10^3/uL (0.0-0.2) Sodium Level 141 mmol/L (136-145) Potassium Level 4.6 mmol/L (3.5-5.1) Chloride Level 106 mmol/L (98-107) Carbon Dioxide Level 28 mmol/L (21-32) Anion Gap 7 (6-14) Blood Urea Nitrogen 16 mg/dL (7-20) Creatinine 0.8 mg/dL (0.6-1.0) Estimated GFR (Cockcroft-Gault) 70.9 BUN/Creatinine Ratio 20 (6-20) Glucose Level 104 mg/dL (70-99) Calcium Level 9.2 mg/dL (8.5-10.1) Total Bilirubin 0.4 mg/dL (0.2-1.0) Aspartate Amino Transf (AST/SGOT) 17 U/L (15-37) Alanine Aminotransferase (ALT/SGPT) 26 U/L (14-59) Alkaline Phosphatase 82 U/L (46-116) Troponin I Quantitative < 0.017 ng/mL (0.000-0.055) Total Protein 6.7 g/dL (6.4-8.2) Albumin 3.3 g/dL (3.4-5.0) Albumin/Globulin Ratio 1.0 (1.0-1.7) Urine Collection Type Void Urine Color Yellow Urine Clarity Cloudy Urine pH 7.5 (<5.0-8.0) Urine Specific [place] 1.020 (1.000-1.030) Urine Protein Negative mg/dL (NEG-TRACE) Urine Glucose (UA) Negative mg/dL (NEG) Urine Ketones (Stick) Negative mg/dL (NEG) Urine Blood Negative (NEG) Urine Nitrite Negative (NEG) Urine Bilirubin Negative (NEG) Urine Urobilinogen Dipstick 0.2 mg/dL (0.2 mg/dL) Urine Leukocyte Esterase Small (NEG) Urine RBC 0 /HPF (0-2) Urine WBC 5-10 /HPF (0-4) Urine Squamous Epithelial Cells Few /LPF Urine Amorphous Sediment Present /HPF Urine Bacteria Moderate /HPF (0-FEW) Assessment/Plan Assessment/Plan 1. Syncope of uncertain etiology. The episodes of syncope she is describing are not postural. Low likelihood of seizure per neurology team based on MRI and EEG. Telemetry did not show any significant arrhythmias so far. Patient has history of VT but denied any shock therapies by LifeVest. We will continue to monitor. 2. Severe nonischemic cardiomyopathy, chronic systolic heart failure with LVEF 15 to 20%. She is clinically well compensated. Blood pressure running low. Hold Entresto for now and change metoprolol to low-dose Coreg.. 3. Ventricular tachycardia, on amiodarone for antiarrhythmic therapy. 4. Lung cancer: Per oncology team Thank you for your consultation ISACC BOLANOS MD Jul 30, 2020 17:12
[2020-07-30] MEDS: CARVEDILOL 6.25 MG TABLET. PO SCH (19:03)
[2020-07-30 19:57] VITALS: BP 116/58
[2020-07-30 23:49] VITALS: BP 100/43
[2020-07-31 03:20] VITALS: BP 93/35
[2020-07-31 07:33] VITALS: BP 92/47
--- NOTE | 2020-07-31 08:19 | PDOC ---
Provider Note Date of Service: DATE: 07/31/20 TIME: 08:16 Provider Note [id number] Justifications for Admission Other Justification ROSY BECKHAM MD Jul 31, 2020 08:19
--- NOTE | 2020-07-31 08:39 | DS ---
DATE OF DISCHARGE: 07/31/2020 HOSPITAL SUMMARY: A 69-year-old white female with moderately severe cardiomyopathy and recently diagnosed lung cancer, came in with another episode of seizure-like activity after either a seizure or syncopal episode. monitor tech had failed to reveal any tachy or bradyarrhythmias, but she continued to run relatively low blood pressures. Laboratory studies were all within normal limits. The EEG and MRI of the brain were normal as well. She was seen by Cardiology and Neurology in the hospital. As this was felt to be likely syncope and not true seizure, no anti-seizure drugs were given, Entresto was held and Dr. Mayen switched from metoprolol to carvedilol in an effort to lessen the hypotensive effects. She remains in sinus rhythm with a mild sinus tachycardia, generally feeling well and is able to be discharged and followed as an outpatient. FINAL DIAGNOSES: 1. Syncope and seizure-like activity, likely secondary to drug-induced hypotension. 2. Moderately severe cardiomyopathy, reduced ejection fraction. OPERATIONS, PROCEDURES, COMPLICATIONS: None. CONSULTATIONS: Dr. Richmond and Dr. Mayen. DISPOSITION: She will stay off the Entresto. Rest of meds remain the same and she will use carvedilol instead of metoprolol at this point per the flow manager. She will have radiation therapy soon regarding her newly diagnosed lung cancer and flow manager will see her in 1-2 weeks and I will see her as already scheduled. PROGNOSIS: Guarded. ROSY BECKHAM MD DR: SHOBHA/karthikeyan JOB#: [id number] / [id number]
[2020-07-31] MEDS: SPIRONOLACTONE 25 MG TABLET PO SCH (09:00)
[2020-07-31] MEDS: FLUTICASONE 50MCG/NASAL SPRAY 16GM BOTTLE. NS SCH (09:09)
[2020-07-31] MEDS: ASPIRIN ENTERIC COATED 81 MG TABLET.DR. PO SCH (09:11)
[2020-07-31] MEDS: CETIRIZINE HCL 10 MG TABLET. PO SCH (09:12)
[2020-07-31] MEDS: CARVEDILOL 6.25 MG TABLET. PO SCH (09:12)
[2020-07-31] MEDS: AMIODARONE HCL 200 MG TABLET. PO SCH (09:12)
[2020-07-31] MEDS: MULTIVITAMIN with MINERAL TABLET. PO SCH (09:12)
[2020-07-31 11:01] VITALS: BP 94/34
--- NOTE | 2020-07-31 12:20 | NUR ---
Patient and family escorted out by wheelchair to main entrance and all belongings. IV and telemonitor discontinued. Education given. Discharged to home with family.
--- NOTE | 2020-07-31 13:35 | PDOC ---
PROGRESS NOTES Date of Service: DATE: 07/31/20 TIME: 13:33 Subjective Subjective No new complaints Objective Objective Vital Signs Date Time Temp Pulse Resp B/P (MAP) Pulse Ox O2 Delivery O2 Flow Rate FiO2 07/31/20 11:01 97.9 72 18 94/34 (54) 96 Room Air 97.9 Intake and Output 07/31/20 07:00 # Voids 6 Physical Exam Abdomen: Soft Heart: Regular rate Extremities: No edema General: Alert, Oriented X3 HEENT: Atraumatic Lungs: Clear to auscultation MUSCULOSKELETAL: No swelling Neuro: Normal speech Psych/Mental Status: Mood NL Assessment Assessment 1. Syncope of uncertain etiology. The episodes of syncope she is describing are not postural. Low likelihood of seizure per neurology team based on MRI and EEG. Telemetry did not show any significant arrhythmias so far. Patient has history of VT but denied any shock therapies by LifeVest. No LifeVest alerts noted as well. We will continue to monitor. 2. Severe nonischemic cardiomyopathy, chronic systolic heart failure with LVEF 15 to 20%. She is clinically well compensated. Blood pressure running low. Entresto has been held and beta-blockers changed to low-dose Coreg. 3. Ventricular tachycardia, on amiodarone for antiarrhythmic therapy. 4. Lung cancer: Per oncology team 5. 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 Incision healed well. Plan Plan of Care Problems Medical Problems: (1) Seizure Status: Acute (2) Urinary tract infection Status: Acute Comment Review of Relevant I have reviewed the following items heri (where applicable) has been applied. Labs Microbiology 07/29/20 Urine Culture - Final, Complete Medications Current Medications Carvedilol (Coreg) 6.25 mg BIDWMEALS PO Last administered on 07/31/20at 09:12; Start 07/30/20 at 18:00 Vitals/I & O Vital Sign - Last 24 Hours 07/30/20 07/30/20 07/30/20 07/30/20 15:00 19:03 19:57 20:05 Temp 96.4 97.8 96.4 97.8 Pulse 72 72 76 Resp 16 18 B/P (MAP) 95/49 (64) 95/49 116/58 (77) Pulse Ox 95 96 O2 Delivery Room Air Room Air Room Air 07/30/20 07/31/20 07/31/20 07/31/20 23:49 03:20 07:33 08:00 Temp 97.4 97.6 97.8 97.4 97.6 97.8 Pulse 73 72 79 Resp 18 16 18 B/P (MAP) 100/43 (62) 93/35 (54) 92/47 (62) Pulse Ox 96 95 95 O2 Delivery Room Air Room Air Room Air Room Air 07/31/20 07/31/20 07/31/20 09:12 09:12 11:01 Temp 97.9 97.9 Pulse 79 79 72 Resp 18 B/P (MAP) 92/47 92/47 94/34 (54) Pulse Ox 96 O2 Delivery Room Air ISACC BOLANOS MD Jul 31, 2020 13:35
[2020-08-01] MEDS ORDERED: CARV6.2511 PO (22:57)
[2020-08-01] MEDS ORDERED: LORA0.5T96 PO (23:26)
[2020-09-18] MEDS ORDERED: AMIO200T6 PO (17:35)
[2020-09-18] MEDS ORDERED: CARV3.12 PO (17:35)
[2020-10-08] MEDS ORDERED: LORA0.5T96 PO (02:32)
[2020-10-08] MEDS ORDERED: AMIO400T5 PO (02:32)
== END 2020-07-31 12:30 | disposition home or self-care (01) | DRG 312 ==
LOC: ER 09:05 → 6 SOUTH 10:50
PROVIDERS: ADMIT Family Medicine; ATTEND Family Medicine
DX: I95.2 Hypotension due to drugs (principal); C34.90 Malignant neoplasm of unspecified part of unspecified bronchus or lung; I42.8 Other cardiomyopathies; I47.2 Ventricular tachycardia; I50.22 Chronic systolic (congestive) heart failure; N30.00 Acute cystitis without hematuria; R56.9 Unspecified convulsions; I11.0 Hypertensive heart disease with heart failure; Z85.118 Personal history of other malignant neoplasm of bronchus and lung; Z85.3 Personal history of malignant neoplasm of breast; Z85.71 Personal history of Hodgkin lymphoma; Z87.891 Personal history of nicotine dependence; Z90.12 Acquired absence of left breast and nipple; Z90.49 Acquired absence of other specified parts of digestive tract; Z90.710 Acquired absence of both cervix and uterus; Z90.81 Acquired absence of spleen; Z95.810 Presence of automatic (implantable) cardiac defibrillator; Z98.51 Tubal ligation status; Z88.2 Allergy status to sulfonamides; Z88.8 Allergy status to other drugs, medicaments and biological substances; Z91.030 Bee allergy status
CPT/HCPCS: 36415; 70450; 70553; 71045; 80053; 81001; 84484; 85025; 87086; 93005; 95816; 96374; 96375; A9575; J0696; 99285-25; G0378

== ENCOUNTER 2020-08-01 21:13 | Inpatient (IN) | payer MEDICARE ==
[~2020-08-01] VITALS: Ht 162.6 cm; Wt 66.4 kg
[~2020-08-01 21:13] MED LIST changes: +DOCU-150 PO; -DOCU-158 PO; -DOXY-181 PO; +DOXY100C14 PO
--- NOTE | 2020-08-01 21:46 | EKG ---
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
--- NOTE | 2020-08-01 21:52 | PHYS DOC ---
Past Medical History Past Medical History: Cancer, Hypertension, Other Additional Past Medical Histor: BR CA, CERV CA, HODGKINS LYMPH,BASAL CELL CARC, external zoll life vest Past Surgical History: Appendectomy, Cholecystectomy, Hysterectomy, Splenectomy, Tonsillectomy, Tubal ligation Additional Past Surgical Histo: LEFT MASTECTOMY, POWER PORT, DEFIBRILATOR REMOVAL Smoking Status: Former Smoker Alcohol Use: Rarely Drug Use: Marijuana General Adult EDM: Chief Complaint: SEIZURE HPI: HPI: Patient is a 69 year old female presents for evaluation after witnessed seizure. Daughter in law states she witness patient have a 2 minute tonic clonic seizure. Post seizure patient was confused. 911 was called and upon EMS arrival patient was found to have a heart rate in the 30's. A rhythm stripe obtained by showed a 3rd degree heart block. EMS states heart rate remained in the 30's they had planned to externally pace the patient. Prior to pacing patient was treated with versed and patients heart rate normalized. On arrival to ER patients heart rate in the 90's. Patient very drowsy--- no neurological deficits observed. Review of Systems: Review of Systems: unable to obtain due to medical condition Heart Score: Risk Factors: Risk Factors: DM, Current or recent (<one month) smoker, HTN, HLP, family history of CAD, obesity. Risk Scores: Score 0 - 3: 2.5% MACE over next 6 weeks - Discharge Home Score 4 - 6: 20.3% MACE over next 6 weeks - Admit for Clinical Observation Score 7 - 10: 72.7% MACE over next 6 weeks - Early Invasive Strategies Allergies: Allergies: Allergies Coded Allergies Type Severity Reaction Last Updated Verified bee venom protein (honey bee) Allergy Intermediate Swelling 06/13/18 Yes chlorzoxazone Allergy Intermediate 12/03/19 Yes coconut Allergy Intermediate Rash 06/13/18 Yes sulfasalazine Allergy Intermediate 06/13/18 Yes morphine Adverse Reaction Mild Nausea and Vomiting 07/05/20 Yes Physical Exam: PE: Constitutional: Well developed, well nourished, no acute distress, non-toxic appearance. [] HENT: Normocephalic, atraumatic, bilateral external ears normal, oropharynx moist, no oral exudates, nose normal. [] Eyes: PERRLA, EOMI, conjunctiva normal, no discharge. [] Neck: Normal range of motion, no tenderness, supple, no stridor. [] Cardiovascular:Heart rate regular rhythm, no murmur [] Lungs & Thorax: Bilateral breath sounds clear to auscultation [] Abdomen: Bowel sounds normal, soft, no tenderness, no masses, no pulsatile m asses. [] Skin: Warm, dry, no erythema, no rash. [] Back: No tenderness, no CVA tenderness. [] Extremities: No tenderness, no cyanosis, no clubbing, ROM intact, no edema. [] Neurologic: Alert and oriented, normal motor function, normal sensory function, no focal deficits noted. [awakes to stimuli but falls quickly asleep, drowsy] Psychologic: Affect normal, judgement normal, mood normal. [] EKG: EKG: Sinus rhythm prolonged OH Heart rate 84 No acute LA EKG compared to previous on July 23 no acute change Radiology/Procedures: Radiology/Procedures: [] Impression: []Exam: Chest one view INDICATION: Bradycardia, seizure TECHNIQUE: Frontal view of the chest Comparisons: 07/28/2020 FINDINGS: The cardiomediastinal silhouette and pulmonary vessels are within normal limits. The lung and pleural spaces are clear. IMPRESSION: No acute cardiopulmonary process. Electronically signed by: Aron Styles MD (08/01/2020 9:56 PM) [facility] [place] Course & Med Decision Making: Course & Med Decision Making Pertinent Labs and Imaging studies reviewed. (See chart for details) Patient was evaluated for chief complaint. Work-up consisted of laboratory analysis radiologic imaging and EKG. Patient's cardiology and neurology consults from previous admission reviewed. Patient was not discharged home on any antiepileptics. I elected not to start any antiepileptics in the emergency department. Patient's ER treatment included IV fluids. Discussed the patient with Dr. Kumari--- consults placed to cardiology and neurology. Dennis Disclaimer: Dennis Disclaimer: This electronic medical record was generated, in whole or in part, using a voice recognition dictation system. Departure Departure Impression: Primary Impression: Seizure Additional Impressions: Third degree heart block Syncope Disposition: 09 ADMITTED INPT THIS HOSP Admitting Physician: Rosy Kumari Condition: STABLE Referrals: ROSY KUMARI MD (PCP) LAMONT ARMSTRONG DO Aug 01, 2020 21:52
[2020-08-01 21:58] LABS: CALCIUM 8.7 mg/dL (8.5-10.1); CREATININE 0.8 mg/dL (0.6-1.0); GFR 70.9; POTASSIUM 4.1 mmol/L (3.5-5.1)
--- NOTE | 2020-08-01 21:58 | RAD ---
Exam: Chest one view INDICATION: Bradycardia, seizure TECHNIQUE: Frontal view of the chest Comparisons: 07/28/2020 FINDINGS: The cardiomediastinal silhouette and pulmonary vessels are within normal limits. The lung and pleural spaces are clear. IMPRESSION: No acute cardiopulmonary process. Electronically signed by: Aron Styles MD (08/01/2020 9:56 PM) [facility]
[2020-08-01 22:04] LABS: ALBUMIN 3.1 g/dL (3.4-5.0); ALBUMIN/GLOBULIN RATIO 0.9 (1.0-1.7); TOTAL BILIRUBIN 0.2 mg/dL (0.2-1.0); TOTAL PROTEIN 6.7 g/dL (6.4-8.2)
--- NOTE | 2020-08-01 22:06 | RAD ---
Exam: CT head INDICATION: Seizure TECHNIQUE: Sequential axial images through the head were obtained without the administration of IV co ntrast. Comparisons: 07/29/2020 FINDINGS: No focal parenchymal lesion or hemorrhage is identified. There is no midline shift or sulcal effaceme nt. Mild patchy hypodensity in the periventricular white matter, similar prior exam. No acute vascular te rritory infarction is identified. Cook-white distinction is preserved. The ventricular system is within normal limits without compression hydrocephalus. The basal cisterns are well maintained. The visualized portions of the paranasal sinuses and mastoid air cells are well-pneumatized. No acute fractures. IMPRESSION: No acute intracranial abnormality. Exposure: One or more of the following in the visualized dose reduction techniques were utilized for this examination: 1. Automated exposure control 2. Adjustment of the MA and/or KV according to patient size Use of iterative of reconstructive technique Electronically signed by: Aron Styles MD (08/01/2020 10:03 PM) [facility]
[2020-08-01 22:12] LABS: BASO # 0.1 x10^3/uL (0.0-0.2); BASO % 1 % (0-3); EOS # 0.2 x10^3/uL (0.0-0.7); EOS % 2 % (0-3); HEMATOCRIT 38.7 % (36.0-47.0); HEMOGLOBIN 12.9 g/dL (12.0-15.5); LYMPH # 2.8 x10^3/uL (1.0-4.8); LYMPH % 28 % (24-48); MEAN CORPUSCULAR HEMOGLOBIN 32 pg (25-35); MEAN CORPUSCULAR HGB CONC 33 g/dL (31-37); MEAN CORPUSCULAR VOLUME 95 fL (79-100); MONO # 0.9 x10^3/uL (0.0-1.1); MONO % 9 % (0-9); NEUT # 6.1 x10^3/uL (1.8-7.7); NEUT % 60 % (31-73); PLATELET COUNT 254 x10^3/uL (140-400); RED BLOOD COUNT 4.07 x10^6/uL (3.50-5.40); RED CELL DISTRIBUTION WIDTH 12.9 % (11.5-14.5)
[2020-08-01] MEDS ORDERED: ONDANSETRON PF 4 MG/2 ML VIAL. IV PRN (22:45)
[2020-08-01] MEDS ORDERED: CARV6.2511 PO (22:57)
[2020-08-01 23:00] VITALS: BP 113/53
[2020-08-01] MEDS ORDERED: IV NORMAL SALINE 1000ML BAG 1,000 ML IV ONE (23:00)
[2020-08-01] MEDS ORDERED: LORA0.5T96 PO (23:26)
[2020-08-02] MEDS ORDERED: LORazepam 0.5 MG TABLET PO PRN
[2020-08-02 02:37] LABS: BILIRUBIN,URINE NEGATIVE (NEG); CLARITY,URINE CLEAR; COLOR,URINE YELLOW; NITRITE,URINE NEGATIVE (NEG); PROTEIN,URINE NEGATIVE (NEG-TRACE); UROBILINOGEN,URINE 0.2 mg/dL (0.2 mg/dL)
[2020-08-02 02:49] VITALS: BP 102/46
[2020-08-02 03:06] LABS: BACTERIA,URINE 0 /HPF (0-FEW); HYALINE CASTS, URINE FEW /HPF; WBC,URINE 20-40 /HPF (0-4)
[2020-08-02 07:00] VITALS: BP 131/59
--- NOTE | 2020-08-02 08:30 | PDOC ---
Provider Note Date of Service: DATE: 08/02/20 TIME: 08:28 Provider Note [id number] Justifications for Admission Other Justification ROSY BECKHAM MD Aug 02, 2020 08:30
--- NOTE | 2020-08-02 08:52 | HP ---
ADMIT DATE: CHIEF COMPLAINT: Seizures. HISTORY OF PRESENT ILLNESS: A 69-year-old white female with cardiomyopathy, was just discharged from the hospital after a syncopal or seizure-like behavior, felt to be more likely based on hypotension from cardiovascular medications. EEG and MRI of the brain were normal, showed no sign of seizure activity. Metoprolol was stopped and carvedilol started and Entresto was stopped as well, but she had another seizure-like event and was found on monitor to be in third-degree heart block during that time. This spontaneously converted and the seizure stopped, and she is feeling better at this time. PAST MEDICAL HISTORY: Well documented in the old record. ALLERGIES: LISTED TO MORPHINE AND SULFA. SOCIAL HISTORY: Lives with family. , nonsmoker, nondrinker. FAMILY HISTORY: Unremarkable. REVIEW OF SYSTEMS: No other complaints. OBJECTIVE: ENT: All within normal limits. NECK: No masses, bruits or nodes. LUNGS: Clear. CARDIOVASCULAR: Regular rate, mild bradycardia at this time consistent with beta edmar use. ABDOMEN: Benign. EXTREMITIES: Unremarkable. No injuries are seen. NEUROLOGIC: Nonfocal. Alert and responsive and gait was not tested. ASSESSMENT: Recurrent seizure-like activity that may be associated with syncope from third-degree heart block and drug-induced hypotension. PLAN: Appropriate consultations and will certainly need to consider demand pacemaker at this time versus trial of antiepileptic drugs. ROSY BECKHAM MD DR: SHOBHA/karthikeyan JOB#: [id number] / [id number]
[2020-08-02] MEDS: levETIRAcetam 500 MG TABLET PO SCH ×2 (09:39→20:50)
[2020-08-02 10:18] VITALS: BP 105/51
--- NOTE | 2020-08-02 12:35 | NUR ---
SS following for discharge planning. SS reviewed pt chart and discussed with pt RN. Pt is from home with assistance from granddaughter and is currently on room air. Pt has Life Vest at home. Cardiology and Neurology consulted. SS will continue to follow for discharge planning.
--- NOTE | 2020-08-02 12:49 | PDOC2 ---
NEUROLOGY CONSULT Date of Service DOS: DATE: 08/02/20 TIME: 12:44 Reason for Consult Reason for Consult: Seizure Referring Physician Referring Physician: Dr. Kumari Source Source: Caregiver (srinivas), Chart review, Patient History of Present Illness History of Present Illness The patient is a 69-year-old right-handed female with newly diagnosed lung cancer who has had extensive cardiac history. She has had a LifeVest, then had an AICD, which was removed because of infection. During the work-up for infection she was found to have the cancer. She does have a LifeVest on. Starting 10 days ago she has had episodes of syncope, possibly with some convulsive component. Her legs shake, she also draws her arm up to her chest, but she rapidly wakes up. She is a little bit confused afterwards but back to herself after a few minutes. There has never been any tongue biting or incontinence. She had another episode 07/[address] to get an MRI done for her cancer staging. I saw her in the emergency department. She was going to have an MRI done anyway for her cancer, and that was negative. I ordered an electroencephalogram which was negative. I felt that this was convulsive syncope due to her heart disease. Indeed she was noted to have low blood pressures. She was discharged on 07/31. She returned yesterday with at least 2 convulsive seizures. This time, paramedics found that the patient was in third-degree atrioventricular block. She is feeling back to herself now. There is no prior history of stroke, seizure, or head injury. Past Medical History Cardiovascular: HTN, Other (Has AICD, currently just with a LifeVest) Heme/Onc: Cancer (Lung, previously breast and cervical, Hodgkin's lymphoma) Past Surgical History Past Surgical History: Appendectomy, Cholecystectomy, Mastectomy (left), Tubal Ligation, Hysterectomy, Other (Splenectomy, AICD placement and removal) Family History Family History: Other (Negative for seizures) Social History Social History , lives alone, family has been staying with her recently, quit smoking 4 years ago, rare alcohol, occasional marijuana Current Medications Current Medications Current Medications Sodium Chloride 1,000 ml @ 1,000 mls/hr 1X ONCE IV Last administered on 08/01/20at 22:31; Start 08/01/20 at 23:00; Stop 08/01/20 at 23:59; Status DC Ondansetron HCl (Zofran) 4 mg PRN Q8HRS PRN IV NAUSEA/VOMITING 1ST CHOICE; Start 08/01/20 at 22:45; Stop 08/02/20 at 22:44 Lorazepam (Ativan) 0.5 mg PRN BID PRN PO ANXIETY / AGITATION Last administered on 08/02/20at 00:14; Start 08/02/20 at 00:00 Levetiracetam (Keppra) 500 mg BID PO Last administered on 08/02/20at 09:39; Start 08/02/20 at 09:00 Active Scripts Active Amiodarone Hcl 200 Mg Tablet 400 Mg PO DAILY 30 Days Aldactone (Spironolactone) 25 Mg Tablet 25 Mg PO DAILY 30 Days Reported Ativan (Lorazepam) 0.5 Mg Tablet 0.5 Mg PO BID Carvedilol (Carvedilol) 6.25 Mg Tablet 6.25 Mg PO BIDWMEALS Tylenol (Acetaminophen) 325 Mg Tablet 650 Mg PO PRN Q6HRS PRN Proair Hfa Inhaler (Albuterol Sulfate) 8.5 Gm Hfa.aer.ad 1 Puff IH PRN Q4HRS PRN 21 Days Flonase Allergy Relief (Fluticasone Propionate) 9.9 Ml Rice.susp 2 Sprays NS DAILY Multi Vitamin Daily (Multivitamin) 1 Each Tablet 1 Tab PO DAILY 30 Days Zyrtec (Cetirizine Hcl) 10 Mg Tablet 1 Tab PO DAILY Aspir-Low (Aspirin) 81 Mg Tablet.dr 2 Tab PO DAILY Allergies Allergies: Coded Allergies: bee venom protein (honey bee) (Verified Allergy, Intermediate, Swelling, 06/13/18) chlorzoxazone (Verified Allergy, Intermediate, 12/03/19) coconut (Verified Allergy, Intermediate, Rash, 06/13/18) sulfasalazine (Verified Allergy, Intermediate, 06/13/18) morphine (Verified Adverse Reaction, Mild, Nausea and Vomiting, 07/05/20) ROS Review of System Negative for fever, chills, weight loss, shortness of breath, chest pain, indigestion, hematochezia, melena, and dysuria. Full 14-point review of systems is negative. Physical Exam Physical Examination General: Well-developed, well-nourished white female in no acute distress HEENT: Normocephalic andatraumatic. Temporal arteriespulsatile and nontender. Neck: Supple without bruit, no meningismus Musculoskeletal: Stability:see neurologic. Gait exam:see neurologic. Tone:see neurologic.Strength:see neurologic. Neurological: Mental Status:intact, orientation, memory, attention span/concentration, language, fund of knowledge normal. Cranial Nerves:Pupils equal and reactive to light, extraocular movements areintact, visual lopez are full to confrontation. Facial sensation is normal. There is no facial asymmetry. Vestibulo-ocular reflex is intact. Palate elevates and tongue protrudes in midline. All other cranial related problems are negative except as mentioned before.Reflexes:2+ and symmetric with flexor plantar responses. Motor:5/5 strength with normal tone and bulk. Coordination:Finger-nose finger and [id number]-xs-[id number] testing are normal. Rapid alternating movements and fine finger movements are intact. Gait:Not tested. Sensory:Normal pinprick, vibration, light touch, proprioception. Vitals VITALS Vital Signs Date Time Temp Pulse Resp B/P (MAP) Pulse Ox O2 Delivery O2 Flow Rate FiO2 08/02/20 10:18 97.9 77 18 105/51 (69) 96 Room Air 97.9 Labs Labs Laboratory Tests Test 08/01/20 21:32 08/01/20 22:00 08/02/20 00:56 08/02/20 02:20 Sodium Level 137 mmol/L (136-145) Potassium Level 4.1 mmol/L (3.5-5.1) Chloride Level 104 mmol/L (98-107) Carbon Dioxide Level 28 mmol/L (21-32) Anion Gap 5 (6-14) Blood Urea Nitrogen 20 mg/dL (7-20) Creatinine 0.8 mg/dL (0.6-1.0) Estimated GFR (Cockcroft-Gault) 70.9 BUN/Creatinine Ratio 25 (6-20) Glucose Level 116 mg/dL (70-99) Calcium Level 8.7 mg/dL (8.5-10.1) Magnesium Level 2.0 mg/dL (1.8-2.4) Total Bilirubin 0.2 mg/dL (0.2-1.0) Aspartate Amino Transf (AST/SGOT) 20 U/L (15-37) Alanine Aminotransferase (ALT/SGPT) 18 U/L (14-59) Alkaline Phosphatase 74 U/L (46-116) Troponin I Quantitative < 0.017 ng/mL (0.000-0.055) < 0.017 ng/mL (0.000-0.055) Total Protein 6.7 g/dL (6.4-8.2) Albumin 3.1 g/dL (3.4-5.0) Albumin/Globulin Ratio 0.9 (1.0-1.7) White Blood Count 10.0 x10^3/uL (4.0-11.0) Red Blood Count 4.07 x10^6/uL (3.50-5.40) Hemoglobin 12.9 g/dL (12.0-15.5) Hematocrit 38.7 % (36.0-47.0) Mean Corpuscular Volume 95 fL (79-100) Mean Corpuscular Hemoglobin 32 pg (25-35) Mean Corpuscular Hemoglobin Concent 33 g/dL (31-37) Red Cell Distribution Width 12.9 % (11.5-14.5) Platelet Count 254 x10^3/uL (140-400) Neutrophils (%) (Auto) 60 % (31-73) Lymphocytes (%) (Auto) 28 % (24-48) Monocytes (%) (Auto) 9 % (0-9) Eosinophils (%) (Auto) 2 % (0-3) Basophils (%) (Auto) 1 % (0-3) Neutrophils # (Auto) 6.1 x10^3/uL (1.8-7.7) Lymphocytes # (Auto) 2.8 x10^3/uL (1.0-4.8) Monocytes # (Auto) 0.9 x10^3/uL (0.0-1.1) Eosinophils # (Auto) 0.2 x10^3/uL (0.0-0.7) Basophils # (Auto) 0.1 x10^3/uL (0.0-0.2) Urine Collection Type Unknown Urine Color Yellow Urine Clarity Clear Urine pH 7.0 (<5.0-8.0) Urine Specific [place] 1.015 (1.000-1.030) Urine Protein Negative mg/dL (NEG-TRACE) Urine Glucose (UA) Negative mg/dL (NEG) Urine Ketones (Stick) Negative mg/dL (NEG) Urine Blood Negative (NEG) Urine Nitrite Negative (NEG) Urine Bilirubin Negative (NEG) Urine Urobilinogen Dipstick 0.2 mg/dL (0.2 mg/dL) Urine Leukocyte Esterase Moderate (NEG) Urine RBC 1-2 /HPF (0-2) Urine WBC 20-40 /HPF (0-4) Urine Squamous Epithelial Cells Mod /LPF Urine Bacteria 0 /HPF (0-FEW) Urine Hyaline Casts Few /HPF Urine Mucus Mod /LPF Test 08/02/20 07:40 08/02/20 07:57 Troponin I Quantitative < 0.017 ng/mL (0.000-0.055) Thyroid Stimulating Hormone (TSH) 6.290 uIU/mL (0.358-3.74) Laboratory Tests Test 08/01/20 21:32 08/01/20 22:00 08/02/20 00:56 08/02/20 02:20 Sodium Level 137 mmol/L (136-145) Potassium Level 4.1 mmol/L (3.5-5.1) Chloride Level 104 mmol/L (98-107) Carbon Dioxide Level 28 mmol/L (21-32) Anion Gap 5 (6-14) Blood Urea Nitrogen 20 mg/dL (7-20) Creatinine 0.8 mg/dL (0.6-1.0) Estimated GFR (Cockcroft-Gault) 70.9 BUN/Creatinine Ratio 25 (6-20) Glucose Level 116 mg/dL (70-99) Calcium Level 8.7 mg/dL (8.5-10.1) Magnesium Level 2.0 mg/dL (1.8-2.4) Total Bilirubin 0.2 mg/dL (0.2-1.0) Aspartate Amino Transf (AST/SGOT) 20 U/L (15-37) Alanine Aminotransferase (ALT/SGPT) 18 U/L (14-59) Alkaline Phosphatase 74 U/L (46-116) Troponin I Quantitative < 0.017 ng/mL (0.000-0.055) < 0.017 ng/mL (0.000-0.055) Total Protein 6.7 g/dL (6.4-8.2) Albumin 3.1 g/dL (3.4-5.0) Albumin/Globulin Ratio 0.9 (1.0-1.7) White Blood Count 10.0 x10^3/uL (4.0-11.0) Red Blood Count 4.07 x10^6/uL (3.50-5.40) Hemoglobin 12.9 g/dL (12.0-15.5) Hematocrit 38.7 % (36.0-47.0) Mean Corpuscular Volume 95 fL (79-100) Mean Corpuscular Hemoglobin 32 pg (25-35) Mean Corpuscular Hemoglobin Concent 33 g/dL (31-37) Red Cell Distribution Width 12.9 % (11.5-14.5) Platelet Count 254 x10^3/uL (140-400) Neutrophils (%) (Auto) 60 % (31-73) Lymphocytes (%) (Auto) 28 % (24-48) Monocytes (%) (Auto) 9 % (0-9) Eosinophils (%) (Auto) 2 % (0-3) Basophils (%) (Auto) 1 % (0-3) Neutrophils # (Auto) 6.1 x10^3/uL (1.8-7.7) Lymphocytes # (Auto) 2.8 x10^3/uL (1.0-4.8) Monocytes # (Auto) 0.9 x10^3/uL (0.0-1.1) Eosinophils # (Auto) 0.2 x10^3/uL (0.0-0.7) Basophils # (Auto) 0.1 x10^3/uL (0.0-0.2) Urine Collection Type Unknown Urine Color Yellow Urine Clarity Clear Urine pH 7.0 (<5.0-8.0) Urine Specific [place] 1.015 (1.000-1.030) Urine Protein Negative mg/dL (NEG-TRACE) Urine Glucose (UA) Negative mg/dL (NEG) Urine Ketones (Stick) Negative mg/dL (NEG) Urine Blood Negative (NEG) Urine Nitrite Negative (NEG) Urine Bilirubin Negative (NEG) Urine Urobilinogen Dipstick 0.2 mg/dL (0.2 mg/dL) Urine Leukocyte Esterase Moderate (NEG) Urine RBC 1-2 /HPF (0-2) Urine WBC 20-40 /HPF (0-4) Urine Squamous Epithelial Cells Mod /LPF Urine Bacteria 0 /HPF (0-FEW) Urine Hyaline Casts Few /HPF Urine Mucus Mod /LPF Test 08/02/20 07:40 08/02/20 07:57 Troponin I Quantitative < 0.017 ng/mL (0.000-0.055) Thyroid Stimulating Hormone (TSH) 6.290 uIU/mL (0.358-3.74) Images Images CT head, 08/01: No focal parenchymal lesion or hemorrhage is identified. There is no midline shift or sulcal effacement. Mild patchy hypodensity in the periventricular white matter, similar prior exam. No acute vascular territory infarction is identified. Cook-white distinction is preserved. The ventricular system is within normal limits without compression hydrocephalus. The basal cisterns are well maintained. The visualized portions of the paranasal sinuses and mastoid air cells are well- pneumatized. No acute fractures. IMPRESSION: No acute intracranial abnormality. Assessment/Plan Assessment/Plan Impression: This still sounds like convulsive syncope due to her cardiac disease. Electroencephalogram was negative on 07/29 Recommendations: I will start levetiracetam and discussed side effects Cardiology consult Observation Discussed with patient's niece Discussed with Dr. Kumari. Thank you for letting me help with the patient's care. ANA FROST MD Aug 02, 2020 12:49
--- NOTE | 2020-08-02 13:01 | PDOC2 ---
MARÍA VIDAL AUTO MECHANIC SUPERVISOR 08/02/20 1301: CARDIAC CONSULT DATE OF CONSULT Date of Consult DATE: 08/02/20 TIME: 1020 REASON FOR CONSULT Reason for Consult: Heart block REFERRING PHYSICIAN Referring Physician: Ike SOURCE Source: Chart review, Patient HISTORY OF PRESENT ILLNESS HISTORY OF PRESENT ILLNESS This is a pleasant 69 yo female admitted for complains of seizure episode and syncope. Reports that she has been having seizure like episodes in the last 1-2 weeks. She had one a week ago and then again last night. She was sitting on the recliner when she felt "woozy", started having flashes of colorful spots in her vision and also had some vertigo. No BANERJEE. She has been living with her daughter and witnessed by her daughter described as shaking like tonic clonic. Daughter timed it as the daughter has hx of epilepsy. It was about 4-5 minutes duration. EMS came and her HR was noted in the 30s and she was in complete heart block and TCP was started which was finally discontinued in ED. NO bowel or bladder incontinence but was confused after she regained consciousness. No chest pain or palpitations. No falls. Recent lifevest report noted her HR LOWEST in the 50s but mean in the 70s. Could not note any uploads in relation to her seizure event. She does take amiodarone and coreg. She just got started on her PAST MEDICAL HISTORY Cardiovascular: CAD, CHF, HTN, Syncope, Other (Severe NICM, VT) Pulmonary: Asthma, Other (lung CA) GI: Diverticulosis, GERD Heme/Onc: Cancer (hodgkins lymphoma, cervical) Hepatobiliary: No pertinent hx Psych: Anxiety Musculoskeletal: Osteoarthritis Rheumatologic: No pertinent hx Infectious disease: Other (recent chest pocket infection r/t to ICD now explanted, antibiotics completed) ENT: No pertinent hx Renal/: No pertinent hx Endocrine: No pertinent hx Dermatology: Basal cell PAST SURGICAL HISTORY Past Surgical History Appendectomy, Cholecystectomy, Hysterectomy, Splenectomy, Tonsillectomy, Tubal ligation, left mastectomy, GAMING INVESTIGATOR-D implantation and explantation FAMILY HISTORY Family History: Hypertension, Stroke (brother) SOCIAL HISTORY Smoke: Quit ALCOHOL: none Drugs: None Lives: with Family CURRENT MEDICATIONS CURRENT MEDICATIONS Current Medications Medications (Trade) Dose Ordered Sig/Aniya Route PRN Reason Start Time Stop Time Status Last Admin Dose Admin Sodium Chloride 1,000 ml @ 1,000 mls/hr 1X ONCE IV 3/1/21 23:00 08/01/20 23:59 DC 08/01/20 22:31 Lorazepam (Ativan) 0.5 mg PRN BID PRN PO ANXIETY / AGITATION 08/02/20 00:00 08/02/20 00:14 Levetiracetam (Keppra) 500 mg BID PO 08/02/20 09:00 08/02/20 09:39 ALLERGIES ALLERGIES: Coded Allergies: bee venom protein (honey bee) (Verified Allergy, Intermediate, Swelling, 06/13/18) chlorzoxazone (Verified Allergy, Intermediate, 12/03/19) coconut (Verified Allergy, Intermediate, Rash, 06/13/18) sulfasalazine (Verified Allergy, Intermediate, 06/13/18) morphine (Verified Adverse Reaction, Mild, Nausea and Vomiting, 07/05/20) ROS Review of System 14 point ROS evaluated with pertinent positives noted per HPI PHYSICAL EXAM General: Alert, Oriented X3, Cooperative, No acute distress HEENT: Atraumatic, Mucous membr. moist/pink Lungs: Clear to auscultation, Normal air movement Heart: Regular rate (SR), Normal S1, Normal S2 Abdomen: Soft, No tenderness Extremities: No cyanosis, No edema Skin: No breakdown, No significant lesion Neuro: Normal speech, Sensation intact Psych/Mental Status: Mental status NL, Mood NL MUSCULOSKELETAL: Osteoarthritic changes both hands VITALS/I&O VITALS/I&O: Vital Signs Date Time Temp Pulse Resp B/P (MAP) Pulse Ox O2 Delivery O2 Flow Rate FiO2 08/02/20 10:18 97.9 77 18 105/51 (69) 96 Room Air 97.9 I & O 08/01/20 08/01/20 08/02/20 15:00 23:00 07:00 Intake Total 200 ml Output Total 550 ml Balance -350 ml LABS Lab: Laboratory Tests Test 08/01/20 21:32 08/01/20 22:00 08/02/20 00:56 08/02/20 02:20 Sodium Level 137 mmol/L (136-145) Potassium Level 4.1 mmol/L (3.5-5.1) Chloride Level 104 mmol/L (98-107) Carbon Dioxide Level 28 mmol/L (21-32) Anion Gap 5 (6-14) L Blood Urea Nitrogen 20 mg/dL (7-20) Creatinine 0.8 mg/dL (0.6-1.0) Estimated GFR (Cockcroft-Gault) 70.9 BUN/Creatinine Ratio 25 (6-20) H Glucose Level 116 mg/dL (70-99) H Calcium Level 8.7 mg/dL (8.5-10.1) Magnesium Level 2.0 mg/dL (1.8-2.4) Total Bilirubin 0.2 mg/dL (0.2-1.0) Aspartate Amino Transferase (AST) 20 U/L (15-37) Alanine Aminotransferase (ALT) 18 U/L (14-59) Alkaline Phosphatase 74 U/L (46-116) Troponin I Quantitative < 0.017 ng/mL (0.000-0.055) < 0.017 ng/mL (0.000-0.055) Total Protein 6.7 g/dL (6.4-8.2) Albumin 3.1 g/dL (3.4-5.0) L Albumin/Globulin Ratio 0.9 (1.0-1.7) L White Blood Count 10.0 x10^3/uL (4.0-11.0) Red Blood Count 4.07 x10^6/uL (3.50-5.40) Hemoglobin 12.9 g/dL (12.0-15.5) Hematocrit 38.7 % (36.0-47.0) Mean Corpuscular Volume 95 fL (79-100) Mean Corpuscular Hemoglobin 32 pg (25-35) Mean Corpuscular Hemoglobin Concent 33 g/dL (31-37) Red Cell Distribution Width 12.9 % (11.5-14.5) Platelet Count 254 x10^3/uL (140-400) Neutrophils (%) (Auto) 60 % (31-73) Lymphocytes (%) (Auto) 28 % (24-48) Monocytes (%) (Auto) 9 % (0-9) Eosinophils (%) (Auto) 2 % (0-3) Basophils (%) (Auto) 1 % (0-3) Neutrophils # (Auto) 6.1 x10^3/uL (1.8-7.7) Lymphocytes # (Auto) 2.8 x10^3/uL (1.0-4.8) Monocytes # (Auto) 0.9 x10^3/uL (0.0-1.1) Eosinophils # (Auto) 0.2 x10^3/uL (0.0-0.7) Basophils # (Auto) 0.1 x10^3/uL (0.0-0.2) Urine Collection Type Unknown Urine Color Yellow Urine Clarity Clear Urine pH 7.0 (<5.0-8.0) Urine Specific [place] 1.015 (1.000-1.030) Urine Protein Negative mg/dL (NEG-TRACE) Urine Glucose (UA) Negative mg/dL (NEG) Urine Ketones (Stick) Negative mg/dL (NEG) Urine Blood Negative (NEG) Urine Nitrite Negative (NEG) Urine Bilirubin Negative (NEG) Urine Urobilinogen Dipstick 0.2 mg/dL (0.2 mg/dL) Urine Leukocyte Esterase Moderate (NEG) Urine RBC 1-2 /HPF (0-2) Urine WBC 20-40 /HPF (0-4) Urine Squamous Epithelial Cells Mod /LPF Urine Bacteria 0 /HPF (0-FEW) Urine Hyaline Casts Few /HPF Urine Mucus Mod /LPF Test 08/02/20 07:40 08/02/20 07:57 Troponin I Quantitative < 0.017 ng/mL (0.000-0.055) Thyroid Stimulating Hormone (TSH) 6.290 uIU/mL (0.358-3.74) H Laboratory Tests 08/01/20 22:00 Laboratory Tests 08/01/20 21:32 ECHOCARDIOGRAM ECHOCARDIOGRAM <Conclusion> The systolic function is severely impaired. The Ejection Fraction is 15%. There is severe global hypokinesis of the left ventricle. Tissue Doppler imaging reveals severe left ventricular diastolic dysfunction. The Left Ventricle is moderately dilated. DATE: 01/11/20 1500 ASSESSMENT/PLAN ASSESSMENT/PLAN 1. Seizure: recent MRI unrevealing for any brain lesion. Convulsions per daughter. 2. Third degree heart block: suspect ictal bradyarrhythmia. Initially treated with TCP now off and no further episodes and maintaining SR 3. Chronic trifascicular block 4. Severe NICM 5. 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 Being started on radiation therapy 6. Chronic systolic CHF: compensated 7. HTN: controlled, negative for orthostasis 8. Recent GAMING INVESTIGATOR-D explantation due to infection: completed antibiotics. 9. Hx of V: no VT episodes per Zoll Recommendations 1. Limited TTE 2. Consult neurology 3. Given her significant cardiac disease, potential progression to bradyarrhythmia with SSS is possible vs seizure related bradyarrhythmia. Monitor rhythm. Continue with lifevest. Will check TSH and will hold amiodarone, and coreg for now. Monitor BP trend. Ultimately given her NICM and recent changes to her rhythm will need at least a pacemaker back up for antiarrhythmic therapy and HF optimization therapy are to be resumed. Will discuss further with primary private security guard. 4. Will consult her oncologist and note what her overall CA prognosis CATALINO AVALOS MD 08/02/201801: CARDIAC CONSULT ASSESSMENT/PLAN ASSESSMENT/PLAN Patient seen and examined. Agree with above nurse practitioner note. 69-year-old woman well-known to our service who presents with recurrent near syncope and syncope with documented episode of bradycardia arrhythmia. No clear evidence of arrhythmias on the LifeVest to suggest ventricular tachyarrhythmias. Due to her prior history of left-sided mastectomy, limited access to the right side given her recent infection and her bradycardia arrhythmia he would likely be best addressed by a leadless pacemaker with future consideration of a subcut aneous ICD as indicated after full treatment of her cancer issues and staging with a PET scan. Case discussed with [facility], we will likely transfer her in the next 24 to 48 hours after discussion with radiation oncology as she is already started her radiation therapy at this time. MARÍA VIDAL APRN Aug 02, 2020 13:01 CATALINO AVALOS MD Aug 02, 2020 18:02
[2020-08-02] MEDS ORDERED: ACETAMINOPHEN 325 MG TABLET. PO PRN (18:45)
[2020-08-02 19:00] VITALS: BP 133/68
[2020-08-02 22:34] VITALS: BP 103/45
[2020-08-03 02:43] VITALS: BP 100/50
[2020-08-03 06:57] VITALS: BP 109/50
[2020-08-03] MEDS: levETIRAcetam 500 MG TABLET PO SCH (08:19)
--- NOTE | 2020-08-03 08:37 | PDOC ---
Provider Note Date of Service: DATE: 08/03/20 TIME: 08:35 Provider Note vss, no more av block or seizures- on keppra now, cv considering wireless pacer re recent chest wall infection, ok same Justifications for Admission Other Justification ROSY BECKHAM MD Aug 03, 2020 08:36
[2020-08-03] MEDS ORDERED: CARVEDILOL 6.25 MG TABLET. PO SCH (09:00)
[2020-08-03] MEDS ORDERED: SPIRONOLACTONE 25 MG TABLET PO SCH (09:00)
[2020-08-03] MEDS ORDERED: AMIODARONE HCL 200 MG TABLET. PO SCH (09:00)
[2020-08-03] MEDS ORDERED: ASPIRIN ENTERIC COATED 81 MG TABLET.DR. PO SCH (09:00)
[2020-08-03] MEDS ORDERED: LORazepam 0.5 MG TABLET PO SCH (09:00)
--- NOTE | 2020-08-03 09:13 | PDOC ---
PROGRESS NOTES Date of Service DATE: 08/03/20 TIME: 09:11 Assessment Problems Medical Problems: (1) Seizure Status: Acute (2) Syncope Status: Acute (3) Third degree heart block Status: Acute This still sounds like convulsive syncope due to her cardiac disease. Electroencephalogram was negative on 07/29 Plan Started levetiracetam Cardiology consult, I understand plans are for her to go to for a wireless pacemaker Follow-up with my nurse practitioner in 1-2 months Objective Vital Signs Date Time Temp Pulse Resp B/P (MAP) Pulse Ox O2 Delivery O2 Flow Rate FiO2 08/03/20 06:57 99.0 20 109/50 (69) 93 Room Air 99.0 08/03/20 02:43 83 Intake and Output 08/03/20 07:00 Intake Total 1580 ml Output Total 1950 ml Balance -370 ml Intake Oral 1580 ml Output Urine Total 1950 ml # Voids 1 # Bowel Movements 1 PHYSICAL EXAM Alert. Oriented to time, place and person. PERRL. EOMI. CN: no focal findings. Muscle tone: normal. Muscle strength: 5/5 DTR: 2+ Plantar reflex: Flexor Gait: not examined in bed. Sensory exam: no abnormal findings. No cerebellar signs elicited. Review of Relevant I have reviewed the following items heri (where applicable) has been applied. Labs Laboratory Tests Test 08/01/20 21:32 08/01/20 22:00 08/02/20 00:56 08/02/20 02:20 Sodium Level 137 mmol/L (136-145) Potassium Level 4.1 mmol/L (3.5-5.1) Chloride Level 104 mmol/L (98-107) Carbon Dioxide Level 28 mmol/L (21-32) Anion Gap 5 (6-14) Blood Urea Nitrogen 20 mg/dL (7-20) Creatinine 0.8 mg/dL (0.6-1.0) Estimated GFR (Cockcroft-Gault) 70.9 BUN/Creatinine Ratio 25 (6-20) Glucose Level 116 mg/dL (70-99) Calcium Level 8.7 mg/dL (8.5-10.1) Magnesium Level 2.0 mg/dL (1.8-2.4) Total Bilirubin 0.2 mg/dL (0.2-1.0) Aspartate Amino Transf (AST/SGOT) 20 U/L (15-37) Alanine Aminotransferase (ALT/SGPT) 18 U/L (14-59) Alkaline Phosphatase 74 U/L (46-116) Troponin I Quantitative < 0.017 ng/mL (0.000-0.055) < 0.017 ng/mL (0.000-0.055) Total Protein 6.7 g/dL (6.4-8.2) Albumin 3.1 g/dL (3.4-5.0) Albumin/Globulin Ratio 0.9 (1.0-1.7) White Blood Count 10.0 x10^3/uL (4.0-11.0) Red Blood Count 4.07 x10^6/uL (3.50-5.40) Hemoglobin 12.9 g/dL (12.0-15.5) Hematocrit 38.7 % (36.0-47.0) Mean Corpuscular Volume 95 fL (79-100) Mean Corpuscular Hemoglobin 32 pg (25-35) Mean Corpuscular Hemoglobin Concent 33 g/dL (31-37) Red Cell Distribution Width 12.9 % (11.5-14.5) Platelet Count 254 x10^3/uL (140-400) Neutrophils (%) (Auto) 60 % (31-73) Lymphocytes (%) (Auto) 28 % (24-48) Monocytes (%) (Auto) 9 % (0-9) Eosinophils (%) (Auto) 2 % (0-3) Basophils (%) (Auto) 1 % (0-3) Neutrophils # (Auto) 6.1 x10^3/uL (1.8-7.7) Lymphocytes # (Auto) 2.8 x10^3/uL (1.0-4.8) Monocytes # (Auto) 0.9 x10^3/uL (0.0-1.1) Eosinophils # (Auto) 0.2 x10^3/uL (0.0-0.7) Basophils # (Auto) 0.1 x10^3/uL (0.0-0.2) Urine Collection Type Unknown Urine Color Yellow Urine Clarity Clear Urine pH 7.0 (<5.0-8.0) Urine Specific [place] 1.015 (1.000-1.030) Urine Protein Negative mg/dL (NEG-TRACE) Urine Glucose (UA) Negative mg/dL (NEG) Urine Ketones (Stick) Negative mg/dL (NEG) Urine Blood Negative (NEG) Urine Nitrite Negative (NEG) Urine Bilirubin Negative (NEG) Urine Urobilinogen Dipstick 0.2 mg/dL (0.2 mg/dL) Urine Leukocyte Esterase Moderate (NEG) Urine RBC 1-2 /HPF (0-2) Urine WBC 20-40 /HPF (0-4) Urine Squamous Epithelial Cells Mod /LPF Urine Bacteria 0 /HPF (0-FEW) Urine Hyaline Casts Few /HPF Urine Mucus Mod /LPF Test 08/02/20 07:40 08/02/20 07:57 Troponin I Quantitative < 0.017 ng/mL (0.000-0.055) Thyroid Stimulating Hormone (TSH) 6.290 uIU/mL (0.358-3.74) Microbiology 08/02/20 Urine Culture - Final, Complete Medications Current Medications Sodium Chloride 1,000 ml @ 1,000 mls/hr 1X ONCE IV Last administered on 08/01/20at 22:31; Start 08/01/20 at 23:00; Stop 08/01/20 at 23:59; Status DC Ondansetron HCl (Zofran) 4 mg PRN Q8HRS PRN IV NAUSEA/VOMITING 1ST CHOICE; Start 08/01/20 at 22:45; Stop 08/02/20 at 22:44; Status DC Lorazepam (Ativan) 0.5 mg PRN BID PRN PO ANXIETY / AGITATION Last administered on 08/02/20at 00:14; Start 08/02/20 at 00:00 Levetiracetam (Keppra) 500 mg BID PO Last administered on 08/03/20at 08:19; Start 08/02/20 at 09:00 Acetaminophen (Tylenol) 650 mg PRN Q6HRS PRN PO PAIN Last administered on 08/02/20at 18:42; Start 08/02/20 at 18:45 Amiodarone HCl (Cordarone) 400 mg DAILY PO ; Start 08/03/20 at 09:00; Stop 08/03/20 at 08:51; Status DC Aspirin (Ecotrin) 162 mg DAILY PO ; Start 08/03/20 at 09:00 Carvedilol (Coreg) 6.25 mg BIDWMEALS PO ; Start 08/03/20 at 09:00; Stop 08/03/20 at 08:51; Status DC Lorazepam (Ativan) 0.5 mg BID PO ; Start 08/03/20 at 09:00 Spironolactone (Aldactone) 25 mg DAILY PO ; Start 08/03/20 at 09:00 Active Scripts Active Amiodarone Hcl 200 Mg Tablet 400 Mg PO DAILY 30 Days Aldactone (Spironolactone) 25 Mg Tablet 25 Mg PO DAILY 30 Days Reported Ativan (Lorazepam) 0.5 Mg Tablet 0.5 Mg PO BID Carvedilol (Carvedilol) 6.25 Mg Tablet 6.25 Mg PO BIDWMEALS Tylenol (Acetaminophen) 325 Mg Tablet 650 Mg PO PRN Q6HRS PRN Proair Hfa Inhaler (Albuterol Sulfate) 8.5 Gm Hfa.aer.ad 1 Puff IH PRN Q4HRS PRN 21 Days Flonase Allergy Relief (Fluticasone Propionate) 9.9 Ml [place].susp 2 Sprays NS DAILY Multi Vitamin Daily (Multivitamin) 1 Each Tablet 1 Tab PO DAILY 30 Days Zyrtec (Cetirizine Hcl) 10 Mg Tablet 1 Tab PO DAILY Aspir-Low (Aspirin) 81 Mg Tablet.dr 2 Tab PO DAILY Vitals/I & O Vital Sign - Last 24 Hours 08/02/20 08/02/20 08/02/20 08/02/20 10:18 15:02 19:00 20:00 Temp 97.9 97.5 97.9 97.5 Pulse 77 85 Resp 18 19 B/P (MAP) 105/51 (69) 133/68 (89) Pulse Ox 96 96 O2 Delivery Room Air Room Air Room Air Room Air 08/02/20 08/03/20 08/03/20 22:34 02:43 06:57 Temp 98.1 97.8 99.0 98.1 97.8 99.0 Pulse 82 83 Resp 18 22 20 B/P (MAP) 103/45 (64) 100/50 (67) 109/50 (69) Pulse Ox 95 92 93 O2 Delivery Room Air Room Air Room Air Intake and Output 08/02/20 08/02/20 08/03/20 15:00 23:00 07:00 Intake Total 580 ml 700 ml 300 ml Output Total 1000 ml 950 ml Balance 580 ml -300 ml -650 ml Justicifation of Admission Dx: Justifications for Admission: Justification of Admission Dx: Yes CHF: Hemodynamic Instability ANA FROST MD Aug 03, 2020 09:13
[2020-08-03 10:17] VITALS: BP 129/66
--- NOTE | 2020-08-03 10:58 | NUR ---
SS following up with discharge planning. SS reviewed pt chart and discussed with pt RN. Pt is currently on room air. Cardiology requesting transfer to for wireless pacemaker. SS contacted transfer team, , and spoke with Judith. SS faxed records to , , as requested. Request made to radiology, [phone], to cloud images to . Packet, transfer form, and ambulance form on the chart. SS will continue to follow for discharge planning.
--- NOTE | 2020-08-03 13:27 | CARD ---
MR#: [id number] Date of Study: 08/02/2020 Ordering Physician: MARÍA VIDAL, Referring Physician: MARÍA VIDAL, Tech: Britt Valdivia [facility] APPROVED REPORT EXAM: LIMITED Two-dimensional echocardiogram with color and Doppler Other Information Quality : Good INDICATION LV Function:Systolic Non-Ischemic Cardiomyopathy 2D DIMENSIONS RVDd2.1 (2.9-3.5cm)Left Atrium(2D)3.7 (1.6-4.0cm) IVSd0.9 (0.7-1.1cm)Aortic Root(2D)3.1 (2.0-3.7cm) LVDd6.0 (3.9-5.9cm)PWd0.8 (0.7-1.1cm) LVDs5.4 (2.5-4.0cm)FS (%) 10.2 % SV39.9 mlLVEF(%)21.8 (>50%) Tricuspid Valve TR P. [id number] TR Peak [id number] LEFT VENTRICLE The Left Ventricle is mildly dilated. There is normal left ventricular wall thickness. Left ventricle systolic function is severely impaired. The Ejection Fraction is 15-20%. There is severe global hypo kinesis of the left ventricle. RIGHT VENTRICLE The right ventricle is normal size. The right ventricular systolic function is normal. ATRIA The left atrium size is normal. MITRAL VALVE The mitral valve is mildly thickened but opens well. Mitral annular calcification is mild. There is n o evidence of mitral valve prolapse. TRICUSPID VALVE The tricuspid valve is normal in structure and function. Doppler and Color Flow revealed trace tricus pid regurgitation. The PA pressure was estimated at 16 mmHg. There is no tricuspid valve stenosis. GREAT VESSELS The aortic root is normal in size. The IVC is normal in size and collapses >50% with inspiration. PERICARDIAL EFFUSION There is no evidence of significant pericardial effusion. Critical Notification Critical Value: No <Conclusion> Limited echo to assess LV function. Left ventricle systolic function is severely impaired. The Ejection Fraction is 15-20%. Trace tricuspid regurgitation. The PA pressure was estimated at 16 mmHg. There is no evidence of significant pericardial effusion. Signed by : Gilbert Mayen, Electronically Approved : 08/03/2020 13:27:26
--- NOTE | 2020-08-03 14:13 | NUR ---
SS following up with discharge planning. SS received phone contact from Judith with the [facility] transfer team stating that pt has been accepted under Dr. Bev Lindquist. SS currently awaiting bed availability at this time. Pt's RN notified. SS will continue to follow for discharge planning.
--- NOTE | 2020-08-03 15:29 | RAD ---
Exam Date: 08/03/2020 11:[address] ABDOMEN+PELVIS WO Indication: Reason: staging-PRIMARY L BREAST CA / Spl. Instructions: / History: TECHNIQUE: CT examination of the abdomen and pelvis was performed without oral or intravenous contra st. One or more of the following dose reduction techniques were utilized: *Automated exposure control (AEC) *Adjustment of mA and/or kV according to patient size *Use of iterative reconstruction technique *CT scan done according to ALARA, or ALARA/IMAGE GENTLY FINDINGS: Evaluation is limited in the absence of IV and oral contrast. The visualized lung bases are clear. Status post cholecystectomy. Calcified granulomas are seen in the liver. The spleen is absent with po stoperative changes in the left upper quadrant suggesting prior splenectomy. The liver, pancreas, and adrenal glands are otherwise normal. The kidneys are normal bilaterally. No hydronephrosis or hydroureter is seen. No urinary tract calc [place] are seen. Urinary bladder is normal in appearance. Diverticulosis coli is seen without bowel obstruction or inflammation. No evidence for acute appendic itis. Mild atherosclerotic calcifications are seen. Abdominal aorta is ectatic. No lymphadenopathy or ascit es is seen. Degenerative changes are seen in the spine. IMPRESSION: No evidence for intra-abdominal metastatic disease or lymphadenopathy, though evaluation is limited i n the absence of IV and oral contrast. Electronically signed by: Ciro Moise MD (08/03/2020 3:26 PM) [id number]
[2020-08-03 15:31] VITALS: BP 146/74
--- NOTE | 2020-08-03 16:16 | PDOC ---
CARDIO Progress Notes Date and Time Date of Service 08/03/2020 Time of Evaluation 1540 Subjective Subjective: No Chest Pain, No shortness of breath, No Palpitations Vitals Vitals Vital Signs Date Time Temp Pulse Resp B/P (MAP) Pulse Ox O2 Delivery O2 Flow Rate FiO2 08/03/20 15:31 97.7 85 18 146/74 (98) 97 Room Air 97.7 Weight Weight [ ] Input and Output Intake and Output Intake and Output 08/03/20 07:00 Intake Total 1580 ml Output Total 1950 ml Balance -370 ml Intake Oral 1580 ml Output Urine Total 1950 ml # Voids 1 # Bowel Movements 1 Laboratory Labs Laboratory Tests Test 08/03/20 12:10 SARS-CoV-2 Antigen (Rapid) Negative (NEGATIVE) Microbiology Micro Microbiology 08/02/20 Urine Culture - Final, Complete Physical Exam HEENT: Neck Supple W Full Motion Chest: Symmetric LUNGS: Clear to Auscultation Heart: S1S2, RRR (SR) Abdomen: Soft N/T Extremities: No Edema, No Calf Tenderness Neurology: alert, oriented, follow commands Assessment Assessment 1. Seizure: recent MRI unrevealing for any brain lesion. Convulsions per daughter. Neurology following 2. Third degree heart block: suspect ictal bradyarrhythmia. Initially treated with TCP now off and no further episodes and maintaining SR. Again no further episodes of CHB 3. Chronic trifascicular block 4. Severe NICM: EF at 15-20% compesated 5. 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 Started on radiation therapy 6. Chronic systolic CHF: compensated 7. HTN: controlled, negative for orthostasis 8. Recent GRINDER DRESSER-D explantation due to infection: completed antibiotics. 9. Hx of V: no VT episodes per Zoll 10. Subclinical hypothyroidism: TSH 6.2 likely amio related 11. UTI? defer to PCP Recommendations Given her significant cardiac disease, potential progression to bradyarrhythmia with SSS is possible vs seizure related bradyarrhythmia. Monitor rhythm. Continue with lifevest. Hold amiodarone, and coreg for now. Monitor BP trend. Ultimately given her NICM and recent changes to her rhythm will need at least a pacemaker back up for antiarrhythmic therapy and HF optimization therapy are to be resumed. Anticipate transfer to [facility] for potential Micra placement and consideration for SUBQ ICD Continue aldactone. Hydralazine IV PRN Justicifation of Admission Dx: Justifications for Admission: Justification of Admission Dx: Yes CHF: Hemodynamic Instability MARÍA VIDAL PAYROLL ACCOUNTING SPECIALIST Aug 03, 2020 16:16
--- NOTE | 2020-08-03 16:16 | NUR ---
SS following up with discharge planning. Bed assignment received for . Bed number [id number]. Report# [id number]. Pt will discharge today and go to via [facility] ambulance, . Pt, pt's RN, and pt's family notified. Packet, transfer form, ambulance form on the chart.
--- NOTE | 2020-08-03 17:26 | NUR ---
Patient transferred out of [facility] at approximately 1700 to transfer to by EMS. All belongings taken with patient to . Patient able to walk from inpatient bed to EMS [facility]. Report given to nurse receiving patient.
--- NOTE | 2020-08-03 18:55 | DS ---
DATE OF DISCHARGE: 08/03/2020 HOSPITAL SUMMARY: The patient came in with another seizure-like episode that was accompanied by a period of third-degree AV block that resolved spontaneously. She had no further cardiac arrhythmias while in the hospital and was started on Keppra per the neurologist. All laboratory studies were unremarkable. She underwent her second episode of radiation to her chest for her lung cancer and Dr. Berumen transferred her to [facility] for consideration of a wireless pacemaker, which could not be accomplished at [place] because of the episodes of third-degree heart block that may be contributing to the seizures. FINAL DIAGNOSES: 1. Seizure-like activity. 2. Third-degree AV block, transient, resolved. 3. Primary cancer of the lung. OPERATIONS AND PROCEDURES: Radiation therapy. COMPLICATIONS: None. CONSULTATIONS: Dr. Berumen and Dr. Richmond. DISPOSITION: Transferred to [facility] in stable condition. ROSY BECKHAM MD DR: SHOBHA/karthikeyan JOB#: [id number] / [id number]
== END 2020-08-03 17:34 | disposition short-term general hospital (02) | DRG 101 ==
LOC: ER 21:13 → 2 NORTH 21:49 → OBSVTOIN 08-03 16:00
PROVIDERS: ADMIT Family Medicine; ATTEND Family Medicine
DX: G40.89 Other seizures (principal); C34.90 Malignant neoplasm of unspecified part of unspecified bronchus or lung; I44.2 Atrioventricular block, complete; I50.22 Chronic systolic (congestive) heart failure; I42.8 Other cardiomyopathies; I45.3 Trifascicular block; I11.0 Hypertensive heart disease with heart failure; I25.10 Atherosclerotic heart disease of native coronary artery without angina pectoris; E03.9 Hypothyroidism, unspecified; F41.9 Anxiety disorder, unspecified; K21.9 Gastro-esophageal reflux disease without esophagitis; K57.90 Diverticulosis of intestine, part unspecified, without perforation or abscess without bleeding; M19.90 Unspecified osteoarthritis, unspecified site; R00.1 Bradycardia, unspecified; R40.0 Somnolence; Z20.822 Contact with and (suspected) exposure to COVID-19; Z60.2 Problems related to living alone; J45.909 Unspecified asthma, uncomplicated; Z88.5 Allergy status to narcotic agent; Z88.2 Allergy status to sulfonamides; Z95.810 Presence of automatic (implantable) cardiac defibrillator; Z90.49 Acquired absence of other specified parts of digestive tract; Z90.12 Acquired absence of left breast and nipple; Z90.81 Acquired absence of spleen; Z98.51 Tubal ligation status; Z90.710 Acquired absence of both cervix and uterus; Z85.71 Personal history of Hodgkin lymphoma; Z87.891 Personal history of nicotine dependence; Z85.3 Personal history of malignant neoplasm of breast; Z82.3 Family history of stroke; Z82.49 Family history of ischemic heart disease and other diseases of the circulatory system; Z88.8 Allergy status to other drugs, medicaments and biological substances; Z91.030 Bee allergy status; Z91.018 Allergy to other foods
CPT/HCPCS: 36415; 70450; 71045; 74176; 80053; 81001; 83735; 84443; 84484; 85025; 87086; 87426; 93005; 93308; 93320; 93325; 96360; G0378; G0379; J7030; U0003; 99285-25

== ENCOUNTER → 2020-08-19 | Outpatient (CLI) | payer MEDICARE ==
[2020-08-03 15:31] VITALS: BP 146/74
[~2020-08-19] MED LIST changes: +CARV6.2511 PO
--- NOTE | 2020-08-19 17:08 | RAD ---
EXAM: NM PET/CT SKULL BASE TO MID THIGH EXAM DATE: 08/19/2020 INDICATION: Restaging Hodgkin's disease, breast, cervical and lung cancer. RADIOPHARMACEUTICAL: 12.5 mCi of F-18 Fluorodeoxyglucose (FDG) I.V. via the right hand. TECHNIQUE: Patient weight: 141 pounds. Following at least four-hour fasting, the patient's blood gluc ose was 93 mg/dl. Approximately 1 1/2 hours after administration of FDG, overlapping emission scanni ng was performed from the orbital meatal line through the pelvis. A low-dose CT was performed for at tenuation correction purposes and anatomic localization. Fused images of PET and CT were reviewed. A ny standardized uptake values (SUV) reported are maximum values within a volume region of interest, e xpressed in gm/ml. COMPARISON: Abdomen and pelvis CT without IV contrast of 08/03/2020, CT guided lung biopsy of 07/06/2020 FINDINGS: PET: Recently biopsied spiculated anterior left apical 2 cm lung nodule abutting the anterior pleura shows abnormal FDG uptake to max SUV of 8.1 Max SUV. This compares with background mediastinal FDG uptake of 2.5. No abnormal FDG uptake in the mediastinum. There is also FDG uptake in the subcutaneous soft tissues of the superior right chest wall, previously containing foci of gas on the CT guided lung bio psy. Correlate for any history of port removal. FDG uptake to max SUV of 6.4 is present at this locat ion. There is otherwise no abnormal FDG uptake identified in the included field of view. Background FDG up take in the liver measures 2.6. CT: Bilateral mastectomy. Cardiomegaly, dense multivessel coronary calcifications, normal caliber thoraci c aorta with dense calcifications near the aortic valve and presence of an intracardiac medical devic e in the right ventricle near the right ventricular outflow tract. It is suboptimally evaluated on no ncontrast CT. Extensive calcified mediastinal lymph nodes are present. No noncalcified adenopathy is apparent in the mediastinum or arcenio. Lungs show multiple tiny calcified and noncalcified nodules in the left apex. Additional calcified carr bcentimeter nodules in the left lower lobe near the hilum are evident. No pneumothorax or pleural eff usion. Abdomen shows cholecystectomy and splenectomy surgical changes with unremarkable liver, pancreas adre nal glands and right kidney. Left kidney shows nonobstructing inferior pole calcification measuring 6 mm. No abdominal adenopathy or mass. Distal abdominal aortic calcification and ectasia to 2.3 cm. Bowel shows no evidence of obstruction, perforation or acute inflammation but extensive colonic diver ticulosis is present. Moderate stool throughout the large bowel also noted. No ascites, free air or f luid collection is apparent. Pelvis shows absent uterus and no adnexal mass. Ovaries not seen and may be surgically absent as well . Urinary bladder is unremarkable. No acute or aggressive appearing bony lesions. IMPRESSION: 1. FDG avid 2 cm left upper lobe lung nodule showing abnormal FDG uptake to max SUV of 8.1, compatibl e with a malignant lung nodule. Correlate with histology. Otherwise no findings suspicious for an FD G active malignancy in the included field of view, with multiple calcified mediastinal and lung nodul es likely reflecting sequelae of previous Hodgkin's disease treatment. 2. Uptake in the anterior right chest wall subcutaneous soft tissues to max SUV of 6.4 is favored inf lammatory. Correlate clinically. Electronically signed by: Adán Encnias MD (08/19/2020 5:05 PM) [id number]
== END ==
LOC: PETSC 10:57
PROVIDERS: ATTEND Radiology Radiation Oncology
DX: C34.12 Malignant neoplasm of upper lobe, left bronchus or lung (principal); R91.1 Solitary pulmonary nodule; Z90.49 Acquired absence of other specified parts of digestive tract
CPT/HCPCS: 78815; A9552

== ENCOUNTER → 2020-12-30 | Outpatient (CLI) | payer MEDICARE ==
[2020-10-12 09:10] VITALS: BP 117/64
[~2020-12-30] MED LIST changes: +CARV3.12 PO; -DOCU-150 PO; +DOCU-158 PO; +DOXY-181 PO; -DOXY100C14 PO
--- NOTE | 2020-12-30 13:04 | RAD ---
NM PET/CT SKULL BASE TO MID THIGH Clinical Indication: Lung cancer Comparison: CT October 08, 2020 and PET/CT August 19, 2020 Technique: Patient blood glucose at the time of injection is 95 mg/dL. The patient was administered 1 3.16 mCi of F-18 FDG intravenously. The patient rested quietly during a 60 minute uptake period. Then PET imaging from the skull base to the upper thighs was performed. A noncontrast CT was acquired ove r this same area. The CT is for attenuation correction and anatomic localization, it is not of diagno stic quality and is not intended to diagnose disease independently of the PET. PQRS Compliance Statement: One or more of the following individualized dose reduction techniques were utilized for this examinat ion: 1. Automated exposure control 2. Adjustment of the mA and/or kV according to patient size 3. Use of iterative reconstruction technique Findings: Background: Mediastinal SUV max: 2.6 Liver SUV max: 2.5 Head and neck: There is no evidence of FDG-avid disease. Chest: Decreased left upper lung anterior spiculated mass measures 1.5 x 1.1 cm (compared to 2.1 x 1.5 cm) w ith SUV max 2.67 (compared to prior SUV max 8.1). Decreased left upper lobe groundglass opacities, li ysabel resolving treatment effect. Unchanged left lower lobe pleural-based nodule which is also unchanged compared to prior PET August 20 although indeterminate evaluation on PET given size. 2 mm right upper lobe fissure-based nodule se robi 3 image 96), unchanged. Calcified mediastinal and hilar lymph nodes related to prior treated lymphoma. No hypermetabolic lymp hadenopathy within the chest. Cardiac megaly. No pleural effusion. No pneumothorax. Abdomen and pelvis: The liver, adrenal glands and pancreas are unremarkable. Prior cholecystectomy. Prior splenectomy. No nobstructing left inferior renal calculus. No hydronephrosis. Decompressed urinary bladder. Colonic diverticulosis. No pathologic lymphadenopathy. No evidence of bowel obstruction. No ascites. Atheromatous plaque throughout the nonaneurysmal abdominal aorta and branch vessels. Musculoskeletal: Right anterior chest wall muscle uptake related to activity. IMPRESSION: 1. Decreased left upper lobe mass with decreased adjacent ground glass opacities and overall decreas ed hypermetabolic activity, favor treatment response. 2. Unchanged left lower lobe pleural-based nodule compared to prior PET/CT. Recommend attention on f ollow-up. Electronically signed by: Joseph Ivory DO (12/30/2020 1:02 PM) [id number]
== END ==
LOC: PETSC 09:33
PROVIDERS: ATTEND Radiology Radiation Oncology
DX: C34.12 Malignant neoplasm of upper lobe, left bronchus or lung (principal); R91.1 Solitary pulmonary nodule; I70.0 Atherosclerosis of aorta; K57.30 Diverticulosis of large intestine without perforation or abscess without bleeding; N20.0 Calculus of kidney; R59.0 Localized enlarged lymph nodes; Z90.49 Acquired absence of other specified parts of digestive tract; Z90.81 Acquired absence of spleen
CPT/HCPCS: 78815; A9552

== ENCOUNTER → 2021-05-12 | Day surgery (SDC) | payer MEDICARE ==
[~2021-05-12] VITALS: Ht 162.6 cm; Wt 53.6 kg
[~2021-05-12] MED LIST changes: +ACET325T21 PO; +AMIO200T53 PO; -AMIO200T6 PO; +ASPI-630 PO; +ATOR40TA59 PO; +CETI1TAB PO; +DAPA10TA PO; +EPLE50TA3 PO; +FLUT16SP NS; +IV RINGERS,LACTATED 1000ML 1,000 ML IV ONE; -LISI-517 PO; -LISI1TAB23 PO; +LISI1TAB35 PO; +LISI5TAB15 PO; +MELA3TAB4 PO; +METO-239 PO; +NITR0.4T22 SL; +PROPOFOL 10 MG/ML (20ML) VIAL. IV ONE; +TORS20TA2 PO
[2021-05-12 08:01] VITALS: BP 101/49
[2021-05-12 09:29] VITALS: BP 112/53
== END | disposition home or self-care (01) ==
LOC: ENDOS 07:34
PROVIDERS: ATTEND Internal Medicine Gastroenterology
DX: R13.10 Dysphagia, unspecified (principal); K29.50 Unspecified chronic gastritis without bleeding; K31.89 Other diseases of stomach and duodenum; I10 Essential (primary) hypertension; J44.9 Chronic obstructive pulmonary disease, unspecified; K21.9 Gastro-esophageal reflux disease without esophagitis; M19.90 Unspecified osteoarthritis, unspecified site; M81.0 Age-related osteoporosis without current pathological fracture; F41.9 Anxiety disorder, unspecified; Z90.49 Acquired absence of other specified parts of digestive tract; Z90.710 Acquired absence of both cervix and uterus; Z98.51 Tubal ligation status; Z98.890 Other specified postprocedural states; Z85.3 Personal history of malignant neoplasm of breast; Z87.891 Personal history of nicotine dependence; Z79.82 Long term (current) use of aspirin; Z79.899 Other long term (current) drug therapy; Z82.49 Family history of ischemic heart disease and other diseases of the circulatory system; Z80.3 Family history of malignant neoplasm of breast; Z88.6 Allergy status to analgesic agent; Z88.2 Allergy status to sulfonamides; Z88.8 Allergy status to other drugs, medicaments and biological substances; Z72.89 Other problems related to lifestyle
CPT/HCPCS: 43235; 43450; J2704

== ENCOUNTER → 2021-07-19 | Outpatient (CLI) | payer MEDICARE ==
[2021-05-12 09:29] VITALS: BP 112/53
[~2021-07-19] MED LIST changes: -IV RINGERS,LACTATED 1000ML 1,000 ML IV ONE; -PROPOFOL 10 MG/ML (20ML) VIAL. IV ONE
--- NOTE | 2021-07-19 15:50 | RAD ---
EXAM: Chest CT without intravenous contrast. HISTORY: Lung cancer restaging. TECHNIQUE: Computed tomographic images of the chest were obtained without contrast. Multiplanar refor matting was performed. *One or more of the following individualized dose reduction techniques were utilized for this examina tion: 1. Automated exposure control. 2. Adjustment of the mA and/or kV according to patient size. 3. Use of iterative reconstruction technique. COMPARISON: PET/CT dated 12/13/2020. FINDINGS: There is an irregular nodule within the posterior right lower lobe abutting the pleura and associated with slight pleural thickening, measuring 1.4 cm in maximum dimension. There is a 2.7 cm s piculated nodule within the anterior left lung apex, not significantly changed when allowing for diff erences in slice position and volume averaging. There are multiple scattered surrounding radiodensiti es. There is bronchial wall thickening. There is a small left pleural effusion. There is lateral left basilar and medial right basilar atelec tasis. There is a new 6 mm nodule within the lateral right lower lobe (series 3, image 28). There is stable groundglass opacity along the medial right minor pleural fissure measuring 8 mm. There is a st able 2 mm groundglass nodule within the posterior right upper lobe. There are few additional scattere d faint groundglass opacities within both lungs which are stable in appearance. There is emphysema. T here are calcified granulomas. There is cardiomegaly. There are cardiac pacemaker leads. There is coronary artery calcification. The re is calcification of the aortic valve. There is calcification within the anterior superior mediasti num. There are left mastectomy changes. The is no suspicious finding involving the visualized portion s of the liver. The spleen is absent. There is a 3 mm nonobstructing left renal stone. There are mode rate chronic appearing T9 and T6 compression fractures. There is a mild chronic appearing T5 compress ion fracture. There is bone demineralization. There are few osseous hemangiomas and bone islands. IMPRESSION: 1. 2.7 cm spiculated nodule within the anterior left lung apex, not appreciably changed when allowing for differences in slice position and volume averaging. 2. 1.4 cm irregular nodular opacity within the posterior right lower lobe, possibly obscured on the p rior exam due to a prior right pleural effusion and posterior airspace disease. This may be infectiou s, inflammatory or neoplastic. This is within limits in size for assessment with PET/CT. There is als o a new 6 mm right lower lobe pulmonary nodule. 3. Multiple scattered nonspecific groundglass opacities, likely postinfectious or postinflammatory in etiology. Attention at the time of follow-up is recommended. 4. Bronchial wall thickening likely due to sequela of bronchitis. Electronically signed by: Lesly Bell MD (07/19/2021 3:48 PM) [id number]
== END ==
LOC: CT 15:24
PROVIDERS: ATTEND Radiology Radiation Oncology
DX: C34.12 Malignant neoplasm of upper lobe, left bronchus or lung (principal); R91.8 Other nonspecific abnormal finding of lung field; J98.09 Other diseases of bronchus, not elsewhere classified; I51.7 Cardiomegaly; I25.10 Atherosclerotic heart disease of native coronary artery without angina pectoris; J84.10 Pulmonary fibrosis, unspecified; J43.9 Emphysema, unspecified; J98.11 Atelectasis; N20.0 Calculus of kidney; J98.59 Other diseases of mediastinum, not elsewhere classified; M81.8 Other osteoporosis without current pathological fracture; D18.09 Hemangioma of other sites; M48.54XA Collapsed vertebra, not elsewhere classified, thoracic region, initial encounter for fracture; Z90.81 Acquired absence of spleen; Z90.12 Acquired absence of left breast and nipple; Z95.0 Presence of cardiac pacemaker
CPT/HCPCS: 71250